=== PATIENT | male | born 1930 | race Two or more races ===

== ENCOUNTER 2017-01-18 15:30 | Inpatient (IN) | payer MEDICARE, MEDICAID ==
[~2017-01-18] VITALS: Ht 172.7 cm; Wt 91.0 kg
[~2017-01-18 15:30] MED LIST: ASPI81TA44 PO; DILT120C2 PO; HYDR25TA4 PO; LOSA1TAB36 PO; MECL-102 PO; OXYB10TA PO; TAMS0.4C34 PO
--- NOTE | 2017-01-18 15:35 | NUR ---
[id number] FROM HOME SYNCOPE FOUND BY CG BATHROOM BS IN FIELD 175. PATIENT IS A/OX 2 AT THE MOMENT. BREATHING EVEN AND UNLABORED. NO SOB. VITALS STABLE. SAFETY AND COMFORT MEASURES IN PLACE. AWAITING MD ORDERS.
--- NOTE | 2017-01-18 15:52 | NUR ---
BLOOD DRAWN AND SENT TO LAB
[2017-01-18 15:57] LABS: BASOPHILS # (AUTO) 0.3 /CMM (0.0-0.2); BASOPHILS % (AUTO) 2.3 % (0.0-2.0); EOSINOPHILS # (AUTO) 0.1 /CMM (0.0-0.7); EOSINOPHILS % (AUTO) 0.7 % (0.0-6.0); HEMATOCRIT 46 % (39-51); HEMOGLOBIN 15.1 g/dL (13.5-17.5); LYMPHOCYTES # (AUTO) 1.4 /CMM (0.8-4.8); LYMPHOCYTES % (AUTO) 10.4 % (20.0-44.0); MEAN CORPUSCULAR HEMOGLOBIN 30 PG (26.0-33.0); MEAN CORPUSCULAR HGB CONC 33 g/dl (31.0-36.0); MEAN CORPUSCULAR VOLUME 91 fL (80-96); MONOCYTES # (AUTO) 0.9 /CMM (0.1-1.30); MONOCYTES % (AUTO) 6.7 % (2.0-12.0); NEUTROPHILS % (AUTO) 79.9 % (43.0-81.0); PLATELET COUNT (AUTO) 170 /CMM (150-450); RDW COEFFICIENT OF VARIATION 13.1 (11.5-15.0); RED BLOOD CELL COUNT(AUTO) 5.05 MIL/uL (4.5-6.0); WHITE BLOOD COUNT (AUTO) 13.7 K/uL (4.3-11.0)
[2017-01-18] MEDS ORDERED: OXYB5TAB PO (15:57)
--- NOTE | 2017-01-18 16:04 | NUR ---
PATIENT TAKEN TO CT VIA STRETCHER.
[2017-01-18 16:08] LABS: MAGNESIUM 2.3 mg/dL (1.8-2.4)
[2017-01-18 16:09] LABS: CALCIUM, SERUM 9.2 mg/dL (8.5-10.1); CARBON DIOXIDE 27 mmol/L (21-32); CHLORIDE 101 mmol/L (98-107); CREATININE 3.3 mg/dL (0.6-1.3); GLUCOSE 168 mg/dL (74-106); POTASSIUM 3.9 mmol/L (3.5-5.1); SODIUM SERUM 137 mmol/L (136-145); UREA NITROGEN, BLOOD 47 mg/dL (7-18)
[2017-01-18 16:12] LABS: INR 1.01 (0.87-1.13); PROTHROMBIN TIME 10.5 SECS (9.5-12.7)
[2017-01-18 16:15] LABS: ALANINE AMINOTRANSFERASE 74 U/L (12-78); ALBUMIN 3.2 g/dL (3.4-5.0); ALKALINE PHOSPHATASE 40 U/L (46-116); ASPARTATE AMINOTRANSFERASE 192 U/L (15-37); BILIRUBIN,DIRECT 0.2 mg/dL (0.0-0.2); BILIRUBIN,TOTAL 0.5 mg/dL (0.2-1.0); TOTAL PROTEIN, SERUM 7.5 g/dL (6.4-8.2)
[2017-01-18 16:17] LABS: TROPONIN I 0.086 ng/mL (0.00-0.056)
[2017-01-18 16:42] LABS: THYROID STIMULATING HORMONE 1.29 uIU/mL (0.358-3.74)
--- NOTE | 2017-01-18 16:43 | NUR ---
REPORT GIVEN TO CRICKET MAKI FOR ADMISSION.
[2017-01-18] MEDS ORDERED: PIPERACILLIN /TAZOBACTAM 2.25 G in IV D5W 50 ML IV STA (17:25)
[2017-01-18] MEDS ORDERED: ASPIRIN 81 MG TAB.CHEW PO STA (17:35)
[2017-01-18] MEDS ORDERED: ASPIRIN 81 MG TAB.CHEW ONE (17:47)
--- NOTE | 2017-01-18 18:05 | NUR ---
US TECH AT BEDSIDE.
--- NOTE | 2017-01-18 18:56 | NUR ---
PATIENT AND FAMILY REFUSING DR. PARSON ADMITTING MD. STATING THEY HAVE CHANGED THEIR PRIMARY MD LONG TIME AGO. AGREEING TO SEE ANY OTHER HOSPITALIST ADMITTING MD. DR. MUNIZ INFORMED.
--- NOTE | 2017-01-18 19:03 | NUR ---
PAGED DR PARSON
--- NOTE | 2017-01-18 19:21 | NUR ---
Assumed care of pt. Harry, STONE DECORATOR at bedside for further eval. pt assisted to restroom w/ resp even & unlabored, nad noted. On continuous monitoring. Family at bedside.
--- NOTE | 2017-01-18 19:36 | NUR ---
CALLED DR ROLDAN, HVAC SHEET METAL INSTALLER SURGEON.
[2017-01-18] MEDS ORDERED: DEXTROSE 50%-WATER 50 ML DISP.SYRIN IV PRN (20:00)
[2017-01-18] MEDS ORDERED: ZOLPIDEM TARTRATE 5 MG TABLET PO PRN (20:00)
[2017-01-18] MEDS ORDERED: MAGNESIUM HYDROXIDE 30 ML UDC PO PRN (20:00)
[2017-01-18] MEDS ORDERED: ACETAMINOPHEN 325 MG TABLET PO PRN (20:00)
[2017-01-18] MEDS ORDERED: MAG HYDROX/AL HYDROX/SIMETH 30 ML UDC PO PRN (20:00)
[2017-01-18] MEDS ORDERED: ONDANSETRON HCL/PF 4 MG/2 ML VIAL IVP PRN (20:00)
--- NOTE | 2017-01-18 20:15 | NUR ---
MS/RN NOTES NEW ADMITTED PATIENT, RECEIVED FROM ER ON A GURNEY, ALERT, ORIENTED X3, SPEAKS TELUGU AND REQUIRE RESTAURANT MANAGING PARTNER, FAMILY AT BED SIDE AND INVOLVE WITH CARE. PATIENT DX W/ SYNCOPE AND NSTEMI, TROPONIN HIGH AND WAS GIVEN ASPIRIN AT TH ER, IV ATB ZOSYN GIVEN AT ER, HAD FALL AND STATED BY CAREGIVER, NOTED REDNESS ON VARIOUS AREAS OF EXTREMITIES, TELE READING WITH UNCONTROLLED AFIB IN 120'S, PATIENT REPORTED TO Alexa WEI, RAMOS AND ORDERED FOR CARDIZEM 30MG TAB, NPO AFTER MIDNIGHT FOR HIDA SCAN, F/U CONSENT FORM. PATIENT ON OXYGEN 2L, RESPIRATIONS EVEN AND UNLABORED,DENIES PAIN, SKIN WARM TO TOUCH, BOWEL SOUNDS HEARD IN ALL 4 QUADRANTS, WILL MONITOR.
[2017-01-18 20:30] VITALS: BP 131/73
[2017-01-18] MEDS ORDERED: MORPHINE SULFATE INJ 10 MG/ML DISP.SYRIN IV PRN (20:30)
[2017-01-18 21:05] VITALS: BP 131/73
[2017-01-18] MEDS ORDERED: DILTIAZEM HCL 30 MG TABLET ONE (22:18)
[2017-01-18] MEDS: FAMOTIDINE (20 MG) 20 MG TABLET PO SCH (22:20)
[2017-01-18] MEDS: BLOOD SUGAR DIAGNOSTIC 1 EACH STRIP IN SCH (22:21)
[2017-01-18] MEDS: TAMSULOSIN 0.4 MG CAP.SR.24H PO SCH (22:44)
[2017-01-18] MEDS: DILTIAZEM HCL 30 MG TABLET PO SCH (22:45)
[2017-01-19] VITALS (9 sets, daily range): BP systolic 102–129; BP diastolic 62–78
[2017-01-19] MEDS: PIPERACILLIN /TAZOBACTAM 2.25 G in IV D5W 50 ML IV SCH ×4 (00:17→17:25)
[2017-01-19] MEDS: IV NS 0.9% 1,000 ML IV PRN (02:57)
--- NOTE | 2017-01-19 03:56 | NUR ---
ms/rn notes PATIENT IV SITE ON LEFT AC LEAKING, REINSERTED IN RIGHT HAND IV GAUGE 20, ABLE TO HAVE BLOOD RETURN AFTER 3 ATTEMPTS.
[2017-01-19] MEDS: BLOOD SUGAR DIAGNOSTIC 1 EACH STRIP IN SCH ×4 (06:17→21:44)
--- NOTE | 2017-01-19 06:35 | NUR ---
TELE/RN NOTES PATIENT ALERT, ORIENTED X2, MOHAWK SPEAKING, RESPIRATION EVEN AND UNLABORED, ON NPO FOR PROCEDURE hida SCAN IN AM, CONSENT FORM TO BE SIGNED, SEWING INSPECTOR REQUIRES, ON IV HYDRATION, IV ON RIGHT HAND, W/ NO S/S OF INFILTRATION, BED IN LOCK POSITION, OXYGEN VIA NASAL CANULA T 2L. MONITORING FOR PAIN . ON TELE READING W/ UNCONTROLLED AFIB AT AFIB, 111, PRN CARDIZEM ADMINISTRERED PO WILL ENDORSE TO AM RN.
--- NOTE | 2017-01-19 06:38 | NUR ---
[facility] DR[facility]
--- NOTE | 2017-01-19 06:52 | NUR ---
TELE/RN CLOSING NOTES PATIENT ASLEEP IN BED HOB ELEVATED, IV SITE ON RIGHT HAND W/ NO S/S OF INFILTRATION, ON OXYGEN VIA NC. BED IN LOCK POSITION, CALL LIGHTS WITHIN REACH. FAMILY CONTACTED REGARDIND PROCEDURE OF HIDA SCAN IN AM, FAMILY WOULD COME MILLY AM TO TALK TO MD REGARDING PROCEDURE AND WILL NOT SIGN CONSENT FOR NOW. WILL ENDORSE TO AM RN.
--- NOTE | 2017-01-19 07:31 | NUR ---
tele/rn notes ORTHOSTATIC B/P CHECK SITTING 116/78 AND LAYING DOWN 113/72
[2017-01-19] MEDS ORDERED: ACETAMINOPHEN 325 MG TABLET PO PRN (08:30)
[2017-01-19] MEDS: ASPIRIN 325 MG TABLET PO SCH (08:56)
[2017-01-19] MEDS: OXYBUTYNIN CHLORIDE ER 5 MG TAB PO SCH (08:56)
[2017-01-19] MEDS: DILTIAZEM HCL 30 MG TABLET PO SCH ×4 (08:56→21:06)
[2017-01-19] MEDS: FAMOTIDINE (20 MG) 20 MG TABLET PO SCH ×2 (08:56→21:06)
--- NOTE | 2017-01-19 08:58 | NUR ---
RN NOTES ALERTED TO BED ALARM. PATIENT ATTEMPTING TO GET OUT OF BED. WITH THE HELP OF A IVORIAN SPEAKING NURSE, WAS ABLE TO GET PATIENT BACK AND BED AND TOLD HIM NOT TO GET UP WITHOUT HELP. PATIENT STATES UNDERSTANDING. BED ALARM ACTIVE. WILL MONITOR.
--- NOTE | 2017-01-19 09:45 | NUR ---
RN NOTES PATIENT SON, SEYMOUR AT THE BEDSIDE. SEYMOUR STATS THAT HE DOES NOT WANT ANY TESTING FOR HIS FATHER THAT INVOLVES INVASIVE TREATMENT SUCH THE HITA SCAN. EXPLAINED THE IMPORTANCE OF THE TEST AND THE PROCEDURE WITH THE HELP OF [facility] FROM NUCLEAR MEDICINE, BUT THE PATIENT SON IS STILL REFUSING. SEYMOUR STATES THAT HE WILL TALK WITH HIS BROTHER THIS EVENING AND DECIDE IF THEY WILL ALLOW THE PATIENT TO HAVE THE TEST TOMORROW. WILL INFORM .
[2017-01-19] MEDS: INSULIN REGULAR, HUMAN 100 UNIT/ML 3 ML VIAL SQ PRN ×2 (12:20→17:26)
[2017-01-19 15:29] LABS: BASOPHILS % (AUTO) 0.2 % (0.0-2.0); EOSINOPHILS # (AUTO) 0.1 /CMM (0.0-0.7); EOSINOPHILS % (AUTO) 1.3 % (0.0-6.0); HEMATOCRIT 38 % (39-51); HEMOGLOBIN 12.7 g/dL (13.5-17.5); LYMPHOCYTES # (AUTO) 0.9 /CMM (0.8-4.8); LYMPHOCYTES % (AUTO) 9.4 % (20.0-44.0); MEAN CORPUSCULAR HEMOGLOBIN 30 PG (26.0-33.0); MEAN CORPUSCULAR HGB CONC 33 g/dl (31.0-36.0); MEAN CORPUSCULAR VOLUME 91 fL (80-96); MONOCYTES # (AUTO) 0.6 /CMM (0.1-1.30); MONOCYTES % (AUTO) 6.5 % (2.0-12.0); NEUTROPHILS # (AUTO) 8.3 /CMM (1.8-8.9); NEUTROPHILS % (AUTO) 82.6 % (43.0-81.0); PLATELET COUNT (AUTO) 162 /CMM (150-450); RDW COEFFICIENT OF VARIATION 14.4 (11.5-15.0); RED BLOOD CELL COUNT(AUTO) 4.25 MIL/uL (4.5-6.0)
[2017-01-19 16:03] LABS: ALANINE AMINOTRANSFERASE 78 U/L (12-78); ALBUMIN 2.6 g/dL (3.4-5.0); ALKALINE PHOSPHATASE 35 U/L (46-116); ASPARTATE AMINOTRANSFERASE 106 U/L (15-37); BILIRUBIN,DIRECT 0.1 mg/dL (0.0-0.2); BILIRUBIN,TOTAL 0.5 mg/dL (0.2-1.0); CALCIUM, SERUM 8.4 mg/dL (8.5-10.1); CARBON DIOXIDE 24 mmol/L (21-32); CHLORIDE 103 mmol/L (98-107); CREATININE 2.2 mg/dL (0.6-1.3); GLUCOSE 136 mg/dL (74-106); MAGNESIUM 2.3 mg/dL (1.8-2.4); PHOSPHORUS 2.3 mg/dL (2.5-4.9); POTASSIUM 3.3 mmol/L (3.5-5.1); SODIUM SERUM 138 mmol/L (136-145); TOTAL PROTEIN, SERUM 6.7 g/dL (6.4-8.2); UREA NITROGEN, BLOOD 46 mg/dL (7-18)
[2017-01-19 16:10] LABS: CHOLESTEROL 128 mg/dL (<200); HDL CHOLESTEROL 26 mg/dL (40-60); LDL 82 mg/dL (0-99); THYROID STIMULATING HORMONE 0.407 uIU/mL (0.358-3.74); TRIGLYCERIDES 96 mg/dL (30-150)
--- NOTE | 2017-01-19 18:55 | NUR ---
RIGGING ENGINEER CLOSING NOTES NO SIGNIFICANT CHANGES IN PATIENT CONDITION THROUGHOUT THE SHIFT. NO SOB OR DISTRESS NOTED AT THIS TIME. PATIENT DENIES PAIN. FAMILY AT THE BEDSIDE; WAITING FOR A BROTHER TO COME AND DISCUSS THE HITA SCAN TOMORROW. BED IN A LOW POSITION, WILL ENDORSE FOR FABIOLA. Addendum: 01/19/17 at 1856 by ROGER PELAYO RN HEART RATE AFIB AT 77
--- NOTE | 2017-01-19 19:15 | NUR ---
RN NOTES RECEIVED PT AWAKE, HOB ELEVATED, ON 2 LPM O2 VIA NC, NO SOB, NOT IN DISTRESS. PT ALERT AND ORIENTED X2 WITH CONFUSION NOTED, NICARAGUAN SPEAKING, FAMILY AT BEDSIDE, PT DENIES ANY PAIN AND DISCOMFORT. IV ACCESS ON RIGHT HAND PATENT AND INTACT WITH ONGOING IVF INFUSING WELL. KEPT BED IN THE LOWEST POSITION, LOCKED, ALARM ON, SIDE RAILS X2 UP WITH CALL LIGHT WITHIN REACH. WILL CONTINUE TO MONITOR PT.
[2017-01-19] MEDS: TAMSULOSIN 0.4 MG CAP.SR.24H PO SCH (21:06)
[2017-01-20] VITALS (7 sets, daily range): BP systolic 105–147; BP diastolic 65–79
[2017-01-20] MEDS: PIPERACILLIN /TAZOBACTAM 2.25 G in IV D5W 50 ML IV SCH ×4 (00:24→17:19)
--- NOTE | 2017-01-20 04:00 | NUR ---
RN NOTES PT PULLED OUT HIS IV ACCESS ON RIGHT HAND, PRESSURE DRESSING APPLIED. INSERTED NEW IV ACCESS ON RIGHT FOREARM , PT IS VERY AGGRESSIVE AND PULLED OUT IV CATH. WILL TRY AGAIN LATER BEFORE NEXT DUE ATB AT 0600. WILL CONTINUE TO MONITOR PT.
--- NOTE | 2017-01-20 06:00 | NUR ---
RN NOTES INSERTED NEW IV LINE ON LEFT FOREARM,PT PULLED OUT AND VERY AGGRESSIVE. 0600 DOSE OF ZOSYN NOT GIVEN. PT REFUSED IV LINE INSERTION.
[2017-01-20] MEDS: IV NS 0.9% 1,000 ML IV PRN (06:30)
[2017-01-20] MEDS: BLOOD SUGAR DIAGNOSTIC 1 EACH STRIP IN SCH ×4 (06:36→21:03)
--- NOTE | 2017-01-20 07:30 | NUR ---
RN NOTES PT AWAKE, CONFUSED, HOB ELEVATED, ON ROOM AIR AND TOLERATED WELL, NO SIGNS OF DISTRESS AND DISCOMFORT NOTED. VITAL SIGNS STABLE. TELE MONITOR READS A. FIB AT 108. NO COMPLAIN OF PAIN. NO EPISODE OF NAUSEA AND VOMITING. BLOOD SUGAR CONTROLLED. NO IV ACCESS, PT REFUSING AND PULLING OUT IV LINES. FALL PRECAUTION OBSERVED. ENDORSED TO MORNING RN FOR CONTINUITY OF CARE.
--- NOTE | 2017-01-20 07:35 | NUR ---
RN OPEN NOTES RECEIVED REPORT FROM GED INSTRUCTOR NURSE. PATIENT IS COOK ISLANDER / TONGAN SPEAKER. PATIENT HAS NO IV SITE DUE TO PATIENT REMOVED IT TWICE DURING THE NIGHT. PER GED INSTRUCTOR NURSE, ZOCYN 0600 DOSE WAS NOT GIVEN SCHEDULE DUE TO IV NOT AVAILABLE. WILL CONTINUE TO ASSESS AND MONITOR PATIENT THROUGH OUT MY SHIFT
--- NOTE | 2017-01-20 08:43 | NUR ---
PATIENT HAS NO IV LINE DUE TO PULLING IT OUT. ATTEMPTED CALLING SEYMOUR AT [phone] BUT NO ANSWER. DIDN'T LEAVE A MESSAGE
[2017-01-20] MEDS: DILTIAZEM HCL 30 MG TABLET PO SCH ×4 (09:07→21:02)
[2017-01-20] MEDS: FAMOTIDINE (20 MG) 20 MG TABLET PO SCH ×2 (09:07→21:03)
[2017-01-20] MEDS: ASPIRIN 325 MG TABLET PO SCH (09:07)
[2017-01-20] MEDS: OXYBUTYNIN CHLORIDE ER 5 MG TAB PO SCH (09:07)
[2017-01-20 09:46] LABS: BASOPHILS % (AUTO) 0.5 % (0.0-2.0); EOSINOPHILS # (AUTO) 0.2 /CMM (0.0-0.7); EOSINOPHILS % (AUTO) 2.3 % (0.0-6.0); HEMATOCRIT 38 % (39-51); HEMOGLOBIN 12.5 g/dL (13.5-17.5); LYMPHOCYTES # (AUTO) 1.2 /CMM (0.8-4.8); LYMPHOCYTES % (AUTO) 13.3 % (20.0-44.0); MEAN CORPUSCULAR HEMOGLOBIN 30 PG (26.0-33.0); MEAN CORPUSCULAR HGB CONC 33 g/dl (31.0-36.0); MEAN CORPUSCULAR VOLUME 91 fL (80-96); MONOCYTES # (AUTO) 0.7 /CMM (0.1-1.30); MONOCYTES % (AUTO) 8.4 % (2.0-12.0); NEUTROPHILS # (AUTO) 6.7 /CMM (1.8-8.9); NEUTROPHILS % (AUTO) 75.5 % (43.0-81.0); PLATELET COUNT (AUTO) 184 /CMM (150-450); RED BLOOD CELL COUNT(AUTO) 4.19 MIL/uL (4.5-6.0); WHITE BLOOD COUNT (AUTO) 8.8 K/uL (4.3-11.0)
[2017-01-20 10:06] LABS: ALANINE AMINOTRANSFERASE 83 U/L (12-78); ALBUMIN 2.7 g/dL (3.4-5.0); ALKALINE PHOSPHATASE 35 U/L (46-116); ASPARTATE AMINOTRANSFERASE 84 U/L (15-37); BILIRUBIN,TOTAL 0.5 mg/dL (0.2-1.0); CALCIUM, SERUM 8.8 mg/dL (8.5-10.1); CARBON DIOXIDE 26 mmol/L (21-32); CHLORIDE 105 mmol/L (98-107); CREATININE 1.8 mg/dL (0.6-1.3); GLUCOSE 123 mg/dL (74-106); MAGNESIUM 2.3 mg/dL (1.8-2.4); PHOSPHORUS 2.6 mg/dL (2.5-4.9); POTASSIUM 3.3 mmol/L (3.5-5.1); SODIUM SERUM 139 mmol/L (136-145); UREA NITROGEN, BLOOD 40 mg/dL (7-18)
[2017-01-20] MEDS ORDERED: Potassium Chloride 20 MEQ in IV D5/ 0.9% NACL 1,000 ML IV PRN (11:30)
--- NOTE | 2017-01-20 12:00 | NUR ---
NEW IV STARTED. RIGHT FOREARM 22G
--- NOTE | 2017-01-20 12:30 | NUR ---
PATIENT IS OFF THE FLOOR FOR MRI
--- NOTE | 2017-01-20 14:05 | NUR ---
PATIENT CAME BACK TO UNIT FROM HIDA SCAN. PER [facility], WILL REPEAT HIDA AT 1630
--- NOTE | 2017-01-20 16:40 | NUR ---
PATIENT IS OFF THE FLOOR FOR HIDA
--- NOTE | 2017-01-20 17:10 | NUR ---
PATIENT RETURNED TO FLOOR FROM [facility]
[2017-01-20] MEDS: INSULIN REGULAR, HUMAN 100 UNIT/ML 3 ML VIAL SQ PRN (17:21)
--- NOTE | 2017-01-20 18:03 | NUR ---
PATIENT REMOVED HIS TELE AND LEADS AND REFUSE TO PUT IT BACK
--- NOTE | 2017-01-20 18:28 | NUR ---
RN CLOSING NOTES PATIENT IS IN BED, ALERT AND ORIENTED TO NAME ONLY. LITHUANIAN, ANGUILLAN SPEAKER. UNABLE TO COMPREHEND AND VERBALIZE UNDERSTANDING. PATIENT REFUSE TELE BOX. NO SIGNS AND SYMPTOMS OF DISTRESS OR PAIN. ALL NURSING CARE ANTICIPATED AND ATTENDED. IV ON THE RIGHT FOREARM 22G, CURRENTLY INFUSING D5NS WITH 20mEq KCL AT 50ML/HR; NO SIGNS AND SYMPTOMS OF INFILTRATION, REDNESS OR INFECTION. SKIN IS INTACT. BED IN LOW POSITION, LOCKED AND TWO SIDE RAILS ARE UP. CALL LIGHTS WITHIN REACH. WILL ENDORSE TO CHEF DE CUISINE RN FOR FABIOLA.
--- NOTE | 2017-01-20 18:45 | NUR ---
PATIENT PULLED HIS IV
--- NOTE | 2017-01-20 19:30 | NUR ---
DATA COORDINATOR NOTE RECEIVED PATIENT IN BED ALERT AND ORIENTED BUT CONFUSED. FRENCH SPEAKING. FAMILY AT BEDSIDE. NO RESPIRATORY DISTRESS OR SOB NOTED. NEW IV SITE INTACT, WITH FLUIDS RUNNING ORDERED. BED LOCKED AND IN LOWEST POSITION. SIDE RAILS UP, CALL LIGHT WITHIN REACH. WILL CONTINUE TO MONITOR.
--- NOTE | 2017-01-20 19:38 | NUR ---
NEW IV INSERTED. LEFT WRIST 22G
[2017-01-20] MEDS: TAMSULOSIN 0.4 MG CAP.SR.24H PO SCH (21:03)
--- NOTE | 2017-01-20 22:20 | NUR ---
RN NOTES RECEIVED PATIENT IN BED WITH NO RESPIRATORY DISTRESS OR SHORTNESS OF BREATH. BREATHING EVEN AND UNLABORED. NO PHYSICAL MANIFESTATION OF PAIN OR DISCOMFORT. ALERT AND RESPONSIVE WITH CONFUSION. NOTED WITH AGITATION AND RESTLESSNESS. PIV LINE TO LEFT WRIST PATENT AND INTACT O2 AT 2LPM VIA NASAL CANNULA WELL TOLERATED. KEPT CLEAN AND DRY. WILL CONTINUE TO MONITOR
[2017-01-21] VITALS: BP 115/78
[2017-01-21] MEDS: PIPERACILLIN /TAZOBACTAM 2.25 G in IV D5W 50 ML IV SCH ×5 (00:54→23:59)
--- NOTE | 2017-01-21 03:20 | NUR ---
RN NOTES PIV TO LEFT WRIST PULLED OUT. INSERTED PIV LINE TO RAC. PROCEDURE WELL TOLERATED WITH GOOD BACK FLOW
[2017-01-21 04:00] VITALS: BP_SYST 115; BP_SYST 127; BP_DIAS 71; BP_DIAS 78
[2017-01-21 06:14] LABS: BASOPHILS % (AUTO) 0.6 % (0.0-2.0); EOSINOPHILS # (AUTO) 0.3 /CMM (0.0-0.7); EOSINOPHILS % (AUTO) 3.1 % (0.0-6.0); HEMATOCRIT 40 % (39-51); HEMOGLOBIN 13.3 g/dL (13.5-17.5); LYMPHOCYTES # (AUTO) 1.3 /CMM (0.8-4.8); LYMPHOCYTES % (AUTO) 15.6 % (20.0-44.0); MEAN CORPUSCULAR HEMOGLOBIN 30 PG (26.0-33.0); MEAN CORPUSCULAR HGB CONC 33 g/dl (31.0-36.0); MEAN CORPUSCULAR VOLUME 91 fL (80-96); MONOCYTES # (AUTO) 0.7 /CMM (0.1-1.30); MONOCYTES % (AUTO) 7.8 % (2.0-12.0); NEUTROPHILS # (AUTO) 6.1 /CMM (1.8-8.9); NEUTROPHILS % (AUTO) 72.9 % (43.0-81.0); PLATELET COUNT (AUTO) 195 /CMM (150-450); RDW COEFFICIENT OF VARIATION 13.8 (11.5-15.0); WHITE BLOOD COUNT (AUTO) 8.3 K/uL (4.3-11.0)
[2017-01-21 06:37] LABS: ALANINE AMINOTRANSFERASE 87 U/L (12-78); ALBUMIN 2.7 g/dL (3.4-5.0); ALKALINE PHOSPHATASE 39 U/L (46-116); ASPARTATE AMINOTRANSFERASE 66 U/L (15-37); BILIRUBIN,TOTAL 0.4 mg/dL (0.2-1.0); CALCIUM, SERUM 8.5 mg/dL (8.5-10.1); CARBON DIOXIDE 28 mmol/L (21-32); CHLORIDE 108 mmol/L (98-107); CREATININE 1.7 mg/dL (0.6-1.3); GLUCOSE 135 mg/dL (74-106); MAGNESIUM 2.2 mg/dL (1.8-2.4); PHOSPHORUS 2.7 mg/dL (2.5-4.9); POTASSIUM 3.6 mmol/L (3.5-5.1); SODIUM SERUM 143 mmol/L (136-145); TOTAL PROTEIN, SERUM 7.1 g/dL (6.4-8.2); UREA NITROGEN, BLOOD 38 mg/dL (7-18)
[2017-01-21 06:39] LABS: TROPONIN I 0.019 ng/mL (0.00-0.056)
[2017-01-21] MEDS: BLOOD SUGAR DIAGNOSTIC 1 EACH STRIP IN SCH ×4 (06:44→22:31)
[2017-01-21] MEDS: INSULIN REGULAR, HUMAN 100 UNIT/ML 3 ML VIAL SQ PRN ×4 (06:47→22:35)
--- NOTE | 2017-01-21 06:48 | NUR ---
RN CLOSING NOTES NO SIGNIFICANT CHANGE OF CONDITION. PULLED OUT PIV LINE TO LEFT HAND. REINSERTED TO LAC, PROCEDURE WELL TOLERATED. NO DISTRESS NOTED. KEPT CLEAN AND DRY. WILL ENDORSE TO AM SHIFT FOR CONTINUITY OF CARE.
[2017-01-21 08:00] VITALS: BP 137/82
--- NOTE | 2017-01-21 08:03 | NUR ---
MICA UP RECEIVED PATIENT IN THE ROOM A/O X2, CONFUSED SAME TIME. PATIENT O2- 2L NC, HR-85,, NO RESPIRATORY DISTRESS, ENCOURAGED PATIENT EXPRESS FEELINGS AND CONCERNS, PATIENT NAURUAN SPEAKER, NEEDS ATTENDED AND ANTICIPATED, PATIENT TURN AND REPOSITION SELF IN THE BED, NO C/O PAIN AT THIS TIME. CALL WILCOX NEAR TO REACH, BED ALARM ON, CONTINUED MONITORING.
[2017-01-21] MEDS: FAMOTIDINE (20 MG) 20 MG TABLET PO SCH ×2 (09:03→20:53)
[2017-01-21] MEDS: DILTIAZEM HCL 30 MG TABLET PO SCH ×4 (09:03→20:53)
[2017-01-21] MEDS: ASPIRIN 325 MG TABLET PO SCH (09:03)
[2017-01-21] MEDS: OXYBUTYNIN CHLORIDE ER 5 MG TAB PO SCH (09:04)
--- NOTE | 2017-01-21 11:25 | NUR ---
rn notes PATIENT IN THE HALLWAY SITTING IN THE WHEELCHAIR AFTER WALKING WITH PT, STABLE CONDITION. NO ACUTE DISTRESS AT THIS TIME. NO RESPIRATORY DISTRESS, OFFERED SOME SNACKS, NEEDS ATTENDED AND ANTICIPATED, SAFETY PRECAUTION MAINTAINED ALL THE TIME.
[2017-01-21 13:00] VITALS: BP 115/75
--- NOTE | 2017-01-21 15:00 | NUR ---
rn notes PATIENT IN THE HALLWAY NO ACUTE DISTRESS STABLE AT THIS TIME, CONFUSED, SAFETY PRECAUTION MAINTAINED ALL TIME.
[2017-01-21 16:00] VITALS: BP 119/78
--- NOTE | 2017-01-21 19:00 | NUR ---
RN NOTES PATIENT IN THE BED. 1:1 SITTER NEXT TO THE BED FOR SAFETY,NO RESPIRATORY DISTRESS, BS-168 MG/DL, SCHEDULED MEDICATION ADMINISTERED, V/S STABLE, RUNNING IV RIGHT AC AREA 50 ML/HR, INTACT, FAMILY NEXT TO THE BED. CALL WILCOX WITHIN TO REACH, SAFETY PRECAUTION MAINTAINED ALL THE TIME. ENDORSED ONCOMING NURSE FOR CONTINUATION OF CARE.
--- NOTE | 2017-01-21 19:30 | NUR ---
RN NOTES PATIENT IS IN THE BED, ALERT AND ORIENTED X2. 1:1 SITTER PRESENT AT BEDSIDE FOR SAFETY. FAMILY PRESENT AT THE BEDSIDE. VS STABLE. RESPIRATIONS EVEN AND UNLABORED. IV ACCESS ON RIGHT AC PATENT AND INTACT. INFUSING D50 NS AT 50 ML/HR. BED IN LOW POSITION. CALL WILCOX WITHIN EASY REACH. CONTINUE TO MONITOR.
[2017-01-21 20:00] VITALS: BP 138/87
--- NOTE | 2017-01-21 22:00 | NUR ---
RN NOTES PATIENT IS AGITATED. CALLED DR PARSON FOR ATIVAN TO CALM DOWN THE PATIENT. O.5 MG/0.25 ML IV PUSH ADMINISTERED PRN. CONTINUE TO MONITOR.
[2017-01-21] MEDS ORDERED: LORAZEPAM INJ 2 MG/ML VIAL ONE (22:14)
[2017-01-21] MEDS: LORAZEPAM INJ 2 MG/ML VIAL IV PRN (22:25)
[2017-01-21] MEDS: TAMSULOSIN 0.4 MG CAP.SR.24H PO SCH (22:31)
[2017-01-22] MEDS: PIPERACILLIN /TAZOBACTAM 2.25 G in IV D5W 50 ML IV SCH ×4 (05:37→23:47)
[2017-01-22] MEDS: INSULIN REGULAR, HUMAN 100 UNIT/ML 3 ML VIAL SQ PRN ×2 (07:20→22:42)
[2017-01-22] MEDS: BLOOD SUGAR DIAGNOSTIC 1 EACH STRIP IN SCH ×4 (07:20→22:37)
--- NOTE | 2017-01-22 07:22 | NUR ---
RN NOTES BS 103. NO INSULIN ADMINISTERED PER PROTOCOL.
--- NOTE | 2017-01-22 07:26 | NUR ---
RN NOTES PATIENT IS SLEEPING IN THE BED. 1:1 SITTER PRESENT AT BEDSIDE FOR SAFETY. PATIENT AGITATED. REFUSED TO DRAW BLOOD. VS STABLE. RESPIRATIONS EVEN AND UNLABORED. ATTEMPTED TO INSERT AN IV. BED IN LOW POSITION. CALL WILCOX WITHIN EASY REACH. CONTINUE TO MONITOR. WILL ENDORSE TO RN DAY SHIFT FOR CONTINUITY OF CARE.
[2017-01-22 08:00] VITALS: BP 164/95
--- NOTE | 2017-01-22 08:00 | NUR ---
MS RN NOTES PATIENT IN BED RESTING , WITH NO IV ACCESS REPORTED BY MORNING RN PATIENT PULLED OUT IV. PATIENT SEEMS CALM AT THIS MOMENT. CONFUSED. GAUGE 22 PERIPHERAL IV STARTED ON LEFT AC WITH GOOD BLOOD RETURN. IV FLUIDS RUNNING. WILL CONTINUE TO MONITOR. SITTER AT BEDSIDE.
[2017-01-22] MEDS: ASPIRIN 325 MG TABLET PO SCH (08:06)
[2017-01-22] MEDS: DILTIAZEM HCL 30 MG TABLET PO SCH ×4 (08:07→22:29)
[2017-01-22] MEDS: FAMOTIDINE (20 MG) 20 MG TABLET PO SCH ×2 (08:07→22:28)
[2017-01-22] MEDS: OXYBUTYNIN CHLORIDE ER 5 MG TAB PO SCH (08:07)
[2017-01-22 11:13] LABS: EOSINOPHILS # (AUTO) 0.3 /CMM (0.0-0.7); EOSINOPHILS % (AUTO) 3.7 % (0.0-6.0); HEMATOCRIT 39 % (39-51); LYMPHOCYTES # (AUTO) 1.3 /CMM (0.8-4.8); LYMPHOCYTES % (AUTO) 15.5 % (20.0-44.0); MEAN CORPUSCULAR HEMOGLOBIN 30 PG (26.0-33.0); MEAN CORPUSCULAR HGB CONC 33 g/dl (31.0-36.0); MEAN CORPUSCULAR VOLUME 90 fL (80-96); MONOCYTES # (AUTO) 0.6 /CMM (0.1-1.30); MONOCYTES % (AUTO) 6.8 % (2.0-12.0); NEUTROPHILS # (AUTO) 6.4 /CMM (1.8-8.9); PLATELET COUNT (AUTO) 239 /CMM (150-450); RDW COEFFICIENT OF VARIATION 14.1 (11.5-15.0); RED BLOOD CELL COUNT(AUTO) 4.36 MIL/uL (4.5-6.0); WHITE BLOOD COUNT (AUTO) 8.6 K/uL (4.3-11.0)
[2017-01-22 11:37] LABS: ALANINE AMINOTRANSFERASE 86 U/L (12-78); ALBUMIN 2.9 g/dL (3.4-5.0); ALKALINE PHOSPHATASE 38 U/L (46-116); ASPARTATE AMINOTRANSFERASE 47 U/L (15-37); BILIRUBIN,TOTAL 0.4 mg/dL (0.2-1.0); CARBON DIOXIDE 26 mmol/L (21-32); CHLORIDE 110 mmol/L (98-107); CREATININE 1.5 mg/dL (0.6-1.3); GLUCOSE 114 mg/dL (74-106); MAGNESIUM 1.9 mg/dL (1.8-2.4); PHOSPHORUS 2.5 mg/dL (2.5-4.9); POTASSIUM 3.8 mmol/L (3.5-5.1); SODIUM SERUM 148 mmol/L (136-145); TOTAL PROTEIN, SERUM 7.2 g/dL (6.4-8.2); UREA NITROGEN, BLOOD 30 mg/dL (7-18)
--- NOTE | 2017-01-22 18:44 | NUR ---
MS RN NOTES PATIENT IN BED RESTING NO SOB OR ACUTE DISTRESS NOTED. PATIENT CONFUSED. SITTER AT BEDSIDE. PERIPHERAL IV ON LEFT AC INTACT PATENT. ALL DUE MEDICATIONS ADMINISTERED. ALL NEEDS MET. WILL ENDORSE TO PM SHIFT FABIOLA.
[2017-01-22] MEDS: POTASSIUM PHOSPHATE MM 5 MMOL in IV D5W 100 ML IV SCH (19:30)
--- NOTE | 2017-01-22 19:30 | NUR ---
RN NOTES PATIENT IS IN THE BED, ALERT AND ORIENTED X2. 1:1 SITTER PRESENT AT BEDSIDE FOR SAFETY. VS STABLE. RESPIRATIONS EVEN AND UNLABORED. IV ACCESS ON LEFT AC PATENT AND INTACT. INFUSING D50 NS AT 50 ML/HR. BED IN LOW POSITION. CALL WILCOX WITHIN EASY REACH. CONTINUE TO MONITOR.
[2017-01-22 20:00] VITALS: BP 143/95
[2017-01-22] MEDS ORDERED: LORAZEPAM 1 MG TABLET PO PRN (20:00)
--- NOTE | 2017-01-22 21:00 | NUR ---
RN NOTES POTASSIUM PHOS IS NOT AVAILABLE IN THE PHARMACY. RACK PUNCHER IS AWARE.
[2017-01-22] MEDS: TAMSULOSIN 0.4 MG CAP.SR.24H PO SCH (22:28)
[2017-01-23] MEDS: PIPERACILLIN /TAZOBACTAM 2.25 G in IV D5W 50 ML IV SCH ×4 (05:59→23:40)
[2017-01-23] MEDS: BLOOD SUGAR DIAGNOSTIC 1 EACH STRIP IN SCH ×5 (06:42→21:50)
[2017-01-23] MEDS: INSULIN REGULAR, HUMAN 100 UNIT/ML 3 ML VIAL SQ PRN (06:43)
--- NOTE | 2017-01-23 06:44 | NUR ---
RN NOTES BS 112. NO INSULIN ADMINISTERED PER PROTOCOL.
--- NOTE | 2017-01-23 07:22 | NUR ---
RN CLOSING NOTES PATIENT IS SLEEPING IN THE BED, ALERT AND ORIENTED X2. 1:1 SITTER PRESENT AT BEDSIDE FOR SAFETY. VS STABLE. RESPIRATIONS EVEN AND UNLABORED. IV ACCESS ON LEFT AC PATENT AND INTACT. ALL MEDICATIONS GIVEN PER MD ORDER. BED IN LOW POSITION. SIDE RAILS X2. CALL WILCOX WITHIN EASY REACH. WILL ENDORSE RO RN DAY SHIFT FOR CONTINUITY OF CARE.
--- NOTE | 2017-01-23 07:57 | NUR ---
MS/RN NOTES RECEIVED PATIENT RESTING IN BED AWAKE AND ORIENTED X2, ABLE TO COMMUNICATE AND MAKE NEEDS KNOWN. IN NO APPARENT DISTRESS, BREATHING COMFORTABLY WITH NO S/S OF RESPIRATORY DISTRESS. DENIES PAIN AND/OR DISCOMFORT AT THIS TIME. IV TO RIGHT AC #22 H/L. SITTER AT BEDSIDE FOR SAFETY, CALL LIGHT PLACED WITHIN EASY REACH, BED LOCKED IN LOWEST POSITION WITH BED ALARM ON. WILL CONTINUE TO MONITOR.
[2017-01-23] MEDS: OXYBUTYNIN CHLORIDE ER 5 MG TAB PO SCH (09:28)
[2017-01-23] MEDS: FAMOTIDINE (20 MG) 20 MG TABLET PO SCH ×2 (09:28→21:30)
[2017-01-23] MEDS: DILTIAZEM HCL 30 MG TABLET PO SCH ×4 (09:28→21:30)
[2017-01-23] MEDS: ASPIRIN 325 MG TABLET PO SCH (09:28)
--- NOTE | 2017-01-23 10:33 | NUR ---
MS/RN NOTES AM CARE PROVIDED, MORNING MEDS GIVEN, PATIENT MONITORED CLOSELY AND ACCORDINGLY.
--- NOTE | 2017-01-23 11:34 | NUR ---
MS/RN NOTES SPOKE TO PHARMACY REGARDING POTASSIUM PHOS BAG [id number] FOR LAST NIGHT TO BE GIVEN HOWEVER PEOPLESOFT ANALYST NURSE DOCUMENTED NON ADMINISTERED.
--- NOTE | 2017-01-23 12:00 | NUR ---
MS/RN NOTES FAMILY AT BEDSIDE PROVDING PAST MEDICAL HISTORY OF PATIENT. SON STATED THAT THE PATIENT IS NOT DIABETIC AND IS NOT SURE WHY THERE IS AN ORDER FOR BLOOD SUGAR CHECKS. PATIENT AND FAMILY REFUSED ACCUCHEKCS TO BE DONE
[2017-01-23] MEDS ORDERED: MAGN400O6 PO (17:53)
[2017-01-23] MEDS ORDERED: FAMO20TA80 PO (17:53)
[2017-01-23] MEDS ORDERED: ZOLP5TAB2 PO (17:53)
[2017-01-23] MEDS ORDERED: TAMS-12 PO (17:53)
[2017-01-23] MEDS ORDERED: MAG30ORA PO (17:53)
[2017-01-23] MEDS ORDERED: DILT30TA14 PO (17:53)
[2017-01-23] MEDS ORDERED: LORA1TAB PO (17:53)
--- NOTE | 2017-01-23 18:22 | NUR ---
MS/RN NOTES DR. PARSON AT BEDSIDE DISCUSSING PATIENT PLAN OF CARE. WILL BE DISCHARGED TOMORROW POST PT EVAL.
[2017-01-23 18:23] VITALS: BP 128/84
--- NOTE | 2017-01-23 18:47 | NUR ---
MS/RN NOTES PATIENT RESTING IN BED COMFORTABLY, ALL DUE MEDICATIONS GIVEN, ALL NEEDS MET AND ATTENDED, SAFETY MEASURES RENDERED, ASSISTED PATIENT TO RESTROOM NEEDED, KEPT CLEAN AND DRY. PATIENT STABLE. NO SIGNIFICANT CHANGES NOTED. WILL ENDORSE CARE TO TOOL RENTAL TECHNICIAN NURSE FOR FABIOLA
[2017-01-23] MEDS: TAMSULOSIN 0.4 MG CAP.SR.24H PO SCH (21:30)
[2017-01-23] MEDS: POTASSIUM PHOSPHATE MM 5 MMOL in IV D5W 100 ML IV SCH (21:31)
--- NOTE | 2017-01-23 21:50 | NUR ---
ms rn note patient refused accucheck. Attempted several times. Explained benefits. Still refused.
[2017-01-23 22:00] VITALS: BP 143/89
[2017-01-23] MEDS: LORAZEPAM INJ 2 MG/ML VIAL IV PRN (23:40)
[2017-01-24] MEDS: PIPERACILLIN /TAZOBACTAM 2.25 G in IV D5W 50 ML IV SCH ×2 (05:08→12:17)
--- NOTE | 2017-01-24 06:31 | NUR ---
MS RN NOTE PATIENT IN STABLE CONDITION. SLEEPING AT THIS TIME. NO DISTRESS NOTED. SITTER AT BEDSIDE. ALL NEEDS MET AND ATTENDED TO. WILL ENDORSE TO DAY SHIFT FOR FABIOLA.
[2017-01-24 06:43] LABS: BASOPHILS % (AUTO) 0.5 % (0.0-2.0); EOSINOPHILS # (AUTO) 0.4 /CMM (0.0-0.7); EOSINOPHILS % (AUTO) 5.4 % (0.0-6.0); HEMATOCRIT 38 % (39-51); HEMOGLOBIN 12.6 g/dL (13.5-17.5); LYMPHOCYTES # (AUTO) 1.9 /CMM (0.8-4.8); LYMPHOCYTES % (AUTO) 23.7 % (20.0-44.0); MEAN CORPUSCULAR HEMOGLOBIN 30 PG (26.0-33.0); MEAN CORPUSCULAR HGB CONC 33 g/dl (31.0-36.0); MEAN CORPUSCULAR VOLUME 91 fL (80-96); MONOCYTES # (AUTO) 0.7 /CMM (0.1-1.30); MONOCYTES % (AUTO) 8.5 % (2.0-12.0); NEUTROPHILS % (AUTO) 61.9 % (43.0-81.0); PLATELET COUNT (AUTO) 273 /CMM (150-450); RDW COEFFICIENT OF VARIATION 13.6 (11.5-15.0); RED BLOOD CELL COUNT(AUTO) 4.16 MIL/uL (4.5-6.0); WHITE BLOOD COUNT (AUTO) 8.1 K/uL (4.3-11.0)
[2017-01-24 06:58] LABS: ALANINE AMINOTRANSFERASE 68 U/L (12-78); ALBUMIN 2.8 g/dL (3.4-5.0); ALKALINE PHOSPHATASE 30 U/L (46-116); AMYLASE 68 U/L (25-115); ASPARTATE AMINOTRANSFERASE 29 U/L (15-37); BILIRUBIN,TOTAL 0.4 mg/dL (0.2-1.0); CALCIUM, SERUM 9.4 mg/dL (8.5-10.1); CARBON DIOXIDE 30 mmol/L (21-32); CHLORIDE 104 mmol/L (98-107); CREATININE 1.3 mg/dL (0.6-1.3); GLUCOSE 110 mg/dL (74-106); LIPASE 255 U/L (73-393); MAGNESIUM 1.7 mg/dL (1.8-2.4); PHOSPHORUS 3.1 mg/dL (2.5-4.9); POTASSIUM 3.6 mmol/L (3.5-5.1); SODIUM SERUM 142 mmol/L (136-145); TOTAL PROTEIN, SERUM 6.8 g/dL (6.4-8.2); UREA NITROGEN, BLOOD 18 mg/dL (7-18)
[2017-01-24 07:22] VITALS: BP 143/89
[2017-01-24] MEDS: BLOOD SUGAR DIAGNOSTIC 1 EACH STRIP IN SCH ×2 (07:30→12:17)
--- NOTE | 2017-01-24 08:00 | NUR ---
MS RN NOTES PATIENT IN BED RESTING NO SOB OR ACUTE DISTRESS NOTED. NOTED SITTER AT BEDSIDE. PERIPHERAL IV INTACT PATENT. BED IN LOW LOCKED POSITION, CALL LIGHT WITHIN REACH. PATIENT ALERT, ORIENTED X1-2 CONFUSED. WILL CONTINUE TO MONITOR.
[2017-01-24] MEDS: DILTIAZEM HCL 30 MG TABLET PO SCH ×2 (08:39→12:30)
[2017-01-24] MEDS: OXYBUTYNIN CHLORIDE ER 5 MG TAB PO SCH (08:40)
[2017-01-24] MEDS: ASPIRIN 325 MG TABLET PO SCH (08:40)
[2017-01-24] MEDS: FAMOTIDINE (20 MG) 20 MG TABLET PO SCH (08:40)
--- NOTE | 2017-01-24 10:00 | NUR ---
MS RN NOTES PATIENT SEEN AND EVALUATED BY DR. ADAMS ORDERS NOTED AND CARRIED OUT.
[2017-01-24] MEDS: Magnesium 1GM/D5W 100ML PREMIX 100 ML IV SCH ×2 (13:49→15:26)
[2017-01-24 16:04] VITALS: BP 122/87
--- NOTE | 2017-01-24 17:55 | NUR ---
m/s development trainer: notes h/l removed with tip intact with no swelling, no redness, and no bleeding noted.
--- NOTE | 2017-01-24 17:55 | NUR ---
MS RN NOTES PATIENT DISCHARGED TO [facility] WITH EMT. PATIENT IN STABLE CONDITION NO SOB OR ACUTE DISTRESS NOTED. SON AT BEDSIDE. ALL BELONGINGS ACCOUNTED FOR, BELONGINGS LIST SIGNED. DISCHARGE INSTRUCTIONS PROVIDED TO RN AT [facility]UTE [facility]AB [facility] ALSO TO SON. IV REMOVED. ID BAND ALSO REMOVED. AWARE OF ALL ABNORMAL LABS. PATIENT DISCHARGED TO [facility].
== END 2017-01-24 18:00 ==
LOC: ER 15:31 → TELE 16:35 → MED 01-21 08:38
PROVIDERS: ADMIT Nurse Practitioner Acute Care; ATTEND Family Medicine
DX: K80.12 Calculus of gallbladder with acute and chronic cholecystitis without obstruction (principal); I21.4 Non-ST elevation (NSTEMI) myocardial infarction; N17.0 Acute kidney failure with tubular necrosis; E46 Unspecified protein-calorie malnutrition; E88.81 Metabolic syndrome and other insulin resistance; F03.90 Unspecified dementia, unspecified severity, without behavioral disturbance, psychotic disturbance, mood disturbance, and anxiety; I50.9 Heart failure, unspecified; I13.0 Hypertensive heart and chronic kidney disease with heart failure and stage 1 through stage 4 chronic kidney disease, or unspecified chronic kidney disease; I48.91 Unspecified atrial fibrillation; G20 Parkinson's disease; M48.02 Spinal stenosis, cervical region; R55 Syncope and collapse; E86.0 Dehydration; E87.6 Hypokalemia; I73.9 Peripheral vascular disease, unspecified; N18.9 Chronic kidney disease, unspecified; I25.2 Old myocardial infarction; K21.9 Gastro-esophageal reflux disease without esophagitis; M81.0 Age-related osteoporosis without current pathological fracture; Z87.442 Personal history of urinary calculi; Z86.73 Personal history of transient ischemic attack (TIA), and cerebral infarction without residual deficits; Z87.11 Personal history of peptic ulcer disease; I25.10 Atherosclerotic heart disease of native coronary artery without angina pectoris; N40.0 Benign prostatic hyperplasia without lower urinary tract symptoms; K76.0 Fatty (change of) liver, not elsewhere classified; N20.0 Calculus of kidney; Z68.30 Body mass index [BMI] 30.0-30.9, adult; R73.9 Hyperglycemia, unspecified; M19.90 Unspecified osteoarthritis, unspecified site; M54.12 Radiculopathy, cervical region; N28.1 Cyst of kidney, acquired; W19.XXXA Unspecified fall, initial encounter; Y92.009 Unspecified place in unspecified non-institutional (private) residence as the place of occurrence of the external cause
CPT/HCPCS: 36415; 70450-TC; 71010-TC; 72125-TC; 74181-TC; 76705-TC; 78226; 80048-TC; 80053-TC; 80061-TC; 80076-TC; 82150-TC; 82962-TC; 83690-TC; 83735-TC; 84100-TC; 84443-TC; 84484-TC; 85025-TC; 85730-TC; 87081-TC; 93307-TC; 93880-TC; 97110-TC; 97116-TC; 97530-TC; A4606; A9537; J1815; J2060; J2543; J3475; J3480; J3490; J7030; J7042; J7050; J7060; Z7610

== ENCOUNTER 2019-03-23 21:01 | Inpatient (IN) | payer MEDICAID, MEDICARE ==
[~2019-03-23] VITALS: Ht 167.6 cm; Wt 80.7 kg
[~2019-03-23 21:01] MED LIST changes: -ASPI81TA44 PO; -DILT120C2 PO; +DILT30TA14 PO; +FAMO20TA80 PO; -HYDR25TA4 PO; +LORA1TAB PO; +MAG30ORA PO; +MAGN400O6 PO; -MECL-102 PO; +OXYB-58 PO; -OXYB10TA PO; +TAMS-12 PO; -TAMS0.4C34 PO; +ZOLP5TAB2 PO
--- NOTE | 2019-03-23 22:48 | NUR ---
MS/RN NOTES RECEIVED PT. DIRECT ADMIT FROM [facility] VIA [facility]. PT. IS AWAKE, ALERT AND ORIENTED TO SELF. BREATHING EVEN AND UNLABORED ON ROOM AIR. NO SOB, RESPIRATORY DISTRESS OR COMPLAINTS OF PAIN NOTED AT THIS TIME. ORIENTED PT. TO ROOM. PT. WITH LEFT HAND 18 GAUGE IV SALINE LOCK PRESENT, PATENT AND INTACT. PT. WITH PAGE CATHETER PRESENT AND INTACT. PT. WITH FAMILY MEMBERS PRESENT AT BEDSIDE. AWAITING ADMITTING ORDERS. BED LOCKED AND IN LOWEST POSITION, SIDE RAILS UP X3, BED ALARM ON, CALL LIGHT WITHIN REACH, WILL CONTINUE TO MONITOR.
[2019-03-24] VITALS: BP 157/103
[2019-03-24] MEDS ORDERED: IBUP-1955 PO (00:05)
[2019-03-24] MEDS ORDERED: DOCU100C36 PO (00:13)
[2019-03-24] MEDS ORDERED: MAG HYDROX/AL HYDROX/SIMETH 30 ML UDC PO PRN (00:30)
[2019-03-24] MEDS ORDERED: MAGNESIUM HYDROXIDE 30 ML UDC PO PRN (00:30)
[2019-03-24] MEDS ORDERED: Z GUARD REMEDY 2 OZ OINT TP PRN (00:30)
[2019-03-24] MEDS ORDERED: ZOLPIDEM TARTRATE 5 MG TABLET PO PRN (00:30)
[2019-03-24] MEDS ORDERED: ONDANSETRON HCL/PF 4 MG/2 ML VIAL IVP PRN (00:30)
[2019-03-24] MEDS ORDERED: CEFTRIAXONE 1 G VIAL ONE (01:39)
[2019-03-24] MEDS: CEFTRIAXONE 1 G in IV D5W 50 ML IV SCH ×2 (01:43→23:53)
[2019-03-24] MEDS: IV NS 0.9% 1,000 ML IV PRN ×2 (01:44→16:34)
[2019-03-24 03:15] LABS: BASOPHILS # (AUTO) 0.1 /CMM (0.0-0.2); BASOPHILS % (AUTO) 0.7 % (0.0-2.0); EOSINOPHILS % (AUTO) 2.2 % (0.0-6.0); HEMATOCRIT 43 % (39-51); LYMPHOCYTES # (AUTO) 1.2 /CMM (0.8-4.8); LYMPHOCYTES % (AUTO) 15.2 % (20.0-44.0); MEAN CORPUSCULAR HGB CONC 33 g/dl (31.0-36.0); MEAN CORPUSCULAR VOLUME 94 fL (80-96); MONOCYTES # (AUTO) 0.6 /CMM (0.1-1.30); MONOCYTES % (AUTO) 7.7 % (2.0-12.0); NEUTROPHILS # (AUTO) 5.8 /CMM (1.8-8.9); NEUTROPHILS % (AUTO) 74.2 % (43.0-81.0); PLATELET COUNT (AUTO) 153 /CMM (150-450); RED BLOOD CELL COUNT(AUTO) 4.52 MIL/uL (4.5-6.0); WHITE BLOOD COUNT (AUTO) 7.9 K/uL (4.3-11.0)
[2019-03-24 03:30] LABS: ALANINE AMINOTRANSFERASE 41 U/L (12-78); ALBUMIN 3.6 g/dL (3.4-5.0); ALKALINE PHOSPHATASE 27 U/L (46-116); ASPARTATE AMINOTRANSFERASE 19 U/L (15-37); BILIRUBIN,TOTAL 0.5 mg/dL (0.2-1.0); CALCIUM, SERUM 9.2 mg/dL (8.5-10.1); CARBON DIOXIDE 31 mmol/L (21-32); CHLORIDE 110 mmol/L (98-107); CREATININE 1.7 mg/dL (0.6-1.3); GLUCOSE 129 mg/dL (74-106); MAGNESIUM 1.7 mg/dL (1.8-2.4); PHOSPHORUS 3.8 mg/dL (2.5-4.9); SODIUM SERUM 149 mmol/L (136-145); TOTAL PROTEIN, SERUM 6.8 g/dL (6.4-8.2); UREA NITROGEN, BLOOD 34 mg/dL (7-18)
[2019-03-24 04:00] VITALS: BP 150/90
[2019-03-24 04:04] LABS: THYROID STIMULATING HORMONE 1.186 uIU/mL (0.358-3.74)
--- NOTE | 2019-03-24 06:11 | NUR ---
TELE/RN NOTES PT. IS LYING IN BED. PT. IS AWAKE, ALERT AND ORIENTED TO SELF. BREATHING EVEN AND UNLABORED ON 3LPM O2 VIA NC. NO SOB, RESPIRATORY DISTRESS OR COMPLAINTS OF PAIN NOTED AT THIS TIME AND THROUGHOUT SHIFT. NO COMPLAINTS OF CHEST PAIN NOTED AT THIS TIME AND THROUGHOUT SHIFT. PT. WITH EXTERNAL ROUTE CDL DRIVER PRESENT AND INTACT. CURRENT RHYTHM = SINUS TACHYCARDIA WITH PVC'S HR 106. PT. WITH LEFT FOREARM 18 GAUGE PERIPHERAL IV PRESENT, PATENT AND INTACT ADMINISTERING TO PT. NS @ 75 ML/HR. PT. WITH PAGE CATHETER PRESENT AND INTACT. PT. WITH 1:1 SITTER PRESENT AT BEDSIDE. ALL PT. NEEDS MET. BED LOCKED AND IN LOWEST POSITION, SIDE RAILS UP X3, BED ALARM ON, CALL LIGHT WITHIN REACH, WILL ENDORSE TO DAYSHIFT NURSE FOR CONTINUITY OF CARE.
--- NOTE | 2019-03-24 07:13 | NUR ---
RN OPENING NOTE PT WAS RECEIVED IN BED AT LOWEST AND LOCKED POSITION WITH SIDE RAILS UP X2, A/O X1 SLOVENIAN SPEAKING, BREATHING EVEN AND UNLABORED ON 2L VIA NC, NO S/S OF ANY DISTRESS OR PAIN NOTED AT THIS TIME, IV IS PATENT AND INTACT, PAGE IN PLACE AND DRAINING, SITTER PRESENT AT BEDSIDE, SAFETY PRECAUTIONS IN PLACE, CALL LIGHT IN REACH, WILL MONITOR ACCORDINGLY
[2019-03-24 08:00] VITALS: BP 132/76
[2019-03-24] MEDS: ENOXAPARIN SODIUM 30 MG/0.3 ML DISP.SYRIN SQ SCH (08:05)
[2019-03-24] MEDS ORDERED: TAMS-12 PO (08:22)
[2019-03-24] MEDS ORDERED: ASPI-1152 PO (08:22)
[2019-03-24] MEDS ORDERED: FAMO-131 PO (08:23)
[2019-03-24 09:37] LABS: APPEARANCE,URINE CLEAR (CLEAR); BILIRUBIN,URINE NEGATIVE (NEGATIVE); BLOOD, URINE MODERATE Ery/uL (NEGATIVE); COLOR,URINE YELLOW (YELLOW); KETONES,URINE NEGATIVE (NEGATIVE); LEUKOCYTE ESTERASE ,URINE NEGATIVE (NEGATIVE); NITRITE, URINE NEGATIVE (NEGATIVE); PH,URINE 5.5 (5.0-8.0); PROTEIN,URINE 100 mg/dl (NEGATIVE); UGLUCOSE NEGATIVE (NEGATIVE); UROBILINOGEN,URINE 0.2 EU/dL (0.2)
[2019-03-24] MEDS ORDERED: Magnesium 1GM/D5W 100ML PREMIX 100 ML IV SCH (10:30)
[2019-03-24 10:37] LABS: RBC,URINE 81-100 /HPF (0-2)
[2019-03-24 10:38] LABS: BACTERIA,URINE Rare /HPF (None Seen); SQUAMOUS EPITHELIAL CELL,UR Rare /HPF (None Seen); WBC,URINE 0-2 /HPF (0-3)
[2019-03-24] MEDS ORDERED: IBUPROFEN 600 MG TABLET PO PRN (11:00)
[2019-03-24] MEDS ORDERED: DOCUSATE SODIUM 100 MG CAPSULE PO PRN (11:00)
[2019-03-24 16:00] VITALS: BP 133/90
[2019-03-24] MEDS: ACETAMINOPHEN 325 MG TABLET PO PRN (17:59)
--- NOTE | 2019-03-24 18:22 | NUR ---
RN CLOSING NOTE PT IN BED AT LOWEST AND LOCKED POSITION WITH SIDE RAILS UP X2, A/O X1 SAUDI ARABIAN SPEAKING, BREATHING EVEN AND UNLABORED OWITH NO DISTRESS OR PAIN AT THIS TIME, IV IS PATENT AND INTACT, PAGE IN PLACE AND DRAINING WITH 650CC OUT, SITTER AT BEDSIDE, SAFETY PRECAUTIONS IN PLACE, CALL LIGHT IN REACH, ALL NEEDS ATTENDED TO, WILL ENDORSE TO NIGHT RN FOR FABIOLA
[2019-03-24 20:00] VITALS: BP 147/87
[2019-03-24] MEDS: FAMOTIDINE (20 MG) 20 MG TABLET PO SCH (20:39)
--- NOTE | 2019-03-24 20:44 | NUR ---
RN NOTES PM SHIFT PATIENT ALERT AND ORIENTED X1, SOMALI SPEAKING ONLY, 2LPM VIA NC, CALM AT THIS TIME, PAGE CATHETER DRAINING WELL, NS AT 75 ML/HR, FALL PRECAUTION, SITTER AT THE BEDSIDE
[2019-03-24] MEDS: TAMSULOSIN 0.4 MG CAP.SR.24H PO SCH (22:13)
[2019-03-24] MEDS: OXYBUTYNIN CHLORIDE ER 5 MG TAB PO SCH (22:13)
--- NOTE | 2019-03-25 06:26 | NUR ---
RN NOTES PM SHIFT PATIENT ALERT/ORIENTED X1, 2LPM VIA NC, DENIES PAIN AT THIS TIME, PAGE CATHETER DRAINING WELL, CONFUSED, MONITOR ELECTROLYTES, FALL PRECAUTION, SITTER AT THE BEDSIDE.
[2019-03-25 06:28] LABS: ALANINE AMINOTRANSFERASE 45 U/L (12-78); ALBUMIN 3.4 g/dL (3.4-5.0); ALKALINE PHOSPHATASE 26 U/L (46-116); ASPARTATE AMINOTRANSFERASE 22 U/L (15-37); BILIRUBIN,TOTAL 0.7 mg/dL (0.2-1.0); CALCIUM, SERUM 9.3 mg/dL (8.5-10.1); CARBON DIOXIDE 31 mmol/L (21-32); CHLORIDE 115 mmol/L (98-107); CREATININE 1.5 mg/dL (0.6-1.3); GLUCOSE 122 mg/dL (74-106); MAGNESIUM 1.9 mg/dL (1.8-2.4); PHOSPHORUS 3.5 mg/dL (2.5-4.9); POTASSIUM 4.6 mmol/L (3.5-5.1); SODIUM SERUM 154 mmol/L (136-145); TOTAL PROTEIN, SERUM 6.5 g/dL (6.4-8.2); UREA NITROGEN, BLOOD 28 mg/dL (7-18)
[2019-03-25] MEDS: IV NS 0.9% 1,000 ML IV PRN (06:30)
[2019-03-25 06:32] LABS: CHOLESTEROL 154 mg/dL (<200); HDL CHOLESTEROL 40 mg/dL (40-60); LDL 113 mg/dL (0-99); TRIGLYCERIDES 49 mg/dL (30-150)
[2019-03-25 06:35] LABS: BASOPHILS % (AUTO) 0.6 % (0.0-2.0); EOSINOPHILS % (AUTO) 2.7 % (0.0-6.0); HEMATOCRIT 42 % (39-51); HEMOGLOBIN 13.5 g/dL (13.5-17.5); LYMPHOCYTES # (AUTO) 1.2 /CMM (0.8-4.8); LYMPHOCYTES % (AUTO) 14.3 % (20.0-44.0); MEAN CORPUSCULAR HGB CONC 32 g/dl (31.0-36.0); MEAN CORPUSCULAR VOLUME 96 fL (80-96); MONOCYTES # (AUTO) 0.6 /CMM (0.1-1.30); MONOCYTES % (AUTO) 7.5 % (2.0-12.0); NEUTROPHILS # (AUTO) 6.1 /CMM (1.8-8.9); NEUTROPHILS % (AUTO) 74.9 % (43.0-81.0); PLATELET COUNT (AUTO) 140 /CMM (150-450); RED BLOOD CELL COUNT(AUTO) 4.39 MIL/uL (4.5-6.0); WHITE BLOOD COUNT (AUTO) 8.2 K/uL (4.3-11.0)
--- NOTE | 2019-03-25 07:20 | NUR ---
MS RN OPENING NOTES RECEIVED PATIENT AWAKE IN BED IN NO ACUTE SIGNS OF DISTRESS. HOB ELEVATED. SITTER AT BEDSIDE. A/O X1, BELIZEAN SPEAKING ONLY, DENIES PAIN OR ANY DISCOMFORTS AT THIS TIME. ON SUPPLEMENTAL 02 @ 2LPM VIA N/C, TOLERATING WELL WITH NO SOB NOTED. IV ACCESS ON LFA #18 INTACT AND PATENT, IVF OF NS AT 75 ML/HR INFUSING WELL, NO S/S OF INFILTRATIONS NOTED. PAGE CATHETER IN PLACE AND DRAINING WELL WITH DARK YELLOWISH URINE. FALL AND SAFETY PRECAUTIONS IN PLACE. BD IN LOWEST LOCKED POSITION WITH SR UP X3. CALL LIGHT WITHIN REACH. WILL CONTINUE TO MONITOR.
[2019-03-25 08:00] VITALS: BP 156/99
[2019-03-25] MEDS ORDERED: IV D5W 1,000 ML IV PRN (08:00)
[2019-03-25] MEDS: FAMOTIDINE (20 MG) 20 MG TABLET PO SCH ×2 (08:21→21:38)
[2019-03-25] MEDS: ASPIRIN EC 81 MG TABLET.DR PO SCH (08:21)
[2019-03-25] MEDS: ENOXAPARIN SODIUM 30 MG/0.3 ML DISP.SYRIN SQ SCH (08:22)
[2019-03-25] MEDS: LOSARTAN/HCTZ 50-12.5MG/ 1 EA TABLET PO SCH (08:23)
[2019-03-25 16:00] VITALS: BP 138/82
--- NOTE | 2019-03-25 18:30 | NUR ---
MS RN OPENING NOTES PATIENT IN BED AWAKE AT THIS TIME. HOB ELEVATED.SITTER AT BEDSIDE. A/O X1, CONFUSED AND UKRAINIAN SPEAKING ONLY. ON SUPPLEMENTAL 02 @ 2LPM VIA N/C, TOLERATING WELL WITH NO SOB NOTED. IV SL ON LFA G#18 INTACT, PATENT AND FLUSHES WELL, NO S/S OF INFILTRATIONS NOTED. PAGE CATHETER IN PLACE AND ACTIVELY DRAINING SLIGHTLY DARK YELLOWISH URINE, PAGE CARE DONE. ALL NEEDS AND CARE PROVIDED WELL. FALL AND SAFETY PRECAUTIONS KEPT IN PLACE. BED IN LOWEST LOCKED POSITION WITH SR UP X3. CALL LIGHT WITHIN REACH. WILL ENDORSE TO CLOTH WINDER MACHINE OPERATOR NURSE FOR FABIOLA.
--- NOTE | 2019-03-25 19:30 | NUR ---
MSRN FULLY AWAKE, FAMILY AT BEDSIDE. PATIENT CONFUSED, TRYING TO GET OOB. HFR, NO RESP DISTRESS, 02 2L MAINTAINED. UPDATE FAMILY REGARDING PATIENTS STATUS AND PLAN OF CARE. FAMILY TO STAY FOR AWHILE TILL PATIENT CALMS DOWN.
[2019-03-25 20:00] VITALS: BP 157/96
--- NOTE | 2019-03-25 20:45 | NUR ---
MSRN FAMILY LEFT, UNABLE TO STAY WITH PATIENT TONIGHT.
--- NOTE | 2019-03-25 21:09 | NUR ---
MSRN PARTIALLY BATHED, SMALL BM. RESISTIVE TO CARE, COMBATIVE AT TIMES. STILL TRYING TO GET OUT OF BED. NEED CONSTANT OBSERVATION AND SUPERVISION. CLOSELY WATCHED.
[2019-03-25] MEDS: OXYBUTYNIN CHLORIDE ER 5 MG TAB PO SCH (21:38)
[2019-03-25] MEDS: TAMSULOSIN 0.4 MG CAP.SR.24H PO SCH (21:38)
--- NOTE | 2019-03-25 21:42 | NUR ---
MSRN DUE MEDS ADMINISTERED ORDERED, TOOK MED WITH APPLE SAUCE. ASPIRATION PRECAUTION. CLOSELY WATCHED.
[2019-03-26] VITALS (21 sets, daily range): BP systolic 88–167; BP diastolic 32–119
[2019-03-26] MEDS: CEFTRIAXONE 1 G in IV D5W 50 ML IV SCH (01:13)
[2019-03-26 06:12] LABS: CALCIUM, SERUM 9.4 mg/dL (8.5-10.1); CARBON DIOXIDE 30 mmol/L (21-32); CHLORIDE 109 mmol/L (98-107); CREATININE 1.4 mg/dL (0.6-1.3); GLUCOSE 122 mg/dL (74-106); SODIUM SERUM 149 mmol/L (136-145); UREA NITROGEN, BLOOD 26 mg/dL (7-18)
--- NOTE | 2019-03-26 06:12 | NUR ---
MSRN SLEEPING A TTHIS TIME. SITTER AT BEDSIDE. CLOSELY WATCHED.
[2019-03-26 06:16] LABS: BASOPHILS % (AUTO) 0.5 % (0.0-2.0); EOSINOPHILS % (AUTO) 2.3 % (0.0-6.0); HEMATOCRIT 43 % (39-51); HEMOGLOBIN 14.2 g/dL (13.5-17.5); LYMPHOCYTES # (AUTO) 1.2 /CMM (0.8-4.8); LYMPHOCYTES % (AUTO) 15.5 % (20.0-44.0); MEAN CORPUSCULAR HGB CONC 33 g/dl (31.0-36.0); MEAN CORPUSCULAR VOLUME 95 fL (80-96); MONOCYTES # (AUTO) 0.7 /CMM (0.1-1.30); MONOCYTES % (AUTO) 8.6 % (2.0-12.0); NEUTROPHILS # (AUTO) 5.8 /CMM (1.8-8.9); NEUTROPHILS % (AUTO) 73.1 % (43.0-81.0); PLATELET COUNT (AUTO) 149 /CMM (150-450); RED BLOOD CELL COUNT(AUTO) 4.58 MIL/uL (4.5-6.0)
--- NOTE | 2019-03-26 07:14 | NUR ---
MS RN OPENING NOTES RECEIVED PATIENT IN BED AWAKE. hob ELEVATED. PT IS A/O X1, MACEDONIAN SPEAKING, CALM, QUIET AND DENIES PAIN AT THIS TIME. ON 02 @ 2LPM VIA N/C, TOLERATING WELL WITH NO SOB NOTED. IV SL ON LFA #18 INTACT AND PATENT. PAGE CATHETER IN PLACE AND DRAINING WELL WITH DARK YELLOWISH URINE. FALL AND SAFETY PRECAUTIONS IN PLACE. BD IN LOWEST LOCKED POSITION WITH SR UP X3. CALL LIGHT WITHIN REACH. WILL CONTINUE TO MONITOR.
[2019-03-26] MEDS: ASPIRIN EC 81 MG TABLET.DR PO SCH (08:08)
[2019-03-26] MEDS: FAMOTIDINE (20 MG) 20 MG TABLET PO SCH ×3 (08:08→21:35)
[2019-03-26] MEDS: LOSARTAN/HCTZ 50-12.5MG/ 1 EA TABLET PO SCH (08:09)
[2019-03-26] MEDS: ENOXAPARIN SODIUM 30 MG/0.3 ML DISP.SYRIN SQ SCH (08:10)
--- NOTE | 2019-03-26 08:57 | NUR ---
WOUND CARE CONSULT: PT PRESENTS WITH INTACT SKIN, SCAR TO RT THIGH AND DISCOLORED AREAS ON NOSE, FOREHEAD AND DRY LESIONS TO LOWER LEGS, PRESENT ON ADMISSION. CAMILO PIMENTEL NOTED. RECOMMENDATIONS MADE FOR SKIN PROTECTION. DISCUSSED WITH NURSING STAFF. WILL SEE PRN. DENNIS IN AGREEMENT WITH PLAN OF CARE. CURRENT SCAR SCORE IS 17. Addendum: 03/26/19 at 0858 by FEI PINO WNDNU Amended: Links added.
[2019-03-26] MEDS: FUROSEMIDE 40 MG/4 ML VIAL IV SCH ×3 (09:37→16:51)
[2019-03-26 10:04] LABS: ABG BASE EXCESS 3.5 mmol/L; ABG OXYGEN SATURATION 84.9 % (92.0-98.5); ABG PCO2 51.6 mmHg (35.0-45.0); ABG PH 7.379 (7.350-7.450); ABG PO2 50.2 mmHg (75.0-100.0); AaDO2 117.6 mmHg; COHb 1.6 % (0.5-1.5); MetHb 0.4 % (0.0-1.5); O2Hb 83.2 % (94.0-97.0); SITE, ABG Right Radial
--- NOTE | 2019-03-26 10:10 | NUR ---
RT ABG done. O2 increased to 6L. Results given to GLYNN arndt.
--- NOTE | 2019-03-26 10:23 | NUR ---
RN NOTES ABG RESULTS JUST GIVEN, RT INCREASES 02 VIA N/C FROM 2LPM TO 6LPM. EXTRACT OPERATOR RAJENDRA MADE AWARE WITH ORDER TO GIVE ALBUTEROL TX Q 4HRS PRN. WILL CONTINUE TO MONITOR.
[2019-03-26] MEDS ORDERED: ALBUTEROL FS 2.5 MG/3 ML VIAL.NEB NEB PRN (10:30)
--- NOTE | 2019-03-26 10:54 | NUR ---
RN NOTES PT TRANSFERRED TO ICU ROOM 256 ON 02 VIA N/C AT 6LPM. BEDSIDE REPORT GIVEN TO GLYNN ENGLAND.
--- NOTE | 2019-03-26 11:00 | NUR ---
ICU/RN: Pt received from 3W, confused, restless, agitated, O2 sat on 6L/min via NC at 86%. Unable to reorient pt. Attempting to kick and hit staff when placed on BiPAP and attempted IV HL insertion. Restraints applied per order. FC draining to gravity, urine specimen sent to lab as ordered. Bed alarm on, safety measures in place. Will continue to monitor pt.
--- NOTE | 2019-03-26 11:08 | NUR ---
RT Pt placed on BiPAP per Dr. Perry orders. There is some skin tears on bridge of nose. Mepilex on bridge of nose for skin protection. BiPAP is plugged into red outlet. Addendum: 03/26/19 at 1816 by QIANA SHAH RT Amended: Links added.
[2019-03-26 13:11] LABS: ABG BASE EXCESS 5.1 mmol/L; ABG OXYGEN SATURATION 97.6 % (92.0-98.5); ABG PCO2 50.7 mmHg (35.0-45.0); ABG PH 7.405 (7.350-7.450); ABG PO2 116.7 mmHg (75.0-100.0); AaDO2 110.2 mmHg; COHb 1.1 % (0.5-1.5); MetHb 0.4 % (0.0-1.5); O2Hb 96.1 % (94.0-97.0); SITE, ABG Right Brachial
[2019-03-26 14:53] LABS: BILIRUBIN,URINE NEGATIVE (NEGATIVE); BLOOD, URINE MODERATE Ery/uL (NEGATIVE); KETONES,URINE NEGATIVE (NEGATIVE); LEUKOCYTE ESTERASE ,URINE NEGATIVE (NEGATIVE); NITRITE, URINE NEGATIVE (NEGATIVE); PH,URINE 5.5 (5.0-8.0); PROTEIN,URINE NEGATIVE (NEGATIVE); UGLUCOSE NEGATIVE (NEGATIVE); UROBILINOGEN,URINE 0.2 EU/dL (0.2)
[2019-03-26 15:05] LABS: COLOR,URINE STRAW (YELLOW)
[2019-03-26 15:15] LABS: APPEARANCE,URINE Slightly Cloudy (CLEAR)
[2019-03-26 15:16] LABS: BACTERIA,URINE Few /HPF (None Seen); RBC,URINE 51-80 /HPF (0-2)
[2019-03-26 15:17] LABS: SQUAMOUS EPITHELIAL CELL,UR Few /HPF (None Seen)
--- NOTE | 2019-03-26 15:30 | NUR ---
ICU/RN: TR band removed; hemostasis achieved. Pulses present and palpable. Tegaderm applied to site, pt educated. Addendum: 03/26/19 at 1737 by TOMÁS GIL RN wrong entry
[2019-03-26] MEDS: ALBUTEROL FS 2.5 MG/3 ML VIAL.NEB NEB SCH ×3 (16:09→23:38)
[2019-03-26 16:13] LABS: CREATININE, URINE < 13.0 MG/DL (30.0-125.0); URINE SODIUM, RANDOM 141 mmol/l (40-220); URINE TOTAL PROTEIN 18.3 mg/dL (0-11.9)
[2019-03-26 16:26] LABS: EOSINOPHIL,URINE None Seen
--- NOTE | 2019-03-26 16:45 | NUR ---
ICU/RN: Pt ambulated to bathroom, tolerated well. No s/s bleeding. Addendum: 03/26/19 at 1737 by TOMÁS GIL RN wrong entry
--- NOTE | 2019-03-26 16:45 | NUR ---
ICU/RN: Bed bath, hygienic care rendered. Pt tolerated well.
--- NOTE | 2019-03-26 20:00 | NUR ---
ICU/RN-RECEIVED PT. AWAKE, CONFUSED, OFF AND ON AGITATION , WITH BILATERAL SOFT WRIST RESTRAINTS ON . ATTEMPTS TO GRAB BIPAP MASK ON WHEN OFF RESTRAINTS.GREEK SPEAKING, ON BIPAP, SATS.-93%, NOT IN ANY PAIN OR DISTRESS. AFEBRILE.NPO. PT. IS A FULL CODE.
--- NOTE | 2019-03-26 20:43 | NUR ---
RECEIVED PT ON BIPAP. PT IS AWAKE, MALAY SPEAKING. PT TOLERATING BIPAP SETTINGS. NO DISTRESS. MEPILEX IN PLACE ON THE BRIDGE OF THE NOSE. MEDIUM SIZE MASK. ALARMS SET AND AUDIBLE. CONTINUE PT ON BIPAP PER DR MENJIVAR. Addendum: 03/26/19 at 2044 by PEMA VAZQUEZ RT Amended: Links added.
[2019-03-26] MEDS: OXYBUTYNIN CHLORIDE ER 5 MG TAB PO SCH ×2 (21:35→22:00)
[2019-03-26] MEDS: TAMSULOSIN 0.4 MG CAP.SR.24H PO SCH ×2 (21:35→22:00)
--- NOTE | 2019-03-26 22:05 | NUR ---
ICU/RN- ATTEMPTED TO ADMINISTER ALL ORAL MEDS W/ PUDDING, PT. REFUSED AND STARTED SPITTING OUT ALL MEDS AND PUDDING.HOB AT 60 DEGREES AT ALL TIMES. ASPIRATION PRECAUTIONS IN EFFECT.
[2019-03-27] VITALS (33 sets, daily range): BP systolic 112–178; BP diastolic 56–126
[2019-03-27] MEDS: CEFTRIAXONE 1 G in IV D5W 50 ML IV SCH ×3 (01:00→03:40)
[2019-03-27] MEDS: ALBUTEROL FS 2.5 MG/3 ML VIAL.NEB NEB SCH ×5 (03:21→20:26)
[2019-03-27 04:46] LABS: BASOPHILS % (AUTO) 0.6 % (0.0-2.0); EOSINOPHILS % (AUTO) 3.2 % (0.0-6.0); HEMATOCRIT 45 % (39-51); HEMOGLOBIN 14.9 g/dL (13.5-17.5); LYMPHOCYTES % (AUTO) 13.2 % (20.0-44.0); MEAN CORPUSCULAR HGB CONC 33 g/dl (31.0-36.0); MEAN CORPUSCULAR VOLUME 95 fL (80-96); MONOCYTES # (AUTO) 0.7 /CMM (0.1-1.30); MONOCYTES % (AUTO) 8.4 % (2.0-12.0); NEUTROPHILS # (AUTO) 5.8 /CMM (1.8-8.9); NEUTROPHILS % (AUTO) 74.6 % (43.0-81.0); PLATELET COUNT (AUTO) 146 /CMM (150-450); RED BLOOD CELL COUNT(AUTO) 4.78 MIL/uL (4.5-6.0); WHITE BLOOD COUNT (AUTO) 7.8 K/uL (4.3-11.0)
[2019-03-27 05:00] LABS: ALANINE AMINOTRANSFERASE 51 U/L (12-78); ALBUMIN 3.5 g/dL (3.4-5.0); ALKALINE PHOSPHATASE 32 U/L (46-116); ASPARTATE AMINOTRANSFERASE 27 U/L (15-37); BILIRUBIN,TOTAL 0.8 mg/dL (0.2-1.0); CALCIUM, SERUM 9.4 mg/dL (8.5-10.1); CARBON DIOXIDE 39 mmol/L (21-32); CHLORIDE 106 mmol/L (98-107); CREATININE 1.7 mg/dL (0.6-1.3); GLUCOSE 96 mg/dL (74-106); MAGNESIUM 1.6 mg/dL (1.8-2.4); PHOSPHORUS 4.3 mg/dL (2.5-4.9); POTASSIUM 3.2 mmol/L (3.5-5.1); SODIUM SERUM 151 mmol/L (136-145); UREA NITROGEN, BLOOD 29 mg/dL (7-18)
[2019-03-27 05:17] LABS: CREATINE KINASE, TOTAL 159 U/L (39-308)
--- NOTE | 2019-03-27 05:29 | NUR ---
ICU/RN- ASLEEP , ON BIPAP. SATS.-98%, REMAINS ON ALISON. SOFT WRIST RESTRAINTS ON. NO S/S OF DISTRESS.
--- NOTE | 2019-03-27 07:30 | NUR ---
RN NOTES RECEIVED PATIENT, ASLEEP BUT EASILY AWAKEN BY VERBAL STIMULI. ON BIPAP, NO SHORTNESS OF BREATH NOTED AT THIS TIME. SATING 98% WITH CURRENT BIPAP SETTING. SR ON THE MONITOR WITH HR ON THE 80. NO INDICATION OF PAIN NOTED. PIV ON THE LHAND G 20 AND G18 ON THE LFA, BOTH IN PLACE AND INTACT, PATENT ON FLUSHING, SALINE LOCKED. BILATERAL SOFT RESTRAINTS IN PLACE, REMOVE AND REPLACED TO ASSESS SKIN INTEGRITY. PAGE CATHETER PLACE DRAINING WELL TO YELLOW URINE. SAFETY MEASURES OBSERVED AND MAINTAINED. BED IN LOW AND LOCKED POSITION. WILL CONTINUE TO MONITOR PATIENT ACCORDINGLY
--- NOTE | 2019-03-27 08:30 | NUR ---
RN NOTES NURSING SWALLOW EVALUATION DONE. PATIENT UNABLE TO SUCCESSFULLY SWALLOW. CALLED RT KYLAH TO TRANSLATE FOR THE PATIENT BUT NOT FOLLOWING DIRECTION GIVEN IN [place] LANGUAGE.
[2019-03-27] MEDS: FAMOTIDINE (20 MG) 20 MG TABLET PO SCH ×4 (09:00→21:16)
[2019-03-27] MEDS: POTASSIUM CHLORIDE 20 MEQ TAB.PRT.SR PO SCH ×2 (09:00→09:03)
[2019-03-27] MEDS ORDERED: acetaZOLAMIDE SODIUM 500 MG/VIAL VIAL IV ONE (09:00)
[2019-03-27] MEDS: ASPIRIN EC 81 MG TABLET.DR PO SCH ×3 (09:00→09:19)
--- NOTE | 2019-03-27 09:00 | NUR ---
RN NOTES TRIED OFFERING MEDICATION MIXED WITH APPLE SAUCE DESPITE PATIENT FAILED NURSING SWALLOW EVALUATION BUT PATIENT DOES NOT TAKE ANYTHING PLACED ON THE MOUTH. HE JUST GARGLES WITH. DR. SHANNON AT THE UNIT AT THIS TIME, INFORMED HER ABOUT THE SITUATION AND OBTAINED ORDER TO REPLACED PO POTASSIUM TO IV POTASSIUM INSTEAD. VERIFIED WITH MD, 60MEQ AND SAYS YES. ORDER CARRIED OUT
[2019-03-27] MEDS: ENOXAPARIN SODIUM 30 MG/0.3 ML DISP.SYRIN SQ SCH (09:04)
--- NOTE | 2019-03-27 09:09 | NUR ---
RT ABG results given to Dr. Perry, no new orders/changes at this time.
[2019-03-27] MEDS ORDERED: Magnesium 1GM/D5W 100ML PREMIX 100 ML IV SCH (09:26)
[2019-03-27] MEDS: POTASSIUM CL. PREMIX PERIPHER. 50 ML IV SCH ×6 (09:56→16:26)
[2019-03-27] MEDS ORDERED: IV NS 0.9% 500 ML IV ONE (10:30)
[2019-03-27] MEDS ORDERED: IV NS 0.9% 500 ML BAG IV PRN (10:30)
--- NOTE | 2019-03-27 11:00 | NUR ---
RN NOTES SPOKE TO DEXTER (DAUGHTER IN LAW) WAS ASKING FOR UPDATE REGARDING THE PATIENT. PER THE LATTER, SONS CAN CAME IN THE HOSPITAL AT THIS TIME DUE TO THEY ARE AT WORK.
--- NOTE | 2019-03-27 14:00 | NUR ---
RN NOTES BLOOD PRESSURE NOTED TO BE ELEVATED AT THIS TIME. PATIENT IS RESTLESS AND AGITATED AT THIS TIME WITH EPISODES OF GETTING OUT OF BED AND SCREAMING. WILL CONTINUE TO MONITOR PATIENT Addendum: 03/27/19 at 1823 by LINETTE PULIDO RN SPOKE TO DAUGHTER IN LAW AGAIN AT THIS TIME AND GAVE UPDATE
[2019-03-27] MEDS ORDERED: hydrALAZINE HCL IV 20 MG VIAL IV PRN (16:00)
--- NOTE | 2019-03-27 16:00 | NUR ---
RN NOTES INFORMED DR. SHANNON THAT PATIENT IS CALMER AT THIS TIME BUT DESPITE OF THAT, BLOOD PRESSURE STILL ELEVATED. OBTAINED ORDER FOR HYDRALAZINE 10MG IV Q4H PRN FOR SBP>160. ORDER READ BACK AND CARRIED OUT
[2019-03-27 17:24] LABS: ABG BASE EXCESS 10.3 mmol/L; ABG OXYGEN SATURATION 87.7 % (92.0-98.5); ABG PCO2 60.9 mmHg (35.0-45.0); ABG PH 7.409 (7.350-7.450); ABG PO2 54.3 mmHg (75.0-100.0); COHb 1.1 % (0.5-1.5); MetHb 0.2 % (0.0-1.5); O2Hb 86.6 % (94.0-97.0); SITE, ABG Right Radial; VENT MODE, BG nasal cannula
--- NOTE | 2019-03-27 18:10 | NUR ---
RN NOTES SON AT BEDSIDE, WAS ASKING FOR FOOD TO BE GIVEN TO THE PATIENT. INFORMED HIM THAT PATIENT IS ON NPO STATUS, ALSO INFORMED HIM ABOUT THE SWALLOW TREAT DONE IN THE MORNING AND THAT THE PATIENT WAS OFFERED FLUIDS RANDOMLY WHO TAKES SIP RANDOMLY WHEN HE LIKE. APPARENTLY AT THIS TIME, WITH THE HELP OF MICHELLE,GLYNN AND THE SON BEING AT THE BEDSIDE PATIENT IS FOLLOWING DIRECTION AND IS ABLE TO SWALLOW AT EASE. PATIENT DISLIKED THE PUDDING BUT FINISHED A CUP OF THE APPLE SAUCE. INFORMED SON THAT THEY CAN BRING FOODS PREPARED AT HOME FOR LONG ITS PUREED
--- NOTE | 2019-03-27 19:12 | NUR ---
RN NOTES ENDORSED FOR CONTINUITY OF CARE. NOT ON ANY FORM OF DISTRESS. BREATHING UNLABORED. NO SIGNIFICANT CHANGES WITHIN THE SHIFT. SON AT BEDSIDE. SAFETY MEASURES IN PLACE. HOB ELEVATED. CALL LIGHT WITHIN REACH
--- NOTE | 2019-03-27 19:30 | NUR ---
RN NOTES RECEIVED PATIENT AWAKE SON SEYMOUR AT BEDSIDE TRIED TO FEED HIM. PATIENT IS AOX 1-2 WITH EPISODE OF CONFUSION. WITH O2 2LPM VIA NC. DENIES PAIN. SR WITH PAC'S ON TELE MONITOR. SATURATION 92% WENT UP TO 97% WHEN REMINDING ABOUT PROPER BREATHING TECHNIQUE. HOB ELEVATED. IV SITE ON LFA G 18 AND LH G 20 AND RFA G 22 SL INTACT AND PATENT. . WITH PAGE CATH DRAINED VIA GRAVITY WITH YELLOW CLEAR COLOR URINE. KEPT OFF FROM THE FLOOR. KEPT PT CLEAN AND DRY. TURNED AND REPOSITIONED FOR SKIN MGMT. WILL CONTINUE TO MONITOR.
[2019-03-27] MEDS: OXYBUTYNIN CHLORIDE ER 5 MG TAB PO SCH (21:16)
[2019-03-27] MEDS: TAMSULOSIN 0.4 MG CAP.SR.24H PO SCH (21:16)
[2019-03-28] VITALS (19 sets, daily range): BP systolic 109–164; BP diastolic 61–113
[2019-03-28] MEDS: ALBUTEROL FS 2.5 MG/3 ML VIAL.NEB NEB SCH ×6 (00:30→20:06)
[2019-03-28 04:33] LABS: BASOPHILS # (AUTO) 0.1 /CMM (0.0-0.2); BASOPHILS % (AUTO) 0.8 % (0.0-2.0); EOSINOPHILS % (AUTO) 3.2 % (0.0-6.0); HEMATOCRIT 48 % (39-51); HEMOGLOBIN 15.7 g/dL (13.5-17.5); LYMPHOCYTES % (AUTO) 11.4 % (20.0-44.0); MEAN CORPUSCULAR HGB CONC 33 g/dl (31.0-36.0); MEAN CORPUSCULAR VOLUME 95 fL (80-96); MONOCYTES # (AUTO) 0.8 /CMM (0.1-1.30); MONOCYTES % (AUTO) 9.7 % (2.0-12.0); NEUTROPHILS # (AUTO) 6.5 /CMM (1.8-8.9); NEUTROPHILS % (AUTO) 74.9 % (43.0-81.0); PLATELET COUNT (AUTO) 160 /CMM (150-450); RED BLOOD CELL COUNT(AUTO) 5.03 MIL/uL (4.5-6.0); WHITE BLOOD COUNT (AUTO) 8.7 K/uL (4.3-11.0)
[2019-03-28 04:55] LABS: ALANINE AMINOTRANSFERASE 46 U/L (12-78); ALBUMIN 3.5 g/dL (3.4-5.0); ALKALINE PHOSPHATASE 32 U/L (46-116); ASPARTATE AMINOTRANSFERASE 21 U/L (15-37); BILIRUBIN,TOTAL 0.7 mg/dL (0.2-1.0); CALCIUM, SERUM 9.4 mg/dL (8.5-10.1); CARBON DIOXIDE 34 mmol/L (21-32); CHLORIDE 106 mmol/L (98-107); GLUCOSE 134 mg/dL (74-106); PHOSPHORUS 3.5 mg/dL (2.5-4.9); POTASSIUM 3.6 mmol/L (3.5-5.1); SODIUM SERUM 147 mmol/L (136-145); TOTAL PROTEIN, SERUM 7.1 g/dL (6.4-8.2); UREA NITROGEN, BLOOD 35 mg/dL (7-18)
--- NOTE | 2019-03-28 06:58 | NUR ---
RN NOTES PATIENT ASLEEP ON BIPAP. TOLERATED WELL. NO ACUTE RESPIRATORY DISTRESS. DENIES PAIN. RESTLESSNESS NOTED WHEN AWAKE. VSS. REMAINED AOX1 WITH CONFUSION. AFEBRILE. SATURATION >92%. SINUS ARRHYTHMIA WITH PVC'S NOTED. NO BM. F/C KEPT INTACT DRAINED VIA GRAVITY. KEPT HOB ELEVATED. KEPT PT CLEAN AND DRY.
[2019-03-28] MEDS: ASPIRIN EC 81 MG TABLET.DR PO SCH (08:29)
[2019-03-28] MEDS: FAMOTIDINE (20 MG) 20 MG TABLET PO SCH ×2 (08:31→21:00)
[2019-03-28] MEDS: ENOXAPARIN SODIUM 30 MG/0.3 ML DISP.SYRIN SQ SCH (08:32)
[2019-03-28 11:07] LABS: PTH, INTACT 33 pg/mL (15-65)
[2019-03-28] MEDS: ACETAMINOPHEN 325 MG TABLET PO PRN (12:22)
--- NOTE | 2019-03-28 14:00 | NUR ---
ADVISORY INTERN NOTES RECEIVED PATIENT FROM ICU. A/OX1. ON 2 L NASAL CANNULA, PAGE CATHETER WITH CLOUDY URINE AND HEMATURIA. NO SOB DISCOMFORT AND AGITATION NOTED AT THIS TIME. ON SOFT BILATERAL RESTRAINS. CHECKED SKIN INTEGRITY, NO REDNESS NOTED. CALL LIGHT WITHIN REACH . BED LOCKED AT THE LOWEST POSITION. WILL CONTINUE TO MONITOR.
--- NOTE | 2019-03-28 14:02 | NUR ---
PLASTIC MAKERFAMILY AND CONSUMER SCIENCE PROFESSOR NOTE Patient remains confused A/Ox1. on 2L, no SOB, SPO2 95%. Nocturnal Bipap. Restless at times. Transferred to room 113-1 per ACLS protocol, receiving RN Kavitha at bedside. R restraint on. IV site x3 patent. Mccloud draining to gravity.
--- NOTE | 2019-03-28 20:27 | NUR ---
MATERIALS HANDLING EQUIPMENT OPERATOR NOTES PATIENT IS GERMAN SPEAKER.AOX1 , FAMILY AT BED SIDE. NO SOB OR DISCOMFORT NOTED. PATIENT ABLE TO EAT WITH ASSIST. IV SITES PATENT AND FLUSHED WELL WITH NORMAL SALINE. BED AT THE LOWEST POSITION AND LOCKED. CALL LIGHT WITHIN REACH. ENDORSED TO DIRECTOR OF HOME ECONOMICS NURSE FOR FABIOLA.
[2019-03-28] MEDS: OXYBUTYNIN CHLORIDE ER 5 MG TAB PO SCH ×2 (22:00→22:09)
[2019-03-28] MEDS: TAMSULOSIN 0.4 MG CAP.SR.24H PO SCH (22:00)
--- NOTE | 2019-03-28 22:00 | NUR ---
DIGITAL CARTOGRAPHER NOTE RECEIVED REPORT FOR THIS PATIENT AT 1940. RECEIVED PATIENT IN BED. A/OX1, MACEDONIAN SPEAKING. CURRENTLY ON BIPAP AND TOLERATING. NO MANIFESTATIONS OF PAIN AT THIS TIME. EXTERNAL TELE MONITOR READS SINUS TACH HR 100-130S WITH PAC AND PVC. IV ACCESS IN LEFT HAND PATENT AND SALINE LOCKED AND RFA PATENT AND SALINE LOCKED. PAGE CATHETER IS PRESENT, DRAINING TO GRAVITY, URINE IS FRANCIS/HEMATURIA AND CLEAR. BED IS LOW AND LOCKED, HOB ELEVATED IN SEMI FOWLERS, SIDE RIALS UP X2, BED ALARM ON. CALL LIGHT WITHIN REACH. WILL CONTINUE TO MONITOR.
[2019-03-29] VITALS: BP 131/92
[2019-03-29] MEDS: CEFTRIAXONE 1 G in IV D5W 50 ML IV SCH (00:28)
[2019-03-29] MEDS: ALBUTEROL FS 2.5 MG/3 ML VIAL.NEB NEB SCH ×7 (00:34→23:48)
[2019-03-29 04:00] VITALS: BP 127/71
[2019-03-29 05:07] LABS: *SPE ALBUMIN 3.2 g/dL (2.9-4.4); *SPE ALPHA-1-GLOBULIN 0.3 g/dL (0.0-0.4); *SPE ALPHA-2-GLOBULIN 0.6 g/dL (0.4-1.0); *SPE BETA GLOBULIN 1.3 g/dL (0.7-1.3); *SPE GLOBULIN, TOTAL 3.2 g/dL (2.2-3.9); *SPE M-SPIKE Not Observed g/dL (Not Observed)
--- NOTE | 2019-03-29 06:20 | NUR ---
PATIENT ADMITTING REPRESENTATIVE CLOSING NOTE PATIENT IN BED. A/OX1, MICRONESIAN SPEAKING. ON OXYGEN 2L/MIN VIA NASAL CANNULA. NO MANIFESTATIONS OF PAIN THROUGHOUT NIGHT. EXTERNAL TELE MONITOR READS SINUS TACH HR 104 WITH PAC AND PVC. IV ACCESS MAINTAINED IN LEFT HAND PATENT AND SALINE LOCKED AND RFA PATENT AND SALINE LOCKED. PAGE CATHETER IS MAINTAINED, DRAINING TO GRAVITY, URINE IS FRANCIS AND CLEAR. PATIENT ON BILATERAL SOFT WRIST RESTRAINT, GOOD PERFUSION PRESENT, 2 FINGER BREATHERS OF ROOM, NO REDNESS PRESENT. BED REMAINS LOW AND LOCKED, HOB ELEVATED IN SEMI FOWLERS, SIDE RIALS UP X2, BED ALARM ON. CALL LIGHT WITHIN REACH. WILL ENDORSE TO NEXT SHIFT
[2019-03-29 07:12] LABS: BASOPHILS # (AUTO) 0.1 /CMM (0.0-0.2); EOSINOPHILS % (AUTO) 4.4 % (0.0-6.0); HEMATOCRIT 49 % (39-51); HEMOGLOBIN 15.8 g/dL (13.5-17.5); LYMPHOCYTES # (AUTO) 1.2 /CMM (0.8-4.8); LYMPHOCYTES % (AUTO) 13.9 % (20.0-44.0); MEAN CORPUSCULAR HGB CONC 33 g/dl (31.0-36.0); MEAN CORPUSCULAR VOLUME 95 fL (80-96); MONOCYTES # (AUTO) 0.8 /CMM (0.1-1.30); MONOCYTES % (AUTO) 9.5 % (2.0-12.0); NEUTROPHILS # (AUTO) 6.1 /CMM (1.8-8.9); NEUTROPHILS % (AUTO) 71.2 % (43.0-81.0); PLATELET COUNT (AUTO) 161 /CMM (150-450); RED BLOOD CELL COUNT(AUTO) 5.11 MIL/uL (4.5-6.0); WHITE BLOOD COUNT (AUTO) 8.5 K/uL (4.3-11.0)
[2019-03-29 07:44] LABS: CALCIUM, SERUM 9.7 mg/dL (8.5-10.1); CARBON DIOXIDE 29 mmol/L (21-32); CHLORIDE 109 mmol/L (98-107); CREATININE 1.9 mg/dL (0.6-1.3); GLUCOSE 118 mg/dL (74-106); MAGNESIUM 2.2 mg/dL (1.8-2.4); PHOSPHORUS 4.1 mg/dL (2.5-4.9); POTASSIUM 3.9 mmol/L (3.5-5.1); SODIUM SERUM 151 mmol/L (136-145); UREA NITROGEN, BLOOD 41 mg/dL (7-18)
[2019-03-29 08:00] VITALS: BP 123/84
--- NOTE | 2019-03-29 08:10 | NUR ---
ms rn received on bed, awake,alert,oriented x2,not in any form of distress, respirations even and unlabored,no sob noted,will monitor patient's condition,all needs attended.
[2019-03-29 08:30] LABS: ABG BASE EXCESS 5.2 mmol/L; ABG OXYGEN SATURATION 92.5 % (92.0-98.5); ABG PCO2 58.7 mmHg (35.0-45.0); ABG PH 7.364 (7.350-7.450); ABG PO2 66.2 mmHg (75.0-100.0); AaDO2 64.2 mmHg; COHb 0.9 % (0.5-1.5); MetHb 0.8 % (0.0-1.5); O2Hb 90.9 % (94.0-97.0); SITE, ABG Left Radial; VENT MODE, BG NC 28%
--- NOTE | 2019-03-29 09:00 | NUR ---
ms dela cruz breakfast served,due meds given tolerated well.
[2019-03-29] MEDS: ASPIRIN EC 81 MG TABLET.DR PO SCH (09:12)
[2019-03-29] MEDS: ENOXAPARIN SODIUM 30 MG/0.3 ML DISP.SYRIN SQ SCH (09:12)
[2019-03-29] MEDS: FAMOTIDINE (20 MG) 20 MG TABLET PO SCH ×2 (09:12→22:31)
--- NOTE | 2019-03-29 15:00 | NUR ---
ms rn on bed, son at bedside.
[2019-03-29 16:00] VITALS: BP_SYST 118; BP_SYST 122; BP_DIAS 58; BP_DIAS 78
--- NOTE | 2019-03-29 18:48 | NUR ---
ms rn on bed, no distress noted,all needs attended.
--- NOTE | 2019-03-29 19:10 | NUR ---
MS RN NOTES RECEIVED PT IN BED AND AWAKE WITH FAMILY AT BEDSIDE. PT A/OX1, SERBIAN SPEAKING. ON OXYGEN 2L/MIN VIA NASAL CANNULA. PT WITH RFA PATENT AND SALINE LOCKED. PAGE CATHETER IS MAINTAINED, DRAINING TO GRAVITY. PT WITH BILATERAL SOFT WRIST RESTRAINT, GOOD PERFUSION PRESENT. BED IN LOWEST LOCKED POSITION WITH SIDE RAILS UP X2. CALL LIGHT WITHIN REACH. WILL CONTINUE TO MONITOR.
[2019-03-29 20:00] VITALS: BP 152/66
[2019-03-29] MEDS: OXYBUTYNIN CHLORIDE ER 5 MG TAB PO SCH (22:31)
[2019-03-29] MEDS: TAMSULOSIN 0.4 MG CAP.SR.24H PO SCH (22:31)
[2019-03-30] MEDS: CEFTRIAXONE 1 G in IV D5W 50 ML IV SCH (01:09)
[2019-03-30] MEDS: ALBUTEROL FS 2.5 MG/3 ML VIAL.NEB NEB SCH ×6 (03:53→23:15)
[2019-03-30 05:25] VITALS: BP 145/94
--- NOTE | 2019-03-30 07:03 | NUR ---
MS RN NOTES PT IN BED ASLEEP BUT EASILY AWOKEN. PT A/OX1, LUXEMBOURGISH SPEAKING. ON OXYGEN 2L/MIN VIA NASAL CANNULA. PT WITH RFA PATENT AND SALINE LOCKED. PAGE CATHETER IS MAINTAINED, DRAINING TO GRAVITY. PT WITH BILATERAL SOFT WRIST RESTRAINT, GOOD PERFUSION PRESENT. PT KEPT CLEAN, DRY, AND COMFORTABLE. PT TURNED Q2 HOURS THROUGHOUT SHIFT. BED IN LOWEST LOCKED POSITION WITH SIDE RAILS UP X2. CALL LIGHT WITHIN REACH. WILL ENDORSE TO ONCOMING NURSE FOR FABIOLA.
[2019-03-30 08:00] VITALS: BP 135/83
[2019-03-30] MEDS: ENOXAPARIN SODIUM 30 MG/0.3 ML DISP.SYRIN SQ SCH (09:25)
[2019-03-30] MEDS: ASPIRIN EC 81 MG TABLET.DR PO SCH (09:26)
[2019-03-30] MEDS: FAMOTIDINE (20 MG) 20 MG TABLET PO SCH ×2 (09:26→21:37)
[2019-03-30 13:00] VITALS: BP 133/88
[2019-03-30 16:00] VITALS: BP 133/88
--- NOTE | 2019-03-30 17:47 | NUR ---
alert to self, not combative, not even attempted to pull any certified medical technician assistant. Restraints off all shift long. Feeder, appetite 75% all meals, incontinent, but skin INTACT. No family around for visit.
--- NOTE | 2019-03-30 19:20 | NUR ---
MS/RN NOTES RECEIVED PT. LYING IN BED. PT. IS AWAKE, ALERT AND ORIENTED TO SELF. BREATHING EVEN AND UNLABORED ON 2LPM O2 VIA NC. NO SOB, RESPIRATORY DISTRESS OR COMPLAINTS OF PAIN NOTED AT THIS TIME. PT. WITH RIGHT FOREARM 22 GAUGE IV SALINE LOCK PRESENT, PATENT AND INTACT. PT. WITH PAGE CATHETER PRESENT, PATENT AND INTACT DRAINING TO GRAVITY. PT. WITH BILATERAL SOFT WRIST RESTRAINTS PRESENT AND INTACT. CIRCULATION CHECK DONE. PT. WITH FAMILY MEMBERS PRESENT AT BEDSIDE. ASPIRATION AND SAFETY PRECAUTIONS IMPLEMENTED AND IN PLACE. BED LOCKED AND IN LOWEST POSITION, SIDE RAILS UP X3, BED ALARM ON, CALL LIGHT WITHIN REACH, WILL CONTINUE TO MONITOR.
[2019-03-30 20:00] VITALS: BP 109/86
[2019-03-30] MEDS: TAMSULOSIN 0.4 MG CAP.SR.24H PO SCH (21:37)
[2019-03-30] MEDS: OXYBUTYNIN CHLORIDE ER 5 MG TAB PO SCH (21:37)
[2019-03-31] MEDS: CEFTRIAXONE 1 G in IV D5W 50 ML IV SCH (00:54)
[2019-03-31] MEDS: ALBUTEROL FS 2.5 MG/3 ML VIAL.NEB NEB SCH ×6 (03:40→23:29)
[2019-03-31 04:00] VITALS: BP 135/84
--- NOTE | 2019-03-31 06:12 | NUR ---
MS/RN NOTES PT. IS LYING IN BED RESTING. BREATHING EVEN AND UNLABORED ON NOCTURNAL BIPAP. NO SOB, RESPIRATORY DISTRESS OR COMPLAINTS OF PAIN NOTED AT THIS TIME AND THROUGHOUT SHIFT. PT. WITH RIGHT FOREARM 22 GAUGE IV SALINE LOCK PRESENT, PATENT AND INTACT. PT. WITH PAGE CATHETER PRESENT, PATENT AND INTACT DRAINING TO GRAVITY. PT. WITH BILATERAL SOFT WRIST RESTRAINTS PRESENT AND INTACT. CIRCULATION CHECK DONE. ASPIRATION AND SAFETY PRECAUTIONS IMPLEMENTED AND IN PLACE. ALL PT. NEEDS MET. PT. OFFLOADED, TURNED AND REPOSITIONED Q2H AND NEEDED. BED LOCKED AND IN LOWEST POSITION, SIDE RAILS UP X3, BED ALARM ON, CALL LIGHT WITHIN REACH, WILL ENDORSE TO DAYSHIFT NURSE FOR CONTINUITY OF CARE.
[2019-03-31 07:37] LABS: BASOPHILS # (AUTO) 0.1 /CMM (0.0-0.2); BASOPHILS % (AUTO) 1.1 % (0.0-2.0); EOSINOPHILS % (AUTO) 2.6 % (0.0-6.0); HEMATOCRIT 50 % (39-51); LYMPHOCYTES % (AUTO) 12.9 % (20.0-44.0); MEAN CORPUSCULAR HGB CONC 32 g/dl (31.0-36.0); MEAN CORPUSCULAR VOLUME 95 fL (80-96); MONOCYTES # (AUTO) 0.8 /CMM (0.1-1.30); NEUTROPHILS # (AUTO) 5.7 /CMM (1.8-8.9); NEUTROPHILS % (AUTO) 73.4 % (43.0-81.0); PLATELET COUNT (AUTO) 165 /CMM (150-450); RED BLOOD CELL COUNT(AUTO) 5.22 MIL/uL (4.5-6.0); WHITE BLOOD COUNT (AUTO) 7.7 K/uL (4.3-11.0)
--- NOTE | 2019-03-31 07:45 | NUR ---
RN OPENING NOTES RECEIVED PATIENT SLEEPING IN BED COMFORTABLY WITH NOCTURNAL BIPAP. PT IS AOX1, OMANI SPEAKING, AND ON BEDREST. HE IS IN BILATERAL SOFT WRIST RESTRAINTS FOR RISK OF SELF HARM AND INTERRUPTION OF MEDICAL CARE. PAGE CATH IS PATENT AND INTACT, DRAINING CLEAR AND YELLOW URINE BY GRAVITY, RFA 22 G SL IS PATENT AND INTACT. SAFETY MEASURES HAVE BEEN IMPLEMENTED, CALL LIGHT IS WITHIN REACH, BED IS IN LOWEST AND LOCKED POSITION, SIDE RAILS UP X2, WILL CONTINUE TO MONITOR FOR ANY CHANGES.
[2019-03-31 07:50] LABS: ALANINE AMINOTRANSFERASE 37 U/L (12-78); ALBUMIN 3.5 g/dL (3.4-5.0); ALKALINE PHOSPHATASE 31 U/L (46-116); ASPARTATE AMINOTRANSFERASE 22 U/L (15-37); BILIRUBIN,TOTAL 0.5 mg/dL (0.2-1.0); CALCIUM, SERUM 9.7 mg/dL (8.5-10.1); CARBON DIOXIDE 30 mmol/L (21-32); CHLORIDE 114 mmol/L (98-107); CREATININE 1.7 mg/dL (0.6-1.3); GLUCOSE 128 mg/dL (74-106); MAGNESIUM 2.2 mg/dL (1.8-2.4); SODIUM SERUM 153 mmol/L (136-145); TOTAL PROTEIN, SERUM 7.2 g/dL (6.4-8.2); UREA NITROGEN, BLOOD 42 mg/dL (7-18)
[2019-03-31 08:00] VITALS: BP 132/97
[2019-03-31] MEDS: ASPIRIN EC 81 MG TABLET.DR PO SCH (09:16)
[2019-03-31] MEDS: FAMOTIDINE (20 MG) 20 MG TABLET PO SCH ×2 (09:16→21:03)
[2019-03-31] MEDS: ENOXAPARIN SODIUM 30 MG/0.3 ML DISP.SYRIN SQ SCH (09:17)
[2019-03-31 10:35] LABS: ABG BASE EXCESS 4.2 mmol/L; ABG PCO2 61.8 mmHg (35.0-45.0); ABG PH 7.336 (7.350-7.450); ABG PO2 69.1 mmHg (75.0-100.0); COHb 0.8 % (0.5-1.5); MetHb 0.5 % (0.0-1.5); O2Hb 91.8 % (94.0-97.0); SITE, ABG Right Radial; VENT MODE, BG NC 4L
[2019-03-31 16:00] VITALS: BP 139/79
--- NOTE | 2019-03-31 19:45 | NUR ---
RN CLOSING NOTES PATIENT IS RESTING COMFORTABLY IN BED WITH FAMILY AT BEDSIDE, SHOWS NO S/SX OF RESP DISTRESS OR SOB. BILATERAL WRIST RESTRAINTS ARE INTACT. PT NEEDS HAVE BEEN MET, VITAL SIGNS ARE STABLE, NO ACUTE CHANGES OCCURRED THROUGHOUT THE SHIFT. SAFETY MEASURES HAVE BEEN IMPLEMENTED, CALL LIGHT IS WITHIN REACH, BED IS IN LOWEST AND LOCKED POSITION, SIDE RIALS UP X2, PT HAS BEEN ENDORSED TO NIGHTSHIFT RN FOR CONTINUITY OF CARE.
[2019-03-31 20:00] VITALS: BP 136/74
[2019-03-31] MEDS: TAMSULOSIN 0.4 MG CAP.SR.24H PO SCH (21:03)
[2019-03-31] MEDS: OXYBUTYNIN CHLORIDE ER 5 MG TAB PO SCH (21:03)
--- NOTE | 2019-03-31 23:30 | NUR ---
PLACED PT ON NOCTURNAL BIPAP. SKIN INTACT AND NO RESPIRATORY DISTRESS NOTED AT THIS TIME.
--- NOTE | 2019-03-31 23:43 | NUR ---
medication given and tolerated well.aspiration precaution.on bilateral soft wrist restraints for safety as patient has lupe trying topull on the alexandra catheter,
--- NOTE | 2019-03-31 23:46 | NUR ---
palced on bipap per 0RT settings as ordered. will continue to minitor
--- NOTE | 2019-04-01 02:20 | NUR ---
on bipap and sleeping
[2019-04-01] MEDS: ALBUTEROL FS 2.5 MG/3 ML VIAL.NEB NEB SCH ×6 (03:30→23:20)
[2019-04-01 06:45] LABS: BASOPHILS # (AUTO) 0.2 /CMM (0.0-0.2); BASOPHILS % (AUTO) 1.9 % (0.0-2.0); EOSINOPHILS % (AUTO) 3.4 % (0.0-6.0); HEMATOCRIT 50 % (39-51); HEMOGLOBIN 16.1 g/dL (13.5-17.5); LYMPHOCYTES # (AUTO) 1.3 /CMM (0.8-4.8); MEAN CORPUSCULAR HGB CONC 32 g/dl (31.0-36.0); MEAN CORPUSCULAR VOLUME 96 fL (80-96); MONOCYTES # (AUTO) 0.9 /CMM (0.1-1.30); MONOCYTES % (AUTO) 10.9 % (2.0-12.0); NEUTROPHILS # (AUTO) 5.8 /CMM (1.8-8.9); NEUTROPHILS % (AUTO) 68.8 % (43.0-81.0); PLATELET COUNT (AUTO) 146 /CMM (150-450); RED BLOOD CELL COUNT(AUTO) 5.23 MIL/uL (4.5-6.0); WHITE BLOOD COUNT (AUTO) 8.5 K/uL (4.3-11.0)
[2019-04-01 07:08] LABS: ALANINE AMINOTRANSFERASE 41 U/L (12-78); ALBUMIN 3.5 g/dL (3.4-5.0); ALKALINE PHOSPHATASE 32 U/L (46-116); ASPARTATE AMINOTRANSFERASE 26 U/L (15-37); BILIRUBIN,TOTAL 0.4 mg/dL (0.2-1.0); CARBON DIOXIDE 31 mmol/L (21-32); CHLORIDE 115 mmol/L (98-107); CREATININE 1.9 mg/dL (0.6-1.3); GLUCOSE 117 mg/dL (74-106); MAGNESIUM 2.3 mg/dL (1.8-2.4); PHOSPHORUS 4.4 mg/dL (2.5-4.9); POTASSIUM 4.3 mmol/L (3.5-5.1); SODIUM SERUM 154 mmol/L (136-145); TOTAL PROTEIN, SERUM 7.3 g/dL (6.4-8.2); UREA NITROGEN, BLOOD 52 mg/dL (7-18)
[2019-04-01 08:00] VITALS: BP 126/76
[2019-04-01] MEDS: ENOXAPARIN SODIUM 30 MG/0.3 ML DISP.SYRIN SQ SCH (09:24)
[2019-04-01] MEDS: ASPIRIN EC 81 MG TABLET.DR PO SCH (09:25)
[2019-04-01] MEDS: FAMOTIDINE (20 MG) 20 MG TABLET PO SCH ×2 (09:25→21:21)
[2019-04-01 16:00] VITALS: BP 135/81
--- NOTE | 2019-04-01 18:26 | NUR ---
Patient resting in bed without distress. Family visited this afternoon and provided soup for dinner. Patient declined to eat meal tray for dinner. afety maintained during shift.
--- NOTE | 2019-04-01 19:25 | NUR ---
PATIENT RECIEVED ON BILATERAL SOFT WRIST RESTRAINTS FOR SAFETY .
[2019-04-01 20:00] VITALS: BP 106/70
[2019-04-01] MEDS: OXYBUTYNIN CHLORIDE ER 5 MG TAB PO SCH (21:21)
[2019-04-01] MEDS: TAMSULOSIN 0.4 MG CAP.SR.24H PO SCH (21:21)
--- NOTE | 2019-04-01 23:36 | NUR ---
patient placed on bipap and tolerating well
[2019-04-02] MEDS: ALBUTEROL FS 2.5 MG/3 ML VIAL.NEB NEB SCH ×6 (03:53→23:34)
[2019-04-02 04:00] VITALS: BP 113/73
--- NOTE | 2019-04-02 07:15 | NUR ---
MS RN OPENING NOTES RECEIVED PATIENT IN BED, ASLEEP. AROUSABLE TO VERBAL AND TACTILE STIMULI. ALERT AND ORIENTED X1. HOB ELEVATED. NO SOB. DENIES ANY C/O PAIN NOR DISCOMFORT AT THIS TIME. PAGE CATH INTACT DRAINING YELLOW COLORED URINE VIA BEDSIDE. BILATERAL WRIST RESTRAINT IN PLACE. FREQUENT VISUAL CHECK DONE. RFA # 22 SL INTACT AND PATENT. BED IN LOWEST POSITION, LOCKED. BED SIDERAILS UPX2. BED ALARM ON. CALL LIGHT WITHIN REACH.
[2019-04-02 07:26] LABS: BASOPHILS # (AUTO) 0.1 /CMM (0.0-0.2); BASOPHILS % (AUTO) 0.9 % (0.0-2.0); EOSINOPHILS % (AUTO) 2.9 % (0.0-6.0); HEMATOCRIT 47 % (39-51); HEMOGLOBIN 15.3 g/dL (13.5-17.5); LYMPHOCYTES # (AUTO) 1.1 /CMM (0.8-4.8); LYMPHOCYTES % (AUTO) 14.1 % (20.0-44.0); MEAN CORPUSCULAR HGB CONC 33 g/dl (31.0-36.0); MEAN CORPUSCULAR VOLUME 95 fL (80-96); MONOCYTES # (AUTO) 0.8 /CMM (0.1-1.30); MONOCYTES % (AUTO) 10.2 % (2.0-12.0); NEUTROPHILS # (AUTO) 5.4 /CMM (1.8-8.9); NEUTROPHILS % (AUTO) 71.9 % (43.0-81.0); PLATELET COUNT (AUTO) 159 /CMM (150-450); RED BLOOD CELL COUNT(AUTO) 4.94 MIL/uL (4.5-6.0); WHITE BLOOD COUNT (AUTO) 7.5 K/uL (4.3-11.0)
[2019-04-02 07:39] LABS: CALCIUM, SERUM 9.5 mg/dL (8.5-10.1); CARBON DIOXIDE 34 mmol/L (21-32); CHLORIDE 116 mmol/L (98-107); CREATININE 2.3 mg/dL (0.6-1.3); GLUCOSE 123 mg/dL (74-106); MAGNESIUM 2.2 mg/dL (1.8-2.4); PHOSPHORUS 4.2 mg/dL (2.5-4.9); POTASSIUM 4.3 mmol/L (3.5-5.1); SODIUM SERUM 155 mmol/L (136-145); UREA NITROGEN, BLOOD 63 mg/dL (7-18)
[2019-04-02 08:00] VITALS: BP_SYST 112; BP_SYST 129; BP_DIAS 70; BP_DIAS 78
[2019-04-02] MEDS: ASPIRIN EC 81 MG TABLET.DR PO SCH (09:44)
[2019-04-02] MEDS: FAMOTIDINE (20 MG) 20 MG TABLET PO SCH ×2 (09:44→22:05)
[2019-04-02] MEDS: ENOXAPARIN SODIUM 30 MG/0.3 ML DISP.SYRIN SQ SCH (09:45)
--- NOTE | 2019-04-02 10:16 | NUR ---
WOUND CARE CONSULT: CONSULT RECEIVED FOR REASSESSMENT OF PT'S NOSE. BRIDGE OF NOSE HAS DRY ABRASION/SCRATCH WHICH WAS PRESENT ON ADMISSION. NO DRAINAGE OR ERYTHEMA NOTED. WILL SEE PRN.
--- NOTE | 2019-04-02 11:54 | NUR ---
FURNITURE UPHOLSTERER APPRENTICE met with pt's father Lalit who wanted to apply for Medicare for the pt. FURNITURE UPHOLSTERER APPRENTICE informed Lalit that he will need to speak with insurance liaison Elizabeth Gonzalez regarding Medicare application. Lalit informed FURNITURE UPHOLSTERER APPRENTICE he did leave her a message but has not heard from her. FURNITURE UPHOLSTERER APPRENTICE informed him she will call her as well and leave her a message to contact him. FURNITURE UPHOLSTERER APPRENTICE contacted Elizabeth at and left a message regarding Lalit's requested and requested her to contact him. r
[2019-04-02 16:00] VITALS: BP 130/85
--- NOTE | 2019-04-02 17:08 | NUR ---
MS RN NOTES SPOKE TO SON , SEYMOUR, AGREED FOR SNF PLACEMENT UNTIL INSURANCE KICKS IN PER SON AND WILL EVENTUALLY HAVE SOMEONE TO CARE FOR PATIENT 24HOURS. CM MADE AWARE
[2019-04-02] MEDS: ENSURE ENLIVE 237 ML LIQUID (VANILLA) PO SCH (18:25)
--- NOTE | 2019-04-02 18:47 | NUR ---
MS RN CLOSING NOTES ALERT AND ORIENTED X1. HOB ELEVATED. NO SOB. DENIES ANY C/O PAIN NOR DISCOMFORT AT THIS TIME. PAGE CATH INTACT DRAINING YELLOW COLORED URINE VIA BEDSIDE. BILATERAL WRIST RESTRAINT IN PLACE WITH CIRCULATION AND SKIN CHECK DONE. FREQUENT VISUAL CHECK DONE. RFA # 22 SL INTACT AND PATENT. REQUIRES ENCOURAGEMENT WITH MEALS. BED IN LOWEST POSITION, LOCKED. BED SIDERAILS UPX2. BED ALARM ON. CALL LIGHT WITHIN REACH. IN NO APPARENT DISTRESS.
[2019-04-02 20:00] VITALS: BP 125/73
--- NOTE | 2019-04-02 20:00 | NUR ---
MS RN NOTES RECEIVED PATIENT AWAKE IN BED WITH NO DISTRESS NOTED. CALL LIGHT WITHIN REACH. FAMILY AT BEDSIDE. NO C/O PAIN OR DISCOMFORT. PERIPHERAL LINE INTACT AND PATENT. BILATERAL SOFT WRIST RESTRAINTS IN PLACE, NO NEW SKIN BREAKDOWN OR DISCOLORATION AND NOTED WITH GOOD CIRCULATION. BED IN LOW SETTING WITH BED ALARM ON AND FUNCTIONING PROPERLY. ALL BELONGINGS KEPT NEAR BEDSIDE. WILL CONTINUE TO MONITOR.
[2019-04-02] MEDS: TAMSULOSIN 0.4 MG CAP.SR.24H PO SCH (22:03)
[2019-04-02] MEDS: OXYBUTYNIN CHLORIDE ER 5 MG TAB PO SCH (22:03)
[2019-04-03] MEDS: ALBUTEROL FS 2.5 MG/3 ML VIAL.NEB NEB SCH ×5 (03:46→20:24)
[2019-04-03 04:00] VITALS: BP 128/82
--- NOTE | 2019-04-03 06:29 | NUR ---
RT NOTE Pt rec'd on 3lpm nasal cannula. Pt shows no signs of resp distress. Pt placed on bipap NOC per md orders with under the nose bipap mask to scarring on nose. Alarms are set and audible. Vent plugged into red outlet. Ambu bag bedside. Will continue to monitor. Addendum: 04/03/19 at 0631 by AARON RAMOS RT Amended: Links added.
--- NOTE | 2019-04-03 06:36 | NUR ---
MS RN NOTES PATIENT AWAKE IN BED WITH NO DISTRESS NOTED. CALL LIGHT WITHIN REACH. ALL DUE MEDS GIVEN ORDERED. NO FACIAL GRIMACING OR GROANING TO INDICATE PAIN OR DISCOMFORT. PERIPHERAL LINE INTACT AND PATENT. BILATERAL SOFT WRIST RESTRAINTS IN PLACE, NO NEW SKIN BREAKDOWN OR DISCOLORATION AND NOTED WITH GOOD CIRCULATION. REMOVED Q2HRS AND PRN. BED IN LOW SETTING WITH BED ALARM ON AND FUNCTIONING PROPERLY. ALL BELONGINGS KEPT NEAR BEDSIDE. WILL ENDORSE TO ONCOMING SHIFT.
[2019-04-03 06:51] LABS: BASOPHILS # (AUTO) 0.1 /CMM (0.0-0.2); BASOPHILS % (AUTO) 0.9 % (0.0-2.0); HEMATOCRIT 48 % (39-51); HEMOGLOBIN 15.5 g/dL (13.5-17.5); LYMPHOCYTES # (AUTO) 0.9 /CMM (0.8-4.8); LYMPHOCYTES % (AUTO) 14.1 % (20.0-44.0); MEAN CORPUSCULAR HGB CONC 32 g/dl (31.0-36.0); MEAN CORPUSCULAR VOLUME 96 fL (80-96); MONOCYTES # (AUTO) 0.7 /CMM (0.1-1.30); NEUTROPHILS # (AUTO) 4.5 /CMM (1.8-8.9); PLATELET COUNT (AUTO) 142 /CMM (150-450); RED BLOOD CELL COUNT(AUTO) 5.05 MIL/uL (4.5-6.0); WHITE BLOOD COUNT (AUTO) 6.3 K/uL (4.3-11.0)
[2019-04-03 07:16] LABS: CALCIUM, SERUM 9.8 mg/dL (8.5-10.1); CARBON DIOXIDE 32 mmol/L (21-32); CHLORIDE 117 mmol/L (98-107); CREATININE 1.8 mg/dL (0.6-1.3); GLUCOSE 131 mg/dL (74-106); MAGNESIUM 2.4 mg/dL (1.8-2.4); PHOSPHORUS 3.8 mg/dL (2.5-4.9); POTASSIUM 4.3 mmol/L (3.5-5.1); UREA NITROGEN, BLOOD 61 mg/dL (7-18)
[2019-04-03 07:43] LABS: SODIUM SERUM 157 mmol/L (136-145)
--- NOTE | 2019-04-03 07:46 | NUR ---
known for hypernatremia, since admission. today up to 157, will continue to monitor
[2019-04-03 08:00] VITALS: BP 96/69
[2019-04-03] MEDS: ENSURE ENLIVE 237 ML LIQUID (VANILLA) PO SCH ×2 (08:54→17:23)
[2019-04-03] MEDS: ASPIRIN EC 81 MG TABLET.DR PO SCH (08:56)
[2019-04-03] MEDS: FAMOTIDINE (20 MG) 20 MG TABLET PO SCH ×2 (08:56→21:01)
[2019-04-03] MEDS: ENOXAPARIN SODIUM 30 MG/0.3 ML DISP.SYRIN SQ SCH (08:57)
[2019-04-03 09:31] LABS: ABG BASE EXCESS 3.8 mmol/L; ABG PCO2 66.8 mmHg (35.0-45.0); ABG PH 7.306 (7.350-7.450); ABG PO2 100.5 mmHg (75.0-100.0); AaDO2 49.5 mmHg; COHb 0.7 % (0.5-1.5); MetHb 0.4 % (0.0-1.5); O2Hb 95.9 % (94.0-97.0); SITE, ABG Left Radial
[2019-04-03] MEDS: IV D5W 1,000 ML IV PRN (11:53)
--- NOTE | 2019-04-03 11:58 | NUR ---
asleep since beginning of the shift, arousable when on tactile stimuli, when called his name, opened eyes and QUICKLY back to sleep. Per charge person, oxygen decreased to 1.5liter NC, back to Monitor now, afib , HR 110. IVF d5w initiated at 50cc per hour now. On reassessment, skin intact, total care. Restraints off since shift starts
[2019-04-03 12:00] VITALS: BP_SYST 110; BP_SYST 95; BP_DIAS 52; BP_DIAS 71
--- NOTE | 2019-04-03 14:55 | NUR ---
just now at 1430, wide awake, ENSURE given, took only 100cc, then spat out the rest. Still afib, HR sustained from 100-107
[2019-04-03 16:00] VITALS: BP 132/75
--- NOTE | 2019-04-03 17:20 | NUR ---
RN NOTE RECEIVED PT IN BED. ALERT AND ORIENTED X 1, FAMILY AT BEDSIDE. CURRENTLY ON 2L OF O2 VIA NC AND TOLERATING WELL. NO SOB NOTED. NO INDICATIONS OF PAIN OR DISCOMFORT. RESPIRATIONS EVEN AND UNLABORED. PT ON TELE MONITOR SHOWING A-FIB. AWARE. WITH PAGE CATHETER IN PLACE DRAINING CLEAR YELLOW URINE. WITH IV FLUIDS RUNNING AND TOLERATING WELL. SAFETY MEASURES IN PLACE. CALL WITHIN REACH. WILL MONITOR.
[2019-04-03 20:00] VITALS: BP 131/79
[2019-04-03] MEDS: ACETAMINOPHEN 325 MG TABLET PO PRN (21:00)
[2019-04-03] MEDS: OXYBUTYNIN CHLORIDE ER 5 MG TAB PO SCH (21:01)
[2019-04-03] MEDS: TAMSULOSIN 0.4 MG CAP.SR.24H PO SCH (21:01)
--- NOTE | 2019-04-03 22:00 | NUR ---
RN NOTE WITH IMPROVEMENT IN TEMPERATURE NOTED (98.6 PO)
--- NOTE | 2019-04-03 22:10 | NUR ---
2210 RESTRAINTS RENEWAL ORDER OBTAINED FROM RAMOS DALAL.
[2019-04-04] VITALS: BP 117/71
[2019-04-04] MEDS: ALBUTEROL FS 2.5 MG/3 ML VIAL.NEB NEB SCH ×7 (00:20→23:27)
[2019-04-04 04:00] VITALS: BP 137/61
--- NOTE | 2019-04-04 07:10 | NUR ---
RN CLOSING NOTE ENDORSED TO MORNING SHIFT FOR CONTINUATION OF CARE. PT IN BED WITH NOCTURNAL BIPAP AND TOLERATING WELL. ALERT AND ORIENTED X 1. TELE MONITOR SHOWING A FIB. PAGE CATH IS INTACT DRAINING CLEAR YELLOW URINE BY GRAVITY. WITH LAC 22 G PATENT AND INFUSING D5 @ 50 ML.HR ORDERED. SAFETY MEASURES IN PLACE. CALL LIGHT IS WITHIN REACH, BED IS IN LOWEST AND LOCKED POSITION, SIDE RAILS UP X2, ALL NEEDS MET AND ATTENDED TO.
[2019-04-04 07:12] LABS: BASOPHILS # (AUTO) 0.1 /CMM (0.0-0.2); EOSINOPHILS % (AUTO) 4.4 % (0.0-6.0); HEMATOCRIT 48 % (39-51); HEMOGLOBIN 15.4 g/dL (13.5-17.5); LYMPHOCYTES # (AUTO) 1.2 /CMM (0.8-4.8); LYMPHOCYTES % (AUTO) 18.1 % (20.0-44.0); MEAN CORPUSCULAR HGB CONC 32 g/dl (31.0-36.0); MEAN CORPUSCULAR VOLUME 96 fL (80-96); MONOCYTES # (AUTO) 0.8 /CMM (0.1-1.30); MONOCYTES % (AUTO) 12.1 % (2.0-12.0); NEUTROPHILS # (AUTO) 4.4 /CMM (1.8-8.9); NEUTROPHILS % (AUTO) 64.4 % (43.0-81.0); PLATELET COUNT (AUTO) 138 /CMM (150-450); RED BLOOD CELL COUNT(AUTO) 4.99 MIL/uL (4.5-6.0); WHITE BLOOD COUNT (AUTO) 6.8 K/uL (4.3-11.0)
--- NOTE | 2019-04-04 07:26 | NUR ---
RN OPENING NOTES RECEIVED PATIENT RESTING IN BED WITH NOCTURNAL BIPAP. HE IS AOX1, CONFUSED, VERBAL, AND ON BEDREST. TELE MONITOR SHOWING A FIB, WITH HR IN THE 110S. PAGE CATH IS INTACT, DRAINING YELLOW URINE BY GRAVITY. PT HAS BLE SCABS, WILL ADDRESS PER WOUND PLAN. HE IS ON PUREED DIET, TOLERATING WELL. RHONCHI HEARD ANGELA AUSCULTATION OF THE LUNGS. LAC 22 G IS PATENT AND INFUSING D5 AT 50 ML.HR. SAFETY MEASURES HAVE BEEN IMPLEMENTED, CALL LIGHT IS WITHIN REACH, BED IS IN LOWEST AND LOCKED POSITION, SIDE RAILS UP X2, WILL CONTINUE TO MONITOR FOR ANY CHANGES.
[2019-04-04 07:32] LABS: CALCIUM, SERUM 9.9 mg/dL (8.5-10.1); CARBON DIOXIDE 36 mmol/L (21-32); CHLORIDE 113 mmol/L (98-107); CREATININE 1.8 mg/dL (0.6-1.3); GLUCOSE 135 mg/dL (74-106); MAGNESIUM 2.3 mg/dL (1.8-2.4); PHOSPHORUS 3.5 mg/dL (2.5-4.9); POTASSIUM 4.3 mmol/L (3.5-5.1); SODIUM SERUM 154 mmol/L (136-145); UREA NITROGEN, BLOOD 56 mg/dL (7-18)
[2019-04-04 08:00] VITALS: BP 110/82
[2019-04-04] MEDS: ENOXAPARIN SODIUM 30 MG/0.3 ML DISP.SYRIN SQ SCH (08:39)
[2019-04-04] MEDS: ENSURE ENLIVE 237 ML LIQUID (VANILLA) PO SCH ×2 (08:40→18:04)
[2019-04-04] MEDS: ASPIRIN EC 81 MG TABLET.DR PO SCH (08:40)
[2019-04-04] MEDS: FAMOTIDINE (20 MG) 20 MG TABLET PO SCH ×2 (08:40→21:41)
[2019-04-04 09:29] VITALS: BP 110/82
[2019-04-04] MEDS: IV D5W 1,000 ML IV PRN (15:03)
[2019-04-04 16:00] VITALS: BP 117/74
--- NOTE | 2019-04-04 19:05 | NUR ---
RN OPENING NOTE RECEIVED PATIENT IN BED RESTING WITH HOB ELEVATED. A&O X1. FAMILY IS AT BEDSIDE AT THIS TIME. BREATHING IS EVEN AND NON LABORED. ON SOFT BILATERAL WRIST RESTRAINTS. SKIN UNDER RESTRAINTS IS INTACT. IN NO APPARENT DISTRESS NOTED AT THIS TIME. WILL CONTINUE TO MONITOR.
--- NOTE | 2019-04-04 20:06 | NUR ---
RN CLOSING NOTES PATIENT RESTING COMFORTABLY IN BED AT THIS TIME WITH BILATERAL SOFT WRIST RESTRAINTS, SHOWS NO S/SX OF DISTRESS. FAMILY AT BEDSIDE. PT NEEDS HAVE BEEN MET, VITAL SIGNS ARE STABLE, NO ACUTE CHANGES OCCURRED THROUGHOUT THE SHIFT. SAFETY MEASURES HAVE BEEN IMPLEMENTED, CALL LIGHT IS WITHIN REACH, BED IS IN LOWEST AND LOCKED POSITION, SIDE RAILS UP X2, WILL CONTINUE TO MONITOR FOR ANY CHANGES.
--- NOTE | 2019-04-04 20:11 | NUR ---
PT HAS BEEN ENDORSED TO NIGHTSHIFT RN FOR CONTINUITY OF CARE.
[2019-04-04] MEDS: TAMSULOSIN 0.4 MG CAP.SR.24H PO SCH (21:41)
[2019-04-04] MEDS: OXYBUTYNIN CHLORIDE ER 5 MG TAB PO SCH (21:41)
[2019-04-05] VITALS: BP 123/64
[2019-04-05] MEDS: ALBUTEROL FS 2.5 MG/3 ML VIAL.NEB NEB SCH ×6 (03:48→23:10)
--- NOTE | 2019-04-05 07:35 | NUR ---
RN CLOSING NOTE PATIENT IN BED, AWAKE, CONFUSED. ON O2 1 L VIA NC. PATIENT IS ANXIOUS AND TRIES TO PULL OUT PAGE. BILATERAL SOFT WRIST RESTRAINTS ORDER RENEWED BY CHAPIN DALAL NP. BED IS LOWERED TO LOWEST POSITION AND LOCKED FOR SAFETY. ENDORSED TO AM SHIFT RN FOR CONTINUATION OF CARE.
[2019-04-05 07:38] LABS: BASOPHILS # (AUTO) 0.1 /CMM (0.0-0.2); BASOPHILS % (AUTO) 0.9 % (0.0-2.0); HEMATOCRIT 46 % (39-51); HEMOGLOBIN 14.8 g/dL (13.5-17.5); LYMPHOCYTES # (AUTO) 1.6 /CMM (0.8-4.8); LYMPHOCYTES % (AUTO) 19.2 % (20.0-44.0); MEAN CORPUSCULAR HGB CONC 32 g/dl (31.0-36.0); MEAN CORPUSCULAR VOLUME 95 fL (80-96); MONOCYTES # (AUTO) 0.8 /CMM (0.1-1.30); MONOCYTES % (AUTO) 9.7 % (2.0-12.0); NEUTROPHILS # (AUTO) 5.3 /CMM (1.8-8.9); NEUTROPHILS % (AUTO) 65.2 % (43.0-81.0); PLATELET COUNT (AUTO) 141 /CMM (150-450); RED BLOOD CELL COUNT(AUTO) 4.86 MIL/uL (4.5-6.0); WHITE BLOOD COUNT (AUTO) 8.1 K/uL (4.3-11.0)
[2019-04-05 07:55] LABS: CALCIUM, SERUM 9.5 mg/dL (8.5-10.1); CARBON DIOXIDE 31 mmol/L (21-32); CHLORIDE 110 mmol/L (98-107); CREATININE 1.7 mg/dL (0.6-1.3); GLUCOSE 110 mg/dL (74-106); MAGNESIUM 2.1 mg/dL (1.8-2.4); PHOSPHORUS 2.9 mg/dL (2.5-4.9); SODIUM SERUM 150 mmol/L (136-145); UREA NITROGEN, BLOOD 49 mg/dL (7-18)
[2019-04-05 08:00] VITALS: BP 117/66
[2019-04-05] MEDS: ASPIRIN EC 81 MG TABLET.DR PO SCH (08:15)
[2019-04-05] MEDS: ENSURE ENLIVE 237 ML LIQUID (VANILLA) PO SCH ×2 (08:15→16:48)
[2019-04-05] MEDS: FAMOTIDINE (20 MG) 20 MG TABLET PO SCH ×2 (08:15→21:32)
[2019-04-05] MEDS: ENOXAPARIN SODIUM 30 MG/0.3 ML DISP.SYRIN SQ SCH (08:17)
[2019-04-05 09:05] LABS: ABG BASE EXCESS 6.1 mmol/L; ABG OXYGEN SATURATION 90.2 % (92.0-98.5); ABG PCO2 56.5 mmHg (35.0-45.0); ABG PH 7.385 (7.350-7.450); ABG PO2 58.1 mmHg (75.0-100.0); AaDO2 45.8 mmHg; COHb 0.8 % (0.5-1.5); MetHb 0.6 % (0.0-1.5); O2Hb 88.9 % (94.0-97.0); SITE, ABG Right Radial; VENT MODE, BG Nasal Cannula
[2019-04-05] MEDS ORDERED: LACT-246 PO (13:21)
[2019-04-05] MEDS ORDERED: ALBUT2 NEB (13:21)
[2019-04-05] MEDS ORDERED: MAGN400O6 PO (13:21)
[2019-04-05] MEDS ORDERED: MAG30ORA PO (13:21)
[2019-04-05] MEDS ORDERED: ENOX30DI SQ (13:21)
[2019-04-05 16:00] VITALS: BP 135/77
--- NOTE | 2019-04-05 18:28 | NUR ---
Tele/RN - Notes Patient is A/O x 1-2, forgetful at times, reality orientation provided, no acute distress the whole shift, on oxygen at 1lpm via NC, remain afebrile, tele shows A. Fib controlled, denies pain, bilateral soft wrist restraints in place to prevent pulling out Mccloud and peripheral IV line. Fall and aspiration precautions maintained. All needs attended. Patient to be discharged to [facility]. Family aware of discharge. Will endorse to night RN accordingly.
--- NOTE | 2019-04-05 19:15 | NUR ---
GLYNN OPEN NOTES RECEIVED PATIENT AWAKE IN BED WITH FAMILY AT BEDSIDE. A/O X1-2. NO SIGNS OF DISTRESS OR DISCOMFORT. BREATHING EVEN AND UNLABORED. ON 1LPM 02 VIA NC. ON TELE MONITOR WITH AFIB 93 NOTED. IV ACCESS IN LAC, PATENT AND INTACT, NO SIGNS OF REDNESS OR INFILTRATION. ON ALISON. WRIST RESTRAINTS WITH NO SKIN BREAKDOWN OR CIRCULATION ISSUES NOTED. HAS F/C INTACT DRAINING CLEAR YELLOW FLUID. BED IN LOW LOCKED POSITION WITH SIDE RAILS X2. CALL LIGHT WITHIN REACH. WILL CONTINUE TO MONITOR. Addendum: 04/05/19 at 2106 by STELLA RIDLEY RN PATIENT ON 2LPM O2 VIA NC.
[2019-04-05 20:00] VITALS: BP 121/72
[2019-04-05] MEDS: TAMSULOSIN 0.4 MG CAP.SR.24H PO SCH (21:32)
[2019-04-05] MEDS: OXYBUTYNIN CHLORIDE ER 5 MG TAB PO SCH (21:32)
[2019-04-06] VITALS (7 sets, daily range): BP systolic 111–141; BP diastolic 66–87
[2019-04-06] MEDS: ALBUTEROL FS 2.5 MG/3 ML VIAL.NEB NEB SCH ×6 (03:16→23:26)
--- NOTE | 2019-04-06 06:43 | NUR ---
RN CLOSING NOTES PATIENT RESTING COMFORTABLY IN BED, EASILY AROUSABLE. A/O X1. NO SIGNS OF DISTRESS OR DISCOMFORT. BREATHING EVEN AND UNLABORED. ON 2LPM 02 VIA NC. ON TELE MONITOR WITH AFIB 90 NOTED. IV ACCESS IN LAC, PATENT AND INTACT, NO SIGNS OF REDNESS OR INFILTRATION. ON ALISON. WRIST RESTRAINTS WITH NO SKIN BREAKDOWN OR CIRCULATION ISSUES NOTED. HAS F/C INTACT DRAINING CLOUDY YELLOW FLUID. ALL NEEDS MET. NO SIGNIFICANT CHANGES THROUGH THE NIGHT. PATIENT KEPT CLEAN DRY AND COMFORTABLE. BED IN LOW LOCKED POSITION WITH SIDE RAILS X2. CALL LIGHT WITHIN REACH. WILL ENDORSE TO AM SHIFT FOR FABIOLA.
--- NOTE | 2019-04-06 07:45 | NUR ---
RN OPENING NOTES RECEIVED PT IN BED AWAKE. A/OX1.VERBALLY RESPONSIVE BUT YAKUT SPEAKING. .NO FACIAL GRIMACING NOTED. ON 2L OF O2 VIA NC. RESPIRATION EVEN AN UNLABORED. NO SOB NOTED.PAGE CATHETER DRAINING VIA GRAVITY WITH 25ML OUTPUT. IV ACCESS ON LAC, INTACT, PATENT AND FLUSHED WELL. ON BILAT RESTRAINTS ON WRIST WITH NO SKIN BREAKDOWN OR CIRCULATION ISSUES NOTED. NO SIGNS OF INFILTRATION NOTED. ON TELE MONITOR. NO SIGNS OF ACUTE DISTRESS AT THE MOMENT.BED IN LOW POSITION, LOCKED. CALL LIGHT WITHIN REACH. WILL CONTINUE TO MONITOR.
[2019-04-06] MEDS: ENSURE ENLIVE 237 ML LIQUID (VANILLA) PO SCH ×2 (08:58→17:00)
[2019-04-06] MEDS: FAMOTIDINE (20 MG) 20 MG TABLET PO SCH ×2 (09:03→21:47)
[2019-04-06] MEDS: ASPIRIN EC 81 MG TABLET.DR PO SCH (09:03)
[2019-04-06] MEDS: ENOXAPARIN SODIUM 30 MG/0.3 ML DISP.SYRIN SQ SCH (09:04)
--- NOTE | 2019-04-06 14:00 | NUR ---
RN NOTES SPOKE WITH FUNDING SPECIALIST VINCE DE LUNA REGARDING THE DC, PER FUNDING SPECIALIST STILL PENDING.
--- NOTE | 2019-04-06 19:30 | NUR ---
RN CLOSING NOTES PATIENT IN BED, A/O X1. VERBALLY RESPONSIVE BUT ARMENINA SPEAKING. NO FACIAL GRIMACING NOTED. ALL DUE MEDS GIVEN AND TOLERATED WELL. KEPT CLEAN AND DRY. BED ON LOWEST POSITION AND LOCKED. FAMILY AT BEDSIDE. DISCUSSED THE PLAN OF CARE. ALL NEEDS MET. ENDORSED TO PM RN FOR FABIOLA.
[2019-04-06] MEDS: OXYBUTYNIN CHLORIDE ER 5 MG TAB PO SCH (21:47)
[2019-04-06] MEDS: TAMSULOSIN 0.4 MG CAP.SR.24H PO SCH (21:47)
--- NOTE | 2019-04-06 22:09 | NUR ---
PATIENT IS PERSSITENTLY AGITATED AND NOT RELIEVED. DR DALAL BIN PILER OPAGED FOR ORDERS
--- NOTE | 2019-04-06 22:21 | NUR ---
DR DALAL PAGED AND INFORMED THAT THE PATIENT IS RESTLESS AND AGITATED, WITH ORDERS AND CARRIED OUYT
[2019-04-06] MEDS ORDERED: OLANZAPINE 10 MG VIAL IM STA (22:22)
--- NOTE | 2019-04-06 22:24 | NUR ---
ZYPREXA 5 MG IM ORDERED,
[2019-04-06] MEDS ORDERED: OLANZAPINE 10 MG VIAL IM ONE (23:24)
--- NOTE | 2019-04-06 23:30 | NUR ---
zyprexa dose requested from the car cleaning supervisor.awaiting for the medication to be available.
--- NOTE | 2019-04-06 23:31 | NUR ---
RT NOTE PLACED PT ON BIPAP AT THIS TIME. NOSE MASK SECURED. ALARMS ON AND AUDIBLE. NO DISTRESS NOTED AT THIS TIME. WILL MONITOR CLOSELY. Addendum: 04/06/19 at 2332 by KYLAH CARNEY RT Amended: Links added.
--- NOTE | 2019-04-06 23:59 | NUR ---
currently on bipap c/o rt. zyprexa 5 mg im given to left anterolateral thigh im as ordered.
[2019-04-07] VITALS: BP 135/67
[2019-04-07] MEDS: ALBUTEROL FS 2.5 MG/3 ML VIAL.NEB NEB SCH ×5 (03:21→19:55)
--- NOTE | 2019-04-07 04:34 | NUR ---
patient asleep and witgh no restlesssness noted
--- NOTE | 2019-04-07 06:34 | NUR ---
aslep with bipap on. alexandra catheter emptied and notedurine is haxyandwith blood clot sediments, weight increased 10 lbs, will inform the physician. soft wrist restraints discontinued as patient has been sleeping
--- NOTE | 2019-04-07 07:13 | NUR ---
report given to ashlyn dela cruz that the patintweight incresed from 171 to 181 lbs,urine has bloos sediments and hazy.patient refused to drink water, still with bipap and asleep but opens eyes when talked to, bilateral soft wrist restranits discontinued as the patient has been asleep
--- NOTE | 2019-04-07 07:37 | NUR ---
RN OPENING NOTES RECEIVED PATIENT IN BED, ASLEEP WITH BIPAP ON. RESPIRATION EVEN AND UNLABORED. RESTRAINTS DISCONTINUED. PAGE CATHETER WITH 50ML URINE OUTPUT DRAINING HAZY, WITH SEDIMENTS, ORANGE COLOR URINE. IV ACCESS ON LAC #22 INTACT, PATENT AND FLUSHED WELL, NO IV FLUIDS RUNNING. WAS INFORMED BY PM RN ABOUT THE WEIGHT GAINED.BED IN LOWEST POSITION AND LOCKED. CALL LIGHT WITHIN REACH. WILL CONTINUE TO MONITOR AND INFORM MD ABOUT URINE AND WEIGHT GAIN.
[2019-04-07 08:00] VITALS: BP 138/85
[2019-04-07] MEDS: ENSURE ENLIVE 237 ML LIQUID (VANILLA) PO SCH ×2 (08:00→18:02)
[2019-04-07 08:05] VITALS: BP 138/85
--- NOTE | 2019-04-07 08:10 | NUR ---
FASHION CONSULTANT OPENING NOTES RECEIVED REPORT FROM ABE RN WHO RECEIVED REPORT FROM THIRD OFFICER. PT ON BED ASLEEP WITH CPAP ON, NOT IN ACUTE RESPIRATORY DISTRESS. ABD SOFT AND NON DISTENDED WITH ACTIVE BOWEL SOUNDS, FC IN PLACE WITH DARK YELLOW URINE WITH SEDIMENTS AND FEW CLOTS PRESENT. SKIN WARM TO TOUCH AND DRY. NO S/SX ON PAIN AND DISCOMFORT. TELE MONITOR SHOWS AFIB 93 CONTROLLED. IV SITE AT LEFT AC #22, PATENT IN FLUSHING. CALL LIGHT WITHIN REACH. WILL CONTINUE TO MONITOR.
[2019-04-07] MEDS: ASPIRIN EC 81 MG TABLET.DR PO SCH (09:16)
[2019-04-07] MEDS: FAMOTIDINE (20 MG) 20 MG TABLET PO SCH ×2 (09:16→21:33)
[2019-04-07] MEDS: ENOXAPARIN SODIUM 30 MG/0.3 ML DISP.SYRIN SQ SCH (09:18)
[2019-04-07 12:00] VITALS: BP 123/73
--- NOTE | 2019-04-07 13:06 | NUR ---
COAL TOWER OPERATOR NOTES PT SEEN BY VINCE BEASLEY. ORDERED ACUTE MEDICAL RESTRAINT FOR RENEWAL. ORDER READ BACK, NOTED AND CARRIED OUT. WAITING FOR FAMILY MEMBER TO ARRIVED OR UPDATES REGARDING PLACEMENT OF CARE. WILL CONTINUE TO MONITOR
[2019-04-07 16:00] VITALS: BP 120/75
[2019-04-07 16:20] VITALS: BP 120/75
--- NOTE | 2019-04-07 18:49 | NUR ---
MECHANICAL REPAIR WORKER CLOSING NOTES PT A/OX 1-2,WITH EPISODES OF CONFUSION, MEXICAN SPEAKING. RESPIRATION EVEN AND UNLABORED WITH NO ACUTE RESPIRATORY DISTRESS, NON PRODUCTIVE COUGH PRESENT, HOB ELEVATED, ON O2 AT 2LPM VIA N/C. ABD SOFT AND NON DISTENDED WITH ACTIVE BOWEL SOUNDS, BM TODAY. DENIES PAIN AND DISCOMFORT. SKIN WARM TO TOUCH AND DRY, NO OPEN SKIN BREAKDOWN WHEN BED BATH PROVIDED. IV SITE AT LEFT AC #22, PATENT IN FLUSHING, NO S/SX ON INFILTRATION. TELE MONITOR SHOWS CONTROLLED A-FIB 98. ALL CARE ATTENDED. CALL LIGHT WITHIN REACHED. MONITORING WITH RESTRAINTS Q15-30 DONE, ABLE TO PROVIDED ASSISTANCE WITH CARE. WAITING FOR AUTHORIZATION FROM INSURANCE FOR DISCHARGE PLACEMENT. FAMILY AWARE. ENDORSED PT CARE TO NEXT SHIFT.
--- NOTE | 2019-04-07 19:00 | NUR ---
ELECTRIC MOTOR REPAIR SUPERVISOR OPENING NOTES Received patient awake on bed on RA, no SOB/respiratory distress noted. No s/sx of discomfort. Patient noted with bilateral soft wrist restraints due to behaviors interrupting medical interventions. With FC indwelling well. Kept on bed clean, dry and comfortable. On fall and aspiration precautions. Call light within easy reach. Will continue to monitor accordingly.
[2019-04-07] MEDS: OXYBUTYNIN CHLORIDE ER 5 MG TAB PO SCH (21:33)
[2019-04-07] MEDS: TAMSULOSIN 0.4 MG CAP.SR.24H PO SCH (21:33)
[2019-04-08] VITALS: BP 129/68
[2019-04-08] MEDS: ALBUTEROL FS 2.5 MG/3 ML VIAL.NEB NEB SCH ×7 (00:21→23:36)
--- NOTE | 2019-04-08 06:30 | NUR ---
GOVERNMENT SALES MANAGER CLOSING NOTES Patient asleep, easily awaken on bed. On RA, no SOB/respiratory distress noted. Afebrile the whole shift, no new unusualities noted. All due meds given as ordered, all nursing needs attended. On tele monitory with A-Fib noted. With bilateral soft wrist restraint noted. Kept on bed clean, dry and comfortable. Call light within easy reach. On fall and aspiration precautions. Endorsed.
[2019-04-08 08:00] VITALS: BP 159/94
[2019-04-08] MEDS: ENSURE ENLIVE 237 ML LIQUID (VANILLA) PO SCH ×2 (08:00→17:25)
[2019-04-08] MEDS: ASPIRIN EC 81 MG TABLET.DR PO SCH (08:05)
[2019-04-08] MEDS: ENOXAPARIN SODIUM 30 MG/0.3 ML DISP.SYRIN SQ SCH (08:05)
[2019-04-08] MEDS: FAMOTIDINE (20 MG) 20 MG TABLET PO SCH ×2 (08:05→21:11)
--- NOTE | 2019-04-08 09:06 | NUR ---
patient resting in room - received bedside sbar- safety precautions intact - face mas applied- fc patent- patient states he has moderate pain in thoracic cavity region - will medicate- will continue to monitor rpeort and record
[2019-04-08 12:00] VITALS: BP 141/91
--- NOTE | 2019-04-08 12:00 | NUR ---
PATIENT RESTING IN ROOM- PATIENT NOW ON RA VS BIPAP O2 SAT IS APPR. SAFETY PRECAUTIONS IN PLACE- NO COMPLAINTS OF PAIN - PAGE PATENT- URINE FRANCIS IN COLOR- VITALS STABLE- PATIENT EATING FOOD SON BROUGHT IN - WILL CONTINUE TO MONITOR REPORT AND RECORD
[2019-04-08 16:00] VITALS: BP 125/52
--- NOTE | 2019-04-08 16:00 | NUR ---
patient resting in room - no complaints or concerns- safety precautions in place- vitals stable- will continue to monitor report and record -tolerating po diet
--- NOTE | 2019-04-08 17:35 | NUR ---
patient has had a restful day- acute restraints removed - patient resting in room- safety precautions in place - vitals stable - rn care remains supportive- patient has eaten full meals today with the assistance of family and food that was brought in to help support nutritions- waiting for placement and acceptance-will endorse care to pm rn- will continue to monitor report and record
--- NOTE | 2019-04-08 19:20 | NUR ---
RN OPENING NOTE RECEIVED PATIENT IN BED RESTING WITH HOB ELEVATED. WATCHING TV. CONFUSED. BREATHING EVEN AND NON LABORED, NO SOB NOTED. ON BIPAP. ANXIOUS AND ATTEMPTING TO REMOVE BIPAP. BED IS LOWERED AND LOCKED FOR SAFETY. CALL LIGHT IS WITHIN REACH. WILL CONTINUE TO MONITOR
[2019-04-08 20:00] VITALS: BP 107/60
[2019-04-08] MEDS: OXYBUTYNIN CHLORIDE ER 5 MG TAB PO SCH (21:11)
[2019-04-08] MEDS: TAMSULOSIN 0.4 MG CAP.SR.24H PO SCH (21:11)
[2019-04-08] MEDS ORDERED: QUETIAPINE FUMARATE 25 MG TABLET PO ONE (23:00)
[2019-04-09] VITALS: BP 122/58
[2019-04-09] MEDS: ALBUTEROL FS 2.5 MG/3 ML VIAL.NEB NEB SCH ×6 (03:41→23:57)
--- NOTE | 2019-04-09 07:05 | NUR ---
RN CLOSING NOTE PATIENT IS IN BED RESTING WITH HOB ELEVATED. BREATHING IS EVEN AND NON LABORED. NO SOB NOTED AT THIS TIME. CONFUSED. ON BIPAP. IN NO APPARENT DISTRESS NOTED. DUE MEDS GIVEN AND TOLERATED WELL. PATIENT IS KEPT CLEAN, DRY, AND COMFORTABLE. CALL LIGHT IS WITHIN REACH. BED IS LOWERED TO LOWEST POSITION AND LOCKED FOR SAFETY. WILL ENDORSE TO AM SHIFT RN.
--- NOTE | 2019-04-09 07:41 | NUR ---
EXECUTIVE DIRECTOR GLOBAL BRAND MARKETING NOTES OPENING RECEIVED PATIENT IN BED SLEEPING ON BIPAP.AROUSES WHEN TOUCHED AND NAME CALLED. LEFT AC #22 SALINE LOCK PATENT. NO SOB OR DISCOMFORT NOTED AT THIS TIME. CALL LIGHT WITHIN REACH, BED AT THE LOWEST POSITION AND LOCKED, WILL CONTINUE TO MONITOR THE PATIENT.
[2019-04-09 08:00] VITALS: BP 108/86
[2019-04-09 08:05] LABS: BASOPHILS # (AUTO) 0.1 /CMM (0.0-0.2); BASOPHILS % (AUTO) 0.9 % (0.0-2.0); EOSINOPHILS % (AUTO) 6.1 % (0.0-6.0); HEMATOCRIT 45 % (39-51); HEMOGLOBIN 14.3 g/dL (13.5-17.5); LYMPHOCYTES # (AUTO) 1.4 /CMM (0.8-4.8); LYMPHOCYTES % (AUTO) 17.5 % (20.0-44.0); MEAN CORPUSCULAR HGB CONC 32 g/dl (31.0-36.0); MEAN CORPUSCULAR VOLUME 94 fL (80-96); MONOCYTES # (AUTO) 0.6 /CMM (0.1-1.30); MONOCYTES % (AUTO) 7.4 % (2.0-12.0); NEUTROPHILS # (AUTO) 5.2 /CMM (1.8-8.9); NEUTROPHILS % (AUTO) 68.1 % (43.0-81.0); PLATELET COUNT (AUTO) 149 /CMM (150-450); RED BLOOD CELL COUNT(AUTO) 4.75 MIL/uL (4.5-6.0); WHITE BLOOD COUNT (AUTO) 7.7 K/uL (4.3-11.0)
[2019-04-09 08:44] LABS: CALCIUM, SERUM 9.4 mg/dL (8.5-10.1); CARBON DIOXIDE 32 mmol/L (21-32); CHLORIDE 113 mmol/L (98-107); CREATININE 1.4 mg/dL (0.6-1.3); GLUCOSE 116 mg/dL (74-106); MAGNESIUM 1.9 mg/dL (1.8-2.4); PHOSPHORUS 3.1 mg/dL (2.5-4.9); POTASSIUM 3.9 mmol/L (3.5-5.1); SODIUM SERUM 151 mmol/L (136-145); UREA NITROGEN, BLOOD 29 mg/dL (7-18)
[2019-04-09 09:04] LABS: ALANINE AMINOTRANSFERASE 47 U/L (12-78); ALBUMIN 3.1 g/dL (3.4-5.0); ALKALINE PHOSPHATASE 34 U/L (46-116); ASPARTATE AMINOTRANSFERASE 29 U/L (15-37); BILIRUBIN,TOTAL 0.5 mg/dL (0.2-1.0); TOTAL PROTEIN, SERUM 6.7 g/dL (6.4-8.2)
[2019-04-09] MEDS: ASPIRIN EC 81 MG TABLET.DR PO SCH (09:29)
[2019-04-09] MEDS: FAMOTIDINE (20 MG) 20 MG TABLET PO SCH ×2 (09:29→21:51)
[2019-04-09] MEDS: ENSURE ENLIVE 237 ML LIQUID (VANILLA) PO SCH ×2 (09:29→18:42)
[2019-04-09] MEDS: ENOXAPARIN SODIUM 30 MG/0.3 ML DISP.SYRIN SQ SCH (09:30)
[2019-04-09 16:00] VITALS: BP 130/72
--- NOTE | 2019-04-09 19:05 | NUR ---
CHANGE OF SHIFT REPORT Patient in bed, appears restless, trying to get out from bed unassisted, attempting to remove tubings. Patient is confused, Angolan medical staff specialist assist with translation. Efra soft wrist restraint in place. Fall/ skin precaution maintained.
[2019-04-09 20:00] VITALS: BP 147/91
--- NOTE | 2019-04-09 20:15 | NUR ---
HEALTH CLUB MANAGER NOTES PATIENT IN BED A/O X1. AGITATED AND WANTS TO REMOVE THE PAGE CATHETER. SPOKE WITH HIM IN JAPANESE LANGUAGE AND CALM HIM. PATIENT ON RESTRAIN BILATERAL SOFT, VIOLIN TUTOR VINCE NOTIFIED. ALL NEEDS ATTENDED, NO MAJOR CHANGES DURING SHIFT. CALLED CASE MANAGEMENT ABOUT THE TRANSFER, AND THEY INFORMED THAT THEY ARE WAITING FOR ROOM AT NURSING CARE FACILITY. CALL LIGHT WITHIN REACH, BED AT THE LOWEST POSITION LOCKED, ENDORSED TO HEAD SHIPPER NURSE FOR FABIOLA.
[2019-04-09] MEDS: TAMSULOSIN 0.4 MG CAP.SR.24H PO SCH (21:51)
[2019-04-09] MEDS: OXYBUTYNIN CHLORIDE ER 5 MG TAB PO SCH (21:51)
[2019-04-10 01:18] VITALS: BP 144/84
[2019-04-10] MEDS: ALBUTEROL FS 2.5 MG/3 ML VIAL.NEB NEB SCH ×6 (03:51→23:43)
--- NOTE | 2019-04-10 06:19 | NUR ---
END OF SHIFT REPORT Patient in bed, A/O x1 to self only with confusion. Restless at times, trying to get up from bed unassisted, attempted to removed tubings, fernanda soft wrist restraint in place, no injury. AFIB controlled in the Tele monitor. CPAP at night, tolerating well. Mccloud cath to gravity with good output. Fall/aspiration/skin precaution maintained. Plan discharge to SNF, awaiting bed available. Will endorse to Oncoming RN.
--- NOTE | 2019-04-10 06:48 | NUR ---
NO IV PERIPHERAL LINE Unable to insert IV line, patient aggressive and became agitated during insertion. Will endorse to Oncoming RN
--- NOTE | 2019-04-10 07:44 | NUR ---
telephonic rn note patient resting in bed with bipap using for now, on tele monitor afib with bbb hr 90, on soft restrain as ordered , no iv hl at this time ,will monitor bed in lowest and locked position , call light within reach
[2019-04-10 08:00] VITALS: BP_SYST 131; BP_SYST 146; BP_DIAS 79
--- NOTE | 2019-04-10 08:15 | NUR ---
ms rn note off Bipap on 1l nc, sat 95%
[2019-04-10] MEDS: ASPIRIN EC 81 MG TABLET.DR PO SCH (09:00)
[2019-04-10] MEDS: FAMOTIDINE (20 MG) 20 MG TABLET PO SCH ×2 (09:00→21:25)
[2019-04-10] MEDS: ENSURE ENLIVE 237 ML LIQUID (VANILLA) PO SCH ×2 (09:00→16:18)
[2019-04-10] MEDS: ENOXAPARIN SODIUM 30 MG/0.3 ML DISP.SYRIN SQ SCH (09:02)
--- NOTE | 2019-04-10 09:44 | NUR ---
INVESTMENT BANKING ANALYST NOTE PER DR MENJIVAR OK TO DO SWALLOW EVAL, ON 1L NC, SAT 95%
--- NOTE | 2019-04-10 10:37 | NUR ---
television servicer note with pt able to sit at edge at bed with total assistance
--- NOTE | 2019-04-10 10:58 | NUR ---
telephone sales representative note on breathing tx by rt, new hl inserted with good blood return
[2019-04-10] MEDS ORDERED: OLANZAPINE 10 MG VIAL IM ONE (13:30)
[2019-04-10] MEDS ORDERED: QUETIAPINE FUMARATE 25 MG TABLET PO SCH ×2 (13:30→22:00)
--- NOTE | 2019-04-10 13:41 | NUR ---
ms rn note very agitated dr alaniz notified with order Zyprexa given .will f\u
--- NOTE | 2019-04-10 14:23 | NUR ---
ms rn note hold Seroquel at this time, dr alaniz aware ok to hold now patient is relaxing quietly , family at bedside
--- NOTE | 2019-04-10 15:45 | NUR ---
ms rn note unable to do swallow eval ,patient is sleeping ,will do tomorrow in am
--- NOTE | 2019-04-10 15:46 | NUR ---
OIL BURNER JOURNEYMAN was informed by telehealth case manager Chloé regarding pt's son needing a verification of admission letter. OIL BURNER JOURNEYMAN typed letter and gave to pt's on Lalit.
--- NOTE | 2019-04-10 15:50 | NUR ---
telesales supervisor note unable to remove soft restrain,patient still trying to remove all lines .will monitor
[2019-04-10 16:00] VITALS: BP 117/70
--- NOTE | 2019-04-10 18:37 | NUR ---
ms rn note family at bedside, all needs attended ,will cont to monitor, not in distress
--- NOTE | 2019-04-10 19:30 | NUR ---
MS RN OPENING NOTES, RECEIVED PATIENT IN BED RESTING, A/O X1, CONFUSED, PATIENT HAS BILATERAL SOFT WRIST RESTRAINS IN PLACE DUE TO ATTEMPTING TO GET OFF THE BED AND REMOVING TUBINGS. ON 2L O2 TOLERATING WELL, NO SOB AND NO ACUTE DISTRESS NOTED AT THIS TIME. PAGE CATH TO GRAVITY WITH YELLOW CLEAR URINE OUTPUT. BED IN LOW/ LOCKED POSITION, CALL LIGHTS WNL. WILL CONTINUE TO MONITOR.
[2019-04-10 20:00] VITALS: BP 129/79
[2019-04-10] MEDS: OXYBUTYNIN CHLORIDE ER 5 MG TAB PO SCH (21:25)
[2019-04-10] MEDS: TAMSULOSIN 0.4 MG CAP.SR.24H PO SCH (21:26)
[2019-04-11] MEDS: ALBUTEROL FS 2.5 MG/3 ML VIAL.NEB NEB SCH ×6 (03:44→23:33)
[2019-04-11 04:00] VITALS: BP 143/77
--- NOTE | 2019-04-11 07:17 | NUR ---
MS RN OPENING NOTES, PATIENT IN BED RESTING, A/O X1, CONFUSED, PATIENT HAS BILATERAL SOFT WRIST RESTRAINS IN PLACE DUE TO ATTEMPTING TO GET OFF THE BED AND REMOVING TUBINGS. ON 2L O2 DURING DAY AND BIPAT DURING NIGHT, TOLERATING WELL, NO SOB AND NO ACUTE DISTRESS NOTED AT THIS TIME. PAGE CATH TO GRAVITY WITH DARK YELLOW URINE OUTPUT. BED IN LOW/ LOCKED POSITION, CALL LIGHTS WNL. ENDORSED THE PATIENT TO AM RN FOR FABIOLA.
--- NOTE | 2019-04-11 07:26 | NUR ---
MS RN CLOSING NOTES, PATIENT IN BED RESTING, A/O X1, CONFUSED, PATIENT HAS BILATERAL SOFT WRIST RESTRAINS IN PLACE DUE TO ATTEMPTING TO GET OFF THE BED AND REMOVING TUBINGS. ON 2L O2 DURING DAY AND BIPAT DURING NIGHT, TOLERATING WELL, NO SOB AND NO ACUTE DISTRESS NOTED AT THIS TIME. PAGE CATH TO GRAVITY WITH DARK YELLOW URINE OUTPUT. BED IN LOW/ LOCKED POSITION, CALL LIGHTS WNL. ENDORSED THE PATIENT TO AM RN FOR FABIOLA.
--- NOTE | 2019-04-11 07:30 | NUR ---
received bedside sbar to from off0-going RN - safety precautions in place-will continue to monitor report and record
[2019-04-11 08:00] VITALS: BP 148/92
[2019-04-11 08:05] LABS: BASOPHILS # (AUTO) 0.1 /CMM (0.0-0.2); BASOPHILS % (AUTO) 0.8 % (0.0-2.0); EOSINOPHILS % (AUTO) 6.3 % (0.0-6.0); HEMATOCRIT 43 % (39-51); HEMOGLOBIN 13.9 g/dL (13.5-17.5); LYMPHOCYTES # (AUTO) 1.5 /CMM (0.8-4.8); MEAN CORPUSCULAR HGB CONC 32 g/dl (31.0-36.0); MEAN CORPUSCULAR VOLUME 95 fL (80-96); MONOCYTES # (AUTO) 0.6 /CMM (0.1-1.30); MONOCYTES % (AUTO) 8.5 % (2.0-12.0); NEUTROPHILS % (AUTO) 65.4 % (43.0-81.0); PLATELET COUNT (AUTO) 164 /CMM (150-450); RED BLOOD CELL COUNT(AUTO) 4.52 MIL/uL (4.5-6.0); WHITE BLOOD COUNT (AUTO) 7.6 K/uL (4.3-11.0)
[2019-04-11 08:30] LABS: CALCIUM, SERUM 9.6 mg/dL (8.5-10.1); CARBON DIOXIDE 33 mmol/L (21-32); CHLORIDE 113 mmol/L (98-107); CREATININE 1.4 mg/dL (0.6-1.3); GLUCOSE 114 mg/dL (74-106); MAGNESIUM 1.9 mg/dL (1.8-2.4); PHOSPHORUS 3.5 mg/dL (2.5-4.9); SODIUM SERUM 153 mmol/L (136-145); UREA NITROGEN, BLOOD 27 mg/dL (7-18)
[2019-04-11] MEDS: ASPIRIN EC 81 MG TABLET.DR PO SCH (08:47)
[2019-04-11] MEDS: ENSURE ENLIVE 237 ML LIQUID (VANILLA) PO SCH ×2 (08:49→17:58)
[2019-04-11] MEDS: FAMOTIDINE (20 MG) 20 MG TABLET PO SCH ×2 (08:50→21:40)
[2019-04-11] MEDS: ENOXAPARIN SODIUM 30 MG/0.3 ML DISP.SYRIN SQ SCH (08:56)
[2019-04-11 12:00] VITALS: BP 148/92
[2019-04-11 16:00] VITALS: BP 132/77
[2019-04-11] MEDS ORDERED: QUETIAPINE FUMARATE 25 MG TABLET PO PRN (17:30)
--- NOTE | 2019-04-11 18:54 | NUR ---
patient had a restful day - tolerating diet - had BM- alexandra patent - vitals stable - no s/s of distress - rn poc is supportive- will endorse care to pm rn - safety precautions in place - will continue to monitor report and record
[2019-04-11 20:00] VITALS: BP 133/88
--- NOTE | 2019-04-11 20:00 | NUR ---
Received patient awake, oriented x1 to self only. In semi-Fowlers with siderails up and bed alarms on. In no acute distress. With bilateral wrist restraints noted. With alexandra cath, patent with yellow urine output. With O2 2l/Nasal cannula, breathing is regular and non-labored. Offered pt water and juice to drink but he is only biting on the straw. Will continue to monitor for safety.
[2019-04-11] MEDS: OXYBUTYNIN CHLORIDE ER 5 MG TAB PO SCH (21:40)
[2019-04-11] MEDS: TAMSULOSIN 0.4 MG CAP.SR.24H PO SCH (21:40)
[2019-04-11] MEDS ORDERED: OLANZAPINE 10 MG VIAL IM ONE ×2 (22:00→22:24)
[2019-04-12] MEDS: ALBUTEROL FS 2.5 MG/3 ML VIAL.NEB NEB SCH ×6 (03:14→23:33)
[2019-04-12 04:00] VITALS: BP 135/91
[2019-04-12 06:27] LABS: BASOPHILS # (AUTO) 0.1 /CMM (0.0-0.2); BASOPHILS % (AUTO) 0.7 % (0.0-2.0); EOSINOPHILS % (AUTO) 5.2 % (0.0-6.0); HEMATOCRIT 41 % (39-51); HEMOGLOBIN 13.8 g/dL (13.5-17.5); LYMPHOCYTES # (AUTO) 1.4 /CMM (0.8-4.8); LYMPHOCYTES % (AUTO) 19.3 % (20.0-44.0); MEAN CORPUSCULAR HGB CONC 33 g/dl (31.0-36.0); MEAN CORPUSCULAR VOLUME 94 fL (80-96); MONOCYTES # (AUTO) 0.5 /CMM (0.1-1.30); MONOCYTES % (AUTO) 7.3 % (2.0-12.0); NEUTROPHILS % (AUTO) 67.5 % (43.0-81.0); PLATELET COUNT (AUTO) 168 /CMM (150-450); RED BLOOD CELL COUNT(AUTO) 4.41 MIL/uL (4.5-6.0); WHITE BLOOD COUNT (AUTO) 7.4 K/uL (4.3-11.0)
[2019-04-12 07:06] LABS: ALANINE AMINOTRANSFERASE 44 U/L (12-78); ALKALINE PHOSPHATASE 32 U/L (46-116); ASPARTATE AMINOTRANSFERASE 22 U/L (15-37); BILIRUBIN,TOTAL 0.5 mg/dL (0.2-1.0); CALCIUM, SERUM 9.8 mg/dL (8.5-10.1); CARBON DIOXIDE 35 mmol/L (21-32); CHLORIDE 111 mmol/L (98-107); CREATININE 1.5 mg/dL (0.6-1.3); GLUCOSE 111 mg/dL (74-106); MAGNESIUM 1.8 mg/dL (1.8-2.4); PHOSPHORUS 3.6 mg/dL (2.5-4.9); POTASSIUM 3.7 mmol/L (3.5-5.1); SODIUM SERUM 151 mmol/L (136-145); TOTAL PROTEIN, SERUM 6.6 g/dL (6.4-8.2); UREA NITROGEN, BLOOD 28 mg/dL (7-18)
--- NOTE | 2019-04-12 07:15 | NUR ---
MS RN NOTES PATIENT IN BED EYES CLOSED EASY TO AROUSE. RESPOND TO VERBAL AND TACTILE STIMULI. NO ACUTE DISTRESS NOTED. BREATHING UNLABORED. IV ACCESS PATENT AND INTACT. NO REDNESS OR SWELLING NOTED. SAFETY MEASURES IN PLACE. WITH BILATERAL SOFT WRIST RESTRAINT, CHECKED WITH GOOD CIRCULATION. WILL CONTINUE TO MONITOR ACCORDINGLY.
[2019-04-12 08:00] VITALS: BP 133/76
[2019-04-12] MEDS: ENSURE ENLIVE 237 ML LIQUID (VANILLA) PO SCH ×2 (08:25→16:30)
[2019-04-12] MEDS: ASPIRIN EC 81 MG TABLET.DR PO SCH (08:26)
[2019-04-12] MEDS: FAMOTIDINE (20 MG) 20 MG TABLET PO SCH ×2 (08:26→21:48)
[2019-04-12] MEDS: ENOXAPARIN SODIUM 30 MG/0.3 ML DISP.SYRIN SQ SCH (08:28)
[2019-04-12 12:00] VITALS: BP 128/74
[2019-04-12] MEDS ORDERED: IPRATROPIUM NEB FS 0.5 MG/2.5 ML AMPUL.NEB NEB PRN (12:30)
[2019-04-12] MEDS: ACETYLCYSTEINE 10% SOLN 400 MG/4 ML VIAL NEB SCH ×3 (13:07→23:33)
[2019-04-12 16:00] VITALS: BP 124/72
--- NOTE | 2019-04-12 18:54 | NUR ---
MS RN NOTES PATIENT IN BED ALERT ORIENTED X 1. NO ACUTE DISTRESS NOTED. BREATHING UNLABORED. IV ACCESS PATENT AND INTACT, NO REDNESS OR SWELLING NOTED. SAFETY MEASURES IN PLACE. WITH BILATERAL SOFT WRIST RESTRAINT, CHECKED WITH GOOD CIRCULATION. NEED ATTENDED AND ANTICIPATED .WILL ENDORSE TO NIGHT NURSE FOR CONTINUITY OF CARE.
[2019-04-12 20:00] VITALS: BP 110/62
[2019-04-12] MEDS: TAMSULOSIN 0.4 MG CAP.SR.24H PO SCH (21:49)
[2019-04-12] MEDS: OXYBUTYNIN CHLORIDE ER 5 MG TAB PO SCH (21:49)
[2019-04-12 22:46] VITALS: BP 110/62
[2019-04-13 04:00] VITALS: BP 122/74
[2019-04-13] MEDS: ALBUTEROL FS 2.5 MG/3 ML VIAL.NEB NEB SCH ×4 (04:06→15:27)
[2019-04-13 08:00] VITALS: BP 134/70
[2019-04-13 08:02] LABS: BASOPHILS % (AUTO) 0.7 % (0.0-2.0); EOSINOPHILS % (AUTO) 6.8 % (0.0-6.0); HEMATOCRIT 42 % (39-51); HEMOGLOBIN 13.6 g/dL (13.5-17.5); LYMPHOCYTES # (AUTO) 1.3 /CMM (0.8-4.8); LYMPHOCYTES % (AUTO) 19.6 % (20.0-44.0); MEAN CORPUSCULAR HGB CONC 32 g/dl (31.0-36.0); MEAN CORPUSCULAR VOLUME 94 fL (80-96); MONOCYTES # (AUTO) 0.5 /CMM (0.1-1.30); MONOCYTES % (AUTO) 7.7 % (2.0-12.0); NEUTROPHILS # (AUTO) 4.4 /CMM (1.8-8.9); NEUTROPHILS % (AUTO) 65.2 % (43.0-81.0); PLATELET COUNT (AUTO) 170 /CMM (150-450); RED BLOOD CELL COUNT(AUTO) 4.47 MIL/uL (4.5-6.0); WHITE BLOOD COUNT (AUTO) 6.8 K/uL (4.3-11.0)
[2019-04-13 09:02] LABS: CALCIUM, SERUM 9.6 mg/dL (8.5-10.1); CARBON DIOXIDE 32 mmol/L (21-32); CHLORIDE 110 mmol/L (98-107); CREATININE 1.5 mg/dL (0.6-1.3); GLUCOSE 100 mg/dL (74-106); MAGNESIUM 1.8 mg/dL (1.8-2.4); PHOSPHORUS 3.9 mg/dL (2.5-4.9); POTASSIUM 4.2 mmol/L (3.5-5.1); SODIUM SERUM 152 mmol/L (136-145); UREA NITROGEN, BLOOD 27 mg/dL (7-18)
[2019-04-13] MEDS: FAMOTIDINE (20 MG) 20 MG TABLET PO SCH (09:33)
[2019-04-13] MEDS: ASPIRIN EC 81 MG TABLET.DR PO SCH (09:33)
[2019-04-13] MEDS: ENOXAPARIN SODIUM 30 MG/0.3 ML DISP.SYRIN SQ SCH (09:35)
[2019-04-13] MEDS: ENSURE ENLIVE 237 ML LIQUID (VANILLA) PO SCH ×2 (09:54→17:00)
[2019-04-13 11:08] LABS: ALBUMIN 3.1 g/dL (3.4-5.0); BILIRUBIN,DIRECT 0.2 mg/dL (0.0-0.2); BILIRUBIN,TOTAL 0.4 mg/dL (0.2-1.0); TOTAL PROTEIN, SERUM 6.2 g/dL (6.4-8.2)
[2019-04-13] MEDS: ACETYLCYSTEINE 10% SOLN 400 MG/4 ML VIAL NEB SCH ×2 (15:27→15:28)
[2019-04-13 16:00] VITALS: BP 120/77
--- NOTE | 2019-04-13 19:35 | NUR ---
MARKER SHIPMENTS NOTES PATIENT IN BED MEDICALLY STABLE, IN NO ACUTE DISTRESS. NO SOB NOTED. FAMILY AT BEDSIDE. REMOVED IV ACCESS AND PAGE CATHETER. DISCHARGE PACKET GIVEN TO AMBULANCE PERSONNEL. TEACHINGS DISCUSSED WITH FAMILY AND PATIENT. CALLED [facility] AND SPOKE WITH PAMELA.
== END 2019-04-13 19:35 | DRG 469 ==
LOC: TELE 22:38 → MED 03-24 08:37 → ICU 03-26 10:48 → TELE1 03-28 13:48 → MEDSG1 03-29 19:43 → TELE-TD 04-03 11:29 → TELE1 04-04 10:30 → MEDSG1 04-10 11:05
PROVIDERS: ADMIT Internal Medicine; ATTEND Nurse Practitioner Acute Care
PROC: 5A09357 Assistance with Respiratory Ventilation, Less than 24 Consecutive Hours, Continuous Positive Airway Pressure (ICD-10-PCS; principal; 2019-03-26)
DX: N17.0 Acute kidney failure with tubular necrosis (principal); I21.A1 Myocardial infarction type 2; J96.01 Acute respiratory failure with hypoxia; J96.02 Acute respiratory failure with hypercapnia; I27.20 Pulmonary hypertension, unspecified; G92 Toxic encephalopathy; I50.23 Acute on chronic systolic (congestive) heart failure; E83.42 Hypomagnesemia; E66.2 Morbid (severe) obesity with alveolar hypoventilation; I13.0 Hypertensive heart and chronic kidney disease with heart failure and stage 1 through stage 4 chronic kidney disease, or unspecified chronic kidney disease; E87.0 Hyperosmolality and hypernatremia; G20 Parkinson's disease; N18.9 Chronic kidney disease, unspecified; Z86.73 Personal history of transient ischemic attack (TIA), and cerebral infarction without residual deficits; F02.80 Dementia in other diseases classified elsewhere, unspecified severity, without behavioral disturbance, psychotic disturbance, mood disturbance, and anxiety; E87.6 Hypokalemia; F43.10 Post-traumatic stress disorder, unspecified; I42.9 Cardiomyopathy, unspecified; J44.9 Chronic obstructive pulmonary disease, unspecified; M81.0 Age-related osteoporosis without current pathological fracture; N40.0 Benign prostatic hyperplasia without lower urinary tract symptoms; Z87.891 Personal history of nicotine dependence; Z68.28 Body mass index [BMI] 28.0-28.9, adult; I08.0 Rheumatic disorders of both mitral and aortic valves; I48.91 Unspecified atrial fibrillation
CPT/HCPCS: 36415; 36600; 71045-TC; 76770-TC; 80048-TC; 80053-TC; 80061-TC; 80076-TC; 81000-TC; 82550-TC; 82570-TC; 82803-TC; 82962-TC; 83735-TC; 83880; 83970; 84100-TC; 84155; 84155-TC; 84165; 84300-TC; 84443-TC; 84484-TC; 85025-TC; 87081-TC; 87086-TC; 92611-TC; 93307-TC; 94640-TC; 94660; 94760-TC; 94799-TC; 97110-TC; 97112-TC; 97116-TC; 97530-TC; G0378; J0360; J0696; J1120; J1650; J1940; J3475; J3480; J3490; J7030; J7040; J7050; J7060; J7070

== ENCOUNTER 2019-05-31 21:25 | Inpatient (IN) | payer MEDICAID, MEDICARE ==
[~2019-05-31] VITALS: Ht 172.7 cm; Wt 64.0 kg
[~2019-05-31 21:25] MED LIST changes: +ALBUT2 NEB; +ASPI-1420 PO; -DILT30TA14 PO; +DOCU100C36 PO; +ENOX30DI SQ; +FAMO-131 PO; -FAMO20TA80 PO; +IBUP-1955 PO; +LACT-246 PO; -LORA1TAB PO; -ZOLP5TAB2 PO
--- NOTE | 2019-05-31 21:25 | NUR ---
BIB EMS FROM HOME C/O FLU LIKE SYMPTOM, COUGH X2 DAYS. PER FAMILY PT MORE LETHARGIC SINCE STARTED ON SEROQUEL., PT TO BED 7, PLACED ON MONITOR, -SOB, VSS, NAD NOTED, PENDING ER PROVIDER KULDEEP
[2019-05-31 22:14] LABS: BASOPHILS # (AUTO) 0.1 /CMM (0.0-0.2); BASOPHILS % (AUTO) 0.6 % (0.0-2.0); EOSINOPHILS % (AUTO) 0.4 % (0.0-6.0); HEMATOCRIT 51 % (39-51); HEMOGLOBIN 16.5 g/dL (13.5-17.5); LYMPHOCYTES % (AUTO) 5.6 % (20.0-44.0); MEAN CORPUSCULAR HGB CONC 33 g/dl (31.0-36.0); MEAN CORPUSCULAR VOLUME 92 fL (80-96); MONOCYTES % (AUTO) 5.6 % (2.0-12.0); NEUTROPHILS # (AUTO) 15.2 /CMM (1.8-8.9); NEUTROPHILS % (AUTO) 87.8 % (43.0-81.0); PLATELET COUNT (AUTO) 208 /CMM (150-450); WHITE BLOOD COUNT (AUTO) 17.3 K/uL (4.3-11.0)
[2019-05-31] MEDS ORDERED: IV NS 0.9% 1,000 ML BAG IV ONE ×3 (22:30→23:30)
[2019-05-31 22:36] LABS: CALCIUM, SERUM 9.9 mg/dL (8.5-10.1); CARBON DIOXIDE 29 mmol/L (21-32); CHLORIDE 108 mmol/L (98-107); CREATININE 3.2 mg/dL (0.6-1.3); GLUCOSE 158 mg/dL (74-106); POTASSIUM 4.5 mmol/L (3.5-5.1); SODIUM SERUM 146 mmol/L (136-145)
[2019-05-31 22:46] LABS: UREA NITROGEN, BLOOD 80 mg/dL (7-18)
--- NOTE | 2019-05-31 22:58 | NUR ---
CALLED DR PARSON FOR TO . TRANSFERRED TO DR COBOS
[2019-05-31] MEDS ORDERED: VANCOMYCIN HCL 1 GM in IV D5W 260 ML IV ONE (23:00)
[2019-05-31] MEDS ORDERED: PIPERACILLIN /TAZOBACTAM 3.375 G in IV D5W 50 ML IV ONE (23:00)
--- NOTE | 2019-05-31 23:00 | NUR ---
CALLED FOR TELE BED
--- NOTE | 2019-05-31 23:30 | NUR ---
SENT FLU SWAB AND RSV
[2019-05-31 23:32] LABS: APPEARANCE,URINE Clear (CLEAR); BILIRUBIN,URINE SMALL (NEGATIVE); BLOOD, URINE Trace-lysed Ery/uL (NEGATIVE); COLOR,URINE Orange (YELLOW); KETONES,URINE Negative (NEGATIVE); LEUKOCYTE ESTERASE ,URINE Small (NEGATIVE); NITRITE, URINE Negative (NEGATIVE); PROTEIN,URINE 100 mg/dl (NEGATIVE); UGLUCOSE Negative (NEGATIVE)
[2019-05-31] MEDS ORDERED: PIPERACILLIN /TAZOBACTAM 3.375 G VIAL IV ONE (23:47)
[2019-05-31] MEDS ORDERED: VANCOMYCIN 1 GM VIAL ONE (23:47)
[2019-06-01 00:16] LABS: BACTERIA,URINE Few /HPF (None Seen); SQUAMOUS EPITHELIAL CELL,UR Rare /HPF (None Seen); WBC,URINE TOO NUMEROUS TO COUN /HPF (0-3); YEAST,URINE Few /HPF (None Seen)
--- NOTE | 2019-06-01 00:19 | NUR ---
CALLED LAB TO F/U URINE WBC STILL PENDING
[2019-06-01] MEDS ORDERED: MEMA10TA PO (00:22)
[2019-06-01 00:35] VITALS: BP 125/69
--- NOTE | 2019-06-01 00:46 | NUR ---
REPORT GIVEN TO EMILIANA MAKI FOR FABIOLA PT WILL BE TRANSPORTED TO 3RD FLOOR
--- NOTE | 2019-06-01 00:55 | NUR ---
BACK MAKER ADMITTING NOTES RECEIVED PT FROM ER VIA [facility]. PT OPENS EYES. RESPIRATIONS EVEN AND UNLABORED WITH NO S/S OF ACUTE DISTRESS OR SOB NOTED. PT NOTED WITH LAC #18G PATENT AND INTACT AND SL. NO S/S OF PAIN AT THIS TIME. SAFETY MEASURES IN PLACE WITH BED IN LOWEST LOCKED POSITION WITH SIDE RAILS UP X2. CALL LIGHT WITHIN REACH. WILL CONTINUE TO MONITOR.
[2019-06-01] MEDS ORDERED: DEXTROSE 50%-WATER 50 ML DISP.SYRIN IV PRN (03:00)
[2019-06-01] MEDS: IV D5/0.45 NACL 1,000 ML IV PRN ×2 (03:32→15:23)
[2019-06-01 04:00] VITALS: BP 105/72
[2019-06-01 06:48] LABS: BASOPHILS % (AUTO) 0.2 % (0.0-2.0); EOSINOPHILS % (AUTO) 0.9 % (0.0-6.0); HEMATOCRIT 45 % (39-51); HEMOGLOBIN 14.3 g/dL (13.5-17.5); LYMPHOCYTES # (AUTO) 1.3 /CMM (0.8-4.8); LYMPHOCYTES % (AUTO) 8.6 % (20.0-44.0); MEAN CORPUSCULAR HGB CONC 32 g/dl (31.0-36.0); MEAN CORPUSCULAR VOLUME 93 fL (80-96); MONOCYTES # (AUTO) 1.1 /CMM (0.1-1.30); MONOCYTES % (AUTO) 7.6 % (2.0-12.0); NEUTROPHILS # (AUTO) 12.3 /CMM (1.8-8.9); NEUTROPHILS % (AUTO) 82.7 % (43.0-81.0); PLATELET COUNT (AUTO) 168 /CMM (150-450); RED BLOOD CELL COUNT(AUTO) 4.79 MIL/uL (4.5-6.0); WHITE BLOOD COUNT (AUTO) 14.9 K/uL (4.3-11.0)
[2019-06-01 06:57] LABS: CALCIUM, SERUM 8.8 mg/dL (8.5-10.1); CARBON DIOXIDE 26 mmol/L (21-32); CHLORIDE 109 mmol/L (98-107); CREATININE 2.9 mg/dL (0.6-1.3); GLUCOSE 135 mg/dL (74-106); MAGNESIUM 2.3 mg/dL (1.8-2.4); POTASSIUM 4.1 mmol/L (3.5-5.1); SODIUM SERUM 147 mmol/L (136-145); UREA NITROGEN, BLOOD 78 mg/dL (7-18)
[2019-06-01] MEDS: BLOOD SUGAR DIAGNOSTIC 1 EACH STRIP IN SCH ×4 (06:58→22:39)
[2019-06-01 07:10] LABS: PROSTATE SPECIFIC ANTIGEN SCR 5.53 ng/mL (0.00-4.00); THYROID STIMULATING HORMONE 0.586 uIU/mL (0.358-3.74)
--- NOTE | 2019-06-01 07:19 | NUR ---
CASINO CAGE CASHIER NOTES PT IN BED AND AWAKE. PT OPENS EYES. RESPIRATIONS EVEN AND UNLABORED WITH NO S/S OF ACUTE DISTRESS OR SOB NOTED THROUGHOUT SHIFT. PT NOTED WITH LAC #18G PATENT D5 1/2 NS @80CC/HR. NO S/S OF PAIN AT THIS TIME. PT KEPT CLEAN, DRY, AND COMFORTABLE. SAFETY MEASURES IN PLACE WITH BED IN LOWEST LOCKED POSITION WITH SIDE RAILS UP X2. CALL LIGHT WITHIN REACH. WILL ENDORSE TO ONCOMING NURSE FOR FABIOLA.
[2019-06-01 07:43] LABS: IRON, SERUM 23 ug/dl (50-175); TOTAL IRON BINDING CAPACITY 188 ug/dl (250-450)
[2019-06-01 07:51] VITALS: BP 101/77
[2019-06-01] MEDS: ALBUTEROL FS 2.5 MG/3 ML VIAL.NEB NEB SCH ×3 (08:03→19:35)
[2019-06-01 08:29] VITALS: BP 101/77
[2019-06-01] MEDS: PIPERACILLIN /TAZOBACTAM 2.25 G in IV D5W 50 ML IV SCH ×2 (09:59→15:11)
--- NOTE | 2019-06-01 10:18 | NUR ---
WOUND CARE CONSULT: PT PRESENTS WITH RASH TO PERIANAL AREA AND LOWER BUTTOCKS, PRESENT ON ADMISSION. PT IS INCONTINENT. RECOMMENDATIONS MADE FRO SKIN PROTECTION AND SKIN CARE. DISCUSSED WITH NURSING STAFF. PT TO BE PLACED ON ISOFLEX LOW AIRLOSS BED WHEN AVAILABLE. WILL SEE PRN. DENNIS IN AGREEMENT WITH PLAN OF CARE. CURRENT SCAR SCORE IS 15. Addendum: 06/01/19 at 1020 by FEI PINO WNDNU Amended: Links added.
[2019-06-01] MEDS: Z GUARD REMEDY 2 OZ OINT TP SCH (10:30)
--- NOTE | 2019-06-01 10:30 | NUR ---
Patient did not pass swallow evaluation. Will keep pt NPO and inform
[2019-06-01] MEDS ORDERED: FEE PK DOSING 1 MIN EA MC ONE (11:42)
--- NOTE | 2019-06-01 12:00 | NUR ---
patient picked up by radiology staff to CT Head
[2019-06-01] MEDS: Z GUARD REMEDY 2 OZ OINT TP PRN ×2 (13:02→13:04)
[2019-06-01 16:00] VITALS: BP 102/68
[2019-06-01 16:13] LABS: BASOPHILS % (AUTO) 0.3 % (0.0-2.0); EOSINOPHILS % (AUTO) 1.6 % (0.0-6.0); HEMATOCRIT 42 % (39-51); HEMOGLOBIN 13.7 g/dL (13.5-17.5); LYMPHOCYTES % (AUTO) 8.4 % (20.0-44.0); MEAN CORPUSCULAR HGB CONC 32 g/dl (31.0-36.0); MEAN CORPUSCULAR VOLUME 92 fL (80-96); MONOCYTES # (AUTO) 0.9 /CMM (0.1-1.30); MONOCYTES % (AUTO) 7.5 % (2.0-12.0); NEUTROPHILS # (AUTO) 9.6 /CMM (1.8-8.9); NEUTROPHILS % (AUTO) 82.2 % (43.0-81.0); PLATELET COUNT (AUTO) 155 /CMM (150-450); RED BLOOD CELL COUNT(AUTO) 4.57 MIL/uL (4.5-6.0); WHITE BLOOD COUNT (AUTO) 11.7 K/uL (4.3-11.0)
[2019-06-01 16:26] LABS: ABG BASE EXCESS -2.4 mmol/L; ABG OXYGEN SATURATION 92.7 % (92.0-98.5); ABG PCO2 40.8 mmHg (35.0-45.0); ABG PH 7.365 (7.350-7.450); ABG PO2 66.2 mmHg (75.0-100.0); AaDO2 34.7 mmHg; COHb 0.6 % (0.5-1.5); MetHb 0.4 % (0.0-1.5); O2Hb 91.8 % (94.0-97.0); SITE, ABG Right Radial; VENT MODE, BG ROOM AIR
[2019-06-01] MEDS: CLOTRIMAZOLE 1% 15 GM TUBE TP SCH (17:39)
--- NOTE | 2019-06-01 18:24 | NUR ---
Patient remains confused, response to stimuli, open eyes. Patient seen by DR. Saucedo, dr. Srinivasan. Plan of care discussed with son Lalit. Patient suctioned frequently. IV line intact and patent , fluid running as ordered. VS are stable , saturation above 95% on room air. Wound care consult done. All needs attended. Patient kept clean and dry, repositioned. Safety precautions and aspiration precautions initiated. Call light within reach. Will endorse to next shift.
--- NOTE | 2019-06-01 19:58 | NUR ---
RN NOTES RECEIVED PATIENT IN BED AND AWAKE.OPENS EYES. RESPIRATIONS EVEN AND UNLABORED WITH NO S/S OF ACUTE DISTRESS OR SOB NOTED THROUGHOUT SHIFT. PATIENT NOTED WITH LAC #18G PATENT D5 1/2 NS @80CC/HR. NO SIGNS / SYMPTOMS OF PAIN OR DISCOMFORT AT THIS TIME. KEPT CLEAN, DRY, AND COMFORTABLE. SAFETY MEASURES IN PLACE WITH BED IN LOWEST LOCKED POSITION WITH SIDE RAILS UP X2. ASPIRATION PRECAUTION EMPHASIZED, CALL LIGHT WITHIN REACH. WILL CONTINUE TO MONITOR ACCORDINGLY.
[2019-06-01 20:00] VITALS: BP 109/70
--- NOTE | 2019-06-01 21:12 | NUR ---
RN NOTES CALLED AND SPOKE WITH DR. PARSON REGARDING NEEDING TO OBTAIN SPECIMEN FOR URINALYSIS PROFILE,URINE SODIUM, RANDOM, URINE TOTAL PROTEIN, EOSINOPHIL URINE. WITH ORDER TO INSERT PAGE CATHETER. NOTED AND CARRIED OUT.
[2019-06-01] MEDS: ENOXAPARIN SODIUM 30 MG/0.3 ML DISP.SYRIN SQ SCH (22:38)
--- NOTE | 2019-06-01 22:45 | NUR ---
RN NOTES NEURO CONSULT DONE. SEEN AND EXAMINED BY DR. HSANNON CHUNG WITH ORDERS MADE. SEIZURE PRECAUTION AND FOR ROUTINE EEG. WILL ENDORSE TO AM NURSE FOR CONTINUITY OF CARE.
[2019-06-02] MEDS: PIPERACILLIN /TAZOBACTAM 2.25 G in IV D5W 50 ML IV SCH ×3 (00:14→15:32)
[2019-06-02] MEDS: ALBUTEROL FS 2.5 MG/3 ML VIAL.NEB NEB SCH ×4 (01:43→19:41)
[2019-06-02 04:00] VITALS: BP 114/72
[2019-06-02 04:30] VITALS: BP 114/72
[2019-06-02] MEDS: IV D5/0.45 NACL 1,000 ML IV PRN (05:13)
[2019-06-02 06:37] LABS: CREATININE, URINE 92.6 MG/DL (30.0-125.0); URINE TOTAL PROTEIN 60.6 mg/dL (0-11.9)
--- NOTE | 2019-06-02 06:37 | NUR ---
RN NOTES ALL NEEDS ATTENDED AND MET, ABLE TO REST AND SLEPT AT INTERVALS, SAFETY MEASURES IN PLACE, ASPIRATION PRECAUTION EMPHASIZED, IV ACCESS INTACT AND PATENT, CALL LIGHT WITHIN EASY REACH. WILL ENDORSE TO AM NURSE FOR CONTINUITY OF CARE.
[2019-06-02 06:40] LABS: APPEARANCE,URINE CLOUDY (CLEAR); BILIRUBIN,URINE NEGATIVE (NEGATIVE); BLOOD, URINE SMALL Ery/uL (NEGATIVE); COLOR,URINE YELLOW (YELLOW); KETONES,URINE NEGATIVE (NEGATIVE); LEUKOCYTE ESTERASE ,URINE LARGE (NEGATIVE); NITRITE, URINE NEGATIVE (NEGATIVE); PH,URINE 5.5 (5.0-8.0); PROTEIN,URINE TRACE mg/dl (NEGATIVE); UGLUCOSE NEGATIVE (NEGATIVE)
[2019-06-02 06:53] LABS: BASOPHILS % (AUTO) 0.5 % (0.0-2.0); EOSINOPHILS % (AUTO) 2.9 % (0.0-6.0); HEMATOCRIT 43 % (39-51); HEMOGLOBIN 13.8 g/dL (13.5-17.5); LYMPHOCYTES % (AUTO) 11.2 % (20.0-44.0); MEAN CORPUSCULAR HGB CONC 32 g/dl (31.0-36.0); MEAN CORPUSCULAR VOLUME 92 fL (80-96); MONOCYTES # (AUTO) 0.8 /CMM (0.1-1.30); MONOCYTES % (AUTO) 8.3 % (2.0-12.0); NEUTROPHILS # (AUTO) 6.9 /CMM (1.8-8.9); NEUTROPHILS % (AUTO) 77.1 % (43.0-81.0); PLATELET COUNT (AUTO) 160 /CMM (150-450); RED BLOOD CELL COUNT(AUTO) 4.63 MIL/uL (4.5-6.0)
[2019-06-02 06:56] LABS: BACTERIA,URINE Few /HPF (None Seen); SQUAMOUS EPITHELIAL CELL,UR Rare /HPF (None Seen); URIC ACID CRYSTALS,URINE Moderate /HPF (None Seen); WBC,URINE TOO NUMEROUS TO COUN /HPF (0-3); YEAST,URINE Few /HPF (None Seen)
[2019-06-02 07:12] LABS: ALANINE AMINOTRANSFERASE 12 U/L (12-78); ALBUMIN 2.5 g/dL (3.4-5.0); ALKALINE PHOSPHATASE 41 U/L (46-116); ASPARTATE AMINOTRANSFERASE 8 U/L (15-37); BILIRUBIN,TOTAL 0.6 mg/dL (0.2-1.0); CALCIUM, SERUM 8.7 mg/dL (8.5-10.1); CARBON DIOXIDE 29 mmol/L (21-32); CHLORIDE 112 mmol/L (98-107); CREATININE 2.5 mg/dL (0.6-1.3); GLUCOSE 119 mg/dL (74-106); MAGNESIUM 2.2 mg/dL (1.8-2.4); PHOSPHORUS 3.3 mg/dL (2.5-4.9); POTASSIUM 3.4 mmol/L (3.5-5.1); SODIUM SERUM 148 mmol/L (136-145); TOTAL PROTEIN, SERUM 6.5 g/dL (6.4-8.2); UREA NITROGEN, BLOOD 64 mg/dL (7-18)
[2019-06-02 07:27] LABS: CREATINE KINASE, TOTAL 50 U/L (39-308)
[2019-06-02] MEDS: BLOOD SUGAR DIAGNOSTIC 1 EACH STRIP IN SCH ×4 (07:30→21:30)
--- NOTE | 2019-06-02 07:41 | NUR ---
TELE/RN OPENING NOTES RECEIVED PATIENT LYING ON BED AWAKE. ALERT AND ORIENTED X1. DENIES PAIN AT THIS TIME. NO SOB NOTED.PRODUCTIVE COUGH WAS NOTED. IVF OF D5 1/2 NS 1L AT 80 ML/HR ON AND INFUSING WELL. SAFETY MEASURES IN PLACE, CALL LIGHT WITHIN EASY REACH, ASPIRATION PRECAUTION EMPHASIZED. WILL CONTINUE TO MONITOR.
--- NOTE | 2019-06-02 07:47 | NUR ---
TELE/RN NOTES BS 111 MG/DL, INSULIN NOT ADMINISTERED. PATIENT IS ON NPO.
[2019-06-02 08:00] VITALS: BP 113/76
--- NOTE | 2019-06-02 09:04 | NUR ---
TELE/RN NOTES POTASSIUM 10MEQ ONCE FOR POTASSIUM 3.[address] PAR[address].
[2019-06-02] MEDS: CLOTRIMAZOLE 1% 15 GM TUBE TP SCH ×2 (09:30→17:49)
[2019-06-02] MEDS: Z GUARD REMEDY 2 OZ OINT TP PRN ×4 (09:30→09:34)
[2019-06-02] MEDS: Z GUARD REMEDY 2 OZ OINT TP SCH (09:35)
[2019-06-02] MEDS: Potassium Chloride 10 MEQ in IV D5W 1,000 ML IV PRN (10:30)
[2019-06-02 11:38] LABS: EOSINOPHIL,URINE Rare
[2019-06-02 12:00] VITALS: BP 108/71
--- NOTE | 2019-06-02 12:07 | NUR ---
TELE/RN NOTES BS 113MG/DL 0 COVERAGE.
[2019-06-02 16:00] VITALS: BP 115/79
--- NOTE | 2019-06-02 18:53 | NUR ---
TELE/RN CLOSING NOTES PATIENT LYING ON THE BED COMFORTABLY. PATIENT IS ALERT AND ORIENTED X1. RESPIRATIONS EVEN AND UNLABORED WITH EQUAL RISE AND FALL OF CHEST. DENIES ANY PAIN OR DISCOMFORT AT THIS TIME. PATIENT IS COUGHING WITH PRODUCTIVE COUGH, RT WAS SUCTION THE PATIENT. IV SITE TO THE RIGHT WRIST PATENT AND INTACT. IVF OF POTASSIUM CHLORIDE IV D5W 1L AT 50ML/HR ON AND INFUSING WELL. NO REDNESS, NO INFILTRATION PRESENT. SEEN AND EXAMINED BY MD WITH ORDERS MADE AND CARRIED OUT. ALL DUE MEDS WAS GIVEN ORDERED, NO ADVERSE REACTIONS. ALL NEEDS WAS ATTENDED. SAFETY PRECAUTION IN PLACED. BED IN LOWEST POSITION, SIDE RAILS UP X2. CALL LIGHT WITH IN REACH. WILL ENDORSED TO GROUND HAND FOR. FABIOLA.
--- NOTE | 2019-06-02 19:38 | NUR ---
RECEIVED PT IN BED OPENS EYES, STABLE AND NOT IN DISTRESS.SAFETY MEASURES AT ALL TIMES. WILL CONT TO MONITOR. Addendum: 06/02/19 at 1939 by RODRI ARANDA RN ON CARDIAC MONITORING CONTROLLED A-FIB 84 HR.
[2019-06-02 20:00] VITALS: BP 141/80
[2019-06-02] MEDS: *INSULIN ASPART NOVOLOG 100 UNIT/ML CARTRIDGE SQ PRN (21:30)
[2019-06-02] MEDS: ENOXAPARIN SODIUM 30 MG/0.3 ML DISP.SYRIN SQ SCH (21:33)
[2019-06-02] MEDS ORDERED: VANCOMYCIN 1 GM in IV D5W 250 ML IV SCH ×4 (23:00)
[2019-06-03] VITALS: BP 130/78
[2019-06-03] MEDS: PIPERACILLIN /TAZOBACTAM 2.25 G in IV D5W 50 ML IV SCH ×3 (00:19→16:07)
[2019-06-03] MEDS: ALBUTEROL FS 2.5 MG/3 ML VIAL.NEB NEB SCH ×4 (01:46→19:46)
[2019-06-03 04:00] VITALS: BP 118/80
[2019-06-03] MEDS: INSULIN ASPART/LISPRO 100 UNIT/ML CARTRIDGE SQ PRN (05:51)
[2019-06-03] MEDS: BLOOD SUGAR DIAGNOSTIC 1 EACH STRIP IN SCH ×4 (05:51→22:00)
--- NOTE | 2019-06-03 06:19 | NUR ---
NO SIGNIFICANT CHANGES, PT SLEPT WELL. ON CARDIAC MONITORING WITH CONTROLLED AFIB 82'S HR IN TELE MONITOR. RE ORIENT PT AT ALL TIMES. MAINTAINS NPO, ALL NEEDS ATTENDED AND ANTICIPATED, KEPT CLEAN, DRY AND COMFORTABLE. AM CARE RENDERED, ASSISTED PT REPOSITION Q2HR. PAGE CARE PROVIDED. MONITORED ACCORDINGLY. OFFLOAD HEELS AND ELBOWS AT ALL TIMES. SAFETY MEASURES AT ALL TIMES. ENDORSE TO NEXT SHIFT POC.
--- NOTE | 2019-06-03 07:20 | NUR ---
OXYGEN EQUIPMENT PREPARER OPENING NOTES RECEIVED PT IN BED, AWAKE, A/O X1, LATVIAN SPEAKING. PT TOLERATING RA WITH NO ACUTE RESPIRATORY DISTRESS NOTED. PT DENIES PAIN OR DISCOMFORT AT THIS TIME.ON TELEMONITORING SR HR 84. IVF D5W WITH KCL 10 MEQ AT 50ML/HR TO RIGHT WRIST G22, INTACT AND FLUID INFUSING WELL. FC IN PLACE WITH YELLOW URINE IN THE BAG. PT KEPT COMFORTABLE IN BED. CALL LIGHT KEPT WITHIN REACH. PT'S BED IN LOWEST, LOCKED POSITION WITH SRX3. WILL CONTINUE PLAN OF CARE.
[2019-06-03 08:17] VITALS: BP 118/77
[2019-06-03] MEDS: CLOTRIMAZOLE 1% 15 GM TUBE TP SCH ×2 (08:20→16:13)
[2019-06-03] MEDS: Z GUARD REMEDY 2 OZ OINT TP PRN (08:21)
[2019-06-03] MEDS: Z GUARD REMEDY 2 OZ OINT TP SCH (08:23)
[2019-06-03 09:21] LABS: BASOPHILS % (AUTO) 0.5 % (0.0-2.0); EOSINOPHILS % (AUTO) 2.9 % (0.0-6.0); HEMATOCRIT 43 % (39-51); HEMOGLOBIN 14.3 g/dL (13.5-17.5); LYMPHOCYTES # (AUTO) 1.7 /CMM (0.8-4.8); LYMPHOCYTES % (AUTO) 18.6 % (20.0-44.0); MEAN CORPUSCULAR HGB CONC 33 g/dl (31.0-36.0); MEAN CORPUSCULAR VOLUME 91 fL (80-96); MONOCYTES # (AUTO) 0.9 /CMM (0.1-1.30); MONOCYTES % (AUTO) 10.5 % (2.0-12.0); NEUTROPHILS % (AUTO) 67.5 % (43.0-81.0); PLATELET COUNT (AUTO) 156 /CMM (150-450); RED BLOOD CELL COUNT(AUTO) 4.75 MIL/uL (4.5-6.0); WHITE BLOOD COUNT (AUTO) 8.9 K/uL (4.3-11.0)
[2019-06-03 09:40] LABS: ALANINE AMINOTRANSFERASE 13 U/L (12-78); ALBUMIN 2.6 g/dL (3.4-5.0); ALKALINE PHOSPHATASE 42 U/L (46-116); ASPARTATE AMINOTRANSFERASE 13 U/L (15-37); BILIRUBIN,TOTAL 1.1 mg/dL (0.2-1.0); CALCIUM, SERUM 8.9 mg/dL (8.5-10.1); CARBON DIOXIDE 25 mmol/L (21-32); CHLORIDE 110 mmol/L (98-107); CREATININE 2.1 mg/dL (0.6-1.3); GLUCOSE 106 mg/dL (74-106); POTASSIUM 3.8 mmol/L (3.5-5.1); SODIUM SERUM 144 mmol/L (136-145); TOTAL PROTEIN, SERUM 6.7 g/dL (6.4-8.2); UREA NITROGEN, BLOOD 49 mg/dL (7-18)
[2019-06-03] MEDS: Potassium Chloride 10 MEQ in IV D5W 1,000 ML IV PRN (13:53)
[2019-06-03 15:57] VITALS: BP 112/58
--- NOTE | 2019-06-03 16:20 | NUR ---
PACKAGING DESIGNER NOTES SEEN AND EVALUATED BY DR PARSON. ORDERS PLACED, TO BE REEVALUATED ST TOMORROW AND CARRIED OUT. SAMI/ANITHA MADE AWARE WELL. D5W WITH KCL CHANGED TO 75ML/HR WELL.
--- NOTE | 2019-06-03 18:51 | NUR ---
BELT WEAVER CLOSING NOTES PT REMAINS IN BED, AWAKE, A/O X1, PORTUGUESE SPEAKING. SON PRESENT AT BEDSIDE. PT TOLERATING RA WITH NO ACUTE RESPIRATORY DISTRESS NOTED. PT DENIES PAIN OR DISCOMFORT AT THIS TIME.ON TELEMONITORING SR HR 85. IVF D5W WITH KCL AT 75ML/HR TO RIGHT WRIST G22, INTACT AND FLUID INFUSING WELL. FC IN PLACE WITH YELLOW URINE IN THE BAG, OUTPUT RECORDED. ALL NEEDS AND CARE ATTENDED. PT KEPT COMFORTABLE IN BED. CALL LIGHT KEPT WITHIN REACH. PT'S BED IN LOWEST, LOCKED POSITION WITH SRX3. WILL ENDORSE TO INCOMING NIGHT NURSE FOR FABIOLA.
--- NOTE | 2019-06-03 19:10 | NUR ---
RN OPENING NOTES: RECEIVED PATIENT IN BED,AWAKE, NO SOB NOTED. NOT IN PAIN. CALL LIGHT WITHIN REACH. BED IN LOWEST AND LOCKED POSITION. BED ALARM ON. HOB ELEVATED AT 30 DEGREES AT ALL TIMES.
[2019-06-03 20:45] VITALS: BP 107/70
[2019-06-03] MEDS: ENOXAPARIN SODIUM 30 MG/0.3 ML DISP.SYRIN SQ SCH (22:41)
[2019-06-03] MEDS: VANCOMYCIN 1 GM in IV D5W 250 ML IV SCH (22:54)
[2019-06-04] VITALS: BP 107/74
[2019-06-04] MEDS: ALBUTEROL FS 2.5 MG/3 ML VIAL.NEB NEB SCH ×4 (00:30→19:06)
[2019-06-04] MEDS: PIPERACILLIN /TAZOBACTAM 2.25 G in IV D5W 50 ML IV SCH ×3 (00:45→16:20)
--- NOTE | 2019-06-04 03:02 | NUR ---
RT SUCTIONED THE PATIENT'S ORAL SECRETIONS, PATIENT WAS COMBATIVE.
[2019-06-04 04:21] VITALS: BP 107/72
[2019-06-04] MEDS: BLOOD SUGAR DIAGNOSTIC 1 EACH STRIP IN SCH ×4 (06:37→22:16)
[2019-06-04 06:39] LABS: BASOPHILS % (AUTO) 0.5 % (0.0-2.0); EOSINOPHILS % (AUTO) 3.4 % (0.0-6.0); HEMATOCRIT 42 % (39-51); HEMOGLOBIN 13.8 g/dL (13.5-17.5); LYMPHOCYTES # (AUTO) 1.2 /CMM (0.8-4.8); LYMPHOCYTES % (AUTO) 16.6 % (20.0-44.0); MEAN CORPUSCULAR HGB CONC 33 g/dl (31.0-36.0); MEAN CORPUSCULAR VOLUME 91 fL (80-96); MONOCYTES # (AUTO) 0.9 /CMM (0.1-1.30); MONOCYTES % (AUTO) 11.6 % (2.0-12.0); NEUTROPHILS % (AUTO) 67.9 % (43.0-81.0); PLATELET COUNT (AUTO) 151 /CMM (150-450); RED BLOOD CELL COUNT(AUTO) 4.64 MIL/uL (4.5-6.0); WHITE BLOOD COUNT (AUTO) 7.3 K/uL (4.3-11.0)
--- NOTE | 2019-06-04 06:39 | NUR ---
RN CLOSING NOTES: PATIENT IN BED, ASLEEP, AROUSABLE, NO SOB NOTED. NO COMPLAIN OF PAIN. BLOOD SUGAR FINGERSTICK TODAY IS 94, NO INSULIN GIVEN. CALL LIGHT WITHIN REACH. BED IN LOWEST AND LOCKED POSITION. BED ALARM ON.
[2019-06-04 07:02] LABS: ALANINE AMINOTRANSFERASE 12 U/L (12-78); ALBUMIN 2.5 g/dL (3.4-5.0); ALKALINE PHOSPHATASE 42 U/L (46-116); ASPARTATE AMINOTRANSFERASE 14 U/L (15-37); BILIRUBIN,TOTAL 1.2 mg/dL (0.2-1.0); CALCIUM, SERUM 8.9 mg/dL (8.5-10.1); CARBON DIOXIDE 26 mmol/L (21-32); CHLORIDE 107 mmol/L (98-107); CREATININE 1.7 mg/dL (0.6-1.3); GLUCOSE 110 mg/dL (74-106); POTASSIUM 3.6 mmol/L (3.5-5.1); SODIUM SERUM 142 mmol/L (136-145); TOTAL PROTEIN, SERUM 6.4 g/dL (6.4-8.2); UREA NITROGEN, BLOOD 40 mg/dL (7-18)
[2019-06-04 07:21] LABS: PTH, INTACT 31 pg/mL (15-65)
--- NOTE | 2019-06-04 07:30 | NUR ---
SUPERINTENDENT OIL WELL SERVICES OPENING NOTE RECEIVED BEDSIDE REPORT. PT ASLEEP IN BED, ON ROOM AIR, SATURATING WELL, RESPIRATIONS EVEN AND UNLABORED, NO SIGNS OF RESPIRATORY DISTRESS NOTED. AFIB ON TELE MONITOR, HR 80. PAGE CATH INTACT, PATENT, DRAINING CLEAR YELLOW URINE. IV SITE ON RIGHT WRIST G22 INTACT, PATENT, D5W 10 MEQ KCL INFUSING AT 75CC/HR, NO SIGNS OF INFILTRATION NOTED. BED IN LOW POSITION, LOCKED, CALL LIGHT WITHIN REACH. NPO STATUS ENFORCED.
[2019-06-04] MEDS: Z GUARD REMEDY 2 OZ OINT TP PRN (08:11)
[2019-06-04] MEDS: CLOTRIMAZOLE 1% 15 GM TUBE TP SCH ×2 (08:11→17:25)
[2019-06-04] MEDS: Z GUARD REMEDY 2 OZ OINT TP SCH (08:12)
[2019-06-04] MEDS: Potassium Chloride 10 MEQ in IV D5W 1,000 ML IV PRN (09:15)
[2019-06-04 09:47] VITALS: BP 113/70
[2019-06-04 10:07] LABS: *SPE A/G RATIO 0.8 (0.7-1.7); *SPE ALBUMIN 2.6 g/dL (2.9-4.4); *SPE ALPHA-1-GLOBULIN 0.4 g/dL (0.0-0.4); *SPE ALPHA-2-GLOBULIN 0.9 g/dL (0.4-1.0); *SPE GLOBULIN, TOTAL 3.3 g/dL (2.2-3.9); *SPE M-SPIKE Not Observed g/dL (Not Observed)
[2019-06-04] MEDS: ALBUMIN 25% 25 GM in PREMIX 1 EA IV SCH ×2 (10:11→17:21)
--- NOTE | 2019-06-04 10:11 | NUR ---
RECEIVED ALBUMIN FROM PHARMACY AT 10:05. ADMINISTERED LATE DUE TO PHARMACY NOT HAVING MED AVAILABLE ON TIME
[2019-06-04] MEDS: SOD FERRIC GLUC 125 MG in IV NS 0.9% 100 ML IV SCH (15:00)
[2019-06-04 17:09] VITALS: BP 107/68
--- NOTE | 2019-06-04 18:54 | NUR ---
SHOP AND ALTERATION TAILOR CLOSING NOTE PT ASLEEP IN BED, ON ROOM AIR, SATURATING WELL, RESPIRATIONS EVEN AND UNLABORED, NO SIGNS OF RESPIRATORY DISTRESS NOTED. AFIB ON TELE MONITOR, HR 86. PAGE CATHTER REMOVED, VOID TRAIL DONE. PT URINATING WITHOUT ANY COMPLICATIONS. IV SITE ON RIGHT WRIST G22 INTACT, PATENT, D5W 10 MEQ KCL INFUSING AT 75CC/HR, NO SIGNS OF INFILTRATION NOTED. BED IN LOW POSITION, LOCKED, CALL LIGHT WITHIN REACH. NPO STATUS ENFORCED. PROVIDED SAFETY AND COMFORT TO PT THROUGHOUT SHIFT, ALL DUE MEDS GIVEN, TURNED AND REPOSITIONED EVERY 2 HOURS, WILL ENDORSE TO NOC SHIFT NURSE.
--- NOTE | 2019-06-04 19:10 | NUR ---
HEAVY EQUIPMENT PLUMBING SUPERVISOR OPENING NOTES Received patient A/O x1, awake on bed. On RA, no SOB/respiratory distress noted at this time. No s/sx of discomfort noted. On tele monitor with A-Fib noted. Kept on bed clean, dry and comfortable. Call light within easy reach. Will continue to monitor accordingly.
[2019-06-04 20:44] VITALS: BP 109/68
[2019-06-04] MEDS: VANCOMYCIN 1 GM in IV D5W 250 ML IV SCH (22:15)
[2019-06-04] MEDS: ENOXAPARIN SODIUM 30 MG/0.3 ML DISP.SYRIN SQ SCH (22:16)
[2019-06-04] MEDS: INSULIN ASPART/LISPRO 100 UNIT/ML CARTRIDGE SQ PRN (22:55)
[2019-06-04] MEDS: *INSULIN ASPART NOVOLOG 100 UNIT/ML CARTRIDGE SQ PRN (23:14)
[2019-06-05] VITALS: BP 89/53
[2019-06-05] MEDS: ALBUTEROL FS 2.5 MG/3 ML VIAL.NEB NEB SCH ×4 (00:39→19:30)
[2019-06-05] MEDS: PIPERACILLIN /TAZOBACTAM 2.25 G in IV D5W 50 ML IV SCH ×4 (00:52→23:39)
[2019-06-05] MEDS ORDERED: IV D5W 1,000 ML IV ONE (01:30)
[2019-06-05] MEDS: BLOOD SUGAR DIAGNOSTIC 1 EACH STRIP IN SCH ×4 (06:45→22:13)
--- NOTE | 2019-06-05 06:50 | NUR ---
RADIOACTIVITY TECHNICIAN CLOSING NOTES Patient awake the whole shift. No new unusualities noted. Still confused. On tele monitor with Afib noted. Kept on bed clean, dry and comfortable. Call light within easy reach. On fall, aspiration, and seizure precautions. Endorsed.
--- NOTE | 2019-06-05 07:30 | NUR ---
RN Opening Notes Received patient A/O x1, awake on bed. On RA, no SOB/respiratory distress noted at this time. Not in any form of distress. No s/sx of pain or discomfort noted. On tele monitor with A-Fib noted. Kept on bed clean, dry and comfortable. Bed in low, locked position. siderails upx2, bed alarm on, call Call light within easy reach. Will continue to monitor accordingly.
[2019-06-05 08:00] VITALS: BP 112/75
[2019-06-05 08:01] LABS: ALANINE AMINOTRANSFERASE 19 U/L (12-78); ALBUMIN 3.2 g/dL (3.4-5.0); ALKALINE PHOSPHATASE 36 U/L (46-116); ASPARTATE AMINOTRANSFERASE 17 U/L (15-37); BILIRUBIN,TOTAL 1.2 mg/dL (0.2-1.0); CALCIUM, SERUM 9.3 mg/dL (8.5-10.1); CARBON DIOXIDE 25 mmol/L (21-32); CHLORIDE 103 mmol/L (98-107); CREATININE 1.9 mg/dL (0.6-1.3); GLUCOSE 86 mg/dL (74-106); POTASSIUM 3.8 mmol/L (3.5-5.1); SODIUM SERUM 141 mmol/L (136-145); TOTAL PROTEIN, SERUM 7.2 g/dL (6.4-8.2); UREA NITROGEN, BLOOD 31 mg/dL (7-18)
[2019-06-05] MEDS: Z GUARD REMEDY 2 OZ OINT TP SCH (08:40)
[2019-06-05] MEDS: CLOTRIMAZOLE 1% 15 GM TUBE TP SCH ×2 (08:40→18:18)
--- NOTE | 2019-06-05 11:56 | NUR ---
rn notes: swallow eval ST at bedside, unable to do swallow eval for patient as patient very confused and not following commands. Patient also bit the plastic spoon and spit it out then yelling. no injuries noted. Addendum: 06/05/19 at [address] Saucedo notified.
--- NOTE | 2019-06-05 12:00 | NUR ---
rn notes Patient noted to be agitated, yelling, very confused, and trying to get out of bed with unsteady gait. Dr Saucedo notified. new orders of Ativan 0.5mg IM q6h prn, Haldol 2mg q6h prn. And also soft wrist restraints if patient is combative.
--- NOTE | 2019-06-05 12:23 | NUR ---
RT NOTE: UNABLE TO DO EKG DUE TO PATIENT AGITATION. RN (CRICKET) WILL CALL ME WHEN PATIENT IS CALM.
[2019-06-05] MEDS ORDERED: HALOPERIDOL LACTATE INJ 5 MG/ML VIAL IM PRN (12:30)
[2019-06-05] MEDS ORDERED: LORAZEPAM INJ 2 MG/ML VIAL IV PRN (12:30)
--- NOTE | 2019-06-05 12:30 | NUR ---
rn notes placed bilateral soft wrist restraints as patient is trying to get out of bed, pulling IV lines, yelling, and combative(swaying hands,kicking). will monitor accordingly.
[2019-06-05] MEDS: LORAZEPAM INJ 2 MG/ML VIAL IM PRN ×2 (12:32→21:45)
--- NOTE | 2019-06-05 12:32 | NUR ---
rn notes ativan 0.5mg IM given as ordered for agitation. will monitor accordingly
[2019-06-05] MEDS: busPIRone 5 MG TABLET PO SCH ×2 (13:00→17:00)
[2019-06-05] MEDS: IV D5W 1,000 ML IV PRN (13:57)
[2019-06-05] MEDS ORDERED: IV NS 0.9% 500 ML IV ONE (14:00)
[2019-06-05] MEDS: SOD FERRIC GLUC 125 MG in IV NS 0.9% 100 ML IV SCH (14:36)
[2019-06-05 16:00] VITALS: BP 129/82
--- NOTE | 2019-06-05 16:42 | NUR ---
rn notes bedside swallow test done but patient is uncooperative and refused to open mouth even with coordinator of online programs
--- NOTE | 2019-06-05 17:00 | NUR ---
rn notes off restraints, patient is in calm manner. will monitor accordingly
--- NOTE | 2019-06-05 19:00 | NUR ---
RN CLOSING NOTES PATIENT IN STABLE CONDITION. OFF RESTRAINTS, IN CALM MANNER. ALL NEEDS ATTENDED AND PROVIDED. ALL DUE MEDICATIONS GIVEN ORDERED. KEPT PATIENT SKIN CLEAN AND DRY. KEPT PATIENT SAFE AND COMFORTABLE. BED IN LOW/LOCKED POSITION, SIDERAILS UP. BED ALARM ON. WILL ENDORSE ACCORDINGLY
[2019-06-05 20:00] VITALS: BP 125/76
--- NOTE | 2019-06-05 20:00 | NUR ---
TELE/RN OPENING NOTES RECEIVED PATIENT IN BED, AWAKE, CONFUSED, REQUIRE MONITORING PATIENT PULLS OUT TUBING. SKIN WARM TO TOUCH, ON ROOM AIR, RESPIRATIONS EVEN AND UNLABORED.TALKING TO SELF. ON RESTRAINT FOR SAFETY AND PREVENT SELF HARM, BED LOCKED. CALL LIGHTS AND ALARM ON. IV ON MAUREEN PATENT. IV D5 FLUID RUNNING. TO MONITOR PATIENT. RECEIVED ENDORSEMENT FROM AM RN FOR FABIOLA.
[2019-06-05] MEDS: ENOXAPARIN SODIUM 30 MG/0.3 ML DISP.SYRIN SQ SCH (22:13)
[2019-06-06] VITALS: BP 129/68
[2019-06-06] MEDS: ALBUTEROL FS 2.5 MG/3 ML VIAL.NEB NEB SCH ×4 (01:30→19:38)
[2019-06-06 04:00] VITALS: BP 126/65
[2019-06-06] MEDS: IV D5W 1,000 ML IV PRN (05:11)
[2019-06-06] MEDS: BLOOD SUGAR DIAGNOSTIC 1 EACH STRIP IN SCH ×4 (06:10→21:24)
--- NOTE | 2019-06-06 06:57 | NUR ---
TELE/RN CLOSING NOTES PATIENT ABLE TO SLEEP FEW HOURS, MONITORED FOR SAFETY, SOFT RESTRAINT CHECK EVERY 15 MINUTED FOR CIRCULATION, IV FLUID INFUSING AND MONITORED FOR HYPO/HPYER GLYCEMIA PATIENT IS NPO STATUS. BED LOCKED, BED ALARM IN PLACE. KEPT SKIN INTACT AND DRY. OFF LOAD. KEPT COMFORTABLE,.WILL ENDORSE TO AM RN FOR FABIOLA.
--- NOTE | 2019-06-06 07:20 | NUR ---
CREATIVE WRITER NOTES PATIENT RESTING IN BED, NO RESPIRATORY DISTRESS, NO S/S OF ANY DISCOMFORT AT THIS TIME. PATIENT'S SKIN WARM TO TOUCH, IV ACCESS SITE INTACT AND PATENT. PATIENT ON IV D5W INFUSING AT 75ML/HR. PATIENT ON BILAT SOFT WRIST RESTRAINTS, CHECKED FOR REDNESS AND CIRCULATION. PATIENT'S NEEDS ATTENDED, BED ON LOWEST LOCKED POSITION, CALL LIGHT WITHIN REACH. WILL CONTINUE TO MONITOR.
[2019-06-06 07:53] LABS: CALCIUM, SERUM 9.2 mg/dL (8.5-10.1); CHLORIDE 104 mmol/L (98-107); CREATININE 1.7 mg/dL (0.6-1.3); GLUCOSE 79 mg/dL (74-106); POTASSIUM 3.2 mmol/L (3.5-5.1); SODIUM SERUM 141 mmol/L (136-145)
[2019-06-06 08:00] VITALS: BP 110/58
[2019-06-06 08:05] LABS: CARBON DIOXIDE 25 mmol/L (21-32); UREA NITROGEN, BLOOD 22 mg/dL (7-18)
[2019-06-06] MEDS: PIPERACILLIN /TAZOBACTAM 2.25 G in IV D5W 50 ML IV SCH ×2 (08:11→16:02)
[2019-06-06] MEDS: busPIRone 5 MG TABLET PO SCH ×3 (09:00→17:00)
[2019-06-06] MEDS: Z GUARD REMEDY 2 OZ OINT TP SCH (09:26)
[2019-06-06] MEDS: CLOTRIMAZOLE 1% 15 GM TUBE TP SCH ×2 (09:26→17:40)
[2019-06-06] MEDS: POTASSIUM CL. PREMIX PERIPHER. 50 ML IV SCH ×3 (09:34→11:53)
[2019-06-06 10:20] LABS: ABG BASE EXCESS -0.3 mmol/L; ABG OXYGEN SATURATION 91.8 % (92.0-98.5); ABG PCO2 41.8 mmHg (35.0-45.0); ABG PH 7.389 (7.350-7.450); ABG PO2 62.6 mmHg (75.0-100.0); AaDO2 37.1 mmHg; COHb 0.8 % (0.5-1.5); MetHb 0.3 % (0.0-1.5); O2Hb 90.8 % (94.0-97.0); SITE, ABG Right Radial; VENT MODE, BG room air
--- NOTE | 2019-06-06 12:35 | NUR ---
CLIENT ARCHITECT NOTES ST AT BEDSIDE AND GLYNN GARCIA FOR TRANSLATION. PATIENT AWAKE BUT SHOWING CONFUSION. HOB ELEVATED AT HIGH FOWLERS, PATIENT UNCOOPERATIVE, ST TRIED GIVING WATER WITH SPOON, PATIENT SPIT IT OUT RIGHT AWAY. PATIENT ALSO COMBATIVE WHILE DOING SWALLOW EVALUATION. ST WAS UNABLE TO ASSESS PATIENT PROPERLY DUE TO PATIENT BEING UNCOOPERATIVE AND COMBATIVE WILL INFORM MD.
[2019-06-06] MEDS: SOD FERRIC GLUC 125 MG in IV NS 0.9% 100 ML IV SCH (14:58)
--- NOTE | 2019-06-06 19:22 | NUR ---
PRINT WASHER NOTES PATIENT RESTING IN BED, NO RESPIRATORY DISTRESS, NO S/S OF ANY DISCOMFORT. PATIENT ON BILAT SOFT WRIST RESTRAINTS, CHECKED FOR REDNESS AND CIRCULATION. SKIN WARM TO TOUCH, IV ACCESS SITE INTACT AND PATENT. PATIENT'S NEEDS ATTENDED, BED ON LOWEST LOCKED POSITION, CALL LIGHT WITHIN REACH, WILL ENDORSE TO ONCOMING NURSE.
--- NOTE | 2019-06-06 19:30 | NUR ---
LOGISTICS SOLUTION MANAGER NOTES RECEIVED ON BED A/O X1,CONFUSED,SCREAMING,BREATHING REGULAR,NOT IN ANY FORM OF DISTRESS.ON BILATERAL SOFT RESTRAINTS,PULLING IV TUBINGS,BLOOD CIRCULATION ON BOTH HANDS OKAY.WITH IVF D5W AT 75ML/HR RATE,SITE PATENT ON LAC.NPO STATUS,DIDNT PASS SWALLOW EVALUATION.WILL CONTINUE TO MONITOR STATUS.
[2019-06-06 20:00] VITALS: BP 140/82
[2019-06-06] MEDS: ENOXAPARIN SODIUM 30 MG/0.3 ML DISP.SYRIN SQ SCH (21:25)
--- NOTE | 2019-06-06 21:45 | NUR ---
MS RN NOTES ACCU-CHECK BLOOD SUGAR CHECK 109,NO INSULIN COVERAGE.
[2019-06-06 22:50] VITALS: BP 132/58
[2019-06-07] VITALS: BP 144/73
[2019-06-07] MEDS: ALBUTEROL FS 2.5 MG/3 ML VIAL.NEB NEB SCH ×4 (01:20→19:30)
[2019-06-07] MEDS: LORAZEPAM INJ 2 MG/ML VIAL IM PRN (01:32)
--- NOTE | 2019-06-07 01:32 | NUR ---
MS RN NOTES SCREAMING,VERY ANXIOUS.MEDICATED WITH ATIVAN 0.5MG IM GIVEN LEFT BUTTOCKS.
[2019-06-07 04:00] VITALS: BP 138/68
[2019-06-07 04:45] VITALS: BP 138/69
--- NOTE | 2019-06-07 06:07 | NUR ---
PRINTING MANAGER NOTES AFIB WITH PVC'S -91 ON TELE MONITOR.ABLE TO SLEEP AFTER HAVING ATIVAN IM,SOFT RESTRAINTS IN USED, WITH GOOD BLOOD CIRCULATION NOTED.AFEBRILE,IVF IN PROGRESS.REPOSITION PER PROTOCOL.REFUSED CARE AT TIMES.D/C PLAN BACK TO SNF IF PASS SWALLOW EVAL.IN NO ACUTE DISTRESS.WILL ENDORSE TO DAY NURSE FOR FABIOLA.
[2019-06-07 06:26] LABS: BASOPHILS % (AUTO) 0.5 % (0.0-2.0); EOSINOPHILS % (AUTO) 2.9 % (0.0-6.0); HEMATOCRIT 43 % (39-51); HEMOGLOBIN 14.2 g/dL (13.5-17.5); LYMPHOCYTES # (AUTO) 1.2 /CMM (0.8-4.8); LYMPHOCYTES % (AUTO) 12.2 % (20.0-44.0); MEAN CORPUSCULAR HGB CONC 33 g/dl (31.0-36.0); MEAN CORPUSCULAR VOLUME 90 fL (80-96); MONOCYTES # (AUTO) 0.9 /CMM (0.1-1.30); NEUTROPHILS # (AUTO) 7.3 /CMM (1.8-8.9); NEUTROPHILS % (AUTO) 75.4 % (43.0-81.0); PLATELET COUNT (AUTO) 174 /CMM (150-450); WHITE BLOOD COUNT (AUTO) 9.7 K/uL (4.3-11.0)
[2019-06-07 06:53] LABS: ALANINE AMINOTRANSFERASE 21 U/L (12-78); ALBUMIN 2.9 g/dL (3.4-5.0); ALKALINE PHOSPHATASE 36 U/L (46-116); ASPARTATE AMINOTRANSFERASE 17 U/L (15-37); CALCIUM, SERUM 9.4 mg/dL (8.5-10.1); CARBON DIOXIDE 28 mmol/L (21-32); CHLORIDE 104 mmol/L (98-107); CREATININE 1.8 mg/dL (0.6-1.3); GLUCOSE 71 mg/dL (74-106); POTASSIUM 3.5 mmol/L (3.5-5.1); SODIUM SERUM 142 mmol/L (136-145); TOTAL PROTEIN, SERUM 6.8 g/dL (6.4-8.2); UREA NITROGEN, BLOOD 20 mg/dL (7-18)
--- NOTE | 2019-06-07 07:32 | NUR ---
POST CLOSER NOTES PATIENT AWAKE IN BED, NO RESPIRATORY DISTRESS NOTED, NO S/S OF ANY DISCOMFORT AT THIS TIME. PATIENT ON MOTOR LODGE CLERK AFIB WITH PVC'S 84. SKIN WARM TO TOUCH, PATIENT WITH BILAT SOFT WRIST RESTRAINTS, CHECKED FOR REDNESS AND CIRCULATION. REPOSITIONED PATIENT EVERY 2HRS. PATIENT'S IV ACCESS SITE INTACT AND PATENT. PATIENT'S NEEDS ATTENDED, BED ON LOWEST LOCKED POSITION, CALL LIGHT WITHIN REACH. WILL CONTINUE TO MONITOR.
[2019-06-07 08:00] VITALS: BP 139/97
[2019-06-07] MEDS: BLOOD SUGAR DIAGNOSTIC 1 EACH STRIP IN SCH ×4 (08:06→21:51)
[2019-06-07] MEDS: IV D5W 1,000 ML IV PRN (08:34)
[2019-06-07] MEDS: busPIRone 5 MG TABLET PO SCH ×3 (08:59→17:00)
[2019-06-07] MEDS: CLOTRIMAZOLE 1% 15 GM TUBE TP SCH ×2 (09:00→17:40)
[2019-06-07] MEDS: Z GUARD REMEDY 2 OZ OINT TP SCH (09:00)
[2019-06-07] MEDS ORDERED: HALOPERIDOL LACTATE INJ 5 MG/ML VIAL IM PRN (10:00)
[2019-06-07] MEDS ORDERED: Magnesium 1GM/D5W 100ML PREMIX 100 ML IV SCH (14:12)
[2019-06-07] MEDS: SOD FERRIC GLUC 125 MG in IV NS 0.9% 100 ML IV SCH (15:02)
[2019-06-07 16:00] VITALS: BP 130/81
--- NOTE | 2019-06-07 18:25 | NUR ---
PUBLIC AID ELIGIBILITY ASSISTANT NOTES PATIENT AWAKE IN BED, NO RESPIRATORY DISTRESS, NO S/S OF ANY DISCOMFORT AT THIS TIME. SKIN WARM TO TOUCH, BILAT SOFT WRIST RESTRAINTS ON, CHECKED FOR REDNESS AND CIRCULATION. PATIENT REPOSITIONED Q2HRS, IV ACCESS SITE INTACT AND PATENT. PATIENT'S NEEDS ATTENDED, BED ON LOWEST LOCKED POSITION, CALL LIGHT WITHIN REACH. WILL ENDORSE TO ONCOMING NURSE.
--- NOTE | 2019-06-07 19:15 | NUR ---
MS RN NOTES RECEIVED ON BED AWAKE,QUIET THIS TIME.IVF IN PROGRESS VIA IV PUMP ON RIGHT AC,SITE PATENT.ON BILATERAL SOFT WRIST RESTRAINTS,PATIENT PULLING IV TUBINGS.OB GEL BED FOR SKIN MANAGEMENT.WILL CONTINUE TO MONITOR STATUS.
[2019-06-07 20:00] VITALS: BP 141/66
[2019-06-07] MEDS: ENOXAPARIN SODIUM 30 MG/0.3 ML DISP.SYRIN SQ SCH (21:52)
--- NOTE | 2019-06-07 22:17 | NUR ---
MS RN NOTES ACCU-CHECK BLOOD SUGAR CHECK 92,NO INSULIN COVERAGE.IVF D5W IN PROGRESS.NPO STATUS.
[2019-06-08] MEDS: LORAZEPAM INJ 2 MG/ML VIAL IM PRN ×3 (00:20→18:13)
--- NOTE | 2019-06-08 00:20 | NUR ---
MS RN NOTES SCREAMING,MEDICATED WITH ATIVAN 0.5MG IM ORDERED.
[2019-06-08] MEDS: ALBUTEROL FS 2.5 MG/3 ML VIAL.NEB NEB SCH ×4 (02:30→19:50)
--- NOTE | 2019-06-08 02:30 | NUR ---
MS RN NOTES SLEEPING THIS TIME.
[2019-06-08] MEDS: BLOOD SUGAR DIAGNOSTIC 1 EACH STRIP IN SCH ×4 (05:47→21:44)
[2019-06-08] MEDS: IV D5W 1,000 ML IV PRN ×2 (05:56→19:05)
--- NOTE | 2019-06-08 06:19 | NUR ---
MS RN NOTES ON BED CALM AND QUIET THIS TIME,NO EPISODE OF SOB NOTED,SOFT RESTRAINTS IN USED,WITH GOOD BLOOD CIRCULATION NOTED,REMAINS NPO, FAILED SWALLOW EVAL,GT PLACEMENT,OPTIONS TO DISCUSS WITH FAMILY.IN NO ACUTE DISTRESS.
--- NOTE | 2019-06-08 07:20 | NUR ---
M/S RN NOTES PATIENT AWAKE IN BED, NO RESPIRATORY DISTRESS NOTED, NO S/S OF ANY DISCOMFORT AT THIS TIME. SKIN WARM TO TOUCH, PATIENT WITH BILAT SOFT WRIST RESTRAINTS, CHECKED FOR REDNESS AND CIRCULATION. REPOSITIONED PATIENT EVERY 2HRS. PATIENT'S IV ACCESS SITE ON THE RAC 22G INTACT AND PATENT, IV D5W INFUSING AT 75ML/HR. PATIENT'S NEEDS ATTENDED, BED ON LOWEST LOCKED POSITION, CALL LIGHT WITHIN REACH. WILL CONTINUE TO MONITOR.
[2019-06-08] MEDS: Z GUARD REMEDY 2 OZ OINT TP SCH (08:14)
[2019-06-08] MEDS: CLOTRIMAZOLE 1% 15 GM TUBE TP SCH ×2 (08:14→17:10)
[2019-06-08] MEDS: busPIRone 5 MG TABLET PO SCH ×3 (08:14→17:00)
[2019-06-08 09:08] VITALS: BP 145/84
--- NOTE | 2019-06-08 10:51 | NUR ---
M/S RN NOTES PER DR. PARSON CONTACT DR. SMITH FOR GI CONSULT FOR POSSIBLE GT PLACEMENT. NOTIFIED DR. SMITH TO SEE PATIENT.
[2019-06-08] MEDS: SOD FERRIC GLUC 125 MG in IV NS 0.9% 100 ML IV SCH (14:21)
--- NOTE | 2019-06-08 18:47 | NUR ---
M/S RN NOTES PATIENT RESTING IN BED, NO RESPIRATORY DISTRESS, NO S/S OF ANY DISCOMFORT AT THIS TIME. SKIN WARM TO TOUCH, BILAT SOFT WRIST RESTRAINTS ON, CHECKED FOR REDNESS AND CIRCULATION. PATIENT REPOSITIONED Q2HRS, IV ACCESS SITE INTACT AND PATENT. PATIENT'S NEEDS ATTENDED, BED ON LOWEST LOCKED POSITION, CALL LIGHT WITHIN REACH. WILL ENDORSE TO ONCOMING NURSE.
--- NOTE | 2019-06-08 19:30 | NUR ---
MS RN OPENING NOTE RECEIVED PATIENT IN BED. A/OX1, PATIENT IS VERY CONFUSED. ON OXYGEN 2L/MIN VIA NASAL CANNULA. RESPIRATIONS ARE EVEN AND UNLABORED. NO S/S SOB NOTED. NO S/S PAIN AT THIS TIME. IN NO APPARENT DISTRESS. IV ACCESS IN RAC #22 RUNNING D5W@75ML/HR. PATIENT IS ON BILATERAL SOFT WRIST RESTRAINTS, 2 FINGER BREATHS OF ROOM BETWEEN SKIN AND RESTRAINT, NO REDNESS AT SITE. BED IS LOW AND LOCKED, HOB IN SEMI FOWLERS, SIDE RIALS UP X3, BED ALARM ON. EXTREMITIES OFFLOADED. CALL LIGHT WITHIN REACH. WILL CONTINUE TO MONITOR.
[2019-06-08 20:00] VITALS: BP 147/91
[2019-06-08 20:15] VITALS: BP 147/91
[2019-06-09] MEDS: ALBUTEROL FS 2.5 MG/3 ML VIAL.NEB NEB SCH ×4 (01:56→19:50)
--- NOTE | 2019-06-09 06:01 | NUR ---
MS RN CLOSING NOTE PATIENT IN BED. A/OX1, PATIENT REMAINS CONFUSED. ON OXYGEN 2L/MIN VIA NASAL CANNULA. RESPIRATIONS ARE EVEN AND UNLABORED. NO SOB NOTED. NO S/S PAIN THROUGHOUT SHIFT. NO DISTRESS NOTED. IV ACCESS REMAINS IN RAC #22 RUNNING D5W@75ML/HR. BILATERAL SOFT WRIST RESTRAINTS MAINTAINED, 2 FINGER BREATHS OF ROOM BETWEEN SKIN AND RESTRAINT, NO REDNESS NOTED. BED REMAINS LOW AND LOCKED, HOB IN SEMI FOWLERS, SIDE RIALS UP X3, BED ALARM ON. EXTREMITIES OFFLOADED. CALL LIGHT WITHIN REACH. WILL ENDORSE TO NEXT SHIFT.
[2019-06-09] MEDS: IV D5W 1,000 ML IV PRN ×2 (06:15→20:33)
[2019-06-09] MEDS: BLOOD SUGAR DIAGNOSTIC 1 EACH STRIP IN SCH ×4 (06:15→22:26)
[2019-06-09 07:15] LABS: BASOPHILS # (AUTO) 0.1 /CMM (0.0-0.2); BASOPHILS % (AUTO) 0.8 % (0.0-2.0); EOSINOPHILS % (AUTO) 3.9 % (0.0-6.0); HEMATOCRIT 41 % (39-51); HEMOGLOBIN 13.9 g/dL (13.5-17.5); LYMPHOCYTES # (AUTO) 1.4 /CMM (0.8-4.8); LYMPHOCYTES % (AUTO) 15.4 % (20.0-44.0); MEAN CORPUSCULAR HGB CONC 34 g/dl (31.0-36.0); MEAN CORPUSCULAR VOLUME 90 fL (80-96); MONOCYTES # (AUTO) 0.8 /CMM (0.1-1.30); NEUTROPHILS # (AUTO) 6.5 /CMM (1.8-8.9); NEUTROPHILS % (AUTO) 70.9 % (43.0-81.0); PLATELET COUNT (AUTO) 173 /CMM (150-450); RED BLOOD CELL COUNT(AUTO) 4.59 MIL/uL (4.5-6.0); WHITE BLOOD COUNT (AUTO) 9.2 K/uL (4.3-11.0)
[2019-06-09 07:18] LABS: APPEARANCE,URINE SL CLOUDY (CLEAR); BILIRUBIN,URINE NEGATIVE (NEGATIVE); BLOOD, URINE SMALL Ery/uL (NEGATIVE); COLOR,URINE YELLOW (YELLOW); KETONES,URINE NEGATIVE (NEGATIVE); LEUKOCYTE ESTERASE ,URINE LARGE (NEGATIVE); NITRITE, URINE NEGATIVE (NEGATIVE); PROTEIN,URINE NEGATIVE (NEGATIVE); UGLUCOSE NEGATIVE (NEGATIVE); UROBILINOGEN,URINE 0.2 EU/dL (0.2)
[2019-06-09 07:22] LABS: ALANINE AMINOTRANSFERASE 23 U/L (12-78); ALBUMIN 2.8 g/dL (3.4-5.0); ALKALINE PHOSPHATASE 37 U/L (46-116); ASPARTATE AMINOTRANSFERASE 20 U/L (15-37); BILIRUBIN,TOTAL 0.6 mg/dL (0.2-1.0); CALCIUM, SERUM 9.6 mg/dL (8.5-10.1); CARBON DIOXIDE 30 mmol/L (21-32); CHLORIDE 105 mmol/L (98-107); CREATININE 1.5 mg/dL (0.6-1.3); GLUCOSE 105 mg/dL (74-106); MAGNESIUM 1.9 mg/dL (1.8-2.4); PHOSPHORUS 2.6 mg/dL (2.5-4.9); POTASSIUM 3.3 mmol/L (3.5-5.1); SODIUM SERUM 142 mmol/L (136-145); TOTAL PROTEIN, SERUM 6.6 g/dL (6.4-8.2); UREA NITROGEN, BLOOD 12 mg/dL (7-18)
[2019-06-09 08:00] VITALS: BP 120/80
[2019-06-09] MEDS: busPIRone 5 MG TABLET PO SCH ×3 (09:00→17:00)
[2019-06-09] MEDS: Z GUARD REMEDY 2 OZ OINT TP SCH (11:18)
[2019-06-09] MEDS: CLOTRIMAZOLE 1% 15 GM TUBE TP SCH ×2 (11:18→18:30)
[2019-06-09] MEDS ORDERED: POTASSIUM CL. PREMIX PERIPHER. 50 ML IV SCH (12:22)
[2019-06-09 16:00] VITALS: BP 139/64
--- NOTE | 2019-06-09 18:00 | NUR ---
YELLING OUT FROM TIME TO TIME.POTASSIUM REPLACEMENT GIVEN.HAS ALISON. WRIST RESTRAINTS.
--- NOTE | 2019-06-09 19:26 | NUR ---
MS RN NOTES PATIENT RECEIVED IN BED RESTING, ALERT AND ORIENTED X 1, PATIENT SPEAKING BRAZILIAN AND [place] TOME[place]. PATIENT ON 2L NASAL CANNULA, TOLERATING SETTING WITH NO SIGNS OF RESPIRATORY DISTRESS, NO SOB, AND WITH EVEN NON-LABORED BREATHING. PATIENT IV ACCESS IN PLACE AND INTACT RUNNING, D5W AT 75ml/hr. PATIENT BILATERAL SOFT-WRIST RESTRAINTS PLACE, 2 FINGER SPACE BETWEEN, BILATERAL PULSES PRESENT, AND SKIN INTACT. PROVIDED COMFORT MEASURES TO PATIENT. SAFETY PRECAUTIONS IMPLEMENTED WITH BED IN THE LOWEST POSITION, BILATERAL SIDE RAILS UP, BED LOCKED, BED ALARM ON, AND CALL LIGHT WITHIN EASY REACH OF THE PATIENT. WILL CONTINUE TO MONITOR PATIENT.
[2019-06-09 20:00] VITALS: BP 162/100
[2019-06-10] MEDS: ALBUTEROL FS 2.5 MG/3 ML VIAL.NEB NEB SCH ×4 (01:30→19:53)
--- NOTE | 2019-06-10 07:10 | NUR ---
MS RN NOTES PATIENT IN BED SLEEPING, AWAKEN BY LIGHT TOUCH, ALERT AND ORIENTED X1. ON NASAL CANNULA 2L, NO SIGNS OF SOB, WITH EVEN NON-LABORED BREATHING. PATIENT IV ACCESS INTACT AND PATENT RUNNING D5W AT 75 ml/hr. BILATERAL SOFT WRIST RESTRAINTS IN PLACE, WITH ADEQUATE CIRCULATION, 2 FINGER BREATHS, AND BILATERAL PULSES PRESENT. MET ALL OF PATIENTS NEEDS, AND PROVIDED COMFORT MEASURES. SAFETY PRECAUTIONS IMPLEMENTED WITH BED IN THE LOWEST POSITION, BILATERAL SIDE RAILS UP, BED LOCKED, BED ALARM ON, AND CALL LIGHT WITHIN EASY REACH OF THE PATIENT. WILL ENDORSE FABIOLA TO UPCOMING DAYSHIFT NURSE.
[2019-06-10 07:14] LABS: CALCIUM, SERUM 9.1 mg/dL (8.5-10.1); CARBON DIOXIDE 27 mmol/L (21-32); CHLORIDE 104 mmol/L (98-107); CREATININE 1.4 mg/dL (0.6-1.3); GLUCOSE 107 mg/dL (74-106); POTASSIUM 3.3 mmol/L (3.5-5.1); SODIUM SERUM 140 mmol/L (136-145); UREA NITROGEN, BLOOD 9 mg/dL (7-18)
--- NOTE | 2019-06-10 07:23 | NUR ---
MS RN NOTES RECEIVED PATIENT IN BED, AWAKE, A/O X1 (NAME). PATIENT CONFUSED AND SCREAMING FROM TIME TO TIME. ON ROOM AIR BREATHING EVENLY WITH NO ACUTE SIGNS OF DISTRESS OR SOB PRESENT AT THIS TIME. NO SIGNS OF PAIN. BILATERAL SOFT WRIST RESTRAINTS IN PLACE, WITH ADEQUATE CIRCULATION, 2 FINGER BREATHS, AND BILATERAL PULSES PRESENT. RAC # 22 IV ACCESS PRESENT AND INTACT INFUSING D5W @ 75 MLS/HR. SAFETY PRECAUTIONS IN PLACE; BED IN LOW POSITION AND LOCKED, RAILS UP x 2, CALL LIGHT WITHIN EASY REACH. WILL CONTINUE TO MONITOR PATIENT.
[2019-06-10] MEDS: BLOOD SUGAR DIAGNOSTIC 1 EACH STRIP IN SCH ×4 (07:48→21:24)
[2019-06-10 08:00] VITALS: BP 137/94
[2019-06-10] MEDS: busPIRone 5 MG TABLET PO SCH ×3 (08:07→16:03)
[2019-06-10] MEDS: CLOTRIMAZOLE 1% 15 GM TUBE TP SCH ×2 (09:11→16:31)
[2019-06-10] MEDS: Z GUARD REMEDY 2 OZ OINT TP SCH (09:12)
[2019-06-10] MEDS: POTASSIUM CL. PREMIX PERIPHER. 50 ML IV SCH ×2 (11:52→12:53)
[2019-06-10 16:00] VITALS: BP 122/77
--- NOTE | 2019-06-10 19:44 | NUR ---
MS RN NOTES PATIENT RECEIVED IN BED RESTING, ALERT AND ORIENTED X 1. PATIENT ON NASAL CANNULA 2L, TOLERATING SETTING, WITH EVEN NON-LABORED BREATHING, NO SIGNS OF SOB OR RESPIRATORY DISTRESS. PATIENT IV ACCESS INTACT AND PATENT ON RIGHT AC, RUNNING D5W AT 75 ml/hr. PROVIDED COMFORT MEASURES TO PATIENT. BILATERAL SOFT WRIST RESTRAINTS IN PLACE WITH ADEQUATE CIRCULATION, TWO FINGER BREATH SPACE, AND SKIN INTACT. SAFETY PRECAUTIONS IMPLEMENTED WITH BED IN THE LOWEST POSITION, BILATERAL SIDE RAILS UP, BED LOCKED, BED ALARM ON, AND CALL LIGHT WITHIN EASY REACH OF PATIENT. WILL CONTINUE TO MONITOR PATIENT. Addendum: 06/10/19 at 2004 by GARY PATEL RN MS RN NOTES PATIENT RECEIVED IN BED RESTING, ALERT AND ORIENTED X 1. PATIENT ON NASAL CANNULA 2L, TOLERATING SETTING, WITH EVEN NON-LABORED BREATHING, NO SIGNS OF SOB OR RESPIRATORY DISTRESS. PATIENT IV ACCESS INTACT AND PATENT ON RIGHT AC, RUNNING D5W AT 75 ml/hr. PROVIDED COMFORT MEASURES TO PATIENT. BILATERAL SOFT WRIST RESTRAINTS IN PLACE WITH ADEQUATE CIRCULATION, TWO FINGER BREATH SPACE, AND SKIN INTACT. SAFETY PRECAUTIONS IMPLEMENTED WITH BED IN THE LOWEST POSITION, BILATERAL SIDE RAILS UP, BED LOCKED, BED ALARM ON, AND CALL LIGHT WITHIN EASY REACH OF PATIENT. WILL CONTINUE TO MONITOR PATIENT.
[2019-06-10] MEDS: IV D5W 1,000 ML IV PRN (19:58)
--- NOTE | 2019-06-10 19:58 | NUR ---
MS RN CLOSING NOTE PATIENT IN BED, AWAKE, A/OX1, PATIENT IS VERY CONFUSED AND SHOUTS AT THIS TIME. ON OXYGEN 2L/MIN VIA NASAL CANNULA. RESPIRATIONS ARE EVEN AND UNLABORED. NO S/S SOB NOTED. NO S/S PAIN AT THIS TIME. IV ACCESS IN RAC #22 RUNNING D5W@75ML/HR. PATIENT IS ON BILATERAL SOFT WRIST RESTRAINTS, NO REDNESS AT SITE. BED IS LOW AND LOCKED, HOB IN SEMI FOWLERS, SIDE RIALS UP X2, BED ALARM ON, CALL LIGHT WITHIN REACH. WILL ENDORSE TO CONTRACT WRITER NURSE.
[2019-06-10 20:00] VITALS: BP 130/94
--- NOTE | 2019-06-10 21:16 | NUR ---
MS RN NOTES PATIENT'S BLOOD SUGAR 111, PER PRN SLIDING SCALE PROTOCOL, NO INSULIN GIVEN, WILL CONTINUE TO MONITOR PATIENT.
[2019-06-10 21:57] VITALS: BP 130/94
--- NOTE | 2019-06-11 00:05 | NUR ---
MS RN NOTES REPORT GIVEN TO GLYNN PATEL. PATIENT LAYING IN BED, ALERT AND ORIENTED X 1, PATIENT ON 2L NASAL CANNULA, TOLERATING SETTING, NO SIGNS OF RESPIRATORY DISTRESS, NO SIGNS OF SOB WITH EVEN NON-LABORED BREATHING. PATIENT IV ACCESS INTACT AND PATENT RUNNING D5@75ml/hr. BILATERAL SOFT WRIST RESTRAINTS IN PLACE WITH ADEQUATE CIRCULATION AND SKIN INTACT. SAFETY PRECAUTIONS IMPLEMENTED WITH BED IN THE LOWEST POSITION, BED LOCKED, BED ALARM ON, AND CALL LIGHT WITHIN EASY REACH OF THE PATIENT. FABIOLA GIVEN TO NIGHTSHIFT NURSE.
--- NOTE | 2019-06-11 00:08 | NUR ---
RN NOTES: RECEIVED REPORT FROM GARY MAKI. PT WITH BILATERAL SOFT WRIST RESTRAINT IN PLACED. NPO, AWAITING GI CONSULT WITH DR SMITH FOR PEG PLACEMENT. PT IN BED, CONFUSED. IV ACCESS PATENT AND FLUSHING WELL, INFUSING WITH D5W AT 75ML/HR. BLE OFFLOADED ON PILLOWS. SAFETY PRECAUTIONS FOR FALL INITAITED, CALL LIGHT IN REACH, WILL CONTINUE MONITORING PT.
[2019-06-11] MEDS: ALBUTEROL FS 2.5 MG/3 ML VIAL.NEB NEB SCH ×4 (01:22→20:59)
[2019-06-11] MEDS: BLOOD SUGAR DIAGNOSTIC 1 EACH STRIP IN SCH ×4 (06:22→21:33)
[2019-06-11] MEDS: INSULIN ASPART/LISPRO 100 UNIT/ML CARTRIDGE SQ PRN (06:22)
--- NOTE | 2019-06-11 06:23 | NUR ---
blood glucose 114: fingerstick glucose check performed obtained result of 114, no insulin coverage given per sliding scale. pt on npo. on ivf d5w at 75ml/hr.
[2019-06-11 06:54] LABS: BASOPHILS # (AUTO) 0.2 /CMM (0.0-0.2); BASOPHILS % (AUTO) 1.9 % (0.0-2.0); EOSINOPHILS % (AUTO) 2.8 % (0.0-6.0); HEMATOCRIT 43 % (39-51); HEMOGLOBIN 14.2 g/dL (13.5-17.5); LYMPHOCYTES # (AUTO) 0.7 /CMM (0.8-4.8); LYMPHOCYTES % (AUTO) 8.3 % (20.0-44.0); MEAN CORPUSCULAR HGB CONC 33 g/dl (31.0-36.0); MEAN CORPUSCULAR VOLUME 91 fL (80-96); MONOCYTES # (AUTO) 0.9 /CMM (0.1-1.30); MONOCYTES % (AUTO) 10.7 % (2.0-12.0); NEUTROPHILS # (AUTO) 6.3 /CMM (1.8-8.9); NEUTROPHILS % (AUTO) 76.3 % (43.0-81.0); PLATELET COUNT (AUTO) 169 /CMM (150-450); RED BLOOD CELL COUNT(AUTO) 4.74 MIL/uL (4.5-6.0); WHITE BLOOD COUNT (AUTO) 8.3 K/uL (4.3-11.0)
--- NOTE | 2019-06-11 06:54 | NUR ---
end of shift report: pt remains confused, on ra, respirations evena nd unlabored, remains npo. awaiting gi consult for peg placement. pt remains with bilateral soft wrist restraint as pt trying to pull out iv lines and tried getting out of bed, high risk for fall and disruption of med care. vs remains stable, needs attended. iv access remains patent and flushing well, infusing with ivf as ordered. no s/s of iv infiltration noted. safety precautions for fall remains engaged, call light in reach, will endorse to day rn for continuity of care.
[2019-06-11 06:58] LABS: ALANINE AMINOTRANSFERASE 23 U/L (12-78); ALBUMIN 2.8 g/dL (3.4-5.0); ALKALINE PHOSPHATASE 38 U/L (46-116); ASPARTATE AMINOTRANSFERASE 22 U/L (15-37); BILIRUBIN,TOTAL 0.6 mg/dL (0.2-1.0); CARBON DIOXIDE 27 mmol/L (21-32); CHLORIDE 102 mmol/L (98-107); CREATININE 1.5 mg/dL (0.6-1.3); GLUCOSE 114 mg/dL (74-106); MAGNESIUM 1.5 mg/dL (1.8-2.4); PHOSPHORUS 2.4 mg/dL (2.5-4.9); POTASSIUM 3.5 mmol/L (3.5-5.1); SODIUM SERUM 137 mmol/L (136-145); TOTAL PROTEIN, SERUM 6.5 g/dL (6.4-8.2); UREA NITROGEN, BLOOD 9 mg/dL (7-18)
--- NOTE | 2019-06-11 07:30 | NUR ---
MS/RN NOTE THE PATIENT IS RECEIVED IN BED. PATIENT IS ALERT AND ORIENTED TO HIS NAME. THE PATIENT RECEIVING OXYGEN AT 2L/MIN VIA NASAL CANNULA. NO MANIFESTATION OF DISTRESS NOTED. BILATERAL SOFT-WRIST RESTRAINS ON PER ORDER. SKIN ASSESSMENT DONE AND NO SKIN ISSUES NOTED AND NO S/S POOR CIRCULATION NOTED. RAC G 22 PATENT AND D5W INFUSING AT 75ML/HR AND NO S/S INFILTRATION NOTED. BED LOW AND LOCKED. SIDE RAILS UP X3. CALL LIGHT WITHIN REACH. WILL CONTINUE TO MONITOR.
[2019-06-11 08:00] VITALS: BP 128/80
[2019-06-11] MEDS ORDERED: Magnesium 1GM/D5W 100ML PREMIX 100 ML IV ONE (08:00)
[2019-06-11] MEDS: busPIRone 5 MG TABLET PO SCH ×3 (08:29→17:00)
[2019-06-11] MEDS: CLOTRIMAZOLE 1% 15 GM TUBE TP SCH ×2 (08:45→17:55)
[2019-06-11] MEDS: Z GUARD REMEDY 2 OZ OINT TP SCH (08:46)
--- NOTE | 2019-06-11 09:35 | NUR ---
WOUND CARE CONSULT: PT SEEN FOR SKIN REASSESSMENT AND RASH RESOLVING TO GROIN AREA. PT IS INCONTINENT. CONTINUE ALL SKIN PROTECTION MEASURES. DISCUSSED WITH NURSING STAFF. PT ON BETHEL ISOFLEX LOW AIRLOSS BED. WILL SEE PRN.
[2019-06-11] MEDS ORDERED: Sodium Phosphate 15 MMOL in IV NS 0.9% 245 ML IV SCH (10:30)
--- NOTE | 2019-06-11 11:15 | NUR ---
MS/RN NOTE RECEIVED ORDER FROM DR ANGELA RUELAS XR VIDEO SWALLOW WITH SPEECH AND ST EVAL CINE VIDEO. THE ORDERS AREA READ BACK, VERIFIED. NOTED AND CARRIED OUT. SPEECH THERAPIST IS MADE AWARE.
[2019-06-11 16:00] VITALS: BP 137/70
--- NOTE | 2019-06-11 17:38 | NUR ---
RN NOTE CONTACT DR MARTIN`S OFFICE X3 PER DR MILLER TO FIND OUT WHE DR MARTIN WILL SEE THE PATIENT, NO CALL BACK BY THIS TIME. DESPITE LEAVING MESSAGES.
--- NOTE | 2019-06-11 18:24 | NUR ---
MS/RN NOTE THE PATIENT IS ALERT AND ORIENTED TO SELF. DENIES PAIN. THE PATIENT IS RECEIVING OXYGEN AT 2L/MIN VIA NASAL CANNULA AND SATURATION IS AT 95%. NO MANIFESTATION OF DISTRESS NOTED. BILATERAL SOFT-WRIST RESTRAINS ON PER ORDER AND NO S/S POOR CIRCULATION NOTED, NO SKIN BREAKDOWN NOTED. THE PATIENT REMAINS NPO. RAC G 22 PATENT AND D5W INFUSING AT 75ML/HR AND NO S/S INFILTRATION NOTED. BED LOW AND LOCKED. SIDE RAILS UP X3. CALL LIGHT WITHIN REACH. WILL ENDORSE TO NIGHTS SHIFT.
--- NOTE | 2019-06-11 19:12 | NUR ---
MS RN NOTES PATIENT RECEIVED IN BED, EASILY AWAKEN BY NAME AND LIGHT TOUCH. PATIENT ON 2L NASAL CANNULA, TOLERATING SETTING, WITH EVEN NON-LABORED BREATHING, AND NO SIGNS OF RESPIRATORY DISTRESS. BILATERAL SOFT-WRIST RESTRAINTS IN PLACE, SKIN ASSESSMENT DONE, SKIN INTACT, AND ADEQUATE CIRCULATION, AND WITH TWO FINGER SPACE. PATIENT IV ACCESS INTACT AND PATENT ON RAC, INFUSING D5W AT 75ml/hr, NO SIGNS OF INFILTRATION. PROVIDED COMFORT MEASURES TO PATIENT. SAFETY PRECAUTIONS IMPLEMENTED WITH THE BED IN THE LOWEST POSITION, BED LOCKED, BILATERAL SIDE RAILS UP, BED ALARM ON, AND CALL LIGHT WITHIN EASY REACH OF PATIENT. WILL CONTINUE TO MONITOR PATIENT.
[2019-06-11 20:00] VITALS: BP 123/68
[2019-06-11 20:05] VITALS: BP 123/68
--- NOTE | 2019-06-11 21:34 | NUR ---
MS RN NOTES PATIENT'S BLOOD SUGAR 99, PER SLIDING SCALE PROTOCOL, NO INSULIN GIVEN. WILL CONTINUE TO MONITOR PATIENT.
[2019-06-11] MEDS: IV D5W 1,000 ML IV PRN (22:31)
[2019-06-12] VITALS (10 sets, daily range): BP systolic 121–147; BP diastolic 62–87
[2019-06-12] MEDS: ALBUTEROL FS 2.5 MG/3 ML VIAL.NEB NEB SCH ×4 (01:30→20:32)
[2019-06-12] MEDS: LORAZEPAM INJ 2 MG/ML VIAL IM PRN ×2 (04:04→15:50)
--- NOTE | 2019-06-12 04:08 | NUR ---
MS RN NOTES PATIENT WAS ANXIOUS AND KEPT YELLING OUT. PROVIDED COMFORT MEASURES TO PATIENT. DECREASE THE STIMULI MULTIPLE TIMES, AND TRY TO CALM PATIENT DOWN. PATIENT'S VITAL SIGNS STABLE, BLOOD PRESSURE 121/70, HEART RATE 84, RESPIRATORY RATE 18, AND SPO2 96%. ADMINISTERED PRN MEDICATION ATIVAN IM 0.5mg. WILL CONTINUE TO MONITOR PATIENT.
--- NOTE | 2019-06-12 06:56 | NUR ---
MS RN NOTES PATIENT IN BED AWAKE, ALERT AND ORIENTED X 1. PATIENT ON NASAL CANNULA 2L TOLERATING WITH NO SIGNS OF RESPIRATORY DISTRESS OR SOB. PATIENT SKIN KEPT CLEAN AND DRY, BILATERAL SOFT-WRIST RESTRAINTS IN PLACE, WITH ADEQUATE CIRCULATION, TWO FINGER SPACE AND SKIN INTACT. PROVIDED COMFORT MEASURES TO PATIENT. SAFETY PRECAUTIONS IMPLEMENTED WITH THE BED IN THE LOWEST POSITION, BED LOCKED, BED ALARM ON, BILATERAL SIDE RAILS UP, CALL LIGHT WITHIN EASY REACH OF THE PATIENT. WILL ENDORSE PLAN OF CARE TO UPCOMING DAYSHIFT NURSE.
[2019-06-12] MEDS: busPIRone 5 MG TABLET PO SCH ×3 (09:00→17:00)
[2019-06-12] MEDS: BLOOD SUGAR DIAGNOSTIC 1 EACH STRIP IN SCH ×4 (09:47→22:13)
[2019-06-12] MEDS: CLOTRIMAZOLE 1% 15 GM TUBE TP SCH ×2 (11:21→17:37)
[2019-06-12] MEDS: Z GUARD REMEDY 2 OZ OINT TP SCH (11:21)
[2019-06-12] MEDS: IV D5W 1,000 ML IV PRN (13:15)
--- NOTE | 2019-06-12 16:26 | NUR ---
YELLING OUT ,JUST MEDICATED WITH ATIVAN,REMAINS NPO AND IN ALISON. WRIST RESTRAINTS.
[2019-06-12] MEDS ORDERED: ANESTHESIA TRAY IN PYXIS 1 EA TRAY MC ONE (17:01)
--- NOTE | 2019-06-12 18:35 | NUR ---
returned from rec. rm. vs taken.see graphic.hob elevated.02 0n 3l.skin warm and dry abd. binder in place.iv infusing rt. arm.side rails up. call acosta within reach.at this time pt. sleepy resp. even and unlabored.checking vitals maryan.
--- NOTE | 2019-06-12 19:23 | NUR ---
MS RN OPENING NOTES PER REPORT, PATIENT RETURNED FROM PEG PLACEMENT AND EGD PROCEDURES AT 1835. A/OX1. ON 2L NC. CONTINUOS PULSE OX PLACED, STATING 99%. VITAL SIGNS - BP: 130/83 HR: 93 RR: 16. PEG DRESSING IS DRY AND INTACT; ABDOMINAL BINDER PLACED FOR PRECAUTION. SOFT BILATERAL WRIST RESTRAINTS PRESENT; SKIN CIRCULATION WNL. IV PRESENT ON RIGHT AC, SIZE 22, INTACT & PATENT WITH D5W RUNNING AT 75 ML/HR. PATIENT CURRENTLY STILL NPO PER MD ORDERS. SAFETY MEASURES IN PLACE. BED LOCKED, ALARM ON, SIDE RAILS X2, SEMI-HALL'S POSITION, CALL LIGHT WITHIN REACH. WILL CONTINUE TO MONITOR.
[2019-06-13] MEDS: ALBUTEROL FS 2.5 MG/3 ML VIAL.NEB NEB SCH ×4 (01:37→19:58)
[2019-06-13 04:20] VITALS: BP 135/84
[2019-06-13] MEDS: IV D5W 1,000 ML IV PRN (05:21)
[2019-06-13] MEDS: BLOOD SUGAR DIAGNOSTIC 1 EACH STRIP IN SCH ×4 (06:30→22:46)
--- NOTE | 2019-06-13 07:40 | NUR ---
MS RN CLOSING NOTES PATIENT SLEEPING IN BED. REMAINED STABLE DURING ENTIRE SHIFT. ON 3L NC. NO S/S OF ACUTE RESPIRATORY DISTRESS OR PAIN NOTED. IV ON RIGHT AC SIZE 22 REMAINS INTACT & PATENT WITH D5W RUNNING AT 75 ML/HR. G-TUBE DRESSING DRY AND INTACT. SOFT WRIST RESTRAINTS PRESENT BILATERALLY; SKIN CIRCULATIONS REMAINS WNL. SAFETY MEASURES IN PLACE. WILL ENDORSE TO DAY SHIFT NURSE PLAN OF CARE.
[2019-06-13 07:47] LABS: CALCIUM, SERUM 9.5 mg/dL (8.5-10.1); CARBON DIOXIDE 29 mmol/L (21-32); CHLORIDE 104 mmol/L (98-107); CREATININE 1.4 mg/dL (0.6-1.3); GLUCOSE 109 mg/dL (74-106); MAGNESIUM 1.7 mg/dL (1.8-2.4); POTASSIUM 4.9 mmol/L (3.5-5.1); SODIUM SERUM 141 mmol/L (136-145); UREA NITROGEN, BLOOD 10 mg/dL (7-18)
[2019-06-13 08:00] VITALS: BP 137/72
--- NOTE | 2019-06-13 08:00 | NUR ---
RN NOTES RECEIVED PATIENT SLEEPING IN THE BED. REMAINED STABLE NO ACUTE RESPIRATORY DISTRESS, V/ STABLE. PATIENT NPO BECAUSE OF GT. RESIDUAL, AND PLACEMENT CHECKED,NO S/S OF ACUTE RESPIRATORY DISTRESS OR PAIN NOTED. IV ON RIGHT AC SIZE 22 REMAINS INTACT & PATENT WITH D5W RUNNING AT 75 ML/HR. SOFT WRIST RESTRAINTS PRESENT BILATERALLY; SKIN CIRCULATIONS REMAINS WNL. SAFETY MEASURES IN PLACE. ASSIST TURN AND REPOSTION Q2HR. PATIENT INCONTINENT. CALL LIGHT WITHIN TO REACH CONTINUED MONITORING.
[2019-06-13] MEDS: PANTOPRAZOLE 40 MG TABLET.DR PO SCH (09:25)
[2019-06-13] MEDS: CLOTRIMAZOLE 1% 15 GM TUBE TP SCH ×2 (09:25→17:53)
[2019-06-13] MEDS: busPIRone 5 MG TABLET PO SCH ×3 (09:25→17:52)
[2019-06-13] MEDS: Z GUARD REMEDY 2 OZ OINT TP SCH (09:26)
[2019-06-13] MEDS: Magnesium 1GM/D5W 100ML PREMIX 100 ML IV SCH ×2 (09:53→11:00)
[2019-06-13] MEDS ORDERED: Magnesium 1GM/D5W 100ML PREMIX 100 ML IV SCH (10:00)
--- NOTE | 2019-06-13 12:00 | NUR ---
RN NOTES BS- 105 MG/DL, NO COVERAGE GIVEN . STARTED JEVITY 1.2 10CC/HR INTACT TOLERATED. GOAL IS INCREASE 60 CC IN 24 HR. KEEP HOB ELEVATED FOR ASPIRATION PRECAUTION, 200 ML H20 GIVEN PER Dr RODRIGUEZ ORDER. ASSIST TURN AND REPOSTION Q 2 HR.
[2019-06-13] MEDS: JEVITY 1.2 CAL 1,000 ML BOTTLE GT PRN (12:32)
[2019-06-13 16:00] VITALS: BP 116/68
--- NOTE | 2019-06-13 18:00 | NUR ---
RN NOTES PATIENT REFUSED BLOOD GLUCOSE TO BED TAKEN, PATIENT AWAKE STATED "I AMD SICK DO NOT TOUCH ME". ADMINISTERED SCHEDULED MEDICATION CRUISED AND GIVEN VIA GT, INCREASE JEVITY 1.2 TO 20CC/HR TOLERATED. HOB ELEVATED, ASSIST TURN AND REPOSTION Q 2 HR. CALL LIGHT WITHIN TO REACH. ENDORSED ONCOMING NURSE FOLLOW PLAN OF CARE.
--- NOTE | 2019-06-13 19:26 | NUR ---
MS RN OPENING NOTES PATIENT AWAKE IN BED. A/OX1. CONFUSED AND YELLING. ON 3L NC. NO S/S OF ACUTE RESPIRATORY DISTRESS OR PAIN NOTED AT THIS TIME. IV PRESENT ON RIGHT AC, SIZE 22, INTACT & PATENT, D5W RUNNING AT 75 ML/HR. GTUBE INTACT & PATENT, JEVITY CURRENTLY RUNNING AT 20 ML/HR. SOFT WRIST RESTRAINTS PRESENT BILATERALLY; SKIN CIRCULATION WNL. SAFETY MEASURES IN PLACE. BED LOCKED, ALARM ON, SIDE RAILS X3, CALL LIGHT WITHIN REACH. WILL CONTINUE TO MONITOR.
[2019-06-13 20:10] VITALS: BP 121/79
[2019-06-14] MEDS: IV D5W 1,000 ML IV PRN (00:24)
--- NOTE | 2019-06-14 00:35 | NUR ---
MS RN NOTES G-TUBE FEEDING RUNNING AT 20ML/HR; RESIDUAL 5 CC; PATIENT TOLERATING WELL. INCREASED RATE TO 30 ML/HR. WILL CONTINUE TO MONITOR.
[2019-06-14] MEDS: ALBUTEROL FS 2.5 MG/3 ML VIAL.NEB NEB SCH ×4 (02:11→19:18)
--- NOTE | 2019-06-14 04:15 | NUR ---
MS RN NOTES G-TUBE FEEDING RUNNING AT 30ML/HR; RESIDUAL 5 CC; PATIENT TOLERATING WELL. INCREASED FEEDING TO 45ML/HR. WILL CONTINUE TO MONITOR
--- NOTE | 2019-06-14 05:30 | NUR ---
MS RN NOTES PATIENT'S TEMPERATURE 101.6. COOLING MEASURES PROVIDED; ICE PACKS PLACED UNDERARMS AND WET CLOTH PLACED ON FOREHEAD. WILL CONTINUE TO MONITOR.
--- NOTE | 2019-06-14 05:40 | NUR ---
MS RN NOTES CALLED DR. PARSON AND NOTIFIED OF PATIENT'S TEMPERATURE. RECEIVED ORDERS FOR TYLENOL Q6H 500MG VIA GTUBE & LAB ORDERS FOR BMP. READ BACK COMPLETED. WILL CARRY OUT ORDERS.
[2019-06-14 06:00] VITALS: BP 131/76
[2019-06-14] MEDS: ACETAMINOPHEN ES 500 MG TABLET GT PRN ×2 (06:13→19:53)
--- NOTE | 2019-06-14 06:13 | NUR ---
MS RN NOTES PATIENT'S TEMP 101. PRN TYLENOL 500MG GIVEN VIA GTUBE. WILL CONTINUE TO MONITOR.
[2019-06-14] MEDS: BLOOD SUGAR DIAGNOSTIC 1 EACH STRIP IN SCH ×4 (06:40→21:59)
[2019-06-14 06:42] LABS: BASOPHILS % (AUTO) 0.4 % (0.0-2.0); EOSINOPHILS % (AUTO) 0.6 % (0.0-6.0); HEMATOCRIT 42 % (39-51); HEMOGLOBIN 13.9 g/dL (13.5-17.5); LYMPHOCYTES # (AUTO) 0.9 /CMM (0.8-4.8); LYMPHOCYTES % (AUTO) 12.7 % (20.0-44.0); MEAN CORPUSCULAR HGB CONC 33 g/dl (31.0-36.0); MEAN CORPUSCULAR VOLUME 91 fL (80-96); MONOCYTES # (AUTO) 0.9 /CMM (0.1-1.30); MONOCYTES % (AUTO) 12.2 % (2.0-12.0); NEUTROPHILS # (AUTO) 5.4 /CMM (1.8-8.9); NEUTROPHILS % (AUTO) 74.1 % (43.0-81.0); PLATELET COUNT (AUTO) 178 /CMM (150-450); RED BLOOD CELL COUNT(AUTO) 4.62 MIL/uL (4.5-6.0); WHITE BLOOD COUNT (AUTO) 7.3 K/uL (4.3-11.0)
--- NOTE | 2019-06-14 06:51 | NUR ---
MS RN NOTES PATIENT SLEEPING IN BED. A/OX1. ON 2L NC. TEMPERATURE CURRENTLY 100.8; COOLING MEASURES STILL IN PLACE. NO S/S OF ACUTE RESPIRATORY DISTRESS OR PAIN NOTED. IV ON RIGHT AC, SIZE 22, INTACT & PATENT WITH D5W RUNNING AT 75 ML/HR. GTUBE INTACT & PATENT, RESIDUAL 5 CC, JEVITY RUNNING AT 45 ML/HR. SAFETY MEASURES IN PLACE. BED LOCKED, ALARM ON, SIDE RAILS X3, SEMI-HALL'S POSITION, CALL LIGHT WITHIN REACH. WILL ENDORSE TO DAY SHIFT NURSE PLAN OF CARE.
--- NOTE | 2019-06-14 07:09 | NUR ---
MS RN OPENING NOTES RECEIVED PT ASLEEP IN BED, EASILY AWAKENS. HOB ELEVATED. ON SUPPLEMENTAL 02 VIA N/C @ 2LPM, TOLERATING WELL WITH NO S/S OF ACUTE RESPIRATORY DISTRESS OR PAIN NOTED AT THIS TIME. IV ACCESS ON RAC G#22 INTACT & PATENT, D5W RUNNING AT 75 ML/HR, NO S/S OF INFILTRATIONS AT SITE NOTED. G-TUBE IN PLACE & PATENT, JEVITY 1.2 @ 50ML/HR RUNNING AT THIS TIME, TOLERATING WELL. ASPIRATION PRECAUTIONS MAINTAINED. SOFT WRIST RESTRAINTS PRESENT BILATERALLY WITH NO SKIN BREAKDOWN NOTED, CIRCULATION WNL AND WITH PERIPHERAL PULSES NOTED. SAFETY MEASURES IN PLACE: BED IN LOW LOCKED POSITION WITH SIDE RAILS UP X3, CALL LIGHT WITHIN REACH. WILL CONTINUE TO MONITOR.
[2019-06-14 07:11] LABS: ALANINE AMINOTRANSFERASE 15 U/L (12-78); ALBUMIN 2.8 g/dL (3.4-5.0); ALKALINE PHOSPHATASE 38 U/L (46-116); ASPARTATE AMINOTRANSFERASE 21 U/L (15-37); BILIRUBIN,TOTAL 0.6 mg/dL (0.2-1.0); CARBON DIOXIDE 29 mmol/L (21-32); CHLORIDE 96 mmol/L (98-107); CREATININE 1.7 mg/dL (0.6-1.3); GLUCOSE 83 mg/dL (74-106); POTASSIUM 4.4 mmol/L (3.5-5.1); SODIUM SERUM 132 mmol/L (136-145); TOTAL PROTEIN, SERUM 6.9 g/dL (6.4-8.2); UREA NITROGEN, BLOOD 14 mg/dL (7-18)
[2019-06-14] MEDS: PANTOPRAZOLE 40 MG TABLET.DR PO SCH (07:46)
[2019-06-14 08:00] VITALS: BP_SYST 119; BP_SYST 98; BP_DIAS 53; BP_DIAS 68
[2019-06-14] MEDS: busPIRone 5 MG TABLET PO SCH ×3 (08:20→16:48)
[2019-06-14] MEDS: Z GUARD REMEDY 2 OZ OINT TP PRN (09:45)
[2019-06-14] MEDS: CLOTRIMAZOLE 1% 15 GM TUBE TP SCH ×2 (09:45→16:48)
[2019-06-14] MEDS: Z GUARD REMEDY 2 OZ OINT TP SCH (09:46)
[2019-06-14] MEDS ORDERED: SODIUM CHLORIDE 1000 MG TABLET PO SCH (11:00)
[2019-06-14] MEDS: Magnesium 1GM/D5W 100ML PREMIX 100 ML IV SCH ×2 (11:32→12:46)
--- NOTE | 2019-06-14 11:40 | NUR ---
MS RN NOTES URINE SPECIMEN COLLECTED AT 11:30AM ORDERED BY . AWAITING PENDING BLOOD CULTURE RESULTS
[2019-06-14] MEDS: INSULIN ASPART/LISPRO 100 UNIT/ML CARTRIDGE SQ PRN ×2 (11:56→17:29)
[2019-06-14 12:15] LABS: APPEARANCE,URINE SL CLOUDY (CLEAR); BILIRUBIN,URINE NEGATIVE (NEGATIVE); BLOOD, URINE TRACE-INTA Ery/uL (NEGATIVE); COLOR,URINE YELLOW (YELLOW); KETONES,URINE NEGATIVE (NEGATIVE); LEUKOCYTE ESTERASE ,URINE MODERATE (NEGATIVE); NITRITE, URINE NEGATIVE (NEGATIVE); PROTEIN,URINE NEGATIVE (NEGATIVE); UGLUCOSE NEGATIVE (NEGATIVE); UROBILINOGEN,URINE 0.2 EU/dL (0.2)
[2019-06-14 12:45] LABS: BACTERIA,URINE None seen /HPF (None Seen); RBC,URINE 0-2 /HPF (0-2); SQUAMOUS EPITHELIAL CELL,UR Few /HPF (None Seen); WBC,URINE 21-50 /HPF (0-3); YEAST,URINE Few /HPF (None Seen)
[2019-06-14] MEDS: ELECTROLYTE,ORAL 1,000 ML BOTTLE GT SCH ×3 (12:48→19:50)
[2019-06-14] MEDS: IV NS 0.9% 1,000 ML IV PRN (14:16)
--- NOTE | 2019-06-14 14:48 | NUR ---
RN NOTES RECEIVED CALL FROM VOLTAGE INSPECTOR ANDREW THAT PT HAS CRITICAL HIGH LACTIC ACID 4.2. ADIS JAVED AND AURELIANO MCKEON MADE AWARE. ORDERS MADE AND CARRIED OUT.
[2019-06-14] MEDS: LORAZEPAM INJ 2 MG/ML VIAL IM PRN (15:24)
[2019-06-14] MEDS ORDERED: PIPERACILLIN /TAZOBACTAM 2.25 G in IV D5W 50 ML IV SCH (15:30)
--- NOTE | 2019-06-14 15:32 | NUR ---
RN NOTES PT NOTED AGITATED AND SCREAMING. PRN ATIVAN 0.5MG IV ADMINISTERED @ 1524. WILL CONTINUE TO MONITOR
[2019-06-14 16:00] VITALS: BP 120/72
[2019-06-14] MEDS ORDERED: FEE PK DOSING 1 MIN EA MC ONE (16:09)
[2019-06-14] MEDS: VANCOMYCIN 0.75 GM in IV D5W 250 ML IV SCH (16:29)
[2019-06-14 16:35] LABS: BILIRUBIN,DIRECT 0.2 mg/dL (0.0-0.2)
--- NOTE | 2019-06-14 17:12 | NUR ---
RN NOTES RECEIVED CALL FROM RAMY TSE THAT PT'S LACTIC ACID REMAINS HIGH 2.9 FROM 4.1 EARLIER. WILL CONTINUE TO MONITOR.
[2019-06-14] MEDS: PIPERACILLIN /TAZOBACTAM 2.25 G in IV D5W 50 ML IV SCH ×3 (17:30→23:32)
[2019-06-14] MEDS: JEVITY 1.2 CAL 1,000 ML BOTTLE GT PRN (17:39)
--- NOTE | 2019-06-14 17:47 | NUR ---
RN NOTES ATB ZOSYN 2.25 GM IV SCHEDULED FOR 1800 NOT ADMINISTERED BECAUSE IT'S A DUPLICATE ORDER. ZOSYN ALREADY ADMINISTERED AT 1730. WILL CONTINUE TO MONITOR
--- NOTE | 2019-06-14 18:49 | NUR ---
RN CLOSING NOTES PT IN BED, WITH HOB ELEVATED. PT AGITATED AND SCREAMING. PRN ATIVAN 0.5MG IVF ADMINISTERED. PT APPEARS COMFORTABLE AND STABLE WITH NO ACUTE RESPIRATORY DISTRESS NOTE. RESPIRATIONS EVEN AND UNLABORE. PT ON OXYGEN NC 2l.I V ON RAC G# 22 REMAINS INTACT, PATENT AND INFUSING WITH 0.9NS 1000ML @ 75ML/HR. G-TUBE DRESSING DRY AND INTACT. B/L SOFT WRIST RESTRAINTS, GOOD SKIN CIRCULATION AND GOOD CAPILLARY REFILL, PALPABLE RADIAL PULSES. SAFETY MEASURES IN PLACE. BED IN LOCKED LOWEST POSITION, SIDE RAILS UP AND CALL LIGHT WITHIN REACH, WILL ENDORESE TO [employer] AUDITOR NURSE FOR FABIOLA.
--- NOTE | 2019-06-14 19:30 | NUR ---
DECORATOR INSPECTOR: RECEIVED REPORT FROM GERALDINE AND PIERRE RN AT 1915. PT RECEIVED WITH PEG, CURRENTLY ON GTUBE FEEDING JEVITY 1.2 AT 60ML/HR, GOAL MET. ON 2L OXYGEN VIA NC, RESPIRATION EVEN AND UNLABORED. RECEIVED WITH BILATERAL SOFT WRIST RESTRAINT, RADIAL PULSES PALPABLE, PT ABLE TO MOVE AND WIGGLE ARMS AND HANDS, GOOD CAPILLARY REFILL NOTED. PT ON IVF NS AT 75ML/HR. ABDOMEN SOFT TO TOUCH WITH ACTIVE BOWEL SOUND HEARD UPON AUSCULTATIONS. SAFETY PRECAUTIONS FOR FALL INITIATED, CALL LIGHT IN REACH, WILL CONTINUE MONITORING PT.
--- NOTE | 2019-06-14 19:45 | NUR ---
PLUNKET NURSE/GTUBE: PEG IN PLACED, ABDOMEN SOFT TO TOUCH WITH ACTIVE BOWEL SOUND HEARD UPON AUSCULTATION. ABLE TO FLUSH GTUBE EASILY WITHOUT MEETING ANY RESISTANCE, FLUSH WITH 30CC OF WATER.
--- NOTE | 2019-06-14 19:54 | NUR ---
PRN TYLENOL: NOTED TO HAVE 101.3 TEMP, PRN TYLENOL ES 500 MG ADMINISTERED VIA GTUBE, COOLING MEASURES PROVIDED, REMOVED EXCESS THICK BLANKET. WILL CONTINUE MONITORING PT.
[2019-06-14 20:00] VITALS: BP 137/89
--- NOTE | 2019-06-14 21:00 | NUR ---
RN NOTES: RELEASE OF RESTRAINT PROVIDED, HOWEVER PT STARTED HITTING STAFF, TRYING TO GET OUT OF BED, SPIT TO STAFF, PT ALSO TRIED KICKING ALMOST HIT RN, RECOMMENDS NEED FOR BILATERAL SOFT WRIST RESTRAINT, ALMSOT DUE FOR RENEWAL, HOSPITALIST MADE AWARE, AWAITING CALLBACK.
--- NOTE | 2019-06-14 21:40 | NUR ---
RN NOTES: PAGED DR MILLER TO MADE AWARE OF THE NEED FOR RESTRAINT RENEWAL. TELEPHONE ORDER RECEIVED FOR RENEWAL OF BILATERAL SOFT WRIST RESTRAINT. ORDER READ BACK VERIFIED AND CARRIED OUT.
[2019-06-14] MEDS: *INSULIN ASPART NOVOLOG 100 UNIT/ML CARTRIDGE SQ PRN (22:00)
--- NOTE | 2019-06-14 22:00 | NUR ---
BLOOD GLUCOSE 117: FINGERSTICK BLOOD GLUCOSE CHECK PERFORMED AND RESULT IS 117, NO INSULIN COVERAGE GIVEN PER SLIDING SCALE
[2019-06-15] MEDS: ALBUTEROL FS 2.5 MG/3 ML VIAL.NEB NEB SCH ×4 (00:41→20:31)
[2019-06-15] MEDS: PIPERACILLIN /TAZOBACTAM 2.25 G in IV D5W 50 ML IV SCH ×4 (05:10→23:49)
[2019-06-15] MEDS: IV NS 0.9% 1,000 ML IV PRN ×2 (05:10→23:03)
--- NOTE | 2019-06-15 05:23 | NUR ---
am care: assisted adolescent medicine specialist in providing bed bath to the pt, wound care done as ordered. pt had total of 2 soft large bm.
[2019-06-15] MEDS: BLOOD SUGAR DIAGNOSTIC 1 EACH STRIP IN SCH ×4 (06:14→23:49)
[2019-06-15] MEDS: INSULIN ASPART/LISPRO 100 UNIT/ML CARTRIDGE SQ PRN (06:15)
--- NOTE | 2019-06-15 06:15 | NUR ---
blood glucose 81: fingerstick glucose check performed result obtained 81, pt on gtube feeding jevity at 60ml/hr. no insulin coverage given per sliding scale. will continue to monitor and reassess pt.
--- NOTE | 2019-06-15 06:40 | NUR ---
END OF SHIFT REPORT: PRN REMAINS CONFUSED, LATEST TEMP 98.8, TMAX 100.3, PRN TYLENOL ES ADMINISTERED. ON 2L OXYGEN VIA NC, NO SOB NOTED, NO FACIAL GRIMACE NOTED. ON GTUBE FEEDING, JEVITY AT 60ML/HR, ABDOMEN REMAINS SOFT TO TOUCH WITH ACTIVE BOWEL SOUND HEARD UPON AUSCULTATION, HAD ONE SOFT BM. ABDL BINDER REMAINS IN USE TO PREVENT PULLING OUT OF GTUBE. REMAINS WITH BILATERAL SOFT WRIST RESTRAINT. PT ABLE TO MOVE AND WIGGLE ARMS AND HANDS, WITH GOOD CAPILLARY REFILL NOTED, RADIAL PULSES PALPABLE, NO S/S OF IMPEDIMENT IN CIRCULATION NOTED. IV ACCESS REMAINS PATENT AND FLUSHING WELL, INFUSING WITH IVF ORDERED. AWAITING RESULT OF BLOOD CULTURES, IV ATB ADMINISTERED ORDERED, AM LABS FOR TODAY, DC PLANNING PER PCP SNF VS HOME, VS REMAINS STABLE, NEEDS ATTENDED. SAFETY PRECAUTIONS FOR FALL REMAINS ENGAGED, CALL LIGHT IN REACH, WILL ENDORSE TO DAY RN FOR CONTINUITY OF CARE.
[2019-06-15 06:56] LABS: ALANINE AMINOTRANSFERASE 13 U/L (12-78); ALBUMIN 2.8 g/dL (3.4-5.0); ALKALINE PHOSPHATASE 37 U/L (46-116); ASPARTATE AMINOTRANSFERASE 24 U/L (15-37); BILIRUBIN,TOTAL 0.6 mg/dL (0.2-1.0); CALCIUM, SERUM 8.9 mg/dL (8.5-10.1); CARBON DIOXIDE 25 mmol/L (21-32); CHLORIDE 101 mmol/L (98-107); CREATININE 1.5 mg/dL (0.6-1.3); GLUCOSE 97 mg/dL (74-106); MAGNESIUM 2.2 mg/dL (1.8-2.4); PHOSPHORUS 3.2 mg/dL (2.5-4.9); POTASSIUM 5.3 mmol/L (3.5-5.1); SODIUM SERUM 140 mmol/L (136-145); TOTAL PROTEIN, SERUM 7.2 g/dL (6.4-8.2); UREA NITROGEN, BLOOD 19 mg/dL (7-18)
--- NOTE | 2019-06-15 07:46 | NUR ---
MS RN OPENING NOTES RECEIVED PATIENT IN BED, ASLEEP. PATIENT ON OXYGEN THERAPY AT 2 LPM VIA NASAL CANULA; BREATHING EVEN AND UNLABORED. NO SIGNS OF PAIN SUCH FACIAL GRIMACING OR MOANING. ON G-TUBE FEEDING, JEVITY AT 60ML/HR, ABDOMEN REMAINS SOFT TO TOUCH WITH ACTIVE BOWEL SOUND HEARD UPON AUSCULTATION. ABDL BINDER REMAINS IN USE TO PREVENT PULLING OUT OF G-TUBE. REMAINS WITH BILATERAL SOFT WRIST RESTRAINT AT THIS TIME. RAC # 20 NS INTACT ANS PATENT INFUSING NS AT 75 MLS/HR. SAFETY PRECAUTIONS IN PLACE; BED IN LOW POSITION AND LOCKED, RAILS UP X2, CALL LIGHT WITHIN REACH. WILL CONTINUE TO MONITOR PATIENT.
--- NOTE | 2019-06-15 07:51 | NUR ---
MS RN NOTES RECEIVED CALL FROM LAB AT [phone] AND NOTIFIED THAT PATIENT HAS A CRITICAL LAB VALUE OF LACTIC ACID: 4.2 MD NOTIFIED AT 729. CRITICAL LAB VALUE DOCUMENTED. WILL CONTINUE TO MONITOR
[2019-06-15 08:04] LABS: MONOCYTES # (AUTO) 0.7 /CMM (0.1-1.30); WHITE BLOOD COUNT (AUTO) 7.3 K/uL (4.3-11.0)
[2019-06-15 08:07] LABS: BASOPHILS % (AUTO) 0.5 % (0.0-2.0); EOSINOPHILS % (AUTO) 2.9 % (0.0-6.0); HEMATOCRIT 44 % (39-51); HEMOGLOBIN 14.2 g/dL (13.5-17.5); LYMPHOCYTES # (AUTO) 1.1 /CMM (0.8-4.8); LYMPHOCYTES % (AUTO) 14.7 % (20.0-44.0); MEAN CORPUSCULAR HGB CONC 33 g/dl (31.0-36.0); MEAN CORPUSCULAR VOLUME 92 fL (80-96); MONOCYTES % (AUTO) 10.2 % (2.0-12.0); NEUTROPHILS # (AUTO) 5.3 /CMM (1.8-8.9); NEUTROPHILS % (AUTO) 71.7 % (43.0-81.0); PLATELET COUNT (AUTO) 157 /CMM (150-450); RED BLOOD CELL COUNT(AUTO) 4.74 MIL/uL (4.5-6.0)
[2019-06-15] MEDS: ELECTROLYTE,ORAL 1,000 ML BOTTLE GT SCH (08:25)
[2019-06-15] MEDS: PANTOPRAZOLE 40 MG TABLET.DR PO SCH (08:25)
[2019-06-15 08:31] VITALS: BP 146/87
[2019-06-15] MEDS: busPIRone 5 MG TABLET PO SCH (08:49)
[2019-06-15] MEDS: CLOTRIMAZOLE 1% 15 GM TUBE TP SCH ×2 (08:50→17:26)
[2019-06-15] MEDS: Z GUARD REMEDY 2 OZ OINT TP SCH (08:50)
[2019-06-15] MEDS ORDERED: PHARMACY TO CHANGE PO MEDS TO GT/NG XX PRN (10:00)
[2019-06-15 11:09] LABS: ABG BASE EXCESS 3.1 mmol/L; ABG OXYGEN SATURATION 95.9 % (92.0-98.5); ABG PCO2 40.4 mmHg (35.0-45.0); ABG PH 7.448 (7.350-7.450); ABG PO2 80.9 mmHg (75.0-100.0); AaDO2 42.1 mmHg; COHb 0.1 % (0.5-1.5); MetHb 0.3 % (0.0-1.5); O2Hb 95.5 % (94.0-97.0); SITE, ABG Left Radial; VENT MODE, BG 2L NC 24%
[2019-06-15] MEDS: busPIRone 5 MG TABLET GT SCH ×2 (13:00→17:26)
--- NOTE | 2019-06-15 13:29 | NUR ---
MS RN NOTES PATIENT IS ASLEEP MOST OF THE TIME; DIFFICULT TO BE AROUSED. SATURATING WELL AT 99 % VIA NASAL CANULA 2LMP. SEEN BY MD. WILL CONTINUE TO MONITOR.
[2019-06-15] MEDS: JEVITY 1.2 CAL 1,000 ML BOTTLE GT PRN (14:46)
[2019-06-15 15:59] VITALS: BP 130/70
[2019-06-15] MEDS: VANCOMYCIN 0.75 GM in IV D5W 250 ML IV SCH (16:27)
--- NOTE | 2019-06-15 18:50 | NUR ---
MS RN CLOSING NOTES PATIENT IN BED, AWAKE, CONFUSED. PATIENT ON OXYGEN THERAPY AT 2 LPM VIA NASAL CANULA; BREATHING EVEN AND UNLABORED. NO SIGNS OF PAIN SUCH FACIAL GRIMACING OR MOANING. ON G-TUBE FEEDING, JEVITY AT 60ML/HR, ABDOMEN REMAINS SOFT TO TOUCH WITH ACTIVE BOWEL SOUND HEARD UPON AUSCULTATION. ABDL BINDER REMAINS IN USE TO PREVENT PULLING OUT OF G-TUBE. REMAINS WITH BILATERAL SOFT WRIST RESTRAINT AT THIS TIME. RAC # 20 NS INTACT ANS PATENT INFUSING NS AT 60 MLS/HR. PATIENT CLEAN AND TAKEN CARE OF THROUGHOUT THE DAY. SAFETY PRECAUTIONS IN PLACE; BED IN LOW POSITION AND LOCKED, RAILS UP X2, CALL LIGHT WITHIN REACH. WILL ENDORSE TO API DEVELOPER NURSE.
--- NOTE | 2019-06-15 19:10 | NUR ---
RN OPENING NOTES Received patient A/O x1, awake on bed on RA, no SOB/respiratory distress noted. On s/sx of discomfort noted at this time. With GTF infusing, pt tolerating well, no N/V, no abdominal distention noted. With bilateral soft wrist restrain noted. Patient noted pulling of tubings. Kept on bed clean, dry and comfortable. On fall and aspiration precautions. Will continue to monitor accordingly. Addendum: 06/15/19 at 2020 by AC COSTELLO RN Pt on O2 inhalation via NC @ 2LPM saturating well at 97%.
[2019-06-15 20:00] VITALS: BP 159/80
[2019-06-15] MEDS: *INSULIN ASPART NOVOLOG 100 UNIT/ML CARTRIDGE SQ PRN (23:58)
[2019-06-16] MEDS: ALBUTEROL FS 2.5 MG/3 ML VIAL.NEB NEB SCH ×4 (01:55→19:23)
[2019-06-16] MEDS: BLOOD SUGAR DIAGNOSTIC 1 EACH STRIP IN SCH ×3 (05:38→17:21)
[2019-06-16] MEDS: PIPERACILLIN /TAZOBACTAM 2.25 G in IV D5W 50 ML IV SCH ×4 (05:38→23:50)
[2019-06-16] MEDS: INSULIN ASPART/LISPRO 100 UNIT/ML CARTRIDGE SQ PRN (06:01)
[2019-06-16 06:30] LABS: BASOPHILS % (AUTO) 0.5 % (0.0-2.0); HEMATOCRIT 35 % (39-51); HEMOGLOBIN 11.6 g/dL (13.5-17.5); LYMPHOCYTES # (AUTO) 0.7 /CMM (0.8-4.8); LYMPHOCYTES % (AUTO) 15.5 % (20.0-44.0); MEAN CORPUSCULAR HGB CONC 33 g/dl (31.0-36.0); MEAN CORPUSCULAR VOLUME 91 fL (80-96); MONOCYTES # (AUTO) 0.6 /CMM (0.1-1.30); MONOCYTES % (AUTO) 12.4 % (2.0-12.0); NEUTROPHILS # (AUTO) 3.3 /CMM (1.8-8.9); NEUTROPHILS % (AUTO) 70.6 % (43.0-81.0); PLATELET COUNT (AUTO) 146 /CMM (150-450); RED BLOOD CELL COUNT(AUTO) 3.87 MIL/uL (4.5-6.0); WHITE BLOOD COUNT (AUTO) 4.7 K/uL (4.3-11.0)
--- NOTE | 2019-06-16 06:32 | NUR ---
RN NOTES DR. Wilson at bedside, with order to repeat EKG stat. Notified RT.
[2019-06-16 06:34] LABS: CALCIUM, SERUM 8.2 mg/dL (8.5-10.1); CARBON DIOXIDE 29 mmol/L (21-32); CHLORIDE 99 mmol/L (98-107); CREATININE 1.6 mg/dL (0.6-1.3); GLUCOSE 131 mg/dL (74-106); POTASSIUM 4.2 mmol/L (3.5-5.1); SODIUM SERUM 135 mmol/L (136-145); UREA NITROGEN, BLOOD 20 mg/dL (7-18)
[2019-06-16 06:41] LABS: ALANINE AMINOTRANSFERASE 12 U/L (12-78); ALBUMIN 2.5 g/dL (3.4-5.0); ALKALINE PHOSPHATASE 28 U/L (46-116); ASPARTATE AMINOTRANSFERASE 18 U/L (15-37); BILIRUBIN,TOTAL 0.4 mg/dL (0.2-1.0); TOTAL PROTEIN, SERUM 6.2 g/dL (6.4-8.2)
--- NOTE | 2019-06-16 06:51 | NUR ---
RN CLOSING NOTES Patient transferred on Tele care. Put on tele monitor with A-Fib noted. Per Dr. Wilson, consult with Dr. Saucedo before patient's discharge. Kept on bed clean, dry and comfortable. Call light within easy reach. Endorsed.
--- NOTE | 2019-06-16 07:05 | NUR ---
RN OPENING NOTES RECEIVED PATIENT IN BED RESTING. ON BILATERAL SOFT WRIST RESTRAINTS, PATIENT NOTED PULLING OF LINES. CIRCULATIONS CHECKED, NO COMPLICATIONS NOTED. A/OX1, CONFUSED. NOT IN ANY FORM OF DISTRESS. NO SOB, ON 2LPM O2 VIA NC. NO S/S OF PAIN OR DISCOMFORT AT THIS TIME. IV ACCESS INTACT AND PATENT. GT IN PLACE, ON TF JEVITY 1.2 @ 60, NO RESIDUAL. KEPT PATIENT SAFE AND COMFORTABLE. BED IN LOW/LOCKED POSITION, SIDERAILS UP, CALL LIGHT IN REACH. BED ALARM ON. WILL CONT TO MONITOR ACCORDINGLY.
--- NOTE | 2019-06-16 07:30 | NUR ---
RN NOTES OFF RESTRAINTS, PATIENT IS CALM. WILL MONITOR ACCORDINGLY.
[2019-06-16 08:00] VITALS: BP 146/89
[2019-06-16] MEDS: busPIRone 5 MG TABLET GT SCH ×3 (08:49→17:20)
[2019-06-16] MEDS: PANTOPRAZOLE 40 MG/PACK PACK GT SCH (08:50)
[2019-06-16] MEDS: CLOTRIMAZOLE 1% 15 GM TUBE TP SCH ×2 (08:52→17:24)
[2019-06-16] MEDS: Z GUARD REMEDY 2 OZ OINT TP SCH (08:56)
--- NOTE | 2019-06-16 11:11 | NUR ---
RN NOTES DR THOMAS AT BEDSIDE. INFORMED MD THAT FAMILY WANTED TO TEST PATIENT FOR COVID-19. PER MD, NO NEED TO TEST PATIENT IF NO SYMPTOMS.
--- NOTE | 2019-06-16 14:43 | NUR ---
RN NOTES FOLLOWED UP WITH INFECTIOUS DISEASE,JOCE HILARIO NP AND INFORMED HER THAT DR PARSON PRESCRIBED LEVAQUIN FOR DISCHARGE. PER KJ, "THAT'S, OK. NO NEED FOR ZOSYN."
--- NOTE | 2019-06-16 15:00 | NUR ---
RN NOTES BILATERAL SOFT WRIST RESTRAINTS ON, PATIENT PULLING IV LINES. WILL MONITOR ACCORDINGLY
[2019-06-16 16:00] VITALS: BP 134/79
[2019-06-16] MEDS: JEVITY 1.2 CAL 1,000 ML BOTTLE GT PRN (17:20)
[2019-06-16 17:50] VITALS: BP 149/89
[2019-06-16] MEDS: IV NS 0.9% 1,000 ML IV PRN (18:02)
[2019-06-16] MEDS: ACETAMINOPHEN ES 500 MG TABLET GT PRN (18:02)
--- NOTE | 2019-06-16 18:03 | NUR ---
RN NOTES uvtv=903. 4.. cooling measures done. tylenol 500mg given as ordered. Notified Dr Saucedo. Per MD, hold discharge and order CBC, BMP, and chest xray stat. read back orders verified and will carry out. will moniotr accordingly.
[2019-06-16 18:44] LABS: CALCIUM, SERUM 8.2 mg/dL (8.5-10.1); CARBON DIOXIDE 30 mmol/L (21-32); CHLORIDE 97 mmol/L (98-107); CREATININE 1.7 mg/dL (0.6-1.3); GLUCOSE 113 mg/dL (74-106); POTASSIUM 4.4 mmol/L (3.5-5.1); SODIUM SERUM 136 mmol/L (136-145); UREA NITROGEN, BLOOD 19 mg/dL (7-18)
[2019-06-16 19:09] LABS: BASOPHILS % (AUTO) 0.4 % (0.0-2.0); EOSINOPHILS % (AUTO) 0.6 % (0.0-6.0); HEMATOCRIT 37 % (39-51); HEMOGLOBIN 12.2 g/dL (13.5-17.5); LYMPHOCYTES # (AUTO) 1.1 /CMM (0.8-4.8); LYMPHOCYTES % (AUTO) 18.3 % (20.0-44.0); MEAN CORPUSCULAR HGB CONC 33 g/dl (31.0-36.0); MEAN CORPUSCULAR VOLUME 91 fL (80-96); MONOCYTES # (AUTO) 0.6 /CMM (0.1-1.30); NEUTROPHILS # (AUTO) 4.2 /CMM (1.8-8.9); NEUTROPHILS % (AUTO) 70.7 % (43.0-81.0); PLATELET COUNT (AUTO) 138 /CMM (150-450); RED BLOOD CELL COUNT(AUTO) 4.02 MIL/uL (4.5-6.0)
--- NOTE | 2019-06-16 19:20 | NUR ---
RN CLOSING NOTES PATIENT IN STABLE CONDITION. ALL NEEDS ATTENDED AND PROVIDED. ALL DUE MEDICATIONS GIVEN ORDERED. KEPT PATIENT SAFE AND COMFORTABLE. BED IN LOW/LOCKED POSITION. SIDERAILS UP, CALL LIGHT IN REACH. ENDORSED ACCORDINGLY
[2019-06-16 20:00] VITALS: BP 128/86
--- NOTE | 2019-06-16 21:27 | NUR ---
MS/RN AT 21:00, STRAIGHT CATH DONE ORDERED, COLLECTED URINE ORDERED, OBTAINED 30 MLS. OF CLEAR, YELLOW URINE. SPECIMEN WAS COLLECTED BY LAB AT THIS TIME.
[2019-06-16 21:38] LABS: APPEARANCE,URINE SL CLOUDY (CLEAR); BILIRUBIN,URINE NEGATIVE (NEGATIVE); BLOOD, URINE SMALL Ery/uL (NEGATIVE); COLOR,URINE YELLOW (YELLOW); KETONES,URINE NEGATIVE (NEGATIVE); LEUKOCYTE ESTERASE ,URINE LARGE (NEGATIVE); NITRITE, URINE NEGATIVE (NEGATIVE); PROTEIN,URINE 30 mg/dl (NEGATIVE); UGLUCOSE NEGATIVE (NEGATIVE); UROBILINOGEN,URINE 0.2 EU/dL (0.2)
[2019-06-16 21:58] LABS: BACTERIA,URINE 2+ /HPF (None Seen); SQUAMOUS EPITHELIAL CELL,UR Few /HPF (None Seen); WBC,URINE TOO NUMEROUS TO COUN /HPF (0-3); YEAST,URINE Moderate /HPF (None Seen)
[2019-06-17] VITALS (29 sets, daily range): BP systolic 82–150; BP diastolic 52–117
[2019-06-17] MEDS: BLOOD SUGAR DIAGNOSTIC 1 EACH STRIP IN SCH ×5 (00:01→23:42)
[2019-06-17] MEDS: ALBUTEROL FS 2.5 MG/3 ML VIAL.NEB NEB SCH ×4 (01:42→19:16)
[2019-06-17] MEDS: LORAZEPAM INJ 2 MG/ML VIAL IM PRN (04:08)
--- NOTE | 2019-06-17 04:16 | NUR ---
MS/RN PATIENT IS RESTLESS AND AGITATED AT THIS TIME, HR 127, ATIVAN 0.5 MG IM WAS GIVEN ORDERED. WILL MONITOR.
--- NOTE | 2019-06-17 04:40 | NUR ---
MS/RN RHYTHM AFIB 133-139 AT THIS TIME, CALLED AND SPOKE TO DR. MOREAU, INFORMED OF PATIENT'S CONDITION, CHARGE NURSE, TALIA, SPOKE TO HIM AND RECEIVED ORDER OF CARDIZEM 5 MG IV X 1.
[2019-06-17] MEDS ORDERED: DILTIAZEM HCL 25 MG IV ONE (04:47)
--- NOTE | 2019-06-17 04:57 | NUR ---
MS/RN CARDIZEM 5 MG IVP X1 WAS ADMINISTERED BY GLYNN GAXIOLA. WILL MONITOR.
[2019-06-17] MEDS ORDERED: DILTIAZEM HCL 50 MG IV IV ONE ×2 (05:00→06:00)
[2019-06-17 05:45] LABS: CALCIUM, SERUM 8.2 mg/dL (8.5-10.1); CARBON DIOXIDE 25 mmol/L (21-32); CHLORIDE 98 mmol/L (98-107); CREATININE 1.6 mg/dL (0.6-1.3); GLUCOSE 151 mg/dL (74-106); POTASSIUM 4.8 mmol/L (3.5-5.1); SODIUM SERUM 133 mmol/L (136-145); UREA NITROGEN, BLOOD 24 mg/dL (7-18)
[2019-06-17] MEDS: PIPERACILLIN /TAZOBACTAM 2.25 G in IV D5W 50 ML IV SCH ×4 (06:01→23:41)
[2019-06-17 06:19] LABS: ABG BASE EXCESS 1.6 mmol/L; ABG OXYGEN SATURATION 96.3 % (92.0-98.5); ABG PCO2 48.3 mmHg (35.0-45.0); ABG PH 7.373 (7.350-7.450); ABG PO2 82.8 mmHg (75.0-100.0); AaDO2 262.9 mmHg; COHb 0.2 % (0.5-1.5); MetHb 0.5 % (0.0-1.5); O2Hb 95.6 % (94.0-97.0); SITE, ABG Right Radial
[2019-06-17] MEDS ORDERED: DILTIAZEM HCL IV 125 MG in IV NS 0.9% 100 ML IV PRN ×4 (06:30)
[2019-06-17] MEDS ORDERED: FUROSEMIDE 20 MG/2 ML VIAL IV ONE (06:30)
--- NOTE | 2019-06-17 06:45 | NUR ---
RT NOTE Pt rec'd on Simple Mask 9lpm. pt showed altered mental status, breath sounds are coarse crackles bilatrally. pt placed on bipap per md orders. abg to be taken in 1 hr. Alarms are set and audible. bipap plugged into red outlet. ambu bag bedside. will continue to monitor closely. Addendum: 06/17/19 at 0709 by AARON RAMOS RT Amended: Links added.
--- NOTE | 2019-06-17 06:47 | NUR ---
agricultural education teacher. received the pt from [facility] s/p ceramic products sales engineer. uncontrolled afib with RVR. HEART RATE IS 117. TEMPERATURE IS 103.1. PT IS TACHYPNEIC. BIPAP INITIATED, SETTINGS 15/5,RATE IS 16,FIO2 100%. SAT 99%. IV RT AC 20G. LASIX 20MGIV GIVEN. IV CARDIZEM 5MG/H. HOB ELEVATED. GT CLAMPED. WILL CONTINUE TO MONITOR VITALS.
[2019-06-17] MEDS: ACETAMINOPHEN ES 500 MG TABLET GT PRN (06:58)
--- NOTE | 2019-06-17 07:15 | NUR ---
HEAD OF VISUAL MERCHANDISING. RESTRAINT INITIATED FROM [facility]
--- NOTE | 2019-06-17 07:15 | NUR ---
RN INITIAL NOTES RECEIVED PT LETHARGIC, ON BIPAP. HOB ELEVATED. NO RESPIRATORY DISTRESS NOTED. NO SIGNS OF PAIN NOTED. PT ON CARDIZEM DRIP AT 5MG/HR. PT A.FIB ON MONITOR. GT IN PLACE, CLAMPED. REPOSITIONED. BLE ELEVATED. WILL CONTINUE TO MONITOR
--- NOTE | 2019-06-17 07:18 | NUR ---
PLUMBER ASSISTANT. RECEIVED THE PT REPORT FROM GARY MAKI
--- NOTE | 2019-06-17 07:21 | NUR ---
CALLED AND SPOKE TO DR. PARSON, INFORMED HIM THAT THE PATIENT WAS TRANSFERRED TO ICU.
--- NOTE | 2019-06-17 07:40 | NUR ---
AT 0550, AFIB 150-150, LABORED BREATHING, RR 30BPM, BP 141/117, CALLED RAPID RESPONSE AT 0553, RAPID RESPONSE TEAM AND DR. MOREAU, SENIOR MANAGEMENT CONSULTANT, ARRIVED 0555, DR. MOREAU ORDERED CARDIZEM 10 MG IV X 1 AND WAS GIVEN, CXR, EKG, ABG, WERE ORDERED BY DR. MOREAU, IVF AND GTUBE FEEDING WERE ORDERED STOPPED BY DR. MOREAU AND TRANSFER PATIENT TO ICU WAS ALSO ORDERED. PATIENT WAS TRANSFERRED TO ICU PER ACLS PROTOCOL AT AROUND 0630, REPORT WAS GIVEN TO GLYNN AMAYA. CALLED SOL MERCADO, SON, , INFORMED HIM THAT PATIENT WAS TRANSFERRED TO ICU.
[2019-06-17] MEDS: PANTOPRAZOLE 40 MG/PACK PACK GT SCH (08:53)
[2019-06-17] MEDS: busPIRone 5 MG TABLET GT SCH ×3 (08:53→16:27)
[2019-06-17] MEDS: Z GUARD REMEDY 2 OZ OINT TP SCH (08:54)
[2019-06-17] MEDS: CLOTRIMAZOLE 1% 15 GM TUBE TP SCH ×2 (08:54→16:27)
[2019-06-17 09:10] LABS: ABG BASE EXCESS -1.6 mmol/L; ABG OXYGEN SATURATION 98.7 % (92.0-98.5); ABG PCO2 36.6 mmHg (35.0-45.0); ABG PO2 165.5 mmHg (75.0-100.0); AaDO2 510.9 mmHg; COHb 0.3 % (0.5-1.5); MetHb 0.5 % (0.0-1.5); O2Hb 97.9 % (94.0-97.0); SITE, ABG Right Radial
[2019-06-17] MEDS ORDERED: Magnesium 1GM/D5W 100ML PREMIX 100 ML IV SCH ×2 (10:00→11:30)
[2019-06-17] MEDS ORDERED: BUMETANIDE INJ 3 MG in IV NS 0.9% 48 ML IV ONE (10:00)
--- NOTE | 2019-06-17 11:00 | NUR ---
RN NOTES 1000 SEEN AND EXAMINED BY DR MENJIVAR. AWARE OF PT'S CONDITION. AWARE OF LAB VALUES, CXR AND ABG RESULT. PT ON BIPAP. NO RESPIRATORY DISTRESS NOTED. PT LETHARGIC, WITHDRAWS TO PAIN. WILL SWITCH PT TO SIMPLE MASK. WILL COLLECT SPECIMEN FOR COVID 19. WILL MONITOR 1100 SEEN AND EXAMINED BY DR PARSON. AWARE OF PT'S CURRENT STATUS. PT Addendum: 06/17/19 at 1243 by CHIARA ORTEGA RN CONTINUATION... PT ON A.FIB, 90S, ON MONITOR. ON CARDIZEM DRIP AT 5MG/HR. WILL RESTART G-TUBE FEEDING ORDER. PAGE INSERTED ORDERED. DISCUSSED PLAN OF CARE TO SON OVER THE PHONE. WILL CONTINUE TO MONITOR
--- NOTE | 2019-06-17 11:05 | NUR ---
RT NOTE: PATIENT TAKEN OFF BIPAP AND PLACED ON OXYGEN AT 8 LPM SIMPLE MASK PER MD ORDER. PATIENT TOLERATING WELL. NURSE AWARE.
[2019-06-17] MEDS: JEVITY 1.2 CAL 1,000 ML BOTTLE GT PRN (12:09)
[2019-06-17 13:00] LABS: ABG BASE EXCESS 2.2 mmol/L; ABG OXYGEN SATURATION 97.7 % (92.0-98.5); ABG PCO2 42.5 mmHg (35.0-45.0); ABG PO2 108.5 mmHg (75.0-100.0); AaDO2 272.6 mmHg; COHb 0.3 % (0.5-1.5); MetHb 0.5 % (0.0-1.5); O2Hb 96.9 % (94.0-97.0); SITE, ABG Right Radial; VENT MODE, BG simple mask
[2019-06-17] MEDS: AZITHROMYCIN 500 MG in IV D5W 250 ML IV SCH (13:30)
[2019-06-17] MEDS: INSULIN ASPART/LISPRO 100 UNIT/ML CARTRIDGE SQ PRN (17:18)
--- NOTE | 2019-06-17 18:29 | NUR ---
RN CLOSING NOTES PT ON SIMPLE MASK. NO RESPIRATORY DISTRESS NOTED. NO SOB NOTED. KEPT HOB ELEVATED. KEPT COMFORTABLE. TOLERATING GTF WELL. NO RESIDUAL NOTED. REMAINS ON CARDIZEM DRIP. TX PROVIDED ORDERED. KEPT COMFORTABLE. WILL ENDORSE FOR CONTINUITY OF CARE.
[2019-06-18] VITALS (31 sets, daily range): BP systolic 86–123; BP diastolic 47–86
[2019-06-18] MEDS: ALBUTEROL FS 2.5 MG/3 ML VIAL.NEB NEB SCH ×5 (00:56→20:50)
[2019-06-18 04:43] LABS: BASOPHILS % (AUTO) 0.3 % (0.0-2.0); EOSINOPHILS % (AUTO) 1.4 % (0.0-6.0); HEMATOCRIT 35 % (39-51); HEMOGLOBIN 11.4 g/dL (13.5-17.5); LYMPHOCYTES # (AUTO) 0.8 /CMM (0.8-4.8); LYMPHOCYTES % (AUTO) 17.7 % (20.0-44.0); MEAN CORPUSCULAR HGB CONC 33 g/dl (31.0-36.0); MEAN CORPUSCULAR VOLUME 92 fL (80-96); MONOCYTES # (AUTO) 0.4 /CMM (0.1-1.30); MONOCYTES % (AUTO) 8.3 % (2.0-12.0); NEUTROPHILS # (AUTO) 3.3 /CMM (1.8-8.9); NEUTROPHILS % (AUTO) 72.3 % (43.0-81.0); PLATELET COUNT (AUTO) 107 /CMM (150-450); RED BLOOD CELL COUNT(AUTO) 3.79 MIL/uL (4.5-6.0); WHITE BLOOD COUNT (AUTO) 4.6 K/uL (4.3-11.0)
[2019-06-18 04:57] LABS: ALANINE AMINOTRANSFERASE 15 U/L (12-78); ALBUMIN 2.2 g/dL (3.4-5.0); ALKALINE PHOSPHATASE 30 U/L (46-116); ASPARTATE AMINOTRANSFERASE 24 U/L (15-37); BILIRUBIN,TOTAL 0.4 mg/dL (0.2-1.0); CALCIUM, SERUM 8.2 mg/dL (8.5-10.1); CARBON DIOXIDE 34 mmol/L (21-32); CHLORIDE 98 mmol/L (98-107); CREATININE 1.8 mg/dL (0.6-1.3); GLUCOSE 113 mg/dL (74-106); MAGNESIUM 1.8 mg/dL (1.8-2.4); POTASSIUM 4.1 mmol/L (3.5-5.1); SODIUM SERUM 136 mmol/L (136-145); TOTAL PROTEIN, SERUM 6.4 g/dL (6.4-8.2); UREA NITROGEN, BLOOD 30 mg/dL (7-18)
[2019-06-18] MEDS: PIPERACILLIN /TAZOBACTAM 2.25 G in IV D5W 50 ML IV SCH ×4 (06:00→23:39)
[2019-06-18] MEDS: BLOOD SUGAR DIAGNOSTIC 1 EACH STRIP IN SCH ×3 (06:10→17:14)
[2019-06-18] MEDS: JEVITY 1.2 CAL 1,000 ML BOTTLE GT PRN ×2 (07:29→23:40)
--- NOTE | 2019-06-18 08:00 | NUR ---
ICU/RN AM SHIFT OPENING NOTES RECEIVED PT ASLEEP IN BED, PT NON-VERBAL, OPEN EYES, NO GRIMACING NOTED. NO ACUTE RESPIRATORY DISTRESS, WITH RHONCHI LUNG SOUNDS. NOTED WITH TEMP 100.8. ON SIMPLE MASK WITH 10L O2, SATURATING @ 96%, RESPIRATIONS EVEN & UNLABORED. ON TELE WITH CONTROLLED A-FIB WITH PVCs, HR 89. IV SITES FLUSHED, PATENT WITH NO S/S OF INFECTION. ON TKO. GTF ON GOING @ 60CC/HR, FLUSHED, NO GASTRIC RESIDUAL NOTED. PAGE CATHETER INTACT WITH CLEAR YELLOW URINE OUTPUT. COOLING MEASURES BEING RENDERED AND ORAL CARE PROVIDED. CL WITHIN REACHED, SAFETY MAINTAINED AND ISOLATION OBSERVED. ON GOING MONITORING.
[2019-06-18] MEDS: PANTOPRAZOLE 40 MG/PACK PACK GT SCH (09:19)
[2019-06-18] MEDS: CLOTRIMAZOLE 1% 15 GM TUBE TP SCH ×2 (09:20→17:14)
[2019-06-18] MEDS: Z GUARD REMEDY 2 OZ OINT TP SCH (09:20)
[2019-06-18] MEDS: busPIRone 5 MG TABLET GT SCH (09:20)
[2019-06-18] MEDS ORDERED: BUMETANIDE INJ 4 MG in IV D5W 24 ML IV ONE (09:30)
[2019-06-18] MEDS: ACETAMINOPHEN ES 500 MG TABLET GT PRN ×2 (09:34→17:44)
--- NOTE | 2019-06-18 10:05 | NUR ---
RT PATIENT NT SUCTIONED WITH SMALL AMT OF WHITE SECRETIONS. PATIENT TITRATED DOWN FROM SIMPLE MASK AND PLACED ON 5L N/C MARIAH WELL. RN NOTIFIED.
--- NOTE | 2019-06-18 10:10 | NUR ---
ICU/RN MASK - N/C PT PLACED ON N/C WITH 6L OF O2. MONITORING.
--- NOTE | 2019-06-18 11:19 | NUR ---
ICU/RN ROUNDS - DR. PARSON UPDATED PT'S CONDITION. PT SEEN & EXAMINED BY DR. PARSON, WITH VERBAL ORDERS RECEIVED TO D/C JEFFRY VARGAS & MARIELLE NOTED AND CARRIED, CHARGE NURSE MADE AWARE.
--- NOTE | 2019-06-18 12:12 | NUR ---
ICU/RN ROUNDS - DR. MOREAU UPDATED PT'S CONDITION. PT SEEN & EXAMINED BY DR. MOREAU, NO NEW ORDER RECEIVED AT THIS TIME. MONITORING CONTINUED.
[2019-06-18] MEDS: AZITHROMYCIN 500 MG in IV D5W 250 ML IV SCH (12:21)
[2019-06-18] MEDS: INSULIN ASPART/LISPRO 100 UNIT/ML CARTRIDGE SQ PRN (12:52)
--- NOTE | 2019-06-18 16:00 | NUR ---
ICU/RN PM ROUNDS PM CARE PROVIDED, NOTED WITH TEMP 100.8, BLOOD GLUCOSE 66, PT GIVEN D50 PER SLIDING SCALE. WILL RECHECK TEMP AND BLOOD GLUCOSE. ON GOING MONITORING.
--- NOTE | 2019-06-18 18:30 | NUR ---
ICU/RN RE-CHECK TEMPERATURE 99.6 AND BLOOD GLUCOSE 124.
--- NOTE | 2019-06-18 19:21 | NUR ---
ICU/RN AM SHIFT CLOSING NOTES ALL NEEDS MET. PT ENDORSED TO PM NURSE TO CONTINUE CARE. CL WITHIN REACHED, SAFETY MAINTAINED AND ISOLATION OBSERVED.
--- NOTE | 2019-06-18 19:30 | NUR ---
CARBON SETTER NOTES RECEIVED PATIENT IN BED. AWAKE ALERT ORIENTED X1 MUMBLING TO SELF UNABLE TO VERBALIZED NEEDS.NO RESPIRATORY DISTRESS AT THIS TIME ON O2 6L/MIN VIA NC WITH HUMIDIFIED. ON BED SITE TELE READS A-FIB WITH PVC HR 103 BEATS PER MINUTE. HOB ELEVATED CONTINUES ON GTF TOLERATING WELL 10ML GASTRIC RESIDUAL NOTED. PAGE CATHETER INTACT DARNING YELLOW URINE VIA GRAVITY. IV SITES ON LAC, RAC INTACT PATENT NO INFILTRATION NOTED. BILATERAL SOFT WRIST RESTRAINS INTACT. ISOLATION PRECAUTION OBSERVED. SAFETY MEASURES IN PLACE. BED IN LOW AND LOCKED POSITION, CALL LIGHT WITHIN REACH. WILL CONT TO MONITOR.
[2019-06-19] VITALS (29 sets, daily range): BP systolic 90–143; BP diastolic 51–95
--- NOTE | 2019-06-19 | NUR ---
DISTRICT HOME ECONOMICS AGENT NOTE FULL BED BATH RENDERED TOLERATED WELL. WILL CONTINUES TO MONITOR.
[2019-06-19] MEDS: BLOOD SUGAR DIAGNOSTIC 1 EACH STRIP IN SCH ×4 (00:33→17:23)
[2019-06-19] MEDS: ALBUTEROL FS 2.5 MG/3 ML VIAL.NEB NEB SCH ×4 (03:33→19:30)
[2019-06-19 04:40] LABS: BASOPHILS % (AUTO) 0.3 % (0.0-2.0); EOSINOPHILS % (AUTO) 1.3 % (0.0-6.0); HEMATOCRIT 36 % (39-51); HEMOGLOBIN 11.7 g/dL (13.5-17.5); LYMPHOCYTES # (AUTO) 0.6 /CMM (0.8-4.8); LYMPHOCYTES % (AUTO) 15.1 % (20.0-44.0); MEAN CORPUSCULAR HGB CONC 33 g/dl (31.0-36.0); MEAN CORPUSCULAR VOLUME 91 fL (80-96); MONOCYTES # (AUTO) 0.4 /CMM (0.1-1.30); MONOCYTES % (AUTO) 8.9 % (2.0-12.0); NEUTROPHILS # (AUTO) 3.1 /CMM (1.8-8.9); NEUTROPHILS % (AUTO) 74.4 % (43.0-81.0); PLATELET COUNT (AUTO) 115 /CMM (150-450); RED BLOOD CELL COUNT(AUTO) 3.91 MIL/uL (4.5-6.0); WHITE BLOOD COUNT (AUTO) 4.2 K/uL (4.3-11.0)
[2019-06-19 04:58] LABS: ALANINE AMINOTRANSFERASE 9 U/L (12-78); ALBUMIN 2.4 g/dL (3.4-5.0); ALKALINE PHOSPHATASE 34 U/L (46-116); ASPARTATE AMINOTRANSFERASE 44 U/L (15-37); BILIRUBIN,TOTAL 0.6 mg/dL (0.2-1.0); CALCIUM, SERUM 8.5 mg/dL (8.5-10.1); CARBON DIOXIDE 36 mmol/L (21-32); CHLORIDE 95 mmol/L (98-107); GLUCOSE 103 mg/dL (74-106); MAGNESIUM 1.6 mg/dL (1.8-2.4); PHOSPHORUS 2.3 mg/dL (2.5-4.9); POTASSIUM 3.8 mmol/L (3.5-5.1); SODIUM SERUM 136 mmol/L (136-145); UREA NITROGEN, BLOOD 35 mg/dL (7-18)
[2019-06-19] MEDS: PIPERACILLIN /TAZOBACTAM 2.25 G in IV D5W 50 ML IV SCH ×2 (05:28→12:19)
[2019-06-19] MEDS: ACETAMINOPHEN ES 500 MG TABLET GT PRN ×4 (05:28→23:06)
--- NOTE | 2019-06-19 05:28 | NUR ---
HEALTH UNDERWRITER NOTES HR NOTED 120'S UPON ASSESSMENT OF TEMP NOTED TO BE 102.3 TYLENOL ADMINISTERED ORDERED. COOLING MEASURES INITIATED. WILL CONT TO MONITOR. SAFETY MEASURES IN PLACE.
--- NOTE | 2019-06-19 06:44 | NUR ---
CIRCUIT WALKER CLOSING NOTES PATIENT RESTING IN BED APPEASES COMFORTABLE. NO S/S OF DISTRESS NOTED AT THIS TIME. HR LOWER TO 90'S TO 100 AFIB. GTF FEEDING TOLERATING WELL. F/C INTACT DARNING YELLOW URINE WITH GRAVITY. SAFETY MEASURES IN PLACE, CALL LIGHT WITHIN REACH. WILL ENDORSE TO DY SHIFT NURSE FOR FABIOLA.
--- NOTE | 2019-06-19 08:00 | NUR ---
ICU/RN AM SHIFT OPENING NOTES RECEIVED PT AWAKE IN BED, A/O X 1, NON-VERBAL, NO GRIMACING NOR ACUTE RESPIRATORY DISTRESS, WITH RHONCHI LUNG SOUNDS. RESPIRATIONS EVEN & UNLABORED. ON 6L O2 VIA N/C SATURATING @ 95%. NOTED WITH TEMP 101.7, COOLING MEASURES ON GOING. ON TELE WITH CONTROLLED A-FIB WITH PVCs, HR 95. IV SITES FLUSHED, PATENT WITH NO S/S OF INFECTION. ON TKO. GTF ON GOING @ 60CC/HR, FLUSHED, NO GASTRIC RESIDUAL NOTED. PAGE CATHETER INTACT WITH CLEAR YELLOW URINE OUTPUT. CL WITHIN REACHED, SAFETY MAINTAINED AND ISOLATION OBSERVED FOR SUSPECTED CORONAVIRUS INFECTION. ON GOING MONITORING. Addendum: 06/19/19 at 1040 by KEVIN MACIAS RN ADDENDUM: RECEIVED PT WITH BILATERAL WRIST RESTRAINT IN PLACED, REMOVED TO ASSESS FOR CIRCULATION AND COMFORT THEN PLACED BACK.
[2019-06-19] MEDS: PANTOPRAZOLE 40 MG/PACK PACK GT SCH (09:10)
[2019-06-19] MEDS: CLOTRIMAZOLE 1% 15 GM TUBE TP SCH ×2 (09:11→16:47)
[2019-06-19] MEDS: Z GUARD REMEDY 2 OZ OINT TP SCH (09:11)
--- NOTE | 2019-06-19 10:40 | NUR ---
ICU/RN ROUNDS - DR. PARSON UPDATED PT'S CONDITION. PT SEEN & EXAMINED BY DR. PARSON, NO NEW ORDER RECEIVED AT THIS TIME.
[2019-06-19] MEDS ORDERED: Magnesium 1GM/D5W 100ML PREMIX 100 ML IV SCH (10:41)
[2019-06-19] MEDS ORDERED: MAGNESIUM OXIDE 400 MG TABLET PO SCH (11:00)
[2019-06-19] MEDS ORDERED: NEUTRA PHOS 1 POWD.PACKET PO ONE (12:00)
[2019-06-19] MEDS: AZITHROMYCIN 250 MG TABLET GT SCH (12:18)
[2019-06-19] MEDS: JEVITY 1.2 CAL 1,000 ML BOTTLE GT PRN (17:22)
--- NOTE | 2019-06-19 19:00 | NUR ---
ICU/RN COVID [address] LOZANO VIA PHONE CALL OF LAB RESULT OF COVID 19 DETECTED. RECEIVED THE FOLLOWING ORDERS (AND WERE READ BACK): PLAQUENIL 800MG VIA GT X 1 ONCE, PLAQUENIL 400MG DAILY X 4 DAYS, [facility] TO DOSE AND ISOLATION: DROPLET. NOTED AND CARRIED, ALSO SPOKE TO SUMMER OF PHARMACY. DR. PARSON NOTIFIED VIA PHONE CALL WELL, NO ORDER RECEIVED FROM HIM.
[2019-06-19] MEDS ORDERED: DOSE PER PHARMACY (MD SPECIFY MEDICATION) 1 EA XX PRN (19:30)
[2019-06-19] MEDS ORDERED: HYDROXYCHLOROQUINE 200 MG TABLET GT ONE (19:30)
[2019-06-19] MEDS: MEROPENEM 1 G in IV NS 0.9% 100 ML IV SCH (19:52)
--- NOTE | 2019-06-19 19:55 | NUR ---
ICU/RN AM SHIFT ENDING NOTES ALL NEEDS MET. PT HAVE HAD FEVER FROM 101 - 102 THROUGHOUT THE SHIFT WITH CONTINUING COOLING MEASURES BEING RENDERED. POSITIVE OF COVID 19, ALL PROTOCOLS BEING OBSERVED. PT ENDORSED TO PM NURSE TO CONTINUE CARE. CL WITHIN REACHED, SAFETY MAINTAINED AND ISOLATION (DROPLET) PRECAUTION OBSERVED.
--- NOTE | 2019-06-19 19:59 | NUR ---
MOBILE SOLUTIONS ARCHITECT NOTES RECEIVED CALL FROM DR PARSON, WHO SPOKE TO THE PATIENT'S FAMILY REGARDING THE COVID-[address] PARSON, CHANGE CODE STATUS TO DNR/DNI. WILL OBSERVE NEW CODE STATUS AND CONTINUE CLOSE MONITORING
--- NOTE | 2019-06-19 21:35 | NUR ---
CAMPUS AIDE NOTES CALLED AND SPOKE TO DR PARSON REGARDING TRANSFER OF CARE TO [facility] TEAM. DR PARSON NOTIFIED THAT HE WILL NEED TO PERSONALLY SPEAK TO THE EPIC PROVIDERS. PER MD, HE WILL CALL [facility] TOMORROW MORNING, 06/20/19
[2019-06-20] VITALS (25 sets, daily range): BP systolic 96–142; BP diastolic 28–89
--- NOTE | 2019-06-20 | NUR ---
HOSE MENDER NOTES PATIENT NOTED WITH CORE TEMP OF 101.5 TYLENOL ADMINISTERED, ICE BATH GIVEN, ICE PACKS PLACED ON BILATERAL AXILA. WILL MONITOR CLOSELY
[2019-06-20] MEDS: BLOOD SUGAR DIAGNOSTIC 1 EACH STRIP IN SCH ×2 (00:12→05:55)
[2019-06-20] MEDS: ALBUTEROL FS 2.5 MG/3 ML VIAL.NEB NEB SCH ×4 (01:27→19:30)
[2019-06-20] MEDS: ACETAMINOPHEN ES 500 MG TABLET GT PRN ×3 (04:09→18:18)
[2019-06-20 04:41] LABS: CALCIUM, SERUM 8.4 mg/dL (8.5-10.1); CARBON DIOXIDE 39 mmol/L (21-32); CHLORIDE 96 mmol/L (98-107); CREATININE 1.7 mg/dL (0.6-1.3); GLUCOSE 135 mg/dL (74-106); POTASSIUM 3.8 mmol/L (3.5-5.1); SODIUM SERUM 136 mmol/L (136-145); UREA NITROGEN, BLOOD 35 mg/dL (7-18)
--- NOTE | 2019-06-20 05:30 | NUR ---
ELECTRONIC SCALE TESTER NOTES PATIENT NOTED TO BE SCREAMING. UPON INVESTIGATION, THIS BEHAVBIOR SEEMS TO BE PATIENT'S BASELINE MENTAL STATUS. TYLENOL ADMINISTERED FOR PAIN WELL LOW GRADE FEVER THROUGHOUT THE SHIFT. COOLING MEASURES IN PLACE. WILL MONITOR
--- NOTE | 2019-06-20 07:00 | NUR ---
STATION DETECTIVE NOTES PATIENT ENDORSED TO THE DAY SHIFT NURSE FOR CONTINUITY OF CARE. CORE TEMP 99.4.
--- NOTE | 2019-06-20 08:14 | NUR ---
CARDIZEM ORDERED FOR 06/16 NOT CHARTED BY PREVIOUS SHIFT. UNKNOWN IF GIVEN
[2019-06-20] MEDS: PANTOPRAZOLE 40 MG/PACK PACK GT SCH (08:29)
[2019-06-20] MEDS: Z GUARD REMEDY 2 OZ OINT TP SCH (08:29)
[2019-06-20] MEDS: FUROSEMIDE 40 MG/4 ML VIAL IV SCH ×2 (08:29→18:18)
[2019-06-20] MEDS: CLOTRIMAZOLE 1% 15 GM TUBE TP SCH ×2 (08:29→18:19)
[2019-06-20] MEDS: MEROPENEM 1 G in IV NS 0.9% 100 ML IV SCH ×2 (08:29→20:04)
[2019-06-20] MEDS: AZITHROMYCIN 250 MG TABLET GT SCH (12:18)
[2019-06-20] MEDS: JEVITY 1.2 CAL 1,000 ML BOTTLE GT PRN (17:00)
--- NOTE | 2019-06-20 19:05 | NUR ---
RN OPENING NOTES: PATIENT IN BED AND AWAKE. AAOX1. NO RESPIRATORY DISTRESS. NO S/S OF PAIN AT THIS TIME. NO FACIAL GRIMACING. ON BACK FILLER OPERATOR, AFIB CONTROLLED. ON GTF, TOLERATING WELL, NO RESIDUAL. HOB ELEVATED. PATIENT HAS JULIA MIDLINE, RIGHT AC G20, LEFT AC G20; ALL SITES C/D/I. PAGE INTACT AND PATENT, DRAINING CLEAR YELLOW URINE. PATIENT'S FEBRILE 102F. TYLENOL WAS GIVEN BY AM SHIFT. ON COOLING MEASURES. CALL LIGHT WITHIN REACH. WILL CONT. TO MONITOR.
[2019-06-20] MEDS ORDERED: HYDROXYCHLOROQUINE 200 MG TABLET GT SCH (20:00)
[2019-06-21] VITALS (29 sets, daily range): BP systolic 96–147; BP diastolic 59–109
[2019-06-21] MEDS: ACETAMINOPHEN ES 500 MG TABLET GT PRN ×3 (00:42→17:14)
--- NOTE | 2019-06-21 00:45 | NUR ---
RN NOTE: ENDORSED TO LETICIA MAKI FOR CONTINUITY OF CARE.
[2019-06-21] MEDS: ALBUTEROL FS 2.5 MG/3 ML VIAL.NEB NEB SCH ×4 (01:06→19:30)
[2019-06-21 04:23] LABS: BASOPHILS % (AUTO) 0.4 % (0.0-2.0); EOSINOPHILS % (AUTO) 0.7 % (0.0-6.0); HEMATOCRIT 33 % (39-51); LYMPHOCYTES # (AUTO) 0.6 /CMM (0.8-4.8); LYMPHOCYTES % (AUTO) 12.3 % (20.0-44.0); MEAN CORPUSCULAR HGB CONC 33 g/dl (31.0-36.0); MEAN CORPUSCULAR VOLUME 90 fL (80-96); MONOCYTES # (AUTO) 0.2 /CMM (0.1-1.30); NEUTROPHILS # (AUTO) 3.7 /CMM (1.8-8.9); NEUTROPHILS % (AUTO) 81.6 % (43.0-81.0); PLATELET COUNT (AUTO) 143 /CMM (150-450); RED BLOOD CELL COUNT(AUTO) 3.67 MIL/uL (4.5-6.0); WHITE BLOOD COUNT (AUTO) 4.5 K/uL (4.3-11.0)
[2019-06-21 04:40] LABS: CALCIUM, SERUM 8.3 mg/dL (8.5-10.1); CARBON DIOXIDE 39 mmol/L (21-32); CHLORIDE 96 mmol/L (98-107); CREATININE 1.5 mg/dL (0.6-1.3); GLUCOSE 123 mg/dL (74-106); MAGNESIUM 1.7 mg/dL (1.8-2.4); POTASSIUM 3.3 mmol/L (3.5-5.1); SODIUM SERUM 138 mmol/L (136-145); UREA NITROGEN, BLOOD 39 mg/dL (7-18)
--- NOTE | 2019-06-21 05:25 | NUR ---
RN NOTES RECEIVE A CALL FROM LORRAINE FROM [facility] AND SPOKE TO DR. HAWTHORNE REPORTED THAT THE PATIENT HAD PULMONARY EDEMA AND PATTERN OF VIRAL PNEUMONIA. MADE AWARE THAT THE PATIETN IS ALREADY IN ISOLATION FOR IT.
--- NOTE | 2019-06-21 06:49 | NUR ---
RN NOTES PATIENT ASLEEP AT THIS TIME. STRICTLY ON ISOLATION PRECAUTION TEMPERATURE IS 99.1 DEGREE FHARENHEIGHT. RECEIVED PATIENT WITH TEMP. 102 DEGREE COOLING MEASURES PROVIDED, REMAINED AFIB ON TELE MONITOR. O2 6LPM VIA NC SATURATION WELL >92%. GTF TOLERATED WITH HOB ELEVATED ALL IV SITE INTACT AND PATENT. ISOLATION PRECAUTION ALWAYS MET. KEPT PT CLEAN AND DRY. ENDORSED CONTINUITY OF CARE TO AM NURSE.
--- NOTE | 2019-06-21 07:05 | NUR ---
RN NOTES: RECEIVED PT ON BED , A/Ox1, ON 6L O2 N/C , NO SOB NOTED, RESPIRATION EVEN AND UNLABORED, NO FACIAL GRIMACING. ON MUSIC AGENT, A.FIB CONTROLLED. HR IN 80'S, ON TF JEVITY AT 60CC/HR , HOB ELEVATED. R UA MIDLINE, RIGHT AC G20, LEFT AC G20; ALL SITES C/D/I. PAGE INTACT AND PATENT, DRAINING CLEAR YELLOW URINE. SR UP x3, CALL LIGHT WITHIN EASY REACH, BED LOCKED AND IN LOWEST POSITION, CONTINUE TO MONITOR .
[2019-06-21] MEDS: PANTOPRAZOLE 40 MG/PACK PACK GT SCH (08:19)
[2019-06-21] MEDS: MEROPENEM 1 G in IV NS 0.9% 100 ML IV SCH ×2 (08:19→21:10)
[2019-06-21] MEDS: FUROSEMIDE 40 MG/4 ML VIAL IV SCH ×2 (08:19→17:14)
[2019-06-21] MEDS: CLOTRIMAZOLE 1% 15 GM TUBE TP SCH ×2 (08:21→17:15)
[2019-06-21] MEDS: Z GUARD REMEDY 2 OZ OINT TP SCH (08:21)
[2019-06-21] MEDS ORDERED: POTASSIUM CL. PREMIX PERIPHER. 50 ML IV SCH (08:30)
--- NOTE | 2019-06-21 09:00 | NUR ---
RN NOTES DR MENJIVAR AND ID BUS PERSON JUDEEN NOTIFED REGARDING T=101, CONTINUE TO MONITOR .
--- NOTE | 2019-06-21 09:01 | NUR ---
RT PER DR MENJIVAR. ROUTINE AEROSOLIZED BREATHING TX SWITCH TO PRN.
[2019-06-21] MEDS ORDERED: POTASSIUM CHLORIDE 20 MEQ POWDER PACKET GT ONE (09:30)
[2019-06-21] MEDS: Magnesium 1GM/D5W 100ML PREMIX 100 ML IV SCH (10:19)
[2019-06-21] MEDS: AZITHROMYCIN 250 MG TABLET GT SCH (11:39)
--- NOTE | 2019-06-21 12:15 | NUR ---
tip banding machine operator note: Patient arrived in unit with GLYNN Spicer via hospital bed. With 6lpm of cont o2 via NC with saturation of >92%. No SOB and respiratory distress noted. Isolation precautions observed for patient's condition. Mccloud catheter in place and draining yellow urine. IV sites clean, dry patent and intact. PEG tube in place and patent, feeding being tolerated well. Restraints on for behavior identified. RN opening note. Call light in reach. Side rails up x3. Bed locked, low and at semi-banuelos's position. Safety ensured and observed. Will continue to monitor.
--- NOTE | 2019-06-21 12:15 | NUR ---
RN NOTES PT TRANSFERRED TO ROOM 106 VIA ACLS PROTOCOL, TELE STAUS IN STABLE CONDITION, REPORT GIVEN TO ZBIGNIEW MAKI .
[2019-06-21] MEDS ORDERED: NEUTRA PHOS 1 POWD.PACKET GT ONE (16:00)
[2019-06-21 16:19] LABS: APPEARANCE,URINE CLEAR (CLEAR); BILIRUBIN,URINE NEGATIVE (NEGATIVE); BLOOD, URINE MODERATE Ery/uL (NEGATIVE); COLOR,URINE YELLOW (YELLOW); KETONES,URINE NEGATIVE (NEGATIVE); LEUKOCYTE ESTERASE ,URINE MODERATE (NEGATIVE); NITRITE, URINE NEGATIVE (NEGATIVE); PROTEIN,URINE 100 mg/dl (NEGATIVE); UGLUCOSE NEGATIVE (NEGATIVE)
[2019-06-21 16:28] LABS: BACTERIA,URINE 3+ /HPF (None Seen); SQUAMOUS EPITHELIAL CELL,UR 0-2 /HPF (None Seen); WBC,URINE 21-50 /HPF (0-3); YEAST,URINE Many /HPF (None Seen)
--- NOTE | 2019-06-21 19:08 | NUR ---
RN closing note: Patient in bed. Awake and confused. With 6lpm of cont o2 via NC with saturation of >92%. No SOB and respiratory distress noted. Isolation precautions observed for patient's condition. Mccloud catheter in place and draining yellow urine. IV sites clean, dry patent and intact. PEG tube in place and patent, feeding being tolerated well. Restraints on for behavior identified. Call light in reach. Side rails up x3. Bed locked, low and at semi-banuelos's position. Safety ensured and observed. Will continue to monitor. Addendum: 06/21/19 at 1910 by LISETTE BLAND RN Will endorse to oncoming shift for FABIOLA.
--- NOTE | 2019-06-21 19:25 | NUR ---
Tele/RN notes Patient received, awake A/O x1. In no acute distress, breathing even and unlabored. No SOB. On O2 6LPM via NC. Saturation 98%. No S/S of pain. HOB semi banuelos. IV sited with no S/S of infection/Infiltration. G-tube in place, patent, connected to feeding as ordered. tolerating well. Controlled A-fib on the monitor. On droplet precautions for +covid. Safety maintained, bed at the lowest locked position. Call light within reach. Will continue to monitor as per plan of care.
--- NOTE | 2019-06-21 20:39 | NUR ---
RT NOTE: BREATHING TX NOT GIVEN AT THIS TIME. INFORMED BY DAYSHIFT RT PER DR MENJIVAR. ROUTINE AEROSOLIZED BREATHING TX SWITCH TO PRN.
[2019-06-21] MEDS: HYDROXYCHLOROQUINE 200 MG/8 ML SUSPENSION GT SCH (20:59)
[2019-06-22] VITALS (8 sets, daily range): BP systolic 89–140; BP diastolic 60–76
[2019-06-22] MEDS: ALBUTEROL FS 2.5 MG/3 ML VIAL.NEB NEB SCH ×4 (01:30→19:30)
[2019-06-22] MEDS: ACETAMINOPHEN ES 500 MG TABLET GT PRN (05:08)
--- NOTE | 2019-06-22 07:20 | NUR ---
UNABLE TO ASSESS PT, NO ISOLATION GOWNS AVAILABLE ON UNIT AND OTHER UNITS. CENTRAL SUPPLY NOT ANSWERING PHONE CALLS. RECOVERY SPECIALIST AWARE
--- NOTE | 2019-06-22 07:23 | NUR ---
Tele/RN notes Patient remained in stable condition, awake A/O x1. In no acute distress, breathing even and unlabored. No SOB. On O2 6LPM via NC. Saturation 98%. No S/S of pain. HOB semi banuelos. IV sites with no S/S of infection/Infiltration. G-tube in place, patent, connected to feeding as ordered. tolerating well. No residual noted. A-fib on the monitor. On droplet precautions for +covid. Isolation precautions maintained and strictly observed. Due meds given as ordered, tolerated well. Mccloud cath intact, draining well with clear yellow color urine. Safety maintained, bed at the lowest locked position. Call light within reach. Will continue to monitor as per plan of care.
[2019-06-22 07:28] LABS: MAGNESIUM 2.3 mg/dL (1.8-2.4); PHOSPHORUS 3.1 mg/dL (2.5-4.9)
--- NOTE | 2019-06-22 07:41 | NUR ---
HHN TX TO BE PRN PER DR. MENJIVAR
[2019-06-22 08:43] LABS: ALANINE AMINOTRANSFERASE 42 U/L (12-78); ALBUMIN 2.1 g/dL (3.4-5.0); ALKALINE PHOSPHATASE 31 U/L (46-116); ASPARTATE AMINOTRANSFERASE 70 U/L (15-37); BILIRUBIN,TOTAL 0.4 mg/dL (0.2-1.0); CHLORIDE 94 mmol/L (98-107); CREATININE 1.9 mg/dL (0.6-1.3); GLUCOSE 88 mg/dL (74-106); POTASSIUM 4.3 mmol/L (3.5-5.1); SODIUM SERUM 140 mmol/L (136-145); TOTAL PROTEIN, SERUM 6.6 g/dL (6.4-8.2); UREA NITROGEN, BLOOD 44 mg/dL (7-18)
[2019-06-22 08:55] LABS: CARBON DIOXIDE 41 mmol/L (21-32)
[2019-06-22] MEDS: Z GUARD REMEDY 2 OZ OINT TP SCH (09:00)
[2019-06-22] MEDS ORDERED: FUROSEMIDE 40 MG/4 ML VIAL IV SCH (09:00)
[2019-06-22] MEDS: CLOTRIMAZOLE 1% 15 GM TUBE TP SCH ×2 (09:00→17:37)
[2019-06-22] MEDS: PANTOPRAZOLE 40 MG/PACK PACK GT SCH (09:58)
--- NOTE | 2019-06-22 10:00 | NUR ---
RN ARCENIO: pt.is +Covid19 with strict isolation precaution, obtunded, rest now, able to open eyes by touch stimuli, no grimacing, unable to follow commands, confused, arms/legs activity+, on soft wrists restraints/skin is intact, no edema,redness, able to remove IVL,F/C, N/C by report, afib controlled, HR 80-100, SBP over 90, no SOB, on 6L n/c, no distress reported, O2sat. over 94%, GTF residual WNL, spoke with ID POOLROOM TABLE ATTENDANT, laundry presser/updated
[2019-06-22] MEDS: AZITHROMYCIN 250 MG TABLET GT SCH (10:02)
[2019-06-22] MEDS: MEROPENEM 1 G in IV NS 0.9% 100 ML IV SCH ×2 (10:02→20:20)
--- NOTE | 2019-06-22 12:30 | NUR ---
CUBE CUTTER: same neuro status, now SR/HR 80-90, O2sat. over 95%, no SOB, updated
--- NOTE | 2019-06-22 14:20 | NUR ---
done by GLYNN Howard on 06/20/19 Addendum: 06/22/19 at 1420 by KYLAH GALINDO RN Amended: Links added.
--- NOTE | 2019-06-22 16:13 | NUR ---
TAPING SUPERVISOR: pt.family called/updated detailed with pt.current condition, VS, meds, I/O, orders, POC, O2sat.
--- NOTE | 2019-06-22 17:53 | NUR ---
RN ARCENIO: pt.is more awake, eyes contact+, more cooperative, rest now, but unable to pull out IVL, catheter spontaneously, skin under restraints: intact/no redness, no edema, good pulse, O2sat. over 94% on 6L n/c, no SOB, no distress over shift, SR now, SBP over 100, GTF residual WNL, BMx1, all skin/PM/clean care done, free water given, keep HOB over 40, oriented pt for POC
--- NOTE | 2019-06-22 19:20 | NUR ---
Tele/RN notes Patient received, awake A/O x1. In no acute distress, breathing even and unlabored. No SOB. On O2 6LPM via NC. Saturation 98%. No S/S of pain. HOB semi banuelos. IV sited with no S/S of infection/Infiltration. G-tube in place, patent, connected to feeding as ordered. tolerating well. A-fib on the monitor. On droplet precautions for +covid. Safety maintained, bed at the lowest locked position. Call light within reach. Will continue to monitor as per plan of care.
[2019-06-22] MEDS: HYDROXYCHLOROQUINE 200 MG/8 ML SUSPENSION GT SCH (20:20)
[2019-06-23] VITALS: BP 107/68
--- NOTE | 2019-06-23 00:04 | NUR ---
patient Heart rate elevated up to 130-135 BPM, A-fib on the monitor. ranging from 115-135. patient clean and dry. in comfortable position. in no acute distress. breathing even and unlabored. Other Vitals stable. BP 107/68, HR 135, R19, T99.1, pain unable to scale. saturation 98%. Patient moving around. Restless. clean and dry. HOB elevated Semi banuelos. Safety maintained. [id number] called Dr Anita Sorenson, relayed patient current condition, VS, with new orders. Noted. Will carry out.
[2019-06-23] MEDS ORDERED: LORAZEPAM 0.5 MG TABLET GT ONE (00:30)
[2019-06-23] MEDS: ACETAMINOPHEN ES 500 MG TABLET GT PRN (00:44)
[2019-06-23] MEDS: DILTIAZEM HCL 30 MG TABLET GT SCH ×4 (00:45→17:20)
[2019-06-23] MEDS: ALBUTEROL FS 2.5 MG/3 ML VIAL.NEB NEB SCH (01:30)
[2019-06-23 04:00] VITALS: BP 108/72
[2019-06-23] MEDS ORDERED: DILTIAZEM HCL 30 MG TABLET GT SCH (06:00)
--- NOTE | 2019-06-23 07:20 | NUR ---
Tele/RN notes Patient remained in stable condition, awake A/O x1. In no acute distress, breathing even and unlabored. No SOB. On O2 6LPM via NC. Saturation 98%. No S/S of pain. HOB semi banuelos. IV sites with no S/S of infection/Infiltration. G-tube in place, patent, connected to feeding as ordered. tolerating well. No residual noted. A-fib on the monitor. On droplet precautions for +covid. Isolation precautions maintained and strictly observed. Due meds given as ordered, tolerated well. Mccloud cath intact, draining well with clear yellow color urine. Safety maintained, bed at the lowest locked position. Call light within reach. Endorse to AM shift nurse for FABIOLA.
[2019-06-23 07:39] LABS: BASOPHILS % (AUTO) 0.6 % (0.0-2.0); EOSINOPHILS % (AUTO) 1.8 % (0.0-6.0); HEMATOCRIT 33 % (39-51); HEMOGLOBIN 10.8 g/dL (13.5-17.5); LYMPHOCYTES # (AUTO) 0.7 /CMM (0.8-4.8); LYMPHOCYTES % (AUTO) 13.2 % (20.0-44.0); MEAN CORPUSCULAR HGB CONC 32 g/dl (31.0-36.0); MEAN CORPUSCULAR VOLUME 91 fL (80-96); MONOCYTES # (AUTO) 0.4 /CMM (0.1-1.30); MONOCYTES % (AUTO) 7.1 % (2.0-12.0); NEUTROPHILS # (AUTO) 4.2 /CMM (1.8-8.9); NEUTROPHILS % (AUTO) 77.3 % (43.0-81.0); PLATELET COUNT (AUTO) 213 /CMM (150-450); RED BLOOD CELL COUNT(AUTO) 3.67 MIL/uL (4.5-6.0); WHITE BLOOD COUNT (AUTO) 5.4 K/uL (4.3-11.0)
--- NOTE | 2019-06-23 07:47 | NUR ---
RN OPENING NOTES RECEIVED PATIENT RESTING IN BED COMFORTABLY. HE IS AOX1, NON-VERBAL, AND BEDBOUND. HE IS ON 6L OF O2 VIA NC, NO SOB OR RESP DISTRESS PRESENT AT THIS TIME. TELE MONITOR SHOWING AFIB, CONTROLLED. PAGE CATH IS PATENT AND INTACT, DRAINING YELLOW URINE BY GRAVITY. SKIN IS INTACT, REDNESS AT SACRUM AND SCROTAL AREA. GTUBE IS PATENT AND INTACT, INFUSING JEVITY AT 50 ML/HR, TOLERATING WELL. LAC 20G AND JULIA MIDLINE IS PATENT AND INTACT, CONTACT AND DROPLET PRECAUTIONS HAVE BEEN IMPLEMENTED AND ENFORCED FOR COVID 19 POSITIVE. SAFETY MEASURES HAVE BEEN IMPLEMENTED, CALL LIGHT IS WITHIN REACH, BED IS IN LOWEST AND LOCKED POSITION, SIDE RAILS UP X2, WILL CONTINUE TO MONITOR FOR ANY CHANGES.
[2019-06-23 07:51] LABS: CHLORIDE 95 mmol/L (98-107); CREATININE 1.8 mg/dL (0.6-1.3); GLUCOSE 81 mg/dL (74-106); MAGNESIUM 2.3 mg/dL (1.8-2.4); PHOSPHORUS 2.9 mg/dL (2.5-4.9); POTASSIUM 4.1 mmol/L (3.5-5.1); SODIUM SERUM 140 mmol/L (136-145); UREA NITROGEN, BLOOD 50 mg/dL (7-18)
[2019-06-23 07:54] LABS: CARBON DIOXIDE 44 mmol/L (21-32)
[2019-06-23 08:00] VITALS: BP 100/66
[2019-06-23] MEDS ORDERED: ALBUTEROL SULFATE 8 GM HFA.AER.AD IH PRN (08:00)
[2019-06-23] MEDS: PANTOPRAZOLE 40 MG/PACK PACK GT SCH (08:24)
[2019-06-23] MEDS: CLOTRIMAZOLE 1% 15 GM TUBE TP SCH ×2 (08:25→17:16)
[2019-06-23] MEDS: Z GUARD REMEDY 2 OZ OINT TP SCH (08:25)
[2019-06-23] MEDS: MEROPENEM 1 G in IV NS 0.9% 100 ML IV SCH ×2 (08:26→20:28)
[2019-06-23] MEDS ORDERED: FUROSEMIDE 40 MG/4 ML VIAL IV SCH (09:00)
[2019-06-23 12:00] VITALS: BP 117/63
[2019-06-23] MEDS: AZITHROMYCIN 250 MG TABLET GT SCH (12:21)
[2019-06-23 16:00] VITALS: BP 111/61
--- NOTE | 2019-06-23 19:09 | NUR ---
RN CLOSING NOTES PATIENT IS RESTING IN BED COMFORTABLY AT THIS TIME, NO S.SX OF DISTRESS. PT IS ON 6L OF OXYGEN VIA NC, TOLERATING WELL. DROPLET PRECAUTIONS HAVE BEEN IMPLEMENTED, AND ENFORCED. NO ACUTE CHANGES OCCURRED THROUGHOUT THE SHIFT, VITAL SIGNS ARE STABLE, PT NEEDS HAVE BEEN MET. SAFETY MEASURES HAVE BEEN IMPLEMENTED, CALL LIGHT IS WITHIN REACH, BED IS IN LOWEST AND LOCKED POSITION, SIDE RAILS UP X2, PT HAS BEEN ENDORSED TO NIGHTSHIFT RN FOR FABIOLA.
[2019-06-23 20:00] VITALS: BP 107/72
[2019-06-23] MEDS: HYDROXYCHLOROQUINE 200 MG/8 ML SUSPENSION GT SCH (20:27)
--- NOTE | 2019-06-23 23:00 | NUR ---
RN OPENING NOTE RECEIVED PATIENT IN BED A/O X 1. ON 6L O2 VIA NC. PAGE CATH IS PATENT AND INTACT, DRAINING YELLOW URINE. GTUBE PATENT AND INTACT, GT FEEDING JEVITY 1.2 AT 50 ML/HR, IV SITE LAC 20G AND JULIA MIDLINE ARE PATENT AND INTACT. IV SITES FLUSHING WELL. DROPLET AND CONTACT PRECAUTIONS HAVE BEEN IMPLEMENTED AND ENFORCED FOR COVID 19 POSITIVE. CALL LIGHT WITHIN REACH, BED IS IN LOWEST POSITION AND LOCKED. SIDE RAILS UP X2, WILL CONTINUE TO MONITOR PT
[2019-06-24] VITALS: BP 107/70
[2019-06-24] MEDS: DILTIAZEM HCL 30 MG TABLET GT SCH ×4 (00:34→17:09)
[2019-06-24 04:00] VITALS: BP 118/71
[2019-06-24] MEDS: JEVITY 1.2 CAL 1,000 ML BOTTLE GT PRN ×2 (05:09→23:56)
[2019-06-24 06:27] LABS: BASOPHILS % (AUTO) 0.5 % (0.0-2.0); EOSINOPHILS % (AUTO) 3.2 % (0.0-6.0); HEMATOCRIT 36 % (39-51); HEMOGLOBIN 11.4 g/dL (13.5-17.5); LYMPHOCYTES % (AUTO) 17.4 % (20.0-44.0); MEAN CORPUSCULAR HGB CONC 32 g/dl (31.0-36.0); MEAN CORPUSCULAR VOLUME 91 fL (80-96); MONOCYTES # (AUTO) 0.5 /CMM (0.1-1.30); MONOCYTES % (AUTO) 8.7 % (2.0-12.0); NEUTROPHILS % (AUTO) 70.2 % (43.0-81.0); PLATELET COUNT (AUTO) 258 /CMM (150-450); RED BLOOD CELL COUNT(AUTO) 3.93 MIL/uL (4.5-6.0); WHITE BLOOD COUNT (AUTO) 5.7 K/uL (4.3-11.0)
[2019-06-24 06:40] LABS: ALANINE AMINOTRANSFERASE 50 U/L (12-78); ALBUMIN 2.3 g/dL (3.4-5.0); ALKALINE PHOSPHATASE 35 U/L (46-116); ASPARTATE AMINOTRANSFERASE 64 U/L (15-37); BILIRUBIN,TOTAL 0.5 mg/dL (0.2-1.0); CALCIUM, SERUM 9.4 mg/dL (8.5-10.1); CHLORIDE 97 mmol/L (98-107); CREATININE 1.7 mg/dL (0.6-1.3); GLUCOSE 88 mg/dL (74-106); MAGNESIUM 2.3 mg/dL (1.8-2.4); PHOSPHORUS 2.5 mg/dL (2.5-4.9); POTASSIUM 4.7 mmol/L (3.5-5.1); SODIUM SERUM 143 mmol/L (136-145); TOTAL PROTEIN, SERUM 7.3 g/dL (6.4-8.2); UREA NITROGEN, BLOOD 50 mg/dL (7-18)
--- NOTE | 2019-06-24 07:19 | NUR ---
RN CLOSING NOTE PT IN BED ON 6L O2 VIA NC. PAGE CATH IS PATENT AND INTACT, DRAINING YELLOW URINE. GTUBE PATENT AND INTACT, GT FEEDING JEVITY 1.2 AT 60 ML/HR AND TOLERATING WELL, IV SITE LAC 20G AND JULIA MIDLINE ARE PATENT AND INTACT. IV SITES FLUSHING WELL. CALL LIGHT WITHIN REACH, BED IS IN LOWEST POSITION AND LOCKED. SIDE RAILS UP X2, ENDORSED TO AM NURSE FOR FABIOLA
[2019-06-24 07:26] LABS: CARBON DIOXIDE 47 mmol/L (21-32)
--- NOTE | 2019-06-24 07:38 | NUR ---
RN OPENING NOTES RECEIVED PATIENT RESTING IN BED COMFORTABLY. PT IS ON CONTACT AND DROPLET ISO FOR POSITIVE COVID-19. HE IS ON 6L OF OXYGEN VIA NC, TOLERATING WELL. HE IS AOX1, NON-VERBAL, AND BEDBOUND. TELE MONITOR SHOWING CONTROLLED AFIB. PAGE CATH IS PATENT AND INTACT, DRAINING YELLOW URINE BY GRAVITY. GTUBE IS INTACT, INFUSING JEVITY AT 60 ML/HR. SAFETY MEASURES HAVE BEEN IMPLEMENTED, CALL LIGHT IS WITHIN REACH, BED IS IN LOWEST AND LOCKED POSITION, SIDE RAILS UP X2, WILL CONTINUE TO MONITOR FOR ANY CHANGES.
[2019-06-24 08:00] VITALS: BP 118/71
[2019-06-24] MEDS: PANTOPRAZOLE 40 MG/PACK PACK GT SCH (08:21)
[2019-06-24] MEDS: MEROPENEM 1 G in IV NS 0.9% 100 ML IV SCH ×2 (08:21→21:19)
[2019-06-24] MEDS: Z GUARD REMEDY 2 OZ OINT TP SCH (08:21)
[2019-06-24] MEDS: CLOTRIMAZOLE 1% 15 GM TUBE TP SCH ×2 (08:21→17:10)
[2019-06-24 12:00] VITALS: BP 113/71
[2019-06-24] MEDS: IV NS 0.9% 1,000 ML IV PRN (15:14)
[2019-06-24 16:00] VITALS: BP 120/78
--- NOTE | 2019-06-24 19:05 | NUR ---
RN CLOSING NOTES PATIENT IS RESTING IN BED COMFORTABLY AT THIS TIME. CONTACT AND DROPLET ISO HAVE BEEN IMPLEMENTED AND ENFORCE FOR COVID-19. HE IS ON 6L OF OXYGEN VIA NC, TOLERATING WELL, 95% SAT. NO ACUTE CHANGES OCCURRED THROUGHOUT THE SHIFT, VITAL SIGNS ARE STABLE, PT NEEDS HAVE BEEN MET. SAFETY MEASURES HAVE BEEN IMPLEMENTED, CALL LIGHT IS WITHIN REACH, BED IS IN LOWEST AND LOCKED POSITION, SIDE RIALS UP X2, PT HAS BEEN ENDORSED TO NIGHTSHIFT RN FOR FABIOLA.
--- NOTE | 2019-06-24 19:45 | NUR ---
RN OPENING NOTE RECEIVED PATIENT IN BED, A/O X1, HOB ELEVATED. PT ON 6L O2 VIA NC. O2 SAT CURRENTLY 96%. PAGE CATH IS PATENT AND INTACT, DRAINING YELLOW URINE. GTUBE PATENT AND INTACT, GT FEEDING JEVITY 1.2 AT 60 ML/HR, JULIA MIDLINE IS PATENT AND INTACT. IV SITE FLUSHING WELL. DROPLET AND CONTACT PRECAUTIONS HAVE BEEN IMPLEMENTED AND ENFORCED FOR COVID 19 POSITIVE. CALL LIGHT WITHIN REACH, BED IS IN LOWEST POSITION AND LOCKED. SIDE RAILS UP X2, WILL CONTINUE TO MONITOR PT
[2019-06-24 20:00] VITALS: BP_SYST 114; BP_SYST 117; BP_DIAS 68; BP_DIAS 81
[2019-06-25] VITALS: BP 119/78
[2019-06-25] MEDS: DILTIAZEM HCL 30 MG TABLET GT SCH ×5 (00:27→22:38)
[2019-06-25 04:00] VITALS: BP 136/93
[2019-06-25 07:09] LABS: BASOPHILS % (AUTO) 0.6 % (0.0-2.0); HEMATOCRIT 33 % (39-51); HEMOGLOBIN 10.4 g/dL (13.5-17.5); LYMPHOCYTES # (AUTO) 0.6 /CMM (0.8-4.8); LYMPHOCYTES % (AUTO) 11.7 % (20.0-44.0); MEAN CORPUSCULAR HGB CONC 32 g/dl (31.0-36.0); MEAN CORPUSCULAR VOLUME 92 fL (80-96); MONOCYTES # (AUTO) 0.4 /CMM (0.1-1.30); MONOCYTES % (AUTO) 7.6 % (2.0-12.0); NEUTROPHILS # (AUTO) 4.1 /CMM (1.8-8.9); NEUTROPHILS % (AUTO) 75.1 % (43.0-81.0); PLATELET COUNT (AUTO) 245 /CMM (150-450); RED BLOOD CELL COUNT(AUTO) 3.53 MIL/uL (4.5-6.0); WHITE BLOOD COUNT (AUTO) 5.4 K/uL (4.3-11.0)
--- NOTE | 2019-06-25 07:11 | NUR ---
RN CLOSING NOTE PT IN BED ON 6L O2 VIA NC.O2 SAT 96-100% DURING SHIFT. PAGE CATH IS PATENT AND INTACT, DRAINING YELLOW URINE. GTUBE PATENT AND INTACT, GT FEEDING JEVITY 1.2 AT 60 ML/HR AND TOLERATING WELL, IV JULIA MIDLINE PATENT AND INTACT. IV SITE FLUSHING WELL. CALL LIGHT WITHIN REACH, BED IS IN LOWEST POSITION AND LOCKED. SIDE RAILS UP X2, ENDORSED TO AM NURSE FOR FABIOLA
[2019-06-25 07:21] LABS: CALCIUM, SERUM 7.7 mg/dL (8.5-10.1); CREATININE 1.3 mg/dL (0.6-1.3); MAGNESIUM 1.8 mg/dL (1.8-2.4); PHOSPHORUS 2.2 mg/dL (2.5-4.9); POTASSIUM 3.9 mmol/L (3.5-5.1)
[2019-06-25 08:00] VITALS: BP_SYST 115; BP_SYST 147; BP_DIAS 70; BP_DIAS 89
[2019-06-25] MEDS: PANTOPRAZOLE 40 MG/PACK PACK GT SCH (08:20)
[2019-06-25] MEDS: CLOTRIMAZOLE 1% 15 GM TUBE TP SCH ×2 (08:20→17:25)
[2019-06-25] MEDS: Z GUARD REMEDY 2 OZ OINT TP SCH (08:21)
--- NOTE | 2019-06-25 08:30 | NUR ---
rn notes patient in bed, awake, confused, with incomprehensible words/sounds. on oxygen support via nasal cannula with oxygen at 6lpm, sating fine at the moment. midline on the reina in place and flushing well. gft infusing well at prescribed rate. no gastric residual taken upon checking. bilateral soft restraints in place. removed and replace, skin is intact as noted pulses palpable. patient made comfortable in bed. safety measures in place, bed in low and lock position call light within reach.
[2019-06-25] MEDS ORDERED: NEUTRA PHOS 1 POWD.PACKET PO ONE (11:00)
[2019-06-25] MEDS: IV NS 0.9% 1,000 ML IV PRN (11:07)
[2019-06-25 12:00] VITALS: BP_SYST 115; BP_SYST 147; BP_DIAS 70; BP_DIAS 89
[2019-06-25 16:00] VITALS: BP 117/84
[2019-06-25] MEDS: JEVITY 1.2 CAL 1,000 ML BOTTLE GT PRN (18:17)
--- NOTE | 2019-06-25 19:00 | NUR ---
RN OPENING NOTES: PATIENT IN BED, AWAKE, WITH EPISODES OF SCREAMING. NO RESPIRATORY DISTRESS. ON O2 AT 4LITERS VIA NC, TOLERATING WELL, O2 SAT 95%. JULIA MIDLINE C/D/I, FLUSHING; ON NS AT 70 MLS/HR. ON BALLISTIC EXPERT, CONTROLLED AFIB SHOWING HR 90s. ON GTF AT 60 MLS/HR, NO RESIDUAL, HOB ELEVATED. ON CONTACT ISO FOR POSITIVE COVID. ON PAGE, PATENT AND DRAINING CLEAR YELLOW URINE. BED LOCKED AND LOW POSITION. ON BILATERAL SOFT WRIST RESTRAINTS ORDERED. CALL LIGHT WITHIN REACH. WILL CONT. TO MONITOR.
--- NOTE | 2019-06-25 19:16 | NUR ---
rn notes endorsed for continuit of care. patient calmlu sleeps in bed. tolerating oxygen at 4lpm, sating fine. no shortness of breath noted at this time. with ongoing gtf. ivf at desired rate. bilateral soft restraints on. alexandra catheter draining well. safety measures in place. call light within reach
[2019-06-25 20:00] VITALS: BP_SYST 144; BP_SYST 148; BP_DIAS 90; BP_DIAS 97
[2019-06-25] MEDS: ACETAMINOPHEN ES 500 MG TABLET GT PRN (21:52)
--- NOTE | 2019-06-25 21:52 | NUR ---
RN NOTE: AT 2129, PATIENT'S TEMP 100.8F. COOLING MEASURES PROVIDED. WILL ADMINISTER TYLENOL. AT 2151, TYLENOL 500 MG GIVEN VIA GT. WILL CONT. TO MONITOR. AT 2224, PATIENT BECOMING RESTLESS AND ANXIOUS M/B YELLING. PATIENT WAS CONTROLLED AFIB HR 90s BUT HR WENT UP TO 130-140s. ON CARDIZEM 30 MG Q6H. MICHELLE BATES NP MADE AWARE. NEW ORDERS RECEIVED TO GIVE CARDIZEM THAT'S DUE AT MIDNIGHT NOW AND ATIVAN 1 MG IV Q6H PRN. WILL CONT. TO MONITOR PATIENT. Addendum: 06/26/19 at 0114 by JAIR MONROE RN CORRECTION: MIKA BATES NP
[2019-06-25] MEDS: LORAZEPAM INJ 2 MG/ML VIAL IV PRN (22:32)
--- NOTE | 2019-06-25 23:29 | NUR ---
GLYNN NOTE: PATIENT'S HR CAME DOWN TO 110-120. RECHECKED TEMP 99.7F. WILL CONT. TO MONITOR. Addendum: 06/26/19 at 0030 by JAIR MONROE RN Robert, MICHELLE BATES NP MADE AWARE OF PATIENT'S CURRENT STATUS. NO FURTHER ORDERS AT THIS TIME. Addendum: 06/26/19 at 0114 by JAIR MONROE RN CORRECTION: MIKA BATES NP
[2019-06-26] VITALS: BP 114/74
--- NOTE | 2019-06-26 02:30 | NUR ---
RN NOTE: PATIENT STILL NOTED WITH RESTLESSNESS AND ATTEMPTING TO REMOVE LINES AND GT. FREQUENT REORIENTATION DONE. NON-PHARMACOLOGICAL INTERVENTIONS INEFFECTIVE. PATIENT UNABLE TO FOLLOW INSTRUCTIONS. AAOX0. MIKA BATES NP AWARE WITH ORDER TO RENEW RESTRAINTS. WILL CONT. TO MONITOR.
[2019-06-26] MEDS: IV NS 0.9% 1,000 ML IV PRN (02:59)
[2019-06-26 04:00] VITALS: BP 134/80
[2019-06-26] MEDS: DILTIAZEM HCL 30 MG TABLET GT SCH (06:07)
--- NOTE | 2019-06-26 06:22 | NUR ---
CLOSING NOTE: PATIENT IN BED, ASLEEP, BUT EASY TO AROUSE WITH EYES OPENING SPONTANEOUSLY AND RESPONSIVE WITH INCOMPREHENSIBLE SOUNDS. NO SOB DURING SHIFT. NO S/S OF PAIN. NO FACIAL GRIMACING. NOW AFIB CONTROLLED, HR 80s-90s. AFEBRILE; LATEST TEMP 99.0F. NO ACUTE DISTRESS AT THIS TIME. WILL ENDORSE TO AM SHIFT NURSE FOR CONTINUITY OF CARE.
[2019-06-26 06:30] LABS: BASOPHILS % (AUTO) 0.4 % (0.0-2.0); EOSINOPHILS % (AUTO) 2.6 % (0.0-6.0); HEMATOCRIT 34 % (39-51); HEMOGLOBIN 10.9 g/dL (13.5-17.5); LYMPHOCYTES # (AUTO) 0.6 /CMM (0.8-4.8); LYMPHOCYTES % (AUTO) 6.7 % (20.0-44.0); MEAN CORPUSCULAR HGB CONC 32 g/dl (31.0-36.0); MEAN CORPUSCULAR VOLUME 92 fL (80-96); MONOCYTES # (AUTO) 0.6 /CMM (0.1-1.30); MONOCYTES % (AUTO) 7.4 % (2.0-12.0); NEUTROPHILS % (AUTO) 82.9 % (43.0-81.0); PLATELET COUNT (AUTO) 320 /CMM (150-450); RED BLOOD CELL COUNT(AUTO) 3.66 MIL/uL (4.5-6.0); WHITE BLOOD COUNT (AUTO) 8.5 K/uL (4.3-11.0)
[2019-06-26 06:58] LABS: CARBON DIOXIDE 38 mmol/L (21-32); CHLORIDE 100 mmol/L (98-107); CREATININE 1.4 mg/dL (0.6-1.3); GLUCOSE 130 mg/dL (74-106); PHOSPHORUS 3.1 mg/dL (2.5-4.9); POTASSIUM 5.1 mmol/L (3.5-5.1); SODIUM SERUM 142 mmol/L (136-145); UREA NITROGEN, BLOOD 51 mg/dL (7-18)
--- NOTE | 2019-06-26 07:25 | NUR ---
RN opening note: Received patient in bed. Awake and confused. Isolation precautions strictly observed for R/O Covid. On cont. 02 via NC @ 6lpm being tolerated well with saturation at 97%. Appears relaxed and comfortable. No pain noted. No SOB noted and not in respiratory distress at this time. Mccloud catheter in place draining yellow urine. GT in patent and place. IV site clean, dry, patent and intact. Tele monitoring showing controlled Atrial Fibrillation with report of uncontrolled A. Fib from the shift prior. Bilateral soft wrist restraints on for behavior identified. call light in reach. bed locked, low and at semi-banuelos's position. siderails up x3. safety ensured and observed. will continue to monitor. Addendum: 06/26/19 at 1508 by LISETTE BLAND RN On cont. 02 via NC @ 4lpm
[2019-06-26 08:00] VITALS: BP 123/84
[2019-06-26] MEDS: CLOTRIMAZOLE 1% 15 GM TUBE TP SCH ×2 (08:30→17:16)
[2019-06-26] MEDS: PANTOPRAZOLE 40 MG/PACK PACK GT SCH (08:30)
[2019-06-26] MEDS: Z GUARD REMEDY 2 OZ OINT TP SCH (08:30)
[2019-06-26] MEDS ORDERED: JEVITY 1.2 CAL 1,000 ML BOTTLE GT PRN (11:00)
[2019-06-26] MEDS: JEVITY 1.2 CAL 1,000 ML BOTTLE GT PRN (11:00)
[2019-06-26 12:00] VITALS: BP 122/92
[2019-06-26] MEDS: ACETAMINOPHEN ES 500 MG TABLET GT PRN (13:23)
[2019-06-26] MEDS: METOPROLOL TARTRATE 25 MG TABLET GT SCH ×2 (13:23→20:41)
[2019-06-26 16:00] VITALS: BP 136/69
[2019-06-26 16:47] LABS: BILIRUBIN,URINE NEGATIVE (NEGATIVE); BLOOD, URINE SMALL Ery/uL (NEGATIVE); COLOR,URINE YELLOW (YELLOW); KETONES,URINE NEGATIVE (NEGATIVE); LEUKOCYTE ESTERASE ,URINE SMALL (NEGATIVE); NITRITE, URINE NEGATIVE (NEGATIVE); PROTEIN,URINE 100 mg/dl (NEGATIVE); UGLUCOSE NEGATIVE (NEGATIVE)
[2019-06-26 16:53] LABS: APPEARANCE,URINE HAZY (CLEAR)
[2019-06-26 17:01] LABS: BACTERIA,URINE Few /HPF (None Seen); SQUAMOUS EPITHELIAL CELL,UR Few /HPF (None Seen)
--- NOTE | 2019-06-26 18:25 | NUR ---
RN closing note: Patient in bed. Awake and confused. Isolation precautions strictly observed for R/O Covid. On cont. 02 via NC @ 4lpm being tolerated well with saturation at 98%. Appears relaxed and comfortable. No pain noted. No SOB noted and not in respiratory distress at this time. Mccloud catheter in place draining yellow urine. GT in patent and place with feeding being tolerated. IV site clean, dry, patent and intact. Tele monitoring showing controlled Atrial Fibrillation. Bilateral soft wrist restraints on for behavior identified. Call light in reach. bed locked, low and at semi-banuelos's position. siderails up x3. safety ensured and observed. Covid-19 swab done on shift, awaiting results. will endorse to oncoming shift for FABIOLA.
--- NOTE | 2019-06-26 19:20 | NUR ---
RN OPENING NOTES: Received pt awake in bed, confused. On isolation for Covid-19. On O2 via NC at 4L tolerating well. No respiratory distress noted. On tele monitor showing controlled A-fib. Has right upper arm mid line, patent and flushed. Dressing c/d/i. GT site flushed with no residual noted. Has feeding - Jevity 1.23 at 60cc/hr running, tolerating well. Noted w/ bilateral SWR. Mccloud catheter in place, patent and draining urine. No pain noted at this time. Safety measures in place. Bed in lowest and locked position, side rails up x3, call light within reach. Will continue to monitor.
[2019-06-26 20:00] VITALS: BP 142/84
[2019-06-27] VITALS: BP 124/74
[2019-06-27] MEDS: LORAZEPAM INJ 2 MG/ML VIAL IV PRN (02:43)
[2019-06-27] MEDS: ACETAMINOPHEN ES 500 MG TABLET GT PRN ×2 (03:38→12:19)
[2019-06-27] MEDS: JEVITY 1.2 CAL 1,000 ML BOTTLE GT PRN ×2 (03:53→21:43)
[2019-06-27 04:00] VITALS: BP 146/94
[2019-06-27 06:34] LABS: BASOPHILS % (AUTO) 0.5 % (0.0-2.0); EOSINOPHILS % (AUTO) 3.2 % (0.0-6.0); HEMATOCRIT 33 % (39-51); HEMOGLOBIN 10.4 g/dL (13.5-17.5); LYMPHOCYTES # (AUTO) 0.6 /CMM (0.8-4.8); LYMPHOCYTES % (AUTO) 6.2 % (20.0-44.0); MEAN CORPUSCULAR HGB CONC 32 g/dl (31.0-36.0); MEAN CORPUSCULAR VOLUME 93 fL (80-96); MONOCYTES # (AUTO) 0.6 /CMM (0.1-1.30); MONOCYTES % (AUTO) 5.9 % (2.0-12.0); NEUTROPHILS # (AUTO) 8.4 /CMM (1.8-8.9); NEUTROPHILS % (AUTO) 84.2 % (43.0-81.0); PLATELET COUNT (AUTO) 322 /CMM (150-450); RED BLOOD CELL COUNT(AUTO) 3.55 MIL/uL (4.5-6.0); WHITE BLOOD COUNT (AUTO) 9.9 K/uL (4.3-11.0)
--- NOTE | 2019-06-27 06:47 | NUR ---
RN CLOSING NOTES: Pt resting in bed, confused. On isolation precautions for positive covid. On 4L NC tolerating well. No respiratory distress noted. On tele monitor showing controlled a-fib. No acute changes noted during shift. On DIRECTOR OF PRODUCT DESIGN restraints, renewed. JULIA midline patent and flushing. Dressing c/d/i. Mccloud cath in place, draining urine. Safety measures in place. Bed in lowest and locked position, side rails up x3, call light within reach. Will endorse to AM nurse for FABIOLA.
[2019-06-27 06:54] LABS: ALANINE AMINOTRANSFERASE 53 U/L (12-78); ALBUMIN 2.3 g/dL (3.4-5.0); ALKALINE PHOSPHATASE 41 U/L (46-116); ASPARTATE AMINOTRANSFERASE 41 U/L (15-37); BILIRUBIN,TOTAL 0.5 mg/dL (0.2-1.0); CALCIUM, SERUM 9.5 mg/dL (8.5-10.1); CHLORIDE 102 mmol/L (98-107); CREATININE 1.4 mg/dL (0.6-1.3); GLUCOSE 141 mg/dL (74-106); MAGNESIUM 2.2 mg/dL (1.8-2.4); PHOSPHORUS 3.2 mg/dL (2.5-4.9); POTASSIUM 5.6 mmol/L (3.5-5.1); SODIUM SERUM 143 mmol/L (136-145); UREA NITROGEN, BLOOD 50 mg/dL (7-18)
[2019-06-27 07:01] LABS: CARBON DIOXIDE 42 mmol/L (21-32)
--- NOTE | 2019-06-27 07:34 | NUR ---
RN OPENING NOTES RECEIVED PATIENT RESTING IN BED COMFORTABLY, NO S/SX OF DISTRESS NOTED. HE IS AOX1, CONFUSED, NON-VERBAL, AND BEDBOUND. HE IS ON 4L OF OXYGEN VIA NC, TOLERATING WELL, NO SOB OR RESP DISTRESS. TELE MONITOR SHOWING CONTROLLED AFIF WITH HR IN THE UPPER 90'S. SKIN IS INTACT, SACRAL AND PERINEAL REDNESS PRESENT. GTUBE IS PATENT AND INTACT, INFUSING JEVITY AT 60 ML/HR, TOLERATING WELL. JULIA MIDLINE IS PATENT AND INTACT, NO FLUIDS ORDERED AT THIS TIME. SAFETY MEASURES HAVE BEEN IMPLEMENTED, CALL LIGHT IS WITHIN REACH, BED IS IN LOWEST AND LOCKED POSITION, SIDE RIALS UP X2, WILL CONTINUE TO MONITOR FOR ANY CHANGES.
[2019-06-27 08:00] VITALS: BP 136/81
[2019-06-27] MEDS: PANTOPRAZOLE 40 MG/PACK PACK GT SCH (08:28)
[2019-06-27] MEDS: Z GUARD REMEDY 2 OZ OINT TP SCH (08:45)
[2019-06-27] MEDS: METOPROLOL TARTRATE 25 MG TABLET GT SCH (08:45)
[2019-06-27] MEDS: CLOTRIMAZOLE 1% 15 GM TUBE TP SCH ×2 (08:45→17:41)
--- NOTE | 2019-06-27 09:42 | NUR ---
RN NOTES DR. MENJIVAR MADE AWARE OF CO2 LEVEL OF 42. WAS GIVEN ORDER FOR ABG, WILL CONTINUE TO MONITOR.
[2019-06-27 10:35] LABS: ABG OXYGEN SATURATION 97.4 % (92.0-98.5); ABG PCO2 60.7 mmHg (35.0-45.0); ABG PH 7.432 (7.350-7.450); ABG PO2 100.5 mmHg (75.0-100.0); AaDO2 85.8 mmHg; COHb 0.4 % (0.5-1.5); MetHb 0.5 % (0.0-1.5); O2Hb 96.5 % (94.0-97.0); SITE, ABG Left Radial; VENT MODE, BG nasal cannula
[2019-06-27] MEDS ORDERED: JEVITY 1.2 CAL 1,000 ML BOTTLE GT PRN (11:00)
[2019-06-27 12:00] VITALS: BP 132/76
[2019-06-27] MEDS: DILTIAZEM HCL 30 MG TABLET GT SCH ×2 (12:19→17:37)
--- NOTE | 2019-06-27 14:00 | NUR ---
PT OXYGEN SAT IS 96% ON 2L VIA NC, WILL CONTINUE TO MONITOR
--- NOTE | 2019-06-27 14:18 | NUR ---
RN NOTES DR. VILLEGAS MADE AWARE OF PT K LEVEL OF 5.6, NO NEW ORDERS AT THIS TIME.
[2019-06-27] MEDS ORDERED: acetaZOLAMIDE SODIUM 500 MG/VIAL VIAL IV SCH (15:00)
--- NOTE | 2019-06-27 15:43 | NUR ---
GLYNN NOTES GAVE TRANSFER REPORT TO RUBI MAKI FOR FABIOLA
--- NOTE | 2019-06-27 15:45 | NUR ---
TOP PRECIPITATOR OPERATOR HELPER NOTES RECEIVED PT FROM CUBA MAKI, PT IN BED, RESTING, NO SIGN OF PAIN OR DISTRESS, GT FEEDING INFUSING WELL, CALL LIGHT WITHIN REACH, KEPT COMFORTABLE IN BED.
[2019-06-27 16:00] VITALS: BP 118/72
[2019-06-27] MEDS: acetaZOLAMIDE SODIUM 500 MG/VIAL VIAL IV SCH (16:22)
--- NOTE | 2019-06-27 19:29 | NUR ---
MANAGER SOCIAL NOTES PT IN BED, RESTING, NO SIGN OF PAIN OR DISTRESS, TOLERATES GT FEEDING WELL, PM CARE PROVIDED, F/C INTACT AND PATENT, DRAINING WELL WITH CLEAR, YELLOW URINE, NEEDS ATTENDED, SAFETY AND ISOLATION PRECAUTIONS OBSERVED.
[2019-06-27 20:00] VITALS: BP 118/67
--- NOTE | 2019-06-27 20:00 | NUR ---
RN NOTES RECEIBVED PT. AWAKE ON BED,CONFUSED , ON BILATERAL WRIST RESTRAINTS, A-FIB ON TELE MONITOR , HR-86, G-TUBE FEEDING IN PLACE RUNNING @ 60ML/HR, NO RESIDUAL NOTED, SIDERAILSUPX2, CONTINUE TO MONITOR
[2019-06-28] VITALS: BP 123/69
[2019-06-28 04:00] VITALS: BP 139/75
[2019-06-28] MEDS: DILTIAZEM HCL 30 MG TABLET GT SCH ×5 (05:56→23:31)
--- NOTE | 2019-06-28 06:41 | NUR ---
RN NOTES sleeping but arousable, not in distress, no PAIN noted, morning care rendered, franci upx2, pt. needs attended
[2019-06-28 06:43] LABS: BASOPHILS # (AUTO) 0.1 /CMM (0.0-0.2); BASOPHILS % (AUTO) 0.7 % (0.0-2.0); EOSINOPHILS % (AUTO) 4.3 % (0.0-6.0); HEMATOCRIT 34 % (39-51); HEMOGLOBIN 10.9 g/dL (13.5-17.5); LYMPHOCYTES % (AUTO) 11.3 % (20.0-44.0); MEAN CORPUSCULAR HGB CONC 32 g/dl (31.0-36.0); MEAN CORPUSCULAR VOLUME 92 fL (80-96); MONOCYTES # (AUTO) 0.6 /CMM (0.1-1.30); MONOCYTES % (AUTO) 7.3 % (2.0-12.0); NEUTROPHILS # (AUTO) 6.6 /CMM (1.8-8.9); NEUTROPHILS % (AUTO) 76.4 % (43.0-81.0); PLATELET COUNT (AUTO) 358 /CMM (150-450); WHITE BLOOD COUNT (AUTO) 8.7 K/uL (4.3-11.0)
[2019-06-28 06:55] LABS: CALCIUM, SERUM 9.5 mg/dL (8.5-10.1); CREATININE 1.2 mg/dL (0.6-1.3); POTASSIUM 5.5 mmol/L (3.5-5.1)
--- NOTE | 2019-06-28 07:10 | NUR ---
RN NOTES ON TELEMONITORING A-FIB HR:106. REMAINS STABLE AT THIS TIME.
--- NOTE | 2019-06-28 07:10 | NUR ---
RN NOTES RECEIVED PATIENT IN BED, ALERT AND AWAKE, CONFUSED. HOB ELEVATED. ON O2 @ 4L/MIN VIA NC WITH SPO2 OF 97%. NO EVIDENCE OF PAIN NOR DISCOMFORT. BILATERAL WRIST RESTRAINT IN PLACE. BED IN LOW POSITION, LOCKED. FREQUENT VISUAL CHECK DONE. BED SIDERAILS UPX2.
[2019-06-28 08:00] VITALS: BP 135/86
[2019-06-28] MEDS: PANTOPRAZOLE 40 MG/PACK PACK GT SCH (08:12)
[2019-06-28] MEDS: ACETAMINOPHEN ES 500 MG TABLET GT PRN ×2 (09:10→18:09)
[2019-06-28] MEDS: CLOTRIMAZOLE 1% 15 GM TUBE TP SCH ×2 (09:30→16:19)
[2019-06-28] MEDS: Z GUARD REMEDY 2 OZ OINT TP SCH (09:30)
[2019-06-28 12:00] VITALS: BP 144/95
--- NOTE | 2019-06-28 14:32 | NUR ---
RN NOTES RELAYED 3RD COVID-19 TEST RESULT: POSITIVE TO DR DR. BAKARI DONOVAN WITH ORDERS FOR HOLD D/C AT THIS TIME.
[2019-06-28] MEDS: acetaZOLAMIDE SODIUM 500 MG/VIAL VIAL IV SCH (15:04)
[2019-06-28 16:00] VITALS: BP 136/89
[2019-06-28] MEDS: LORAZEPAM INJ 2 MG/ML VIAL IV PRN (16:19)
[2019-06-28] MEDS: JEVITY 1.2 CAL 1,000 ML BOTTLE GT PRN (16:20)
--- NOTE | 2019-06-28 19:10 | NUR ---
RN OPENING NOTE RECEIVED PATIENT IN BED RESTING WITH HOB ELEVATED. POSITIVE FOR COVID-19. ON CONTACT/DROPLET PRECAUTIONS. A&O X1. BREATHING EVEN AND NON LABORED, NO SOB AT THIS TIME. ON O2 4L VIA NC. ON PAGE, URINE IS CLEAR AND YELLOW IN COLOR. ON BILATERAL SOFT WRIST RESTRAINTS. CAPILLARY REFILL < 3 SECONDS. ON GTF JEVITY 1.2 @ 60CC/HR. JULIA MIDLINE PATENT. BED LOWERED AND LOCKED FOR SAFETY. WILL CONTINUE TO MONITOR.
--- NOTE | 2019-06-28 19:33 | NUR ---
RN NOTES PATIENT RESTING COMFORTABLY IN BED. ASLEEP, AROUSABLE TO VERBAL AND TACTILE STIMULI. HOB ELEVATED. ON O2 @ 4L/MIN VIA NC WITH SPO2 OF 98%. NO EVIDENCE OF PAIN NOR DISCOMFORT. BILATERAL WRIST RESTRAINT IN PLACE WITH SKIN CHECK AND CIRCULATION DONE WITH RELEASE OF WRIST RESTRAINTS DURING ADL'S. JULIA MIDLINE INTACT AND PATENT. CONTACT/DROPLET PRECAUTIONS OBSERVED AT ALL TIMES. BED IN LOWEST POSITION, LOCKED. FREQUENT VISUAL CHECK DONE. BED SIDERAILS UPX2. IN NO APPARENT DISTRESS.
[2019-06-28 20:00] VITALS: BP 145/82
[2019-06-29] VITALS (7 sets, daily range): BP systolic 111–132; BP diastolic 70–90
[2019-06-29] MEDS: DILTIAZEM HCL 30 MG TABLET GT SCH ×3 (06:09→18:03)
[2019-06-29] MEDS: JEVITY 1.2 CAL 1,000 ML BOTTLE GT PRN (06:11)
--- NOTE | 2019-06-29 07:02 | NUR ---
RN NOTE PATIENT REMAINED STABLE THROUGHOUT THE NIGHT. NO SIGNIFICANT CHANGES NOTED. ALL DUE MEDS GIVEN AND TOLERATED WELL. PATIENT IS KEPT CLEAN, DRY, AND COMFORTABLE. WILL ENDORSE TO AM SHIFT RN FOR CONTINUATION OF CARE.
--- NOTE | 2019-06-29 07:30 | NUR ---
MS RN OPENING NOTES RECEIVED PATIENT IN BED, ASLEEP. PATIENT ON OXYGEN THERAPY 4 LPM VIA NASAL CANNUAL SATURATING WELL AT 100 %. PATIENT BREATHING EVEN AND UNLABORED, NO SIGNS OF SOB AT THIS TIME. YOVANNY MIDLINE INTACT AND FLUSHING WELL. NO SIGNS OF PAIN SUCH MOANING OR FACIAL GRIMACING. PAGE IN PLACE. G-TUBE INFUSING JEVITY 1.2 AT 60 MLS/HR. SAFETY PRECAUTIONS IN PLACE; BED IN LOW POSITION AND LOCKED, RAILS UP X2, CALL LIGHT WITHIN REACH. WILL CONTINUE TO MONITOR PATIENT.
[2019-06-29] MEDS: PANTOPRAZOLE 40 MG/PACK PACK GT SCH (08:30)
[2019-06-29] MEDS: CLOTRIMAZOLE 1% 15 GM TUBE TP SCH ×2 (08:30→17:17)
[2019-06-29] MEDS: Z GUARD REMEDY 2 OZ OINT TP SCH (08:30)
--- NOTE | 2019-06-29 18:52 | NUR ---
MS RN CLOSING NOTES PATIENT IN BED, ASLEEP. PATIENT ON OXYGEN THERAPY 4 LPM VIA NASAL CANNUAL SATURATING WELL AT 100 %. PATIENT BREATHING EVEN AND UNLABORED, NO SIGNS OF SOB AT THIS TIME. YOVANNY MIDLINE INTACT AND FLUSHING WELL. NO SIGNS OF PAIN SUCH MOANING OR FACIAL GRIMACING. PAGE IN PLACE WITH OUTPUT FOR TODAY OF 860 MLS. G-TUBE INFUSING JEVITY 1.2 AT 60 MLS/HR. SAFETY PRECAUTIONS IN PLACE; BED IN LOW POSITION AND LOCKED, RAILS UP X2, CALL LIGHT WITHIN REACH. WILL ENDORSE TO MANAGER CLINICAL NURSE.
--- NOTE | 2019-06-29 19:50 | NUR ---
BONE CHAR PULLER NOTE: PATIENT RESTING IN BED, NO ACUTE DISTRESS NOTED. BREATHING EVEN AND UNLABORED, NO SOB NOTED. MIDLINE TO JULIA IN PLACE. G-TUBE IN PLACE, INFUSING JEVITY 1.2 AT 60ML/HR. RESTRAINTS TO BILATERAL WRIST IN PLACE, WITH GOOD CIRCULATION NOTED. ISOLATION PRECAUTIONS OBSERVED. BED LOCKED AND IN LOWEST POSITION, CALL LIGHT IN REACH. WILL CONTINUE TO MONITOR. Addendum: 06/29/19 at 2049 by MARTI EDWARDS RN TELE READING [id number]
[2019-06-30] MEDS: DILTIAZEM HCL 30 MG TABLET GT SCH ×4 (00:27→17:18)
[2019-06-30 00:30] VITALS: BP 130/75
--- NOTE | 2019-06-30 03:30 | NUR ---
PLODDING OPERATOR NOTE: PATIENT SLEEPING IN BED, NO ACUTE DISTRESS NOTED. BREATHING EVEN AND UNLABORED, NO SOB NOTED. G-TUBE IN PLACE INFUSING JEVITY1.2 AT 60ML/HR. HOB ELEVATED. BILATERAL SOFT WRIST RESTRAINTS IN PLACE, WITH GOOD CIRCULATION. PAGE CATHETER IN PLACE DRAINING CLEAR YELLOW URINE. ISOLATION PRECAUTIONS OBSERVED. BED LOCKED AND IN LOWEST POSITION. CALL LIGHT IN REACH. WILL CONTINUE TO MONITOR.
[2019-06-30 04:10] VITALS: BP 129/71
--- NOTE | 2019-06-30 06:30 | NUR ---
WEIGHER ALLOY NOTE: PATIENT RESTING IN BED, NO ACUTE DISTRESS NOTED. BREATHING EVEN AND UNLABORED, NO SOB NOTED. MIDLINE TO JULIA IN PLACE. G-TUBE IN PLACE, INFUSING JEVITY 1.2 AT 60ML/HR. RESTRAINTS TO BILATERAL WRIST IN PLACE, WITH GOOD CIRCULATION NOTED. ISOLATION PRECAUTIONS OBSERVED. BED LOCKED AND IN LOWEST POSITION, CALL LIGHT IN REACH. WILL ENDORSE TO DAY NURSE TO CONTINUE WITH PLAN OF CARE.
[2019-06-30 07:13] LABS: BASOPHILS # (AUTO) 0.1 /CMM (0.0-0.2); BASOPHILS % (AUTO) 1.4 % (0.0-2.0); EOSINOPHILS % (AUTO) 2.9 % (0.0-6.0); HEMATOCRIT 38 % (39-51); HEMOGLOBIN 11.8 g/dL (13.5-17.5); LYMPHOCYTES # (AUTO) 1.1 /CMM (0.8-4.8); LYMPHOCYTES % (AUTO) 9.8 % (20.0-44.0); MEAN CORPUSCULAR HGB CONC 31 g/dl (31.0-36.0); MEAN CORPUSCULAR VOLUME 94 fL (80-96); MONOCYTES # (AUTO) 0.8 /CMM (0.1-1.30); MONOCYTES % (AUTO) 7.7 % (2.0-12.0); NEUTROPHILS # (AUTO) 8.6 /CMM (1.8-8.9); NEUTROPHILS % (AUTO) 78.2 % (43.0-81.0); PLATELET COUNT (AUTO) 383 /CMM (150-450)
[2019-06-30 07:23] LABS: CREATININE 1.3 mg/dL (0.6-1.3); MAGNESIUM 2.2 mg/dL (1.8-2.4); POTASSIUM 5.4 mmol/L (3.5-5.1)
--- NOTE | 2019-06-30 07:30 | NUR ---
Initial PATIENT RESTING IN BED, NO ACUTE DISTRESS NOTED. BREATHING EVEN AND UNLABORED, NO SOB NOTED. MIDLINE TO JULIA IN PLACE. G-TUBE IN PLACE, INFUSING JEVITY 1.2 AT 60ML/HR. RESTRAINTS TO BILATERAL WRIST IN PLACE, WITH GOOD CIRCULATION NOTED. ISOLATION PRECAUTIONS OBSERVED. BED LOCKED AND IN LOWEST POSITION, CALL LIGHT IN REACH. WILL CONTINUE TO MONITOR
[2019-06-30] MEDS: PANTOPRAZOLE 40 MG/PACK PACK GT SCH (07:44)
[2019-06-30 08:00] VITALS: BP 147/85
[2019-06-30] MEDS: CLOTRIMAZOLE 1% 15 GM TUBE TP SCH ×2 (08:12→16:47)
[2019-06-30] MEDS: Z GUARD REMEDY 2 OZ OINT TP SCH (08:13)
[2019-06-30 10:36] LABS: EOSINOPHILS % (MANUAL) 2 % (0-4); LYMPHOCYTES % (MANUAL) 10 % (16-48); MONOCYTES % (MANUAL) 6 % (0-11.0); MYELOCYTES % 1 % (0-0); NEUTROPHILS % (MANUAL) 81 (42-76)
[2019-06-30 12:00] VITALS: BP_SYST 132; BP_SYST 146; BP_DIAS 67; BP_DIAS 76
[2019-06-30] MEDS ORDERED: FUROSEMIDE 40 MG/4 ML VIAL IV ONE (14:30)
[2019-06-30 16:00] VITALS: BP 135/65
[2019-06-30] MEDS: JEVITY 1.2 CAL 1,000 ML BOTTLE GT PRN (17:17)
--- NOTE | 2019-06-30 19:40 | NUR ---
CLOSING PATIENT IN BED, ASLEEP. PATIENT ON OXYGEN THERAPY 4 LPM VIA NASAL CANNUAL SATURATING WELL AT 100 %. PATIENT BREATHING EVEN AND UNLABORED, NO SIGNS OF SOB AT THIS TIME. YOVANNY MIDLINE INTACT AND FLUSHING WELL. NO SIGNS OF PAIN SUCH MOANING OR FACIAL GRIMACING. PAGE IN PLACE WITH OUTPUT FOR TODAY OF 860 MLS. G-TUBE INFUSING JEVITY 1.2 AT 60 MLS/HR. SAFETY PRECAUTIONS IN PLACE; BED IN LOW POSITION AND LOCKED, RAILS UP X2, CALL LIGHT WITHIN REACH. WILL ENDORSE TO STEEL BOX TOE INSERTER NURSE.
--- NOTE | 2019-06-30 19:57 | NUR ---
RN NOTES PATIENT IN BED, ASLEEP. PATIENT ON OXYGEN THERAPY 4 LPM VIA NASAL CANNUAL SATURATING WELL AT 100 %. PATIENT BREATHING EVEN AND UNLABORED, NO SIGNS OF SOB AT THIS TIME. YOVANNY MIDLINE INTACT AND FLUSHING WELL. NO SIGNS OF PAIN SUCH MOANING OR FACIAL GRIMACING. F G-TUBE INFUSING JEVITY 1.2 AT 60 MLS/HR. SAFETY PRECAUTIONS IN PLACE; BILATERAL SOFT WRIST RESTRAINTS IN PLACE, ASSESSED FOR ADEQUATE CIRCULATION. BED IN LOW POSITION AND LOCKED, RAILS UP X2, CALL LIGHT WITHIN REACH. WILL CONTINUE TO MONITOR ACCORDINGLY.
[2019-06-30 20:00] VITALS: BP 118/78
[2019-07-01] VITALS (10 sets, daily range): BP systolic 105–128; BP diastolic 68–82
[2019-07-01] MEDS: DILTIAZEM HCL 30 MG TABLET GT SCH ×4 (01:30→17:03)
--- NOTE | 2019-07-01 06:28 | NUR ---
RN NOTES ALL NEEDS ATTENDED AND MET, ABLE TO REST AND SLEPT AT INTERVALS, PATIENT IN BED, ASLEEP AT THIS TIME, PATIENT ON OXYGEN THERAPY 4 LPM VIA NASAL CANNUAL SATURATING WELL AT 100% PATIENT BREATHING EVEN AND UNLABORED, NO SIGNS OF SOB AT THIS TIME. YOVANNY MIDLINE INTACT AND FLUSHING WELL. NO SIGNS OF PAIN SUCH MOANING OR FACIAL GRIMACING. PAGE IN PLACE WITH OUTPUT FOR TODAY OF 860 MLS. G-TUBE INFUSING JEVITY 1.2 AT 60 MLS/HR. BED IN LOW POSITION AND LOCKED, RAILS UP X2, CALL LIGHT WITHIN REACH. WILL ENDORSE TO NURSE FOR CONTINUITY OF CARE.
[2019-07-01] MEDS: PANTOPRAZOLE 40 MG/PACK PACK GT SCH (07:41)
[2019-07-01 07:46] LABS: CALCIUM, SERUM 10.2 mg/dL (8.5-10.1); CREATININE 1.3 mg/dL (0.6-1.3); POTASSIUM 5.2 mmol/L (3.5-5.1)
--- NOTE | 2019-07-01 08:05 | NUR ---
ASSESSMENT TECHNICIAN OPENING NOTES RECEIVED PT ON BED, A/OX1, AWAKE AND PERFORMS EYE CONTACT. ON ISOLATION FOR COVID-19 POSITIVE. 4TH TESTING RESULT PENDING. RESPIRATION EVEN AND NON LABORED, YELLOW THICK SECRETIONS NOTED, PRODUCTIVE COUGH, ON O2 AT 4LPM VIA N/C, TOLERATED WELL. ABD SOFT AND NON DISTENDED WITH ACTIVE BOWEL SOUNDS, ON FC WITH YELLOW OUTPUT. G-TUBE SITE FLUSHING WELL WITH 5ML RESIDUAL NOTED, POSITIVE PLACEMENT IN AUSCULTATION, RUNNING JEVITY 1.2 AT 60 ML/HR X 24 HOURS. SKIN WARM TO TOUCH AND DRY. NO S/SX ON PAIN AND DISCOMFORT. LOW BED IN LOCKED POSITION, ON ACUTE MEDICAL RESTRAINT, ABLE TO MOVE EXTREMITIES WHEN RELEASED, SAFETY PRECAUTIONS ADDRESSED. IV SITE AT RIGHT UPPER ARM MIDLINE, NO S/SX OF INFILTRATION. TELE MONITOR SHOWS A-FIB 92. WILL CONTINUE TO MONITOR CARE.
[2019-07-01] MEDS: Z GUARD REMEDY 2 OZ OINT TP SCH (09:10)
[2019-07-01] MEDS: CLOTRIMAZOLE 1% 15 GM TUBE TP SCH ×2 (09:10→17:03)
--- NOTE | 2019-07-01 11:14 | NUR ---
KNITTED CLOTH EXAMINER NOTES PROVIDED ORAL CARE, REPOSITIONED TO RIGHT SIDE TOLERATED, CONTINUE TO ADMINISTER 4LPM VIA N/C, NO ACUTE DISTRESS NOTED. PRESENCE OF SOFT WRIST RESTRAINT, NO INJURY NOTED. WILL CONTINUE TO MONITOR
[2019-07-01] MEDS: JEVITY 1.2 CAL 1,000 ML BOTTLE GT PRN (11:16)
--- NOTE | 2019-07-01 14:15 | NUR ---
EXHIBITIONS CURATOR NOTES BED BATH PROVIDED. ORAL CARE PROVIDED, PT HAS TENDENCY TO BITE THE ORAL HYGIENE KIT REASON, CLEANED WITH ORAL SUCTION, NO COUGHING/ ASPIRATION NOTED. PPE USED PROPERLY. WILL CONTINUE TO MONITOR CARE.
--- NOTE | 2019-07-01 18:37 | NUR ---
DATABASE COORDINATOR CLOSING NOTES PT A/OX1, ON O2 AT 4LPM VIA NASAL CANNULA, SATING >92%, NO PRESENCE OF ACUTE RESPIRATORY DISTRESS, PRODUCTIVE COUGHING PRESENT. NO S/SX OF PAIN. SKIN WARM TO TOUCH AND DRY, SKIN PALE. ABD SOFT AND NON DISTENDED, FC URINE OUTPUT YELLOW IN COLOR, BM X1 LOOSE STOOL. G-TUBE SITE CLEAN AND DRY, PATENT IN FLUSHING, IN PLACED THROUGH AUSCULTATION, RESIDUAL OF 5ML. IV SITE AT RIGHT UPPER MIDLINE, PATENT IN FLUSHING. TELE MONITOR SHOWS CONTROLLED AFIB RATING 79-99. ON CONTACT/DROPLET ISOLATION WITH FACE SHIELD PRECAUTION DUE TO COVID-19 POSITIVE, REPEAT TEST PENDING. BED IN LOCKED POSITION, SIDE RAILS X2 FOR SAFETY, ON BOTH WRIST SOFT RESTRAINT DUE TO EPISODES OF PULLING OUT TUBING AND LINES, ROM PROVIDED AND REST PERIODS, NO INJURY NOTED DURING THE SHIFT. ENDORSED PT CARE TO NEXT SHIFT.
[2019-07-02] VITALS (7 sets, daily range): BP systolic 110–134; BP diastolic 70–89
[2019-07-02] MEDS: DILTIAZEM HCL 30 MG TABLET GT SCH ×5 (00:54→23:46)
[2019-07-02] MEDS: JEVITY 1.2 CAL 1,000 ML BOTTLE GT PRN ×2 (01:46→21:00)
--- NOTE | 2019-07-02 07:30 | NUR ---
TELE/RN OPENING NOTE THE PATIENT IS RECEIVED IN BED. PATIENT IS ALERT AND ORIENTED X1. COMMUNICATES WITH MAKING SOUNDS AND FEW CZECH WORDS. THE THE PATIENT DENIES PAIN. IN NO APPARENT DISTRESS. RECEIVING OXYGEN AT 4L/MIN VIA NASAL CANNULA AND SATURATION IS AT 100%. DENIES SOB. EXTERNAL TELE BOX READING SHOWING AFIB.GT FEEDING JEVITY 1.2 INFUSING AT 60ML/HR. ABDOMEN SOFT AND NON-DISTENDED. PAGE CATH PRESENT AND NOTED TO DRAIN CLEAR, YELLOW COLOR URINE. NO BLADDER DISTENSION NOTED. BILATERAL RESTRAINS OF PER ORDER. JULIA MIDLINE PATENT AND SALINE LOCKED. BED LOW AND LOCKED. SIDE RAILS UP X3. CALL LIGHT WITHIN REACH. WILL CONTINUE TO MONITOR.
[2019-07-02] MEDS: PANTOPRAZOLE 40 MG/PACK PACK GT SCH (09:28)
[2019-07-02] MEDS: CLOTRIMAZOLE 1% 15 GM TUBE TP SCH ×2 (09:28→17:30)
[2019-07-02] MEDS: Z GUARD REMEDY 2 OZ OINT TP SCH (09:28)
[2019-07-02] MEDS: FUROSEMIDE 20 MG TABLET GT SCH (09:28)
[2019-07-02] MEDS: LISINOPRIL (10MG) 10 MG TABLET GT SCH (09:31)
[2019-07-02 13:34] LABS: CARBON DIOXIDE 38 mmol/L (21-32); CHLORIDE 103 mmol/L (98-107); CREATININE 1.6 mg/dL (0.6-1.3); GLUCOSE 130 mg/dL (74-106); MAGNESIUM 2.2 mg/dL (1.8-2.4); POTASSIUM 4.9 mmol/L (3.5-5.1); SODIUM SERUM 143 mmol/L (136-145); UREA NITROGEN, BLOOD 69 mg/dL (7-18)
--- NOTE | 2019-07-02 18:54 | NUR ---
TELE/RN NOTE THE PATIENT IS ALERT AND ORIENTED X1. IN NO APPARENT DISTRESS. RECEIVING OXYGEN AT 4L/MIN VIA NASAL CANNULA AND SATURATION IS AT 100%. GT FEEDING JEVITY 1.2 INFUSING AT 60 ML/HR AND NOTED ONLY 5 ML RESIDUAL. ABDOMEN SOFT AND NON-DISTENDED. EXTERNAL TELE BOX READING IS AFIB 82. JULIA MIDLINE PATENT AND SALINE LOCKED. BILATERAL RESTRAINS ON PER ORDER. Q2HR SKIN ASSESSMENT DONE AND NO BREAKDOWN NOTED, NO S/S POOR CIRCULATION NOTED. PAGE CATH DRAINING CLEAR, YELLOW COLOR URINIE. NO BLADDER DISTENSION NOTED. BED LOW AND LOCKED. SIDE RAILS UP X3. CALL LIGHT WITHIN REACH. WILL ENDORSE TO CERTIFIED ORTHOTIST PRACTICE MANAGER
--- NOTE | 2019-07-02 19:30 | NUR ---
VACUUM PAN OPERATOR OPENING NOTES RECEIVED PATIENT FROM MORNING SHIFT, ALERT AND ORIENTED X 1 CONFUSED. BREATHING REGULAR AND UNLABORED ON OXYGEN AT 4L/MIN VIA NASAL CANNULA. RIGHT UPPER ARM MIDLINE INTACT, FLUSHING WELL WITH NO BLEEDING OR S/S OF INFECTION NOTED. GTUBE PATENT AND INTACT WITH NO RESIDUAL ASPIRATED, ON-GOING FEEDING TOLERATING WELL. ON CARDIAC MONITORING WITH ATRIAL FIBRILLATION AT 84bpm. PAGE CATH INTACT WITH CLEAR YELLOW URINE DRAINING WELL. NO S/S OF PAIN/DISCOMFORT SEEN AT THIS TIME. BILATERAL SOFT WRIST RESTRAINT ON, SKIN ASSESSMENT DONE. BED LOW AND LOCKED ON SEMI FOWLERS POSITION. CALL LIGHT IN REACH. WILL CONTINUE TO MONITOR.
[2019-07-02] MEDS: LORAZEPAM INJ 2 MG/ML VIAL IV PRN (22:44)
--- NOTE | 2019-07-02 23:00 | NUR ---
EMPLOYMENT CASE MANAGER NOTES SEEN SHOUTING AND TRYING TO PULL HIS GTUBE, ATIVAN 1MG GIVEN VIA IV PUSH. NON-PHARMACOLOGICAL INTERVENTIONS PROVIDED. VITAL SIGNS WNL. MAINTAINED ON BILATERAL SOFT WRIST RESTRAINTS. WILL CONTINUE TO MONITOR.
[2019-07-03] VITALS: BP_SYST 123; BP_SYST 135; BP_DIAS 76; BP_DIAS 84
[2019-07-03 04:00] VITALS: BP 124/79
[2019-07-03] MEDS: DILTIAZEM HCL 30 MG TABLET GT SCH ×3 (05:36→17:12)
[2019-07-03 06:28] LABS: BASOPHILS # (AUTO) 0.1 /CMM (0.0-0.2); BASOPHILS % (AUTO) 1.1 % (0.0-2.0); EOSINOPHILS % (AUTO) 1.7 % (0.0-6.0); HEMATOCRIT 34 % (39-51); HEMOGLOBIN 10.9 g/dL (13.5-17.5); LYMPHOCYTES # (AUTO) 1.1 /CMM (0.8-4.8); LYMPHOCYTES % (AUTO) 9.9 % (20.0-44.0); MEAN CORPUSCULAR HGB CONC 33 g/dl (31.0-36.0); MEAN CORPUSCULAR VOLUME 91 fL (80-96); MONOCYTES # (AUTO) 1.1 /CMM (0.1-1.30); MONOCYTES % (AUTO) 10.1 % (2.0-12.0); NEUTROPHILS # (AUTO) 8.3 /CMM (1.8-8.9); NEUTROPHILS % (AUTO) 77.2 % (43.0-81.0); PLATELET COUNT (AUTO) 324 /CMM (150-450); RED BLOOD CELL COUNT(AUTO) 3.67 MIL/uL (4.5-6.0); WHITE BLOOD COUNT (AUTO) 10.7 K/uL (4.3-11.0)
--- NOTE | 2019-07-03 06:30 | NUR ---
MOTOR VEHICLE OPERATOR ROAD SUPERVISOR CLOSING NOTES PATIENT IN BED ALERT AND ORIENTED X 1 CONFUSED. AFEBRILE, BREATHING REGULAR AND UNLABORED ON OXYGEN AT 4L/MIN VIA NASAL CANNULA. RIGHT UPPER ARM MIDLINE INTACT AND FLUSHING WELL. GTUBE FEEDING TOLERATING WELL WITH NO EPISODE OF NAUSEA/VOMITING NOTED THE WHOLE SHIFT. MAINTAINED ON CARDIAC MONITORING WITH ATRIAL FIBRILLATION AT 87bpm. PAGE CATH INTACT WITH CLEAR YELLOW URINE 650CC OUTPUT. NO S/S OF PAIN/DISCOMFORT SEEN AT THIS TIME. MAINTAINED ON BILATERAL SOFT WRIST RESTRAINT ON, SKIN ASSESSMENT DONE. BED LOW AND LOCKED ON SEMI FOWLERS POSITION. CALL LIGHT IN REACH. ENDORSE TO MORNING SHIFT FOR FABIOLA.
[2019-07-03 07:04] LABS: ALBUMIN 2.7 g/dL (3.4-5.0); BILIRUBIN,TOTAL 0.5 mg/dL (0.2-1.0); CALCIUM, SERUM 9.8 mg/dL (8.5-10.1); CREATININE 1.3 mg/dL (0.6-1.3); MAGNESIUM 2.2 mg/dL (1.8-2.4); PHOSPHORUS 4.1 mg/dL (2.5-4.9); POTASSIUM 4.1 mmol/L (3.5-5.1); TOTAL PROTEIN, SERUM 7.4 g/dL (6.4-8.2)
--- NOTE | 2019-07-03 07:30 | NUR ---
ms rn received on bed,awake,oriented x1,patient confused, not in any form of distress, respirations even and unlabored,no sob noted, lungs have crackles bilaterally,bilateral restraints on,no s/s of pain at this time,all needs attended.
[2019-07-03 08:00] VITALS: BP 118/73
[2019-07-03] MEDS: FUROSEMIDE 20 MG TABLET GT SCH (08:08)
[2019-07-03] MEDS: PANTOPRAZOLE 40 MG/PACK PACK GT SCH (08:08)
[2019-07-03] MEDS: LISINOPRIL (10MG) 10 MG TABLET GT SCH (08:09)
[2019-07-03] MEDS: LORAZEPAM INJ 2 MG/ML VIAL IV PRN (08:10)
--- NOTE | 2019-07-03 08:30 | NUR ---
ms rn on g tube feeding , due meds given,tolerated well w/o residuel,all needs attended.
[2019-07-03] MEDS: CLOTRIMAZOLE 1% 15 GM TUBE TP SCH ×2 (09:00→17:11)
--- NOTE | 2019-07-03 09:30 | NUR ---
ms rn was seen by raghavendra anderson/orders made and carried out.
[2019-07-03 12:00] VITALS: BP 127/73
--- NOTE | 2019-07-03 15:00 | NUR ---
ms rn on bed, no distress noted.
[2019-07-03 16:00] VITALS: BP 115/82
[2019-07-03] MEDS: Z GUARD REMEDY 2 OZ OINT TP SCH (16:32)
[2019-07-03] MEDS: JEVITY 1.2 CAL 1,000 ML BOTTLE GT PRN (17:40)
--- NOTE | 2019-07-03 19:10 | NUR ---
MERCHANDISE STOCKER NOTES RECEIVED PT IN BED AND AWAKE. PT A/O X 1 AND CONFUSED. RESPIRATIONS EVEN AND UNLABORED WITH NO S/S OF ACUTE DISTRESS OR SOB NOTED. PT ON OXYGEN AT 4L/MIN VIA NASAL CANNULA. PT NOTED WITH RIGHT UPPER ARM MIDLINE INTACT AND FLUSHING WELL. PT WITH GTUBE FEEDING TOLERATING WELL. PT WITH PAGE CATH INTACT AND DRAINING WELL. NO S/S OF PAIN AT THIS TIME. PT NOTED WITH BILATERAL SOFT WRIST RESTRAINT ON. SAFETY MEASURES IN PLACE WITH BED IN LOWEST LOCKED POSITION WITH SIDE RAILS UP X2. CALL LIGHT WITHIN REACH. WILL CONTINUE TO MONITOR.
[2019-07-03 20:00] VITALS: BP 120/76
[2019-07-04] VITALS: BP 120/90
[2019-07-04] MEDS: LORAZEPAM INJ 2 MG/ML VIAL IV PRN (00:39)
[2019-07-04] MEDS: DILTIAZEM HCL 30 MG TABLET GT SCH ×4 (00:39→17:31)
[2019-07-04 04:00] VITALS: BP 101/63
--- NOTE | 2019-07-04 06:37 | NUR ---
DRAPERY SEAMSTRESS NOTES PT IN BED AND RESTING. PT A/O X 1 AND CONFUSED. RESPIRATIONS EVEN AND UNLABORED WITH NO S/S OF ACUTE DISTRESS OR SOB NOTED. PT ON OXYGEN AT 4L/MIN VIA NASAL CANNULA. PT NOTED WITH RIGHT UPPER ARM MIDLINE INTACT AND FLUSHING WELL. PT WITH GTUBE FEEDING TOLERATING WELL. PT WITH PAGE CATH INTACT AND DRAINING WELL. NO S/S OF PAIN AT THIS TIME. PT NOTED WITH BILATERAL SOFT WRIST RESTRAINT ON. PT KEPT CLEAN, DRY, AND COMFORTABLE. SAFETY MEASURES IN PLACE WITH BED IN LOWEST LOCKED POSITION WITH SIDE RAILS UP X2. CALL LIGHT WITHIN REACH. WILL ENDORSE TO ONCOMING NURSE FOR FABIOLA..
[2019-07-04 08:00] VITALS: BP 102/67
--- NOTE | 2019-07-04 08:00 | NUR ---
SHODDY MILL WORKER NOTES PT IN BED AND RESTING. PT A/O X 1 AND CONFUSED. RESPIRATIONS EVEN AND UNLABORED WITH NO S/S OF ACUTE DISTRESS OR SOB NOTED. PT ON OXYGEN AT 4L/MIN VIA NASAL CANNULA. PT NOTED WITH RIGHT UPPER ARM MIDLINE INTACT AND FLUSHING WELL. PT WITH GTUBE FEEDING TOLERATING WELL. PT WITH PAGE CATH INTACT AND DRAINING YELLOW URINE OUTPUT. NO S/S OF PAIN AT THIS TIME. WITH BILATERAL SOFT WRIST RESTRAINT ON DUE TO PULLING OUT TUBES,PAGE AND IV LINES. RELEASED RESTRAINT TO CHECK CIRCULATION AND FOR ANY SKIN BREAKDOWN DURING ADL CARE. PT KEPT CLEAN, DRY, AND COMFORTABLE. NO S/S OF PAIN . TURNED EVERY TWO HRS. SAFETY MEASURES IN PLACE WITH BED IN LOWEST LOCKED POSITION WITH SIDE RAILS UP X2. CALL LIGHT WITHIN REACH.
[2019-07-04] MEDS: PANTOPRAZOLE 40 MG/PACK PACK GT SCH (08:38)
[2019-07-04] MEDS: FUROSEMIDE 20 MG TABLET GT SCH (08:38)
[2019-07-04] MEDS: LISINOPRIL (10MG) 10 MG TABLET GT SCH (08:38)
[2019-07-04] MEDS: Z GUARD REMEDY 2 OZ OINT TP SCH (09:20)
[2019-07-04] MEDS: CLOTRIMAZOLE 1% 15 GM TUBE TP SCH ×2 (09:38→17:38)
[2019-07-04 12:00] VITALS: BP 123/68
[2019-07-04] MEDS: JEVITY 1.2 CAL 1,000 ML BOTTLE GT PRN (14:30)
[2019-07-04 16:00] VITALS: BP 101/64
[2019-07-04 20:00] VITALS: BP_SYST 128; BP_DIAS 76; BP_DIAS 87
[2019-07-05] VITALS (7 sets, daily range): BP systolic 98–128; BP diastolic 51–76
[2019-07-05] MEDS: DILTIAZEM HCL 30 MG TABLET GT SCH ×4 (00:02→17:00)
--- NOTE | 2019-07-05 02:30 | NUR ---
BIG DATA ANALYTICS LEAD: Transferred of care from GLYNN Zimmer (Registry) Patient in bed, released and reapplied bilateral wrist restraints, no skin injury. Fall precaution. Contact/Droplet precaution maintained.
[2019-07-05] MEDS: JEVITY 1.2 CAL 1,000 ML BOTTLE GT PRN ×2 (05:13→17:14)
[2019-07-05 06:22] LABS: BASOPHILS # (AUTO) 0.1 /CMM (0.0-0.2); EOSINOPHILS % (AUTO) 1.9 % (0.0-6.0); HEMATOCRIT 35 % (39-51); HEMOGLOBIN 11.3 g/dL (13.5-17.5); LYMPHOCYTES # (AUTO) 0.8 /CMM (0.8-4.8); LYMPHOCYTES % (AUTO) 7.6 % (20.0-44.0); MEAN CORPUSCULAR HGB CONC 32 g/dl (31.0-36.0); MEAN CORPUSCULAR VOLUME 92 fL (80-96); MONOCYTES # (AUTO) 1.1 /CMM (0.1-1.30); MONOCYTES % (AUTO) 9.9 % (2.0-12.0); NEUTROPHILS # (AUTO) 8.7 /CMM (1.8-8.9); NEUTROPHILS % (AUTO) 79.6 % (43.0-81.0); PLATELET COUNT (AUTO) 281 /CMM (150-450); WHITE BLOOD COUNT (AUTO) 10.9 K/uL (4.3-11.0)
--- NOTE | 2019-07-05 06:44 | NUR ---
BUILDING MAINTENANCE TECHNICIAN: END OF SHIFT REPORT Patient in bed, confused, restless at times. 98% on 4L Oxygen NC, tolerating well. Afib controlled in the Tele monitor. JULIA Midline intact. Gtube feeding at 60ml/hr goal rate. No nausea, no vomiting. Bilateral wrist restraints in place, released and reapplied every 2 hours, no skin injury. Contact/Droplet precaution maintained.
[2019-07-05 07:03] LABS: CALCIUM, SERUM 10.1 mg/dL (8.5-10.1); CARBON DIOXIDE 36 mmol/L (21-32); CHLORIDE 104 mmol/L (98-107); CREATININE 1.5 mg/dL (0.6-1.3); GLUCOSE 87 mg/dL (74-106); POTASSIUM 4.5 mmol/L (3.5-5.1); SODIUM SERUM 145 mmol/L (136-145); UREA NITROGEN, BLOOD 75 mg/dL (7-18)
--- NOTE | 2019-07-05 07:30 | NUR ---
CDL BULK DRIVER OPENING NOTES RECEIVED PT IN BED, OBTUNDED. PT TOLERATING CURRENT VENT SETTING, WITH NO ACUTE RESPIRATORY DISTRESS NOTED. ON TELEMONITORING SR 97. GEN EDEMA ON BUE, BLE 2+ NOTED. PIV TO JULIA MIDLINE, FLUSHED WITH NS, INTACT AND OPERATIONAL. ON GOING GT FEEDING JEVITY 1.2 AT 60 ML/HR. FC IN PLACE. PT KEPT COMFORTABLE. HOB ELEVATED. PT'S BED IN LOWEST, LOCKED POSITION WITH SR X3. CALL LIGHT KEPT WITHIN REACH. WILL CONTINUE PLAN OF CARE. Addendum: 07/05/19 at 1935 by ABY FUENTES RN WRONG DOCUMENTATION.
--- NOTE | 2019-07-05 07:35 | NUR ---
GENERAL MAINTENANCE TECHNICIAN OPENING NOTES PT REMAINS IN BED, INTERMITTENTLY DOZING OFF, AOX1. PT ON SUPPLEMENTARY OXYGEN AT 2LPM, WITH NO ACUTE RESPIRATORY DISTRESS NOTED. ON TELEMONITORING SR 92. PIV TO JULIA MIDLINE, FLUSHED WITH NS, INTACT AND OPERATIONAL. ON GOING GT FEEDING JEVITY 1.2 AT 60 ML/HR. FC IN PLACE. PT KEPT COMFORTABLE. HOB ELEVATED. PT'S BED IN LOWEST, LOCKED POSITION WITH SR X3. CALL LIGHT KEPT WITHIN REACH. ENDORSED TO INCOMING NIGHT NURSE FOR FABIOLA.
[2019-07-05] MEDS: PANTOPRAZOLE 40 MG/PACK PACK GT SCH (08:19)
[2019-07-05] MEDS: FUROSEMIDE 20 MG TABLET GT SCH (08:19)
[2019-07-05] MEDS: LISINOPRIL (10MG) 10 MG TABLET GT SCH (08:20)
[2019-07-05] MEDS: CLOTRIMAZOLE 1% 15 GM TUBE TP SCH ×2 (08:20→17:00)
[2019-07-05] MEDS: Z GUARD REMEDY 2 OZ OINT TP SCH (08:20)
[2019-07-05] MEDS ORDERED: DILT30TA14 GT (12:29)
[2019-07-05] MEDS ORDERED: LISI10TA5 GT (12:29)
[2019-07-05] MEDS ORDERED: LACT-209 GT (12:29)
[2019-07-05] MEDS ORDERED: FURO20TA4 GT (12:29)
--- NOTE | 2019-07-05 19:31 | NUR ---
PRECINCT CAPTAIN CLOSING NOTES PT REMAINS IN BED, INTERMITTENTLY DOZING OFF. PT ON SUPPLEMENTARY OXYGEN AT 2LPM, WITH NO ACUTE RESPIRATORY DISTRESS NOTED. ON TELEMONITORING SR 80. PIV TO JULIA MIDLINE, FLUSHED WITH NS, INTACT AND OPERATIONAL. ON GOING GT FEEDING JEVITY 1.2 AT 60 ML/HR. FC IN PLACE, TOTAL OUTPUT OF 900ML. PT KEPT COMFORTABLE. ALL NEEDS AND CARE ATTENDED. HOB ELEVATED. PT'S BED IN LOWEST, LOCKED POSITION WITH SR X3. CALL LIGHT KEPT WITHIN REACH. ENDORSED TO INCOMING NIGHT NURSE FOR FABIOLA.
[2019-07-06] VITALS: BP 136/90
[2019-07-06] MEDS: DILTIAZEM HCL 30 MG TABLET GT SCH ×5 (00:06→23:54)
[2019-07-06 04:00] VITALS: BP 115/69
--- NOTE | 2019-07-06 06:33 | NUR ---
EVENT MARKETING COORDINATOR NOTES PT SLEEPING. EASILY AROUSABLE. NOT IN ANY DISTRESS. NO SOB NOTED. NO S/SX OF ANY PAIN OR DISCOMFORT AT THIS TIME. WITH ML PATENT & INTACT. WITH GTF INFUSING WELL. AM CARE DONE. MONITORED ACCORDINGLY. CALL LIGHT WITHIN REACH. BED IN LOWEST POSITION. SR UP X 3 WITH BED ALARM ON FOR SAFETY. WILL ENDORSE TO NEXT SHIFT. Addendum: 07/06/19 at 0636 by MINOR DANIELS RN ON TELE AFIB @ 80S
[2019-07-06 08:00] VITALS: BP 130/55
[2019-07-06] MEDS: LISINOPRIL (10MG) 10 MG TABLET GT SCH (09:00)
[2019-07-06] MEDS: Z GUARD REMEDY 2 OZ OINT TP SCH (09:00)
[2019-07-06] MEDS: FUROSEMIDE 20 MG TABLET GT SCH (09:00)
[2019-07-06] MEDS: CLOTRIMAZOLE 1% 15 GM TUBE TP SCH ×2 (09:00→19:20)
[2019-07-06] MEDS: PANTOPRAZOLE 40 MG/PACK PACK GT SCH (11:11)
[2019-07-06 12:00] VITALS: BP 136/59
[2019-07-06 16:00] VITALS: BP 135/56
[2019-07-06] MEDS: JEVITY 1.2 CAL 1,000 ML BOTTLE GT PRN (16:25)
--- NOTE | 2019-07-06 19:00 | NUR ---
DELIVERY PROFESSIONAL: END OF SHIFT REPORT Patient in bed, confused, restless and combative at times. O2 Sat=98% on 4L Oxygen NC, tolerating well. A-fib (controlled) noted on the Tele monitor. JULIA Midline intact. Gtube feeding at 60ml/hr goal rate. No nausea, no vomiting. No residual noted during shift. Bilateral wrist restraints in place, released and reapplied every 2 hours, no skin injury. Contact/Droplet/Airborne precautions maintained for COVID-19 precautions. Aspiration and all safety precautions maintained during shift. Pt safety maintained during shift. SBAR report given to GLYNN Sellers for continuity of care.
--- NOTE | 2019-07-06 19:58 | NUR ---
MANAGER INPATIENT OPENING NOTE RECEIVE PATIENT IN BED. A/O X 1 TO SELF. ON OXYGEN 3L/MIN VIA NASAL CANNULA. RESPIRATIONS ARE EVEN AND UNLABORED. NO S/S SOB NOTED. NO S/S ASIF AT THIS TIME. EXTERNAL TELE MONITOR READS SINUS RHYTHM HR 98. IN NO APPARENT DISTRESS. IV ACCESS IN JULIA MIDLINE. PATIENT HAS BILATERAL SOFT WRIST RESTRAINTS, NO REDNESS NOTED, GOOD CAP REFIL, 2 FINGER BREATHS OF ROOM BETWEEN SKIN AND RESTRAINT. GTUBE IS PRESENT, ASPIRATED, 5ML RESIDUAL, FLUSHED WITH 200ML, NO RESISTANCE, RUNNING JEVITY1.2 @60ML/HR. BED IS LOW AND MIAH,D HOB ELEVATED IN HIGH FOWLERS, SIDE RIALS UP X3, BED ALARM ON. CALL LIGHT WITHIN REACH. WILL CONTINUE TO MONITOR. Addendum: 07/06/19 at 2001 by POPPY MURGUIA RN PATIENT IS COVID POSITIVE
[2019-07-06 20:00] VITALS: BP 113/64
[2019-07-06] MEDS: LORAZEPAM INJ 2 MG/ML VIAL IV PRN (22:55)
--- NOTE | 2019-07-06 22:57 | NUR ---
GLASS SETTER NOTE ADMINISTERED PRN ATIVAN 1MG D/T PATIENT BEING VERY RESTLESS, TUGGING ON PAGE, SCREAMING, KICKING. WILL CONTINUE TO MONITOR. Addendum: 07/06/19 at 2258 by POPPY MURGUIA RN LEAH MAKI WITNESS WASTE IN OMNI CELL AND RX DESTROYER.
[2019-07-07] VITALS (7 sets, daily range): BP systolic 81–110; BP diastolic 49–72
[2019-07-07] MEDS: DILTIAZEM HCL 30 MG TABLET GT SCH ×4 (06:00→23:57)
--- NOTE | 2019-07-07 06:39 | NUR ---
SILVER WRAPPER CLOSING NOTE PATIENT IS COVID POSITIVE. PATIENT IN BED. A/O X 1 TO SELF. ON OXYGEN 3L/MIN VIA NASAL CANNULA. RESPIRATIONS ARE EVEN AND UNLABORED. NO SOB NOTED. NO S/S PAIN NOTED. EXTERNAL TELE MONITOR READS SINUS RHYTHM HR 98. NO DISTRESS NOTED. IV ACCESS MAINTAINED IN JULIA MIDLINE. PATIENT REMAINS WITH BILATERAL SOFT WRIST RESTRAINTS, NO REDNESS NOTED, GOOD CAP REFILL, 2 FINGER BREATHS OF ROOM BETWEEN SKIN AND RESTRAINT. GTUBE IS MAINTAINED RUNNING JEVITY1.2 @60ML/HR. BED IS LOW AND LOCKED HOB ELEVATED IN HIGH FOWLERS, SIDE RIALS UP X3, BED ALARM ON. CALL LIGHT WITHIN REACH. WILL ENDORSE TO NEXT SHIFT
[2019-07-07 07:11] LABS: BASOPHILS # (AUTO) 0.1 /CMM (0.0-0.2); BASOPHILS % (AUTO) 1.1 % (0.0-2.0); EOSINOPHILS % (AUTO) 2.7 % (0.0-6.0); HEMATOCRIT 34 % (39-51); HEMOGLOBIN 11.4 g/dL (13.5-17.5); LYMPHOCYTES # (AUTO) 1.2 /CMM (0.8-4.8); LYMPHOCYTES % (AUTO) 12.6 % (20.0-44.0); MEAN CORPUSCULAR HGB CONC 33 g/dl (31.0-36.0); MEAN CORPUSCULAR VOLUME 91 fL (80-96); MONOCYTES # (AUTO) 1.1 /CMM (0.1-1.30); MONOCYTES % (AUTO) 11.6 % (2.0-12.0); NEUTROPHILS # (AUTO) 6.9 /CMM (1.8-8.9); PLATELET COUNT (AUTO) 205 /CMM (150-450); RED BLOOD CELL COUNT(AUTO) 3.76 MIL/uL (4.5-6.0); WHITE BLOOD COUNT (AUTO) 9.6 K/uL (4.3-11.0)
[2019-07-07 07:28] LABS: ALANINE AMINOTRANSFERASE 51 U/L (12-78); ALBUMIN 2.8 g/dL (3.4-5.0); ALKALINE PHOSPHATASE 51 U/L (46-116); ASPARTATE AMINOTRANSFERASE 35 U/L (15-37); BILIRUBIN,TOTAL 0.6 mg/dL (0.2-1.0); CARBON DIOXIDE 38 mmol/L (21-32); CHLORIDE 103 mmol/L (98-107); CREATININE 1.6 mg/dL (0.6-1.3); GLUCOSE 86 mg/dL (74-106); MAGNESIUM 2.2 mg/dL (1.8-2.4); PHOSPHORUS 4.7 mg/dL (2.5-4.9); POTASSIUM 5.3 mmol/L (3.5-5.1); SODIUM SERUM 143 mmol/L (136-145); TOTAL PROTEIN, SERUM 7.5 g/dL (6.4-8.2); UREA NITROGEN, BLOOD 78 mg/dL (7-18)
--- NOTE | 2019-07-07 07:30 | NUR ---
BACK PANEL PADDER NOTES PATIENT RESTING IN BED. PATIENT COVID POSITIVE, NO ACUTE DISTRESS NOTED AT THIS TIME. NO S/S OF ANY DISCOMFORT OR PAIN. PATIENT ON O2 3LPM VIA NASAL CANULA. SAWYER HELPER ON SR 92. SKIN WARM TO TOUCH, IV ACCESS SITE INTACT AND PATENT. GTUBE INTACT AND PATENT WITH JEVITY RUNNING AT 60ML/HR, TOLERATING WELL. ALISON. SOFT WRIST RESTRAINTS ON, CHECKED FOR CIRCULATION AND REDNESS. PATIENT. PATIENT'S NEEDS ATTENDED, BED ON LOWEST LOCKED POSITION, CALL LIGHT WITHIN REACH. WILL CONTINUE TO MONITOR.
[2019-07-07] MEDS: PANTOPRAZOLE 40 MG/PACK PACK GT SCH (08:07)
[2019-07-07] MEDS: FUROSEMIDE 20 MG TABLET GT SCH (08:29)
[2019-07-07] MEDS: LISINOPRIL (10MG) 10 MG TABLET GT SCH (08:30)
[2019-07-07] MEDS: CLOTRIMAZOLE 1% 15 GM TUBE TP SCH ×2 (08:32→17:15)
[2019-07-07] MEDS: Z GUARD REMEDY 2 OZ OINT TP SCH (08:33)
[2019-07-07] MEDS: JEVITY 1.2 CAL 1,000 ML BOTTLE GT PRN ×2 (09:34→23:36)
--- NOTE | 2019-07-07 18:17 | NUR ---
DIABETES SPECIALIST NOTES PATIENT RESTING IN BED, NO RESPIRATORY DISTRESS, NO S/S OF ANY DISCOMFORT. SKIN WARM TO TOUCH, BILAT SOFT WRIST RESTRAINTS REMOVED AND CHECKED FOR REDNESS AND CIRCULATION. PATIENT'S NEEDS ATTENDED, BED ON LOWEST LOCKED POSITION, CALL LIGHT WITHIN REACH. WILL ENDORSE TO ONCOMING NURSE.
--- NOTE | 2019-07-07 19:10 | NUR ---
FITTER PLACER OPENING NOTE RECEIVE PATIENT IN BED. A/O X 1 TO SELF. ON OXYGEN 3L/MIN VIA NASAL CANNULA. RESPIRATIONS ARE EVEN AND UNLABORED. NO S/S SOB NOTED. NO S/S ASIF AT THIS TIME.DROPLET ISOLATION MAINTAINED AND OBSERVED FOR COVID 19 (+) EXTERNAL TELE MONITOR READS SINUS RHYTHM HR 98. IN NO APPARENT DISTRESS. IV ACCESS IN JULIA MIDLINE. PATIENT HAS BILATERAL SOFT WRIST RESTRAINTS, NO REDNESS NOTED, GOOD CAP REFIL, 2 FINGER BREATHS OF ROOM BETWEEN SKIN AND RESTRAINT. GTUBE IS PRESENT, ASPIRATED, 5ML RESIDUAL, FLUSHED WITH 200ML, NO RESISTANCE, RUNNING JEVITY1.2 @60ML/HR. BED IS LOW AND MIAH,D HOB ELEVATED IN HIGH FOWLERS, SIDE RIALS UP X3, BED ALARM ON. CALL LIGHT WITHIN REACH. WILL CONTINUE TO MONITOR.
[2019-07-08] VITALS (8 sets, daily range): BP systolic 91–112; BP diastolic 53–79
[2019-07-08] MEDS: LORAZEPAM INJ 2 MG/ML VIAL IV PRN (02:05)
[2019-07-08] MEDS: DILTIAZEM HCL 30 MG TABLET GT SCH ×3 (05:52→17:45)
--- NOTE | 2019-07-08 06:54 | NUR ---
ACCOUNTING FILE CLERK CLOSING NOTES PT REMAINS IN BED, INTERMITTENTLY DOZING OFF. PT ON SUPPLEMENTARY OXYGEN AT 2LPM, WITH NO ACUTE RESPIRATORY DISTRESS NOTED. ON TELEMONITORING SR 80. PIV TO JULIA MIDLINE, FLUSHED WITH NS, INTACT AND OPERATIONAL. ON GOING GT FEEDING JEVITY 1.2 AT 60 ML/HR. FC IN PLACE, TOTAL OUTPUT OF 550ML. PT KEPT COMFORTABLE. ALL NEEDS AND CARE ATTENDED. HOB ELEVATED. STILL ON BILATERAL WRIST RESTRAINT PT'S BED IN LOWEST, LOCKED POSITION WITH SR X3. CALL LIGHT KEPT WITHIN REACH. ENDORSED TO INCOMING NURSE FOR FABIOLA.
--- NOTE | 2019-07-08 07:30 | NUR ---
RN OPENING NOTE RECEIVED PATIENT FROM PM NURSE. PATIENT IS A/O X1, RESTING IN BED, ON OXYGEN VIA NC ON 3L, SATURATING WELL, TOLERATING WELL, NO S/S OF RESPIRATORY DISTRESS NOTED. PATIENT ON TELE MONITOR, CONTROLLED MD CALEB IS AWARE. PATIENT HAS HAD A BM, CLEANED PT AND CHANGED THE BED. PAGE IS IN PLACE, INTACT AND DRAINING URINE. GT FEEDING RUNNING ORDERED, JEVITY 1.2 @ 60CC/HR, TOLERATING WELL, NO RESIDUAL NOTED. JULAI MIDLINE IS INTACT, FLUSHED WELL, NO S.S OF INFECTION NOTED. ALL PATIENT NEEDS ATTENDED TO, SAFETY MAINTAINED, CALL LIGHT WITHIN REACH, WILL CONTINUE TO MONITOR.
[2019-07-08] MEDS: PANTOPRAZOLE 40 MG/PACK PACK GT SCH (08:23)
[2019-07-08] MEDS: LISINOPRIL (10MG) 10 MG TABLET GT SCH (09:14)
[2019-07-08] MEDS: CLOTRIMAZOLE 1% 15 GM TUBE TP SCH ×2 (09:14→17:09)
[2019-07-08] MEDS: FUROSEMIDE 20 MG TABLET GT SCH (09:14)
[2019-07-08] MEDS: Z GUARD REMEDY 2 OZ OINT TP SCH (09:15)
--- NOTE | 2019-07-08 10:00 | NUR ---
COMBINER OPERATOR NOTES PER DR. WINTER ALL COVID NEGATIVE PATIENTS NOT ON VENT MAY DC TELEMETRY.
[2019-07-08] MEDS: JEVITY 1.2 CAL 1,000 ML BOTTLE GT PRN (16:51)
--- NOTE | 2019-07-08 18:19 | NUR ---
RN NOTE NO CHANGES TO PATIENT CONDITION DURING MY SHIFT. PENDING PLACEMENT IN A FACILITY, ALL PATIENT NEEDS MET, CALL LIGHT WITHIN REACH, SAFETY MAINTAINED, WILL ENDORSE TO PM NURSE FOR CONTINUITY OF CARE.
--- NOTE | 2019-07-08 19:20 | NUR ---
SALES CLOSER OPENING NOTE RECEIVE PATIENT IN BED. A/O X 1 TO SELF. ON OXYGEN 3L/MIN VIA NASAL CANNULA. RESPIRATIONS ARE EVEN AND UNLABORED. NO S/S SOB NOTED. NO S/S PAIN AT THIS TIME.DROPLET ISOLATION MAINTAINED AND OBSERVED FOR COVID 19 (+) EXTERNAL TELE MONITOR READS SINUS RHYTHM HR 85. IN NO APPARENT DISTRESS. IV ACCESS IN JULIA MIDLINE. PATIENT HAS BILATERAL SOFT WRIST RESTRAINTS, NO REDNESS NOTED, GOOD CAP REFIL, 2 FINGER BREATHS OF ROOM BETWEEN SKIN AND RESTRAINT. GTUBE IS PRESENT, ASPIRATED, 5ML RESIDUAL, FLUSHED WITH 200ML, NO RESISTANCE, RUNNING JEVITY1.2 @60ML/HR. BED IS LOW AND MIAH,D HOB ELEVATED IN HIGH FOWLERS, SIDE RIALS UP X3, BED ALARM ON. CALL LIGHT WITHIN REACH. WILL CONTINUE TO MONITOR.
[2019-07-09] VITALS: BP_SYST 101; BP_SYST 110; BP_DIAS 62; BP_DIAS 63
[2019-07-09] MEDS: DILTIAZEM HCL 30 MG TABLET GT SCH ×4 (00:04→17:21)
[2019-07-09] MEDS ORDERED: Z GUARD REMEDY 4 OZ OINT TP ONE (00:11)
[2019-07-09] MEDS: Z GUARD REMEDY 2 OZ OINT TP PRN (01:50)
[2019-07-09 04:00] VITALS: BP 123/71
[2019-07-09 06:29] LABS: BASOPHILS # (AUTO) 0.1 /CMM (0.0-0.2); BASOPHILS % (AUTO) 1.3 % (0.0-2.0); EOSINOPHILS % (AUTO) 2.6 % (0.0-6.0); HEMATOCRIT 33 % (39-51); HEMOGLOBIN 10.8 g/dL (13.5-17.5); LYMPHOCYTES # (AUTO) 0.8 /CMM (0.8-4.8); LYMPHOCYTES % (AUTO) 8.6 % (20.0-44.0); MEAN CORPUSCULAR HGB CONC 33 g/dl (31.0-36.0); MEAN CORPUSCULAR VOLUME 92 fL (80-96); MONOCYTES # (AUTO) 0.9 /CMM (0.1-1.30); NEUTROPHILS # (AUTO) 6.8 /CMM (1.8-8.9); NEUTROPHILS % (AUTO) 77.5 % (43.0-81.0); PLATELET COUNT (AUTO) 171 /CMM (150-450); RED BLOOD CELL COUNT(AUTO) 3.58 MIL/uL (4.5-6.0); WHITE BLOOD COUNT (AUTO) 8.8 K/uL (4.3-11.0)
--- NOTE | 2019-07-09 06:44 | NUR ---
DELIVERY ROOM CLERK CLOSING NOTES PT REMAINS IN BED, INTERMITTENTLY DOZING OFF. PT ON SUPPLEMENTARY OXYGEN AT 2LPM, WITH NO ACUTE RESPIRATORY DISTRESS NOTED. ON TELEMONITORING SR 80. PIV TO JULIA MIDLINE, FLUSHED WITH NS, INTACT AND OPERATIONAL. ON GOING GT FEEDING JEVITY 1.2 AT 60 ML/HR. FC IN PLACE, TOTAL OUTPUT OF 500ML. PT KEPT COMFORTABLE. ALL NEEDS AND CARE ATTENDED. HOB ELEVATED. STILL ON BILATERAL WRIST RESTRAINT PT'S BED IN LOWEST, LOCKED POSITION WITH SR X3. CALL LIGHT KEPT WITHIN REACH. ENDORSED TO INCOMING NURSE FOR FABIOLA.
[2019-07-09 06:54] LABS: ALANINE AMINOTRANSFERASE 48 U/L (12-78); ALBUMIN 2.9 g/dL (3.4-5.0); ALKALINE PHOSPHATASE 49 U/L (46-116); ASPARTATE AMINOTRANSFERASE 29 U/L (15-37); BILIRUBIN,TOTAL 0.5 mg/dL (0.2-1.0); CALCIUM, SERUM 9.8 mg/dL (8.5-10.1); CARBON DIOXIDE 37 mmol/L (21-32); CHLORIDE 101 mmol/L (98-107); CREATININE 1.4 mg/dL (0.6-1.3); GLUCOSE 136 mg/dL (74-106); MAGNESIUM 2.3 mg/dL (1.8-2.4); PHOSPHORUS 3.9 mg/dL (2.5-4.9); POTASSIUM 4.7 mmol/L (3.5-5.1); SODIUM SERUM 142 mmol/L (136-145); TOTAL PROTEIN, SERUM 7.6 g/dL (6.4-8.2); UREA NITROGEN, BLOOD 78 mg/dL (7-18)
--- NOTE | 2019-07-09 07:43 | NUR ---
RN OPENING NOTES RECEIVED PATIENT IN STABLE CONDITION FROM PM NURSE. PATIENT RESTING IN BED, ON OXYGEN AT 3LPM, TOLERATING WELL, SATURATING WELL, NO SOB NOTED, NO ACUTE RESPIRATORY DISTRESS NOTED. PT ON TELE MONITOR, SR NOTED WITH CONTROLLED AFIB, HR IN THE 80S. A/OX 1, PT IS CONFUSED, ATTEMPTS TO GET OUT OF BED AND PULL ON LINES, PT IS ON BILATERAR WRIST RESTRAINTS. GT INTACT, NO S/S OF INFECTION NOTED, JEVITY 1.2 RUNNING @60CC/HR, TOLERATING WELL, NO RESIDUAL NOTED. SAFETY MAINTAINED, CALL LIGHT WITHIN REACH, WILL CONTINUE TO MONITOR.
[2019-07-09 08:00] VITALS: BP 106/67
[2019-07-09] MEDS: PANTOPRAZOLE 40 MG/PACK PACK GT SCH (08:12)
[2019-07-09] MEDS: CLOTRIMAZOLE 1% 15 GM TUBE TP SCH ×2 (09:04→17:21)
[2019-07-09] MEDS: FUROSEMIDE 20 MG TABLET GT SCH (09:04)
[2019-07-09] MEDS: Z GUARD REMEDY 2 OZ OINT TP SCH (09:04)
[2019-07-09] MEDS: LISINOPRIL (10MG) 10 MG TABLET GT SCH (09:04)
[2019-07-09] MEDS: JEVITY 1.2 CAL 1,000 ML BOTTLE GT PRN (09:17)
[2019-07-09 12:00] VITALS: BP 91/42
[2019-07-09 16:00] VITALS: BP 114/68
--- NOTE | 2019-07-09 19:09 | NUR ---
RN CLOSING NOTES NO ACUTE CHANGES TO PATIENT CONDITION DURING MY SHIFT. PATIENT IN STABLE CONDITION, REMAINED ON 3L O2 VIA NC, TOLERATING WELL, NO SOB NOTED, NO ACUTE DISTRESS NOTED. ALL PATIENT NEEDS MET, SAFETY WAS MAINTAINED, ALL SCHEDULED MEDS GIVEN ON TIME, CALL LIGHT WITHIN REACH, ENDORSED TO PM NURSE TO CONTINUE CARE.
[2019-07-09 20:00] VITALS: BP 97/65
[2019-07-10] VITALS: BP 114/89
[2019-07-10] MEDS: DILTIAZEM HCL 30 MG TABLET GT SCH ×5 (00:53→23:17)
[2019-07-10 04:00] VITALS: BP_SYST 105; BP_SYST 137; BP_DIAS 72
[2019-07-10 08:00] VITALS: BP 99/63
--- NOTE | 2019-07-10 08:10 | NUR ---
TELE/RN NOTE RECEIVED THE PATIENT AT 0800. THE PATIENT IS ALERT AND ORIENTED X1. RECEIVING OXYGEN AT 3L/MIN VIA NASAL CANNULA AND SATURATION IS AT 96%. RESPIRATION REGULAR AND UNLABORED. TELE BOX READING IS AFIB 85. GT FEEDING JEVITY 1.2 INFUSING AT 60ML/HR. JULIA MIDLINE PATENT AND SALINE LOCKED. BED LOW AND LOCKED. SIDE RAILS UP X3. CALL LIGHT WITHIN REACH. WILL CONTINUE TO MONITOR.
--- NOTE | 2019-07-10 08:56 | NUR ---
TELE/RN NOTE THE PATIENT WITH AN ORDER OF LEFT SOFT-WRIST RESTRAIN. NOTED THAT THE PATIENT IS ATTEMPTING TO PULL OUT LINES WITH RIGHT HAND TOO. RECEIVED NEW ORDER TO DISCONTINUE LEFT SOFT-WRITS RESTRAIN AND OBTAINED NEW ORDER OF BILATERAL SOFT-WRIST RESTRAIN. THE ORDERS READ BACK, VERIFIED. NOTED AND CARRIED OUT.
[2019-07-10] MEDS: LISINOPRIL (10MG) 10 MG TABLET GT SCH (09:00)
[2019-07-10] MEDS: CLOTRIMAZOLE 1% 15 GM TUBE TP SCH ×2 (09:00→17:22)
[2019-07-10] MEDS: FUROSEMIDE 20 MG TABLET GT SCH (09:28)
[2019-07-10] MEDS: PANTOPRAZOLE 40 MG/PACK PACK GT SCH (09:28)
[2019-07-10] MEDS: Z GUARD REMEDY 2 OZ OINT TP SCH (09:31)
[2019-07-10 12:00] VITALS: BP 105/71
[2019-07-10 16:00] VITALS: BP 105/72
--- NOTE | 2019-07-10 18:46 | NUR ---
TELE/RN NOTE THE PATIENT IS ALERT AND ORIENTED X1. RECEIVING OXYGEN AT 3L/MIN VIA NASAL CANNULA AND SATURATION IS AT 95%. NO MANIFESTATION OF DISTRESS NOTED. GT FEEDING JEVITY 1.2 INFUSING T 60ML/HR AND NO RESIDUAL NOTED. PAGE CATH DRAINING CLEAR, YELLOW COLOR URINE. NO BLADDER DISTENSION NOTED. JULIA MIDLINE PATENT AND SALINE LOCKED. BILATERAL SOFT-WRIST RESTRAINS ON PER ORDER, SKIN ASSESSMENT DONE AND NO SKIN BREAKDOWN NOTED AND NO S/S POOR CIRCULATION NOTED. BED LOW AND LOCKED. SIDE RAILS UP X3. CALL LIGHT WITHIN REACH. WILL ENDORSE TO OVEN TECHNICIAN.
--- NOTE | 2019-07-10 19:40 | NUR ---
RN OPENING NOTE RECEIVED PT A/O X 1. ON O2 VIA NC AT 3 L/MIN AND SATURATION IS AT 100%. NO S/S OF RESPIRATORY DISTRESS. GT FEEDING JEVITY 1.2 INFUSING AT 60ML/HR, NO RESIDUAL NOTED. PAGE CATH INTACT AND DRAINING YELLOW URINE. JULIA MIDLINE PATENT AND INTACT FLUSHING WELL. BILATERAL SOFT-WRIST RESTRAINTS ON PER ORDER, SKIN ASSESSMENT DONE AND NO SKIN BREAKDOWN NOTED. BED LOCKED AND IN LOWEST POSITION. SIDE RAILS UP X2. CALL LIGHT WITHIN REACH WILL CONTINUE TO MONITOR PT
[2019-07-10 20:00] VITALS: BP 109/65
[2019-07-10] MEDS: JEVITY 1.2 CAL 1,000 ML BOTTLE GT PRN (23:15)
[2019-07-11] VITALS: BP 118/64
[2019-07-11 04:00] VITALS: BP 100/58
[2019-07-11] MEDS: DILTIAZEM HCL 30 MG TABLET GT SCH ×4 (05:59→23:48)
--- NOTE | 2019-07-11 06:29 | NUR ---
RN CLOSING NOTE PT AWAKE A/O X 1. ON O2 VIA NC AT 3 L/MIN AND SATURATION CURRENTLY AT 98%. NO S/S OF RESPIRATORY DISTRESS. GT FEEDING JEVITY 1.2 INFUSING AT 60ML/HR, NO RESIDUAL NOTED. PAGE CATH INTACT AND DRAINING YELLOW URINE. JULIA MIDLINE PATENT AND INTACT FLUSHING WELL. BILATERAL SOFT-WRIST RESTRAINTS ON PER ORDER, SKIN ASSESSMENT DONE AND NO SKIN BREAKDOWN NOTED. BED LOCKED AND IN LOWEST POSITION. SIDE RAILS UP X2. CALL LIGHT WITHIN REACH WILL. ENDORSED TO AM RN FOR FABIOLA
[2019-07-11 06:40] LABS: BASOPHILS # (AUTO) 0.1 /CMM (0.0-0.2); EOSINOPHILS % (AUTO) 2.6 % (0.0-6.0); HEMATOCRIT 34 % (39-51); HEMOGLOBIN 10.9 g/dL (13.5-17.5); LYMPHOCYTES # (AUTO) 1.1 /CMM (0.8-4.8); LYMPHOCYTES % (AUTO) 12.5 % (20.0-44.0); MEAN CORPUSCULAR HGB CONC 32 g/dl (31.0-36.0); MEAN CORPUSCULAR VOLUME 92 fL (80-96); MONOCYTES # (AUTO) 1.1 /CMM (0.1-1.30); MONOCYTES % (AUTO) 11.8 % (2.0-12.0); NEUTROPHILS # (AUTO) 6.5 /CMM (1.8-8.9); NEUTROPHILS % (AUTO) 72.1 % (43.0-81.0); PLATELET COUNT (AUTO) 156 /CMM (150-450); RED BLOOD CELL COUNT(AUTO) 3.67 MIL/uL (4.5-6.0)
--- NOTE | 2019-07-11 07:00 | NUR ---
RN TELE1 A/O X1 CONFUSED, PATIENT ON NC, WITH 3L. SATURATING @ 95%> . ON EXTERNAL MONITOR WITH AFIB CONTROLLED IN THE 80'S . PAGE IN PLACE PATENT AND INTACT. PATIENT HAS SARAL REDNESS. COVEREDE WITH MEPILEX, ON BILATERAL WRIST RESTRAINT, NO SIGNS OF SKIN BREAKDOWN AND OR REDNESS ON THE AREA. PEG WITH JEVITY 1.2 @ 60 ML/HR, PATIENT HAS JULIA MIDLINE, PATENT AND INTACT,. NO SIGNS OF INFILTRATION, INFECTION, OR REDNESS. BED LOCKED LOWEST POSITION CALL LIGHT WITH IN REACH ALL SAFETY MEASURES IMPLEMENTED PER HOSPITAL POLICY
[2019-07-11 07:06] LABS: CALCIUM, SERUM 9.8 mg/dL (8.5-10.1); CARBON DIOXIDE 37 mmol/L (21-32); CHLORIDE 104 mmol/L (98-107); CREATININE 1.4 mg/dL (0.6-1.3); GLUCOSE 84 mg/dL (74-106); POTASSIUM 5.1 mmol/L (3.5-5.1); SODIUM SERUM 144 mmol/L (136-145)
[2019-07-11 07:25] LABS: UREA NITROGEN, BLOOD 80 mg/dL (7-18)
[2019-07-11 08:00] VITALS: BP 108/72
[2019-07-11] MEDS: PANTOPRAZOLE 40 MG/PACK PACK GT SCH (09:44)
[2019-07-11] MEDS: LISINOPRIL (10MG) 10 MG TABLET GT SCH (09:45)
[2019-07-11] MEDS: CLOTRIMAZOLE 1% 15 GM TUBE TP SCH ×2 (09:45→16:14)
[2019-07-11] MEDS: FUROSEMIDE 20 MG TABLET GT SCH (09:45)
[2019-07-11] MEDS: Z GUARD REMEDY 2 OZ OINT TP SCH (09:45)
[2019-07-11 12:00] VITALS: BP 123/88
[2019-07-11 16:00] VITALS: BP 102/88
[2019-07-11] MEDS: JEVITY 1.2 CAL 1,000 ML BOTTLE GT PRN (16:07)
--- NOTE | 2019-07-11 18:28 | NUR ---
RN TELE1 CLOSING PATIENT IS STABLE CONDITION AT THIS TIME, NO PAIN, NO ACUTE RESPIRATORY DISTRESS. BED LOCKED AND LOWEST POSITION CALL LIGHT WITH IN REACH ALL SAFETY MEASURE IMPLEMENTED PER HOSPITAL POLICY
--- NOTE | 2019-07-11 19:40 | NUR ---
JOINT FINISHER NOTES, PATIENT IN BED SLEEPING AT THIS TIME, ON NC AT 3L WITH OS SAT > 95%> , AFIB CONTROLLED ON TELE MONITOR WITH HR 70S- 80'S AT THIS TIME, PAGE IN PLACE PATENT AND INTACT, JULIA MIDLINE IN PLACED PATENT AND INTACT, ON BILATERAL SOFT WRIST RESTRAINT, NO S/S OF CIRCULATION COMPROMISED OR ABNORMALITY NOTED, PEG IN PLACED WITH JEVITY 1.2 AT 60 ML/HR PATIENT TOLERATED WELL, WITH MINIMAL RESIDUAL NOTED AT THIS TIME, BED LOCKED AND LOWEST POSITION, CALL LIGHT WITHIN REACH, ALL SAFETY MEASURES IMPLEMENTED, ISOLATION PRECAUTIONS FOR + COVID, WILL CONTINUE TO MONITOR CLOSELY.
[2019-07-11 20:00] VITALS: BP 96/66
[2019-07-12] VITALS: BP 126/99
[2019-07-12] MEDS: LORAZEPAM INJ 2 MG/ML VIAL IV PRN (02:50)
[2019-07-12 04:00] VITALS: BP 116/76
[2019-07-12] MEDS: DILTIAZEM HCL 30 MG TABLET GT SCH ×3 (05:35→17:33)
--- NOTE | 2019-07-12 06:33 | NUR ---
RN CLOSING NOTES, PATIENT IN BED SLEEPING AT THIS TIME, ON NC AT 3L WITH O2 SAT 95%-100%> , AFIB CONTROLLED ON TELE MONITOR WITH HR 70S- 80'S AT THIS TIME, CONTINUE ON BILATERAL SOFT WRIST RESTRAINT, NO S/S OF CIRCULATION COMPROMISED OR ABNORMALITY NOTED, ATIVAN GIVEN ONE TIME DURING SHIFT FOR AGITATION, BESIDES THAT, NO SIGNIFICANT CHANGE IN CONDITION, REMAINED STABLE WITH STABLE VS, REPOSITIONED AND CLEAN, BED LOCKED AND LOWEST POSITION, CALL LIGHT WITHIN REACH, ALL SAFETY MEASURES IMPLEMENTED, ISOLATION PRECAUTIONS FOR + COVID, WILL ENDORSE CONTINUITY OF CARE TO ONCOMING NURSE.
--- NOTE | 2019-07-12 07:00 | NUR ---
STEEL SASH ERECTOR NOTES, PATIENT IN BED SLEEPING AT THIS TIME, ON NC AT 3L WITH OS SAT > 95%> , AFIB CONTROLLED ON TELE MONITOR WITH HR 70S- 80'S AT THIS TIME, PAGE IN PLACE PATENT AND INTACT, JULIA MIDLINE IN PLACED PATENT AND INTACT, ON BILATERAL SOFT WRIST RESTRAINT, NO S/S OF CIRCULATION COMPROMISED OR ABNORMALITY NOTED, PEG IN PLACED WITH JEVITY 1.2 AT 60 ML/HR PATIENT TOLERATED WELL, WITH MINIMAL RESIDUAL NOTED AT THIS TIME, BED LOCKED AND LOWEST POSITION, CALL LIGHT WITHIN REACH, ALL SAFETY MEASURES IMPLEMENTED,
[2019-07-12 08:00] VITALS: BP 101/60
[2019-07-12] MEDS: PANTOPRAZOLE 40 MG/PACK PACK GT SCH (08:00)
[2019-07-12] MEDS: CLOTRIMAZOLE 1% 15 GM TUBE TP SCH ×2 (09:07→17:31)
[2019-07-12] MEDS: Z GUARD REMEDY 2 OZ OINT TP SCH (09:07)
[2019-07-12] MEDS: FUROSEMIDE 20 MG TABLET GT SCH (09:21)
[2019-07-12] MEDS: LISINOPRIL (10MG) 10 MG TABLET GT SCH (09:22)
[2019-07-12 12:00] VITALS: BP 110/72
[2019-07-12 16:00] VITALS: BP_SYST 100; BP_DIAS 62; BP_DIAS 70
--- NOTE | 2019-07-12 19:35 | NUR ---
RN Notes Received patient awake,confused,constantly moving in bed. HOB on 3 LPM O@ via NC with good saturation. Tele monitor reads A fib with heart rate at 89. GT intact with ongoing feeding tolerated well. Right upper arm midline intact. Bilateral wrist restraints on, with good circulation noted. Mccloud intact to gravity. Kept clean and dry. Will continue to monitor.
[2019-07-12 20:00] VITALS: BP_SYST 103; BP_DIAS 61; BP_DIAS 63
[2019-07-13] VITALS: BP 107/64
[2019-07-13 04:00] VITALS: BP 110/73
[2019-07-13] MEDS: DILTIAZEM HCL 30 MG TABLET GT SCH ×5 (05:37→23:29)
[2019-07-13 06:30] LABS: BASOPHILS # (AUTO) 0.1 /CMM (0.0-0.2); BASOPHILS % (AUTO) 1.2 % (0.0-2.0); EOSINOPHILS % (AUTO) 4.4 % (0.0-6.0); HEMATOCRIT 34 % (39-51); HEMOGLOBIN 11.3 g/dL (13.5-17.5); LYMPHOCYTES # (AUTO) 1.4 /CMM (0.8-4.8); LYMPHOCYTES % (AUTO) 17.4 % (20.0-44.0); MEAN CORPUSCULAR HGB CONC 33 g/dl (31.0-36.0); MEAN CORPUSCULAR VOLUME 92 fL (80-96); MONOCYTES # (AUTO) 0.8 /CMM (0.1-1.30); MONOCYTES % (AUTO) 10.5 % (2.0-12.0); NEUTROPHILS # (AUTO) 5.2 /CMM (1.8-8.9); NEUTROPHILS % (AUTO) 66.5 % (43.0-81.0); PLATELET COUNT (AUTO) 153 /CMM (150-450); RED BLOOD CELL COUNT(AUTO) 3.74 MIL/uL (4.5-6.0); WHITE BLOOD COUNT (AUTO) 7.8 K/uL (4.3-11.0)
--- NOTE | 2019-07-13 06:49 | NUR ---
RN Notes Patient sleep well overnight, vital signs stable, afebrile. Confused and constantly moving in bed. Telemonitor reads A. Fib. No signs of distress and discomfort noted. GT feeding tolerated well. Spoke with the son and daughter in law and wants another SARS COV 2 test. kept clean and dry. Repositioned per protocol. Will endorse for continuity of care.
[2019-07-13 06:54] LABS: CALCIUM, SERUM 9.9 mg/dL (8.5-10.1); CARBON DIOXIDE 39 mmol/L (21-32); CHLORIDE 103 mmol/L (98-107); CREATININE 1.5 mg/dL (0.6-1.3); GLUCOSE 87 mg/dL (74-106); SODIUM SERUM 146 mmol/L (136-145)
[2019-07-13 06:58] LABS: UREA NITROGEN, BLOOD 84 mg/dL (7-18)
[2019-07-13 08:00] VITALS: BP 135/57
--- NOTE | 2019-07-13 08:00 | NUR ---
PATIENT WAS RESTING IN ROOM ROOM WHEN I ARRIVED ON THE UNIT- NO S/S OF DISTRESS- AFEBRILE- NC IN USE-VITALS STABLE- SAFETY PRECAUTIONS IN PLACE- ISOLATION ROOM ACTIVE- WILL CONTINUE TO MONITOR REPORT AND RECORD
[2019-07-13] MEDS: FUROSEMIDE 20 MG TABLET GT SCH (08:26)
[2019-07-13] MEDS: PANTOPRAZOLE 40 MG/PACK PACK GT SCH (08:26)
[2019-07-13] MEDS: LISINOPRIL (10MG) 10 MG TABLET GT SCH (08:26)
[2019-07-13] MEDS: CLOTRIMAZOLE 1% 15 GM TUBE TP SCH ×2 (09:00→17:45)
[2019-07-13] MEDS: Z GUARD REMEDY 2 OZ OINT TP SCH (09:00)
[2019-07-13 12:00] VITALS: BP 102/75
--- NOTE | 2019-07-13 12:00 | NUR ---
patient resting in room- vitals stable- no s/s of distress- remain in restraints-safety precautions in place- will continue to monitor report and record
[2019-07-13 16:00] VITALS: BP 107/75
--- NOTE | 2019-07-13 19:01 | NUR ---
PROVIDED REPORT - PATIENT SAFE STABLE- TRANSFERRED TO 3W - OFFERED REPORT AND ENDORSED CARE
--- NOTE | 2019-07-13 19:02 | NUR ---
ENDORSED CARE TO PM RN - SAFETY PRECAUTIONS IN PLACE- VITALS STABLE -
--- NOTE | 2019-07-13 19:45 | NUR ---
[facility] SERVICER OPENING NOTES RECEIVED PATIENT RESTING IN BED COMFORTABLY; PATIENT ON 3L NC, TOLERATING WELL; NO SOB OR S/S OF ACUTE RESPIRATORY DISTRESS NOTED; PATIENT IS AWAKE, A/OX1 CONFUSED; PATIENT ON BILATERAL SOFT WRIST RESTRAINTS; SKIN INTACT, NO EVIDENCE OF SKIN BREAKDOWN NOTED; GTUBE IN PLACE, FLUSHING WELL; RUNNING JEVITY 1.2 @ 60ML/HR; JULIA MIDLINE INTACT AND PATENT; FLUSHING WELL, NO S/S OF REDNESS OR INFILTRATION; SAFETY PRECAUTIONS IMPLEMENTED; BED LOCKED IN LOW POSITION, SIDE RAILS X2; CALL LIGHT WITHIN REACH, WILL CONTINUE TO MONITOR
[2019-07-13 20:00] VITALS: BP_SYST 112; BP_SYST 122; BP_DIAS 76
[2019-07-14] VITALS (7 sets, daily range): BP systolic 102–137; BP diastolic 60–82
[2019-07-14] MEDS: LORAZEPAM INJ 2 MG/ML VIAL IV PRN (02:23)
--- NOTE | 2019-07-14 02:45 | NUR ---
IMPLEMENT MECHANIC NOTES PATIENT RESTLESS AND MOANING; ATIVAN ADMINISTERED ORDERED; SPO2 100% ON 3L NC; PATIENT TOLERATING NC WELL; WILL CONTINUE TO MONITOR
[2019-07-14] MEDS: DILTIAZEM HCL 30 MG TABLET GT SCH ×4 (06:00→23:55)
--- NOTE | 2019-07-14 06:28 | NUR ---
PHARMACEUTICAL REPRESENTATIVE CLOSING NOTES PATIENT IN BED, RESTING COMFORTABLY; A/OX1 CONFUSED; PATIENT GROANING AND IN DISTRESS; SP02 AT 100%, PATIENT TOLERATING 3L NC WELL; NO SOB NOTED, NO S/S OF ACUTE RESPIRATORY DISTRESS NOTED; TELE MONITOR READS AFIB WITH 73BPM; JULIA MIDLINE INTACT AND PATENT; FLUSHING WELL, NO S/S OF REDNESS OR INFILTRATION NOTED; GTUBE IN PLACE; RUNNING JEVITY 1.2 LUCAS AT 60ML/HR; NO NEW TUBE FEEDING FOUND IN KITCHEN; WILL ENDORSE TO ONCOMING NURSE; PAGE INTACT AND PATENT; FLOWING YELLOW URINE, OUTPUT OF 600ML THROUGHOUT SHIFT; ALL NEEDS RENDERED; SAFETY PRECAUTIONS IN PLACE; BILATERAL SOFT WRIST RESTRAINTS INTACT, NO S/S OR EVIDENCE OF SKIN BREAKDOWN; BED LOCKED IN LOW POSITION; SIDE RAILS X2; WILL ENDORSE FABIOLA TO ONCOMING NURSE
[2019-07-14 07:10] LABS: BASOPHILS # (AUTO) 0.2 /CMM (0.0-0.2); BASOPHILS % (AUTO) 2.4 % (0.0-2.0); EOSINOPHILS % (AUTO) 5.3 % (0.0-6.0); HEMATOCRIT 34 % (39-51); LYMPHOCYTES # (AUTO) 1.1 /CMM (0.8-4.8); LYMPHOCYTES % (AUTO) 16.3 % (20.0-44.0); MEAN CORPUSCULAR HGB CONC 32 g/dl (31.0-36.0); MEAN CORPUSCULAR VOLUME 93 fL (80-96); MONOCYTES # (AUTO) 0.7 /CMM (0.1-1.30); MONOCYTES % (AUTO) 10.6 % (2.0-12.0); NEUTROPHILS # (AUTO) 4.6 /CMM (1.8-8.9); NEUTROPHILS % (AUTO) 65.4 % (43.0-81.0); PLATELET COUNT (AUTO) 145 /CMM (150-450); RED BLOOD CELL COUNT(AUTO) 3.67 MIL/uL (4.5-6.0)
--- NOTE | 2019-07-14 07:12 | NUR ---
OLIVE KNOCKER NOTES BLOOD PRESSURE 102/75, CARDIZEM NOT GIVEN THROUGHOUT SHIFT; PAGED EPIC TO INFORM ABOUT PATIENT BLOOD PRESSURE
[2019-07-14 07:22] LABS: CALCIUM, SERUM 9.8 mg/dL (8.5-10.1); CARBON DIOXIDE 38 mmol/L (21-32); CHLORIDE 105 mmol/L (98-107); CREATININE 1.6 mg/dL (0.6-1.3); GLUCOSE 109 mg/dL (74-106); POTASSIUM 4.4 mmol/L (3.5-5.1); SODIUM SERUM 147 mmol/L (136-145)
--- NOTE | 2019-07-14 07:30 | NUR ---
wind energy project manager Notes Received patient in bed from night shift manager. Patient is COVID + saturating 100% on 3L Nasal Cannula. Alert and oriented to self. Speaks Uruguayan and Wallisian. Patient is in A-Fib 80s. In a diaper BMx1. Bed Rest, with restraints. BL Soft restraints on wrist. No skin breakdown. Jevity 1.2 monster running at 60mL per hour. Patient is currently medically stable for placement per MD, awaiting two negative COVID swabs. Bed in lowest and locked position. Call light within reach. Patient needs attended to.
[2019-07-14 07:31] LABS: UREA NITROGEN, BLOOD 83 mg/dL (7-18)
[2019-07-14] MEDS: PANTOPRAZOLE 40 MG/PACK PACK GT SCH (07:34)
[2019-07-14] MEDS: LISINOPRIL (10MG) 10 MG TABLET GT SCH (08:38)
[2019-07-14] MEDS: CLOTRIMAZOLE 1% 15 GM TUBE TP SCH ×2 (08:39→16:43)
[2019-07-14] MEDS: FUROSEMIDE 20 MG TABLET GT SCH (08:39)
[2019-07-14] MEDS: Z GUARD REMEDY 2 OZ OINT TP SCH (08:40)
[2019-07-14] MEDS: JEVITY 1.2 CAL 1,000 ML BOTTLE GT PRN (11:26)
--- NOTE | 2019-07-14 13:00 | NUR ---
back tufter Notes Per order from Robel Cordero MD, started IV fluids 100mL per hour. Patient stable and not in distress at this time.
--- NOTE | 2019-07-14 13:00 | NUR ---
secretarial stenographer Notes Robel Cordero MD has given verbal order should 4 point restraints be needed to protect patient from hurting himself trying to crawl out of siderails. Patient has been explained several times for his safety to only turn but to not try and get out of bed. Will continue to monitor.
[2019-07-14] MEDS: IV NS 0.9% 1,000 ML IV PRN ×2 (16:42→23:55)
--- NOTE | 2019-07-14 19:00 | NUR ---
assembly technician Notes Patient is in bed resting comfortably. No signs or symptoms of distress. UOP 550mL. Patient started on IVF 100mL/ HR . No acute events on shift. Will endorse to night shift supervisor. Bed in lowest position, call light within reach. All measures taken to ensure client safety.
--- NOTE | 2019-07-14 22:15 | NUR ---
WAGON DRIVER SALESPERSON OPENING NOTE RECEIVED REPORT FROM VAIBHAV FOR FABIOLA. PATIENT MR MORALES IN BED. A/O X 1 TO SELF. ON OXYGEN 3L/MIN VIA NASAL CANNULA. RESPIRATIONS ARE EVEN AND UNLABORED. NO S/S SOB NOTED. NO S/S ASIF AT THIS TIME.DROPLET ISOLATION MAINTAINED AND OBSERVED FOR COVID 19 (+) EXTERNAL TELE MONITOR READS SINUS RHYTHM HR 98. IN NO APPARENT DISTRESS. IV ACCESS IN JULIA MIDLINE. PATIENT HAS BILATERAL SOFT WRIST RESTRAINTS, NO REDNESS NOTED, GOOD CAP REFIL, 2 FINGER BREATHS OF ROOM BETWEEN SKIN AND RESTRAINT. GTUBE IS PRESENT, ASPIRATED, 5ML RESIDUAL, FLUSHED WITH 200ML, NO RESISTANCE, RUNNING JEVITY1.2 @60ML/HR. BED IS LOW AND MIAH,D HOB ELEVATED IN HIGH FOWLERS, SIDE RIALS UP X3, BED ALARM ON. CALL LIGHT WITHIN REACH. WILL CONTINUE TO MONITOR.
[2019-07-15] VITALS: BP 124/75
[2019-07-15] MEDS: Z GUARD REMEDY 2 OZ OINT TP PRN (03:29)
[2019-07-15 04:01] VITALS: BP 126/68
[2019-07-15] MEDS: DILTIAZEM HCL 30 MG TABLET GT SCH ×3 (06:47→17:41)
[2019-07-15] MEDS: PANTOPRAZOLE 40 MG/PACK PACK GT SCH (06:47)
--- NOTE | 2019-07-15 07:17 | NUR ---
VENEER GLUER CLOSING NOTES PT REMAINS IN BED, INTERMITTENTLY DOZING OFF. PT ON SUPPLEMENTARY OXYGEN AT 2LPM, WITH NO ACUTE RESPIRATORY DISTRESS NOTED. ON TELEMONITORING SR 80. PIV TO JULIA MIDLINE, FLUSHED WITH NS, INTACT AND OPERATIONAL. ON GOING GT FEEDING JEVITY 1.2 AT 60 ML/HR. FC IN PLACE, TOTAL OUTPUT OF 900ML. PT KEPT COMFORTABLE. ALL NEEDS AND CARE ATTENDED. HOB ELEVATED. STILL ON BILATERAL WRIST RESTRAINT PT'S BED IN LOWEST, LOCKED POSITION WITH SR X3. CALL LIGHT KEPT WITHIN REACH. ENDORSED TO INCOMING NURSE FOR FABIOLA.
--- NOTE | 2019-07-15 07:33 | NUR ---
SUPERINTENDENT TRANSMISSION OPENING NOTES RECEIVED PATIENT FROM PM NURSE, PT RESTING IN BED, A/O X1, PATIENT IS CONFUSED. ON 3L O2 VIA NC, SATURATING WELL AT 98%, NO SIGNS AND SYMPTOMS OF RESPIRATORY DISTRESS NOTED, BREATHING IS EVEN AND UNLABORED. ON TELE MONITOR, A FIB WITH HR IN THE 70S. JULIA MIDLINE, INTACT, PATENT, AND FLUSHED WELL. G TUBE IS INTACT, JEVITY 1.2 RUNNING ORDERED, TOLERATING WELL, NO RESIDUAL NOTED. NO S.S OF INFECTION NOTED. SAFETY MAINTAINED, CALL LIGHT WITHIN REACH, WILL CONTINUE TO MONITOR CLOSELY.
[2019-07-15 08:00] VITALS: BP 108/66
--- NOTE | 2019-07-15 08:15 | NUR ---
heel nail rasper Notes Received patient in bed from tire recapper. Patient is COVID + saturating 100% on 3L Nasal Cannula. Alert and oriented to self. Speaks Prydeinig and Romanian. Patient is in A-Fib 80s-90s. Bed Rest, with restraints. BL Soft restraints on wrist. No skin breakdown. Jevity 1.2 monster running at 60mL per hour. IV NS running at 100mL per hour. Midline intact and flushing well. Patient is currently medically stable for placement per MD, awaiting two negative COVID swabs. One to be done today. Bed in lowest and locked position. Call light within reach. Patient needs attended to.
[2019-07-15 08:38] LABS: BASOPHILS # (AUTO) 0.1 /CMM (0.0-0.2); BASOPHILS % (AUTO) 1.2 % (0.0-2.0); EOSINOPHILS % (AUTO) 6.1 % (0.0-6.0); HEMATOCRIT 31 % (39-51); HEMOGLOBIN 10.4 g/dL (13.5-17.5); LYMPHOCYTES # (AUTO) 0.8 /CMM (0.8-4.8); LYMPHOCYTES % (AUTO) 12.5 % (20.0-44.0); MEAN CORPUSCULAR HGB CONC 33 g/dl (31.0-36.0); MEAN CORPUSCULAR VOLUME 92 fL (80-96); MONOCYTES # (AUTO) 0.6 /CMM (0.1-1.30); MONOCYTES % (AUTO) 9.2 % (2.0-12.0); NEUTROPHILS # (AUTO) 4.8 /CMM (1.8-8.9); PLATELET COUNT (AUTO) 122 /CMM (150-450); RED BLOOD CELL COUNT(AUTO) 3.39 MIL/uL (4.5-6.0); WHITE BLOOD COUNT (AUTO) 6.8 K/uL (4.3-11.0)
[2019-07-15 09:05] LABS: CALCIUM, SERUM 8.9 mg/dL (8.5-10.1); CREATININE 1.3 mg/dL (0.6-1.3); POTASSIUM 4.2 mmol/L (3.5-5.1)
[2019-07-15] MEDS: FUROSEMIDE 20 MG TABLET GT SCH (09:42)
[2019-07-15] MEDS: LISINOPRIL (10MG) 10 MG TABLET GT SCH (09:43)
[2019-07-15] MEDS: Z GUARD REMEDY 2 OZ OINT TP SCH (09:44)
[2019-07-15] MEDS: CLOTRIMAZOLE 1% 15 GM TUBE TP SCH ×2 (09:45→17:40)
[2019-07-15] MEDS: IV NS 0.9% 1,000 ML IV PRN ×2 (11:03→20:34)
[2019-07-15 12:00] VITALS: BP 104/70
[2019-07-15 16:00] VITALS: BP 100/65
--- NOTE | 2019-07-15 19:00 | NUR ---
pipe line gauger Notes Patient is in bed resting comfortably. No signs or symptoms of distress. UOP 880mL. Patient on IVF 100mL/ HR . No acute events on shift. Will endorse to security shift supervisor. Bed in lowest position, call light within reach. All measures taken to ensure client safety.
--- NOTE | 2019-07-15 19:00 | NUR ---
pickling grader opening notes Received Pt from morning nurse. Pt is resting in bed comfortably. Pt is alert and orientedX1. Respiration is normal in 3 L NC. O2 sat is 100%. No SOB. No S/S of distress noted. JULIA midline is clean, intact, patent and infusing well NS @ 100 ml/hr. tele monitor showed a-fib hr at 72 bpm. bilateral soft wrist restraints are intact, skin is warm to touch and circulation is checked Q 2 hr. Turning and repositioning Q 2 hr. Tube feeding jevity 1.2 monster running at 60 ml/hr. Mccloud cath is intact, patent and draining yellow urine. Contact and droplet precautions are maintained. Safety precautions is maintained. Bed at low position, brakes locked, side rails upx2, bed alarm is on and call light is within reach. will continue to monitor.
[2019-07-15 20:00] VITALS: BP 111/69
[2019-07-16] VITALS (7 sets, daily range): BP systolic 107–136; BP diastolic 63–88
[2019-07-16] MEDS: LORAZEPAM INJ 2 MG/ML VIAL IV PRN ×2 (01:22→11:44)
--- NOTE | 2019-07-16 01:22 | NUR ---
plumber's assistant notes Pt is agitated, screaming, yelling, and kicking the pillows and blanket. Administered ativan inj 1mg/0.5 ml/ iv push as ordered for agitation and anxiety. VS is stable. O2 sat is 100%. Safety precautions is maintained. Will continue to monitor.
[2019-07-16] MEDS: DILTIAZEM HCL 30 MG TABLET GT SCH ×4 (05:35→17:37)
[2019-07-16 06:25] LABS: CALCIUM, SERUM 8.5 mg/dL (8.5-10.1); CREATININE 1.2 mg/dL (0.6-1.3); POTASSIUM 4.3 mmol/L (3.5-5.1)
[2019-07-16 06:35] LABS: BASOPHILS # (AUTO) 0.1 /CMM (0.0-0.2); BASOPHILS % (AUTO) 1.1 % (0.0-2.0); EOSINOPHILS % (AUTO) 9.3 % (0.0-6.0); HEMATOCRIT 31 % (39-51); LYMPHOCYTES # (AUTO) 0.9 /CMM (0.8-4.8); LYMPHOCYTES % (AUTO) 14.3 % (20.0-44.0); MEAN CORPUSCULAR HGB CONC 33 g/dl (31.0-36.0); MEAN CORPUSCULAR VOLUME 93 fL (80-96); MONOCYTES # (AUTO) 0.5 /CMM (0.1-1.30); MONOCYTES % (AUTO) 8.3 % (2.0-12.0); NEUTROPHILS # (AUTO) 4.2 /CMM (1.8-8.9); PLATELET COUNT (AUTO) 113 /CMM (150-450); RED BLOOD CELL COUNT(AUTO) 3.29 MIL/uL (4.5-6.0); WHITE BLOOD COUNT (AUTO) 6.3 K/uL (4.3-11.0)
--- NOTE | 2019-07-16 06:50 | NUR ---
fixed wing aircraft crew chief closing notes Pt is sleeping in bed comfortably. Pt is alert and orientedX1 with episode of confusion. Respiration is normal in 3 L NC. No SOB. No S/S of distress noted. VS is stable. JULIA midline is clean, intact, patent and infusing well NS @ 100 ml/hr. tele monitor showed a-fib hr at 77 bpm. Bilateral soft wrist restraints are intact, skin is warm to touch and circulation is checked Q 2 hr. Turning and repositioning Q 2 hr. Skin care provided. Kept Pt clean, dry and comfortable. Tube feeding jevity 1.2 monster running at 60 ml/hr. Pt tolerated well. Mccloud cath is intact, patent and draining yellow urine. Contact and droplet precautions are maintained. Safety precautions is maintained. Bed at low position, brakes locked, side rails upx2, bed alarm is on and call light is within reach. Will endorse to morning nurse for FABIOLA.
--- NOTE | 2019-07-16 07:30 | NUR ---
RN OPENING NOTE RECEIVED PATIENT IN BED. NO ACUTE DISTRESS NOTED. A&OX1, PT. IS CONFUSED. ON 3L O2 VIA NC, IS SATURATING WELL AT 96%. BREATHING IS EVEN AND UNLABORED. PT. IS ON TELE MONITOR, A. FIB NOTED, HR OF 77. PAGE IN PLACE, INTACT, PATENT, DRAINING CLEAR YELLOW URINE. PT. IS IN BILATERAL SOFT WRIST RESTRAINTS, SAFETY MEASURES IN PLACE. EVALUATED PER UNIT PROTOCOL. IV JULIA MIDLINE RUNNING NS AT 100ML/HR, IS INTACT, PATENT, AND FLUSHED WELL, WITH NO S/S OF INFECTION. SAFETY MAINTAINED. CALL LIGHT WITHIN REACH. WILL CONTINUE TO ROUND AND MONITOR CLOSELY.
[2019-07-16] MEDS: PANTOPRAZOLE 40 MG/PACK PACK GT SCH (08:22)
[2019-07-16] MEDS: FUROSEMIDE 20 MG TABLET GT SCH (09:09)
[2019-07-16] MEDS: LISINOPRIL (10MG) 10 MG TABLET GT SCH (09:09)
[2019-07-16] MEDS: CLOTRIMAZOLE 1% 15 GM TUBE TP SCH ×2 (09:10→17:37)
[2019-07-16] MEDS: Z GUARD REMEDY 2 OZ OINT TP SCH (09:10)
--- NOTE | 2019-07-16 19:59 | NUR ---
RN NOTE PATIENT STABLE THROUGHOUT SHIFT. NO ACUTE CHANGES NOTED. WILL CONTINUE TAKING CARE OF THE PATIENT UNTIL NEXT SHIFT. SAFETY MAINTAINED, CALL LIGHT WITHIN REACH, WILL CONTINUE TO MONITOR.
[2019-07-17] VITALS (7 sets, daily range): BP systolic 91–130; BP diastolic 60–87
[2019-07-17] MEDS: JEVITY 1.2 CAL 1,000 ML BOTTLE GT PRN ×2 (00:06→23:15)
[2019-07-17] MEDS: DILTIAZEM HCL 30 MG TABLET GT SCH ×4 (00:06→16:59)
[2019-07-17] MEDS: LORAZEPAM INJ 2 MG/ML VIAL IV PRN ×3 (03:20→23:16)
--- NOTE | 2019-07-17 06:09 | NUR ---
RN CLOSING NOTES PATIENT REMAINED IN STABLE CONDITION DURING MY SHIFT. NO ACUTE CHANGES TO PATIENT CONDITION THROUGHOUT MY SHIFT. PATIENT REMAINED ON OXYGEN VIA NC, TOLERATED WELL WITH SATURATION AT 100%. ATIVAN WAS GIVEN AT 0330 FOR ANXIETY, PATIENT WAS KICKING AROUND IN BED AND WAS ATTEMPTING TO GET OUT OF WRIST RESTRAINTS. ATIVAN WAS EFFECTIVE WITH HELPING THE PATIENT RELAX. PT KEPT CLEAN AND DRY. SAFETY WAS MAINTAINED, CALL LIGHT WITHIN REACH, WILL ENDORSE TO AM NURSE TO CONTINUE CARE.
[2019-07-17 06:54] LABS: BASOPHILS # (AUTO) 0.1 /CMM (0.0-0.2); BASOPHILS % (AUTO) 1.1 % (0.0-2.0); HEMATOCRIT 32 % (39-51); HEMOGLOBIN 10.5 g/dL (13.5-17.5); LYMPHOCYTES # (AUTO) 1.2 /CMM (0.8-4.8); LYMPHOCYTES % (AUTO) 17.1 % (20.0-44.0); MEAN CORPUSCULAR HGB CONC 33 g/dl (31.0-36.0); MEAN CORPUSCULAR VOLUME 93 fL (80-96); MONOCYTES # (AUTO) 0.6 /CMM (0.1-1.30); MONOCYTES % (AUTO) 8.9 % (2.0-12.0); NEUTROPHILS # (AUTO) 4.4 /CMM (1.8-8.9); NEUTROPHILS % (AUTO) 63.9 % (43.0-81.0); PLATELET COUNT (AUTO) 116 /CMM (150-450); RED BLOOD CELL COUNT(AUTO) 3.43 MIL/uL (4.5-6.0); WHITE BLOOD COUNT (AUTO) 6.8 K/uL (4.3-11.0)
[2019-07-17 07:08] LABS: BILIRUBIN,TOTAL 0.4 mg/dL (0.2-1.0); CALCIUM, SERUM 8.9 mg/dL (8.5-10.1); CREATININE 1.1 mg/dL (0.6-1.3); MAGNESIUM 2.1 mg/dL (1.8-2.4); PHOSPHORUS 2.6 mg/dL (2.5-4.9)
--- NOTE | 2019-07-17 08:00 | NUR ---
RN NOTES RECEIVED PATIENT IN THE ROOM A/O X1 WHEN CALLED NAME, TELE [id number], ANXIOUS, YELLING, ON OR 2LNC, PATIENT HAS NO ACUTE RESPIRATORY DISTRESS, V/S STABLE, GT INFUSING 24 HR INTACT 60 ML/HR, RESIDUAL, AND PLACEMENT CHECKED, MEDICATION GIVEN VIA GT, HOB KEEP ELEVATED FOR ASPIRATION PRECAUTION,PATIENT HAS SOFT RESTRAIN CHECKED CIRCULATION. ASSIST PATIENT TURN AND REPOSTION Q 2 HR, F/C DRAINING LIGHT YELLOW OUTPUT. PATIENT ISOLATION OF COVID+, ASSIST TURN AND REPOSTION Q 2 HR.
[2019-07-17] MEDS: PANTOPRAZOLE 40 MG/PACK PACK GT SCH (09:31)
[2019-07-17] MEDS: FUROSEMIDE 20 MG TABLET GT SCH (09:31)
[2019-07-17] MEDS: CLOTRIMAZOLE 1% 15 GM TUBE TP SCH ×2 (09:32→16:59)
[2019-07-17] MEDS: LISINOPRIL (10MG) 10 MG TABLET GT SCH (09:32)
[2019-07-17] MEDS: Z GUARD REMEDY 2 OZ OINT TP SCH (09:33)
--- NOTE | 2019-07-17 09:33 | NUR ---
RN NOTES ADMINISTERED ATIVAN 1 MG /ML IV PUSH FOR ANXIETY, YELLING, SCREAMING, V/S TAKEN BP 130/82, P-79.
[2019-07-17] MEDS: ACETAMINOPHEN ES 500 MG TABLET GT PRN ×2 (13:10→23:18)
--- NOTE | 2019-07-17 13:10 | NUR ---
RN NOTES ADMINISTERED TYLENOL 500 MG VIA GT FOR GENERALIZED PAIN PER PATIENT REQUEST. ALSO ADMINISTERED SCHEDULED MEDICATION, PATIENT TOLERATING FEEDING WELL, KEEP HOB ELEVATED FOR ASPIRATION PRECAUTION. INFUSED 200 ML OF WATER Q6 HR PRESCRIBED.
--- NOTE | 2019-07-17 16:00 | NUR ---
RN NOTES MEDICATION WERE ADMINISTERED FOR PAIN EFFECTIVE, V/S STABLE, ASSIST TURN AND REPOSTION Q 2 HR. KEEP HOB ELEVATED FOR ASPIRATION PRECAUTION.
--- NOTE | 2019-07-17 18:28 | NUR ---
RN NOTES PATIENT IN THE BED, ADMINISTERED SCHEDULED MEDICATION, V/S STABLE, ASSIST TURN AND REPOSTION Q 2 HR, GT FEEDING INTACT PATIENT TOLERATING WELL, ASSIST TURN AND REPOSTION Q 2 HR., KEEP HOB ELEVATED ASPIRATION PRECAUTION, CALL LIGHT WITHIN TO REACH, CHECKED CIRCULATION ON SOFT RESTRAIN BOTH WRISTS. ENDORSED ONCOMING NURSE FOLLOW PLAN OF CARE.
--- NOTE | 2019-07-17 19:15 | NUR ---
RN PM TELE OPENING NOTE REPORT RECIEVED FROM SANTOSH MAKI. PATIENT IN THE BED, BILATERAL SOFT WRIST RESTRAINTS ON, PATIENT IN NO APPARENT DISTRESS. ON ISOFLEX AIR MATTRESS. SKIN PRECAUTIONS IN PLACE, ASSIST TURN AND REPOSTION Q 2 HR, GT FEEDING INFUSING AT 60 ML AN HOUR,KEEP HOB ELEVATED ASPIRATION PRECAUTIONS IN PLACE, CALL LIGHT WITHIN REACH, CHECKED CIRCULATION ON SOFT RESTRAIN BOTH WRISTS. ON DROPLET/COVID 19 PRECAUTIONS WILL CONT TO MONITOR. TELE MONITORING PT AFIB AT 65.
--- NOTE | 2019-07-17 23:18 | NUR ---
tyelenol administered ativan administered prn as ordered patient yelling out appears uncomfortable yelling out in bed. flacc of 3. tyelneol administered per orders. ativan adminstered prn d/t patient being agitated. patient repositiioned for comfort will cont to monitor.
[2019-07-18] VITALS: BP 115/87
--- NOTE | 2019-07-18 | NUR ---
right upper arm midline dressing coming undone. dressing changed per protocol. midline catheter noted to have 3/4 inch exposed, covered with biopatch and sterile dressing applied. catheter flushes and blood return is present. will cont to monitor. no signs of infiltration present.
[2019-07-18] MEDS: DILTIAZEM HCL 30 MG TABLET GT SCH ×5 (00:01→23:53)
[2019-07-18 04:00] VITALS: BP 118/70
[2019-07-18 06:37] LABS: BASOPHILS # (AUTO) 0.1 /CMM (0.0-0.2); BASOPHILS % (AUTO) 1.3 % (0.0-2.0); EOSINOPHILS % (AUTO) 9.5 % (0.0-6.0); HEMATOCRIT 32 % (39-51); HEMOGLOBIN 10.6 g/dL (13.5-17.5); LYMPHOCYTES # (AUTO) 1.4 /CMM (0.8-4.8); LYMPHOCYTES % (AUTO) 20.2 % (20.0-44.0); MEAN CORPUSCULAR HGB CONC 34 g/dl (31.0-36.0); MEAN CORPUSCULAR VOLUME 93 fL (80-96); MONOCYTES # (AUTO) 0.4 /CMM (0.1-1.30); MONOCYTES % (AUTO) 6.2 % (2.0-12.0); NEUTROPHILS # (AUTO) 4.4 /CMM (1.8-8.9); NEUTROPHILS % (AUTO) 62.8 % (43.0-81.0); PLATELET COUNT (AUTO) 121 /CMM (150-450); RED BLOOD CELL COUNT(AUTO) 3.42 MIL/uL (4.5-6.0)
[2019-07-18 07:01] LABS: CALCIUM, SERUM 8.9 mg/dL (8.5-10.1); CREATININE 1.1 mg/dL (0.6-1.3); PHOSPHORUS 2.8 mg/dL (2.5-4.9); POTASSIUM 3.9 mmol/L (3.5-5.1)
--- NOTE | 2019-07-18 07:45 | NUR ---
PLUG SHAPER HAND NOTES PATIENT AWAKE IN BED, SCREAMING AT TIMES. NO RESPIRATORY DISTRESS, ON NC WITH O2 AT 2LPM. PATIENT ON SCOW DERRICK OPERATOR AFIB 80. PATIENT WITH NO S/S OF DISCOMFORT OR PAIN AT THIS TIME, REPOSITIONED, BILAT SOFT WRIST RESTRAINTS ON, CHECKED FOR REDNESS AND CIRCULATION. SKIN WARM TO TOUCH, IV ACCESS SITE INTACT AND PATENT. PATIENT'S NEEDS ATTENDED, BED ON LOWEST LOCKED POSITION, CALL LIGHT WITHIN REACH. WILL CONTINUE TO MONITOR.
[2019-07-18 08:00] VITALS: BP 119/66
[2019-07-18] MEDS: FUROSEMIDE 20 MG TABLET GT SCH (08:24)
[2019-07-18] MEDS: PANTOPRAZOLE 40 MG/PACK PACK GT SCH (08:24)
[2019-07-18] MEDS: CLOTRIMAZOLE 1% 15 GM TUBE TP SCH ×2 (08:25→16:50)
[2019-07-18] MEDS: LISINOPRIL (10MG) 10 MG TABLET GT SCH (08:25)
[2019-07-18] MEDS: Z GUARD REMEDY 2 OZ OINT TP SCH (08:25)
[2019-07-18] MEDS: LORAZEPAM INJ 2 MG/ML VIAL IV PRN ×2 (08:33→16:30)
[2019-07-18 12:00] VITALS: BP 126/74
[2019-07-18 16:00] VITALS: BP 132/86
--- NOTE | 2019-07-18 19:01 | NUR ---
KINDERGARTEN TUTOR NOTES PATIENT RESTING IN BED. NO RESPIRATORY DISTRESS, ON NC WITH O2 AT 2LPM. PATIENT ON FURNITURE SANDER AFIB 80. PATIENT WITH NO S/S OF DISCOMFORT OR PAIN AT THIS TIME, REPOSITIONED, BILAT SOFT WRIST RESTRAINTS ON, CHECKED FOR REDNESS AND CIRCULATION. SKIN WARM TO TOUCH, IV ACCESS SITE INTACT AND PATENT. PATIENT'S NEEDS ATTENDED, BED ON LOWEST LOCKED POSITION, CALL LIGHT WITHIN REACH. WILL ENDORSE TO ONCOMING NURSE.
--- NOTE | 2019-07-18 19:20 | NUR ---
GREEN MATERIAL VALUE ADDED ASSESSOR OPENING NOTES PATIENT AWAKE IN BED. A/OX1. ON 2L NC; SPO2 97%. NO S/S OF ACUTE RESPIRATORY DISTRESS OR PAIN NOTED. TELE MONITOR READING AFIB, HEART RATE 84. RIGHT UPPER ARM MIDLINE PRESENT, INTACT & PATENT, HEP LOCKED. BILATERAL SOFT WRIST RESTRAINTS PRESENT, SKIN CIRCULATION WNL. PAGE CATH PRESENT, DRAINING WELL. DROPLET/CONTACT PRECAUTIONS IN PLACE FOR POSITIVE COVID 19. SAFETY MEASURES IN PLACE AND PATIENT'S NEEDS MET. BED LOCKED, ALARM ON, SIDE RAILS X3, CALL LIGHT WITHIN REACH. WILL CONTINUE TO MONITOR.
[2019-07-18 20:00] VITALS: BP 132/77
[2019-07-19] VITALS (7 sets, daily range): BP systolic 98–127; BP diastolic 63–73
[2019-07-19] MEDS: JEVITY 1.2 CAL 1,000 ML BOTTLE GT PRN ×2 (05:12→21:41)
[2019-07-19] MEDS: DILTIAZEM HCL 30 MG TABLET GT SCH ×3 (05:16→17:00)
[2019-07-19 06:49] LABS: BASOPHILS # (AUTO) 0.1 /CMM (0.0-0.2); BASOPHILS % (AUTO) 1.1 % (0.0-2.0); EOSINOPHILS % (AUTO) 9.5 % (0.0-6.0); HEMATOCRIT 34 % (39-51); HEMOGLOBIN 11.2 g/dL (13.5-17.5); LYMPHOCYTES # (AUTO) 1.7 /CMM (0.8-4.8); LYMPHOCYTES % (AUTO) 20.1 % (20.0-44.0); MEAN CORPUSCULAR HGB CONC 33 g/dl (31.0-36.0); MEAN CORPUSCULAR VOLUME 93 fL (80-96); MONOCYTES # (AUTO) 0.6 /CMM (0.1-1.30); MONOCYTES % (AUTO) 7.2 % (2.0-12.0); NEUTROPHILS # (AUTO) 5.4 /CMM (1.8-8.9); NEUTROPHILS % (AUTO) 62.1 % (43.0-81.0); PLATELET COUNT (AUTO) 142 /CMM (150-450); RED BLOOD CELL COUNT(AUTO) 3.63 MIL/uL (4.5-6.0); WHITE BLOOD COUNT (AUTO) 8.7 K/uL (4.3-11.0)
--- NOTE | 2019-07-19 06:53 | NUR ---
FARM TRACTOR OPERATOR CLOSING NOTES PATIENT AWAKE IN BED. A/OX1. NO CHANGES DURING SHIFT. REMAINS STABLE ON 2L NC; SPO2 100. TELE MONITOR READING AFIB, HEART RATE 77. RIGHT UPPER ARM MIDLINE PRESENT, INTACT & PATENT, HEP LOCKED. BILATERAL SOFT WRIST RESTRAINTS PRESENT, SKIN CIRCULATION WNL. PAGE CATH PRESENT, 1400 ML OF CLEAR YELLOW URINE DRAINED FROM BAG. DROPLET/CONTACT PRECAUTIONS IN PLACE FOR POSITIVE COVID 19. SAFETY MEASURES IN PLACE AND PATIENT'S NEEDS MET. BED LOCKED, ALARM ON, SIDE RAILS X3, CALL LIGHT WITHIN REACH. WILL ENDORSE TO DAY SHIFT NURSE PLAN OF CARE.
[2019-07-19 07:10] LABS: CALCIUM, SERUM 9.1 mg/dL (8.5-10.1); CREATININE 1.1 mg/dL (0.6-1.3); PHOSPHORUS 3.5 mg/dL (2.5-4.9); POTASSIUM 5.1 mmol/L (3.5-5.1)
--- NOTE | 2019-07-19 08:00 | NUR ---
ORCHESTRA LEADER OPENING NOTES RECEIVED PT IN BED AWAKE IN BED. A/OX1. ON 2L NC; SPO2 97%. NO CARDIAC OR RESPIRATORY DISTRESS NOTED. NO COMPLAINTS OF PAIN OR DISCOMFORT. TELE MONITOR READING AFIB, HEART RATE 78. RIGHT UPPER ARM MIDLINE PRESENT, INTACT & PATENT, HEP LOCKED. BILATERAL SOFT WRIST RESTRAINTS PRESENT, SKIN CIRCULATION WNL. NO S/S OF SKIN BREAKDOWN UNDER SOFT RESTRAINTS NOTED. PAGE CATH PRESENT, INTACT AND PATENT AND DRAINING WELL. DROPLET/CONTACT PRECAUTIONS IN PLACE FOR POSITIVE COVID 19. SAFETY MEASURES IN PLACE AND PATIENT'S NEEDS MET. BED LOCKED, ALARM ON, SIDE RAILS X3, CALL LIGHT WITHIN REACH. WILL CONTINUE TO MONITOR.
[2019-07-19] MEDS: CLOTRIMAZOLE 1% 15 GM TUBE TP SCH ×2 (08:12→16:40)
[2019-07-19] MEDS: Z GUARD REMEDY 2 OZ OINT TP SCH (08:12)
[2019-07-19] MEDS: FUROSEMIDE 20 MG TABLET GT SCH (08:12)
[2019-07-19] MEDS: PANTOPRAZOLE 40 MG/PACK PACK GT SCH (08:12)
[2019-07-19] MEDS: LISINOPRIL (10MG) 10 MG TABLET GT SCH (08:12)
[2019-07-19] MEDS: LORAZEPAM INJ 2 MG/ML VIAL IV PRN ×2 (08:30→17:15)
--- NOTE | 2019-07-19 16:00 | NUR ---
O2 TITRATION O2 TITRATED. PT PLACED ON ROOM AIR. SATURATING AT 96-97%. WILL RECHECK IN 1 HR.
--- NOTE | 2019-07-19 17:00 | NUR ---
PT PLACED ON ROOM AIR PT STILL SATURATING AT 97% ON ROOM AIR. NO SOB NOTED. SATURATING WELL ON ROOM AIR.
--- NOTE | 2019-07-19 18:00 | NUR ---
ATIVAN ADMINISTERED ATIVAN ADMINISTERED D/2 RESTLESSNESS, AGITATION. SCREAMING AND YELLING. SATURATING WELL ON ROOM AIR. O2 SAT AT 97-98% ON ROOM AIR.
--- NOTE | 2019-07-19 18:19 | NUR ---
SUPERVISOR FILES CLOSING NOTES PT IN BED AWAKE IN BED. A/OX1. ON 2L NC; SPO2 97% ON ROOM AIR. NO CARDIAC OR RESPIRATORY DISTRESS NOTED. NO COMPLAINTS OF PAIN OR DISCOMFORT. TELE MONITOR READING AFIB, HEART RATE 70S. RIGHT UPPER ARM MIDLINE PRESENT, INTACT & PATENT, HEP LOCKED. BILATERAL SOFT WRIST RESTRAINTS PRESENT, SKIN CIRCULATION WNL. NO S/S OF SKIN BREAKDOWN UNDER SOFT RESTRAINTS NOTED. PAGE CATH PRESENT, INTACT AND PATENT AND DRAINING WELL. DROPLET/CONTACT PRECAUTIONS IN PLACE FOR POSITIVE COVID 19. SAFETY MEASURES IN PLACE AND PATIENT'S NEEDS MET. BED LOCKED, ALARM ON, SIDE RAILS X3, CALL LIGHT WITHIN REACH. ALL NEEDS MET AND ATTENDED. .
--- NOTE | 2019-07-19 19:21 | NUR ---
MEDICAL BILLING ASSOCIATE PATIENT IN BED A/O X 1 MAINTAINS ISOLATION STABLE AND NOT IN DISTRESS. SAFETY MEASURES IN PLACE. WILL CONTINUE TO MONITOR
[2019-07-20] VITALS (9 sets, daily range): BP systolic 106–133; BP diastolic 54–76
[2019-07-20] MEDS: DILTIAZEM HCL 30 MG TABLET GT SCH ×4 (00:29→17:53)
--- NOTE | 2019-07-20 05:40 | NUR ---
ASLEEP AND EASILY AWAKEN, SLEPT WELL, ON CARDIAC MONITORING CONTROLLED A-FIB 80'S HR IN TELE MONITOR. ALL NEEDS ATTENDED AND ANTICIPATED, KEPT CLEAN, DRY AND COMFORTABLE. REPOSITION EVERY 2 HOURS. NO S/S OF DISTRESS. MAINTAINS ISOLATION PRECAUTION AT ALL TIMES. BILATERAL SOFT WRIST RESTRAINT WITH NO IMPAIRED CIRCULATION, SAFETY MEASURES AT ALL TIMES. WILL ENDORSE TO NEXT SHIFT.
[2019-07-20 06:47] LABS: BASOPHILS # (AUTO) 0.1 /CMM (0.0-0.2); EOSINOPHILS % (AUTO) 7.3 % (0.0-6.0); HEMATOCRIT 34 % (39-51); HEMOGLOBIN 11.2 g/dL (13.5-17.5); LYMPHOCYTES # (AUTO) 1.8 /CMM (0.8-4.8); LYMPHOCYTES % (AUTO) 20.5 % (20.0-44.0); MEAN CORPUSCULAR HGB CONC 33 g/dl (31.0-36.0); MEAN CORPUSCULAR VOLUME 93 fL (80-96); MONOCYTES # (AUTO) 0.6 /CMM (0.1-1.30); MONOCYTES % (AUTO) 7.1 % (2.0-12.0); NEUTROPHILS # (AUTO) 5.7 /CMM (1.8-8.9); NEUTROPHILS % (AUTO) 64.1 % (43.0-81.0); PLATELET COUNT (AUTO) 141 /CMM (150-450); RED BLOOD CELL COUNT(AUTO) 3.65 MIL/uL (4.5-6.0); WHITE BLOOD COUNT (AUTO) 8.9 K/uL (4.3-11.0)
[2019-07-20 07:19] LABS: CALCIUM, SERUM 9.3 mg/dL (8.5-10.1); CREATININE 1.3 mg/dL (0.6-1.3); PHOSPHORUS 3.2 mg/dL (2.5-4.9); POTASSIUM 5.2 mmol/L (3.5-5.1)
[2019-07-20] MEDS: ACETAMINOPHEN ES 500 MG TABLET GT PRN (08:22)
[2019-07-20] MEDS: FUROSEMIDE 20 MG TABLET GT SCH (08:22)
[2019-07-20] MEDS: PANTOPRAZOLE 40 MG/PACK PACK GT SCH (08:22)
[2019-07-20] MEDS: LISINOPRIL (10MG) 10 MG TABLET GT SCH (08:23)
[2019-07-20] MEDS: Z GUARD REMEDY 2 OZ OINT TP SCH (08:37)
[2019-07-20] MEDS: CLOTRIMAZOLE 1% 15 GM TUBE TP SCH ×2 (08:37→16:50)
--- NOTE | 2019-07-20 19:17 | NUR ---
Handoff with night team registered nurse. Vinay Harris RN
--- NOTE | 2019-07-20 19:35 | NUR ---
WAITER/WAITRESS NOTES PATIENT IN BED, ALERT AND ORIENTED X 1. BREATHING EVEN AND UNLABORED ON 2L NC. SHOWS NO SIGNS OF ACUTE RESPIRATORY DISTRESS, NO ACUTE PAIN. TELE MONITOR AFIB 99HR. JULIA MIDLINE IS CLEAN DRY AND INTACT. SHOWS NO SIGNS OF INFILTRATION, NO REDNESS. GTUBE PULLED OUT, PT IS NPO EXCEPT MEDS. MD IS AWARE OF GTUBE. BILATERAL SOFT WRIST RESTRAINT NO SKIN TEAR AND S/S OF POOR CIRCULATION. SAFETY PRECAUTIONS IN PLACE. BED IN LOWEST POSITION, LOCKED, AND CALL LIGHT KEPT WITHIN REACH. WILL CONTINUE TO MONITOR.
[2019-07-20] MEDS: LORAZEPAM INJ 2 MG/ML VIAL IV PRN (23:39)
[2019-07-21] VITALS (7 sets, daily range): BP systolic 123–135; BP diastolic 60–84
[2019-07-21] MEDS: DILTIAZEM HCL 30 MG TABLET GT SCH ×4 (00:41→17:10)
--- NOTE | 2019-07-21 06:32 | NUR ---
WHITE KID BUFFER NOTES PATIENT IN BED, ASLEEP, ALERT AND ORIENTED X 1. BREATHING EVEN AND UNLABORED ON 2L NC. SHOWS NO SIGNS OF ACUTE RESPIRATORY DISTRESS, NO ACUTE PAIN. TELE MONITOR AFIB 82HR. JULIA MIDLINE IS CLEAN DRY AND INTACT. SHOWS NO SIGNS OF INFILTRATION, NO REDNESS. GTUBE PULLED OUT, PT IS NPO EXCEPT MEDS. PAGE CATHETER INTACT FLOWING URINE. BILATERAL SOFT WRIST RESTRAINT NO SKIN TEAR AND S/S OF POOR CIRCULATION. ALL DUE MEDICATIONS GIVEN. SAFETY PRECAUTIONS IN PLACE. BED IN LOWEST POSITION, LOCKED, AND CALL LIGHT KEPT WITHIN REACH. WILL ENDORSE TO ONCOMING NURSE.
--- NOTE | 2019-07-21 07:25 | NUR ---
CHAIN FORMING MACHINE OPERATOR NOTES RECEIVED PT IN BED, AWAKE, A/OX1, CONFUSED. PT ON SUPPLEMENTARY OXYGEN AT 2L VIA NC, WITH NO ACUTE RESPIRATORY DISTRESS NOTED. ON TELEMONITORING SR 86. PIV TO JULIA MIDLINE, RUNNING NS AT TKO, INTACT AND OPERATIONAL. PER NIGHT NURSE NO GT FEEDING, PT PULLED OUT YESTERDAY AND MD IS AWARE. FC IN PLACE WITH YELLOW URINE IN THE BAG. PT KEPT COMFORTABLE. HOB ELEVATED. CALL LIGHT KEPT WITHIN REACH. PT'S BED IN LOWEST, LOCKED POSITION WITH SRX3. WILL CONTINUE PLAN OF CARE.
[2019-07-21] MEDS: LORAZEPAM INJ 2 MG/ML VIAL IV PRN (07:57)
[2019-07-21] MEDS: LISINOPRIL (10MG) 10 MG TABLET GT SCH (09:00)
[2019-07-21] MEDS: PANTOPRAZOLE 40 MG/PACK PACK GT SCH (09:00)
[2019-07-21] MEDS: FUROSEMIDE 20 MG TABLET GT SCH (09:00)
[2019-07-21] MEDS: CLOTRIMAZOLE 1% 15 GM TUBE TP SCH ×2 (09:22→17:10)
[2019-07-21] MEDS: Z GUARD REMEDY 2 OZ OINT TP SCH (09:22)
--- NOTE | 2019-07-21 09:22 | NUR ---
INFORMATION SENT:FACESHEET, PROGRESS NOTES 07/19, 24HRS REPORT,UR 07/19. FAXED TO:[phone] FAX SENT BY ZOHRA
--- NOTE | 2019-07-21 09:38 | NUR ---
VOCAL TEACHER NOTES ALL GT MEDS NOT GIVEN TO PT, NO GT IN PLACE. PER CHARGE NURSE/MEAGHAN TO TRY NURSING SWALLOW EVAL AT BEDSIDE. RN TRIED A LITTLE APPLE SAUCE, PT JUST LEFT IT IN HIS MOUTH, UNABLE TO SWALLOW, AND STARTED PUSHING RN'S HANDS AWAY. WILL CONTINUE PLAN OF CARE.
--- NOTE | 2019-07-21 09:54 | NUR ---
DISTRIBUTION CENTER ASSOCIATE NOTES PAGED DR. SUMMER DURAN IN REGARDING TO ATIVAN 0.5 PRN NOT EFFECTIVE. PT STILL RESTLESS AND AGITATED. STILL OLSO ON BOTH SOFT WRIST RESTRAINTS. WILL CONTINUE TO MONITOR, AWAITING FOR CALL BACK.
[2019-07-21] MEDS ORDERED: HALOPERIDOL LACTATE INJ 5 MG/ML VIAL IV ONE (11:30)
--- NOTE | 2019-07-21 11:35 | NUR ---
DUPLIGRAPH OPERATOR NOTES RECEIVED TELEPHONE ORDERS FROM HOSPITALIST/TS. ORDERS PLACED AND CARRIED OUT. WILL CONTINUE TO MONITOR.
[2019-07-21] MEDS: IV D5/ 0.9% NACL 1,000 ML IV PRN (11:40)
--- NOTE | 2019-07-21 11:45 | NUR ---
PLANT CONTROL AIDE NOTES HALDOL 5MG IM ONE TIME DOSE TO GIVE, ADMINISTERED TO RIGHT DELTOID. VS TAKEN AND STABLE. WILL CONTINUE TO MONITOR.
--- NOTE | 2019-07-21 12:39 | NUR ---
HEAD MIXER NOTES PER DNP/TS TO CALL FOR GI CONSULT. ON-CALL TODAY IS DR. MARTIN, CALLED OFFICE [phone] AND LEFT DETAILED MESSAGE. AWAITING FOR CALL BACK. CHARGE NURSE AWARE WELL.
--- NOTE | 2019-07-21 14:22 | NUR ---
DR. MARTIN NOTIFIED REGARDING PEG PLACEMENT PER DR. MARTIN HE DOESNT DO PEG FOR POSITIVE COVID PATIENT AND HE WILL TALK TO SUMMER DURAN.
[2019-07-21] MEDS ORDERED: HALOPERIDOL LACTATE INJ 5 MG/ML VIAL IM PRN (15:00)
--- NOTE | 2019-07-21 15:46 | NUR ---
GAS WELDING MACHINE OPERATOR NOTES CALLED RP/SEYMOUR/SON FOR NGT PLACEMENT D/T GTUBE PLACEMENT WILL NOT HAPPEN UNTIL PT BECOMES NEGATIVE OF COVID PER DR MARTIN. SON/SEYMOUR GAVE CONSENT FOR NGT THROUGH THE PHONE, WITNESSED BY ZAKIA/MEAGHAN WELL. PER FAMILY REQUESTED TO INFORM HOSPITALIST TO TRY THE NEW MEDICATION/REMDESIVIR. PER DNP/TS STATED "WEDONT HAVE IT, WE'LL RE TEST PT TOMORROW". RN WILL NOTIFY FAMILY WELL.
--- NOTE | 2019-07-21 16:04 | NUR ---
DISPATCH CLERK NOTES NGT PLACED THROUGH LEFT NARES, AWAITING FOR CXR TO CONFIRM PLACEMENT.
--- NOTE | 2019-07-21 16:32 | NUR ---
SPORTS PHOTOGRAPHER NOTES PT NOT TOLERATING NGT, USED 16FR. CONFIRMED WITH CXR. PAGED HOSPITALIST/TS TO INFORM WELL. NGT COILED SHOWED ON THE CXR.
--- NOTE | 2019-07-21 16:40 | NUR ---
PATIENT CXR COILING ,UNABLE TO REPOSITION PATIENT GETTING AGITATED AND RESTLESS,NG PULLED OUT WILL NOTIFY MD.
--- NOTE | 2019-07-21 16:43 | NUR ---
PER DR. SUMMER DURAN OK TO HOLD OFF FOR NOW AND MAY REINSERT AGAIN HODAN WHITE,WILL ENDORSED.
--- NOTE | 2019-07-21 16:46 | NUR ---
CENTRIFUGAL CASTING MACHINE OPERATOR NOTES SON/SEYMOUR MADE AWARE PT DID NOT TOLERATE NGT. NGT REMOVED AND DNP/TS MADE AWARE. PLAN TO REINSERT TONIGHT, IF UNSUCCESSFUL, TO LET MD AND FAMILY/SON/SEYMOUR. PER SEYMOUR, REQUESTED TO BE CALLED FIRST TONIGH BEFORE LETTING NURSE TO INSERT. WILL ENDORSE TO INCOMING BOARDER MACHINE NURSE WELL.
--- NOTE | 2019-07-21 19:04 | NUR ---
ELIGIBILITY SERVICES REPRESENTATIVE NOTES PT REMAINS IN BED, INTERMITTENTLY DOZING OFF, A/OX1, CONFUSED. PT ON SUPPLEMENTARY OXYGEN AT 2L VIA NC, WITH NO ACUTE RESPIRATORY DISTRESS NOTED. ON TELEMONITORING CONTROLLED AFIB 88. IVF D5NS AT 50ML/HR TO JULIA MIDLINE, INTACT AND INFUSING FLUID. FC IN PLACE WITH YELLOW URINE IN THE BAG, 900ML OUTPUT. PT KEPT COMFORTABLE. HOB ELEVATED. ALL NEEDS AND CARE PROVIDED. CALL LIGHT KEPT WITHIN REACH. PT'S BED IN LOWEST, LOCKED POSITION WITH SRX3. WILL ENDORSED TO INCOMING NIGHT NURSE FOR FABIOLA.
--- NOTE | 2019-07-21 20:18 | NUR ---
CHRISTIAN SCIENCE PRACTITIONER NOTES PT REMAINS IN BED, INTERMITTENTLY DOZING OFF, A/OX1, CONFUSED. PT ON SUPPLEMENTARY OXYGEN AT 2L VIA NC, WITH NO ACUTE RESPIRATORY DISTRESS NOTED. ON TELEMONITORING CONTROLLED AFIB 89. IVF D5NS AT 50ML/HR TO JULIA MIDLINE, INTACT, PATENT AND INFUSING WELL. FC IN PLACE WITH YELLOW URINE IN THE BAG, 900ML OUTPUT. PT KEPT COMFORTABLE. HOB ELEVATED. SAFETY MEASURES IN PLACE, ASPIRATION PRECAUTION EMPHASIZED. CALL LIGHT KEPT WITHIN REACH. PT'S BED IN LOWEST, LOCKED POSITION WITH SRX3. CALLED AND SPOKE TO SKYLER MEJIA ( [phone] ) INFORMED HIM THAT PER MD ORDER, WILL ATTEMPT TO RE INSERT NGT ONE MORE TIME ONLY. PATIENT IS RESTING AND ASLEEP AT THIS TIME, WILL LET THE PATIENT SLEEP AND REST, MINIMIZE POSSIBILITY OF AGITATION. DUE MEDICATION AT 12 MIDNIGHT.WILL CONTINUE TO MONITOR ACCORDINGLY.
[2019-07-22] VITALS (12 sets, daily range): BP systolic 107–133; BP diastolic 54–88
[2019-07-22] MEDS: DILTIAZEM HCL 30 MG TABLET GT SCH ×4 (06:00→17:09)
--- NOTE | 2019-07-22 06:01 | NUR ---
PROGRAMMING INTERNSHIP NOTES PT REMAINS IN BED, INTERMITTENTLY DOZING OFF, A/OX1, CONFUSED. PT ON SUPPLEMENTARY OXYGEN AT 2L VIA NC, WITH NO ACUTE RESPIRATORY DISTRESS NOTED. ON TELEMONITORING CONTROLLED AFIB 89. IVF D5NS AT 50ML/HR TO JULIA MIDLINE, INTACT, PATENT AND INFUSING WELL. FC IN PLACE WITH YELLOW URINE IN THE BAG, 900ML OUTPUT. PT KEPT COMFORTABLE. HOB ELEVATED. SAFETY MEASURES IN PLACE, ASPIRATION PRECAUTION EMPHASIZED. CALL LIGHT KEPT WITHIN REACH. PT'S BED IN LOWEST, LOCKED POSITION WITH SRX3. PATIENT IS RESTING AND AT THIS TIME, AWAITING FOR XRAY NGT PROPER PLACEMENT RESULT, ALL NEEDS ANTICIPATED. WILL LET THE PATIENT SLEEP AND REST, MINIMIZE POSSIBILITY OF AGITATION. DUE MEDICATION AT 12 MIDNIGHT.WILL ENDORSE TO AM NURSE FOR CONTINUITY OF CARE.
[2019-07-22] MEDS: IV D5/ 0.9% NACL 1,000 ML IV PRN (06:56)
[2019-07-22 07:26] LABS: BASOPHILS # (AUTO) 0.1 /CMM (0.0-0.2); BASOPHILS % (AUTO) 1.1 % (0.0-2.0); EOSINOPHILS % (AUTO) 3.8 % (0.0-6.0); HEMATOCRIT 33 % (39-51); LYMPHOCYTES # (AUTO) 1.2 /CMM (0.8-4.8); MEAN CORPUSCULAR HGB CONC 33 g/dl (31.0-36.0); MEAN CORPUSCULAR VOLUME 93 fL (80-96); MONOCYTES # (AUTO) 0.7 /CMM (0.1-1.30); MONOCYTES % (AUTO) 8.1 % (2.0-12.0); NEUTROPHILS # (AUTO) 6.3 /CMM (1.8-8.9); PLATELET COUNT (AUTO) 140 /CMM (150-450); RED BLOOD CELL COUNT(AUTO) 3.59 MIL/uL (4.5-6.0); WHITE BLOOD COUNT (AUTO) 8.7 K/uL (4.3-11.0)
[2019-07-22 07:42] LABS: ALANINE AMINOTRANSFERASE 44 U/L (12-78); ALBUMIN 3.3 g/dL (3.4-5.0); ALKALINE PHOSPHATASE 53 U/L (46-116); ASPARTATE AMINOTRANSFERASE 27 U/L (15-37); BILIRUBIN,TOTAL 0.7 mg/dL (0.2-1.0); CALCIUM, SERUM 9.3 mg/dL (8.5-10.1); CARBON DIOXIDE 31 mmol/L (21-32); CHLORIDE 108 mmol/L (98-107); CREATININE 1.5 mg/dL (0.6-1.3); GLUCOSE 111 mg/dL (74-106); MAGNESIUM 2.1 mg/dL (1.8-2.4); PHOSPHORUS 3.6 mg/dL (2.5-4.9); POTASSIUM 5.2 mmol/L (3.5-5.1); SODIUM SERUM 146 mmol/L (136-145); TOTAL PROTEIN, SERUM 7.3 g/dL (6.4-8.2); UREA NITROGEN, BLOOD 44 mg/dL (7-18)
--- NOTE | 2019-07-22 07:45 | NUR ---
[facility] FORMER OPENING NOTES RECEIVED PT ON BED, AWAKE, RESTLESS BEHAVIOR BUT ABLE TO DIVERT, TO MONITOR CLOSELY, ON BOTH WRIST SOFT RESTRAINT, PT PULLED G-TUBE 2 DAYS AGO PER REPORT. RESPIRATION EVEN AND NON LABORED WITH NO ACUTE RESPIRATORY DISTRESS, ON O2 AT 2LPM VIA N/C, HOB ELEVATED. ABD SOFT AND NON DISTENDED WITH ACTIVE BOWEL SOUNDS, ON FC YELLOW URINE. NO S/SX OF PAIN AND DISCOMFORT. SKIN WARM TO TOUCH AND DRY. TELE MONITOR SHOWS CONTROLLED AFIB 117, IV SITE AT RIGHT UPPER MIDLINE PATENT IN FLUSHING RUNNING D5NS AT 50 L/HR. NO FEEDING D/T NGT MALFUNCTION, WAITING FOR XRAY RESULT. REPEAT COVID-19 TESTING TODAY ORDERED. BED IN LOW LOCKED POSITION, SR UP FOR SAFETY, ON CONTACT/DROPLET ISOLATION DUE TO + COVID19. PPE UTILIZED PROPERLY. WILL CONTINUE TO MONITOR CARE.
[2019-07-22] MEDS: FUROSEMIDE 20 MG TABLET GT SCH (09:00)
[2019-07-22] MEDS: PANTOPRAZOLE 40 MG/PACK PACK GT SCH (09:00)
[2019-07-22] MEDS: LISINOPRIL (10MG) 10 MG TABLET GT SCH (09:00)
[2019-07-22] MEDS: Z GUARD REMEDY 2 OZ OINT TP SCH (09:42)
[2019-07-22] MEDS: CLOTRIMAZOLE 1% 15 GM TUBE TP SCH ×2 (09:42→17:09)
--- NOTE | 2019-07-22 09:57 | NUR ---
CITRIX ARCHITECT NOTES PAGED CENTRAL SUPPLY FOR STETHOSCOPE TO PERFORM NGT ADVANCEMENT PER XRAY RECOMMENDATION. MEDICATION 9AM DUE VIA NGT PENDING TO GIVE
--- NOTE | 2019-07-22 10:26 | NUR ---
ASSOCIATE PROFESSOR OF PATHOLOGY NOTES 9AM MEDICATION NOT GIVEN DUE TO UNSAFE PLACEMENT OF NGT. WILL CONTINUE TO MONITOR PLAN OF CARE
--- NOTE | 2019-07-22 11:41 | NUR ---
AUTOMATIC HEAD SAWYER NOTES ADVANCED 5CM NGT PLACEMENT PER CXR RECOMMENDATION, POSITIVE BOWEL SOUNDS VIA AIR PLACEMENT. NOTIFIED DNP ROGER WITH NEW ORDER OF XRAY FOR PLACEMENT CHECK. ORDER READ BACK, NOTED AND CARRIED OUT. WILL CONTINUE TO MONITOR PLAN OF CARE
--- NOTE | 2019-07-22 12:28 | NUR ---
ROOF BOLTING COAL MINER NOTES 12 NN MEDICATION NOT ADMINISTERED DUE TO NGT DISPLACEMENT.
--- NOTE | 2019-07-22 12:33 | NUR ---
BENCH WORKER BINDING NOTES MEAGHAN PLATING ENGINEER NURSE TALKED TO YONATAN DURAN REGARDING NGT XRAY. PER DNP, HE WILL REVIEW THE FILM. WILL CONTINUE TO MONITOR CARE
--- NOTE | 2019-07-22 13:17 | NUR ---
FIRE EQUIPMENT INSPECTOR HELPER NOTES RECEIVED ORDER FROM YONATAN DURAN TO RE-START FEEDING WITH CURRENT ORDER OF JEVITY 1.2 AT 60 ML/HR X 24 HOURS VIA NGT, D/C IVF. RE-SWAB FOR COVID-19 TESTING. ORDER READ DAGO NOTED AND CARRIED OUT. WILL CONTINUE TO MONITOR PLAN OF CARE.
[2019-07-22] MEDS: JEVITY 1.2 CAL 1,000 ML BOTTLE GT PRN (13:45)
--- NOTE | 2019-07-22 14:06 | NUR ---
PEARL RESTORER NOTES PERFORMED COVID-19 SWAB TO LEFT NOSTRILS. DROPPED OFF TO THE LAB. PENDING RESULT. WILL CONTINUE TO MONITOR
--- NOTE | 2019-07-22 14:10 | NUR ---
ROOM SERVICE MANAGER NOTES NGT WITH 2 ML RESIDUAL, AIR PUSHED AND IN PLACE. PT TOLERATING FEEDING AT 60 ML/HR. WILL CONTINUE TO ASSESS.
--- NOTE | 2019-07-22 18:52 | NUR ---
BALL TRUING MACHINE OPERATOR CLOSING NOTES PT AAO X1. RESPIRATION NOT IN ACUTE RESPIRATORY DISTRESS, O2 AT 2LPM VIA N/C SATING 94-99%. ABD SOFT AND NON DISTENDED, BMX1 TODAY, FC WITH YELLOW TEA COLOR URINE, NGT FEEDING AT 60 ML/HR, 2ML RESIDUAL. FLACC-0. SKIN WARM TO TOUCH AND DRY, NO NEW OPEN SKIN BREAKDOWN. IV SITE AT RIGHT UPPER MIDLINE H/L, PATENT IN FLUSHING. TELE MONITOR SHOWS CONTROLLED AFIB 86. ON CONTACT/DROPLET ISOLATION DUE TO + COVID 19. BED IN LOW LOCKED POSITION, SR X2 UP FOR SAFETY, BED ALARM ON. ENDORSED PT CARE TO NEXT SHIFT.
[2019-07-23] VITALS: BP 107/69
[2019-07-23] MEDS: DILTIAZEM HCL 30 MG TABLET GT SCH ×4 (00:35→17:40)
[2019-07-23 04:00] VITALS: BP 128/74
--- NOTE | 2019-07-23 07:10 | NUR ---
GOLF COURSE RANGER NOTES RECEIVED PATIENT IN BED, AWAKE AND ALERT ORIENTED X1. HOB ELEVATED. ON 02 @ 2L/MIN VIA NC MARIAH WELL WITH SPO2 OF 100%. PAGE CATHETER INTACT DRAINING YELLOW COLORED URINE VIA BEDSIDE. NGT INTACT AND PATENT ON JEVITY 1.2 @ 60ML/HR MARIAH WELL. NO RESIDUAL NOTED. JULIA MIDLINE INTACT AND PATENT. BED IN LOWEST POSITION, LOCKED. BILATERAL WRIST RESTRAINT IN PLACE WITH SKIN AND CIRCUALTION CHECK DONE. FREQUENT VISUAL CHECK DONE. BED SIDERAILS UP X2. CALL LIGHT WITHIN REACH.
--- NOTE | 2019-07-23 07:15 | NUR ---
PRIMARY SPECIAL EDUCATOR NOTES ON TELE MONITORING SR: 77
[2019-07-23 08:00] VITALS: BP_SYST 95; BP_SYST 97; BP_DIAS 69; BP_DIAS 70
[2019-07-23] MEDS: LISINOPRIL (10MG) 10 MG TABLET GT SCH (09:00)
[2019-07-23] MEDS: Z GUARD REMEDY 2 OZ OINT TP SCH (09:17)
[2019-07-23] MEDS: FUROSEMIDE 20 MG TABLET GT SCH (09:17)
[2019-07-23] MEDS: CLOTRIMAZOLE 1% 15 GM TUBE TP SCH ×2 (09:17→17:39)
[2019-07-23] MEDS: PANTOPRAZOLE 40 MG/PACK PACK GT SCH (09:17)
--- NOTE | 2019-07-23 09:18 | NUR ---
CONCRETE MASON NOTES HELD LISINOPRIL B/P
[2019-07-23 12:00] VITALS: BP 109/70
[2019-07-23 16:00] VITALS: BP 116/80
--- NOTE | 2019-07-23 18:45 | NUR ---
SUSTAINABILITY CONSULTANT NOTES PATIENT RESTING COMFORTABLY IN BED. HOB ELEVATED. NO SOB NOTED. ON ROOM AIR 96%. NO COUGH NOR FEVER NOTED. PAGE CATHETER INTACT AND PATENT DRAINING YELLOW COLORED URINE VIA BEDSIDE VIA GRAVITY. NGT INTACT AND PATENT ON JEVITY 1.2 @ 60ML/HR MARIAH WELL. NO RESIDUAL NOTED. JULIA MIDLINE INTACT AND PATENT INFUSING D5 NS @ 50ML/HR. BED IN LOWEST POSITION, LOCKED. BILATERAL WRIST RESTRAINT IN PLACE WITH SKIN AND CIRCULATION CHECK DONE. FREQUENT VISUAL CHECK DONE. BED SIDERAILS UP X2. CALL LIGHT WITHIN REACH. IN NO APPARENT DISTRESS.
[2019-07-23] MEDS: JEVITY 1.2 CAL 1,000 ML BOTTLE GT PRN (19:06)
[2019-07-23 20:00] VITALS: BP 106/66
[2019-07-24] VITALS (9 sets, daily range): BP systolic 100–154; BP diastolic 65–83
[2019-07-24] MEDS: DILTIAZEM HCL 30 MG TABLET GT SCH ×4 (00:45→18:15)
--- NOTE | 2019-07-24 04:55 | NUR ---
DOUGH SHEETER NOTES REPORT GIVEN TO 2W RN MELVIN TO TRANSFER
--- NOTE | 2019-07-24 05:15 | NUR ---
X RAY CONTROL EQUIPMENT REPAIRER NOTE: RECEIVE PATIENT FROM [place], PATIENT RESTING IN BED, NO ACUTE DISTRESS NOTED. MIDLINE TO JULIA IN PLACE. NG TUBE TO RIGHT NARES IN PLACE. PAGE CATHETER IN PLACE. BILATERAL SOFT WRIST RESTRAINTS IN PLACE, WITH GOOD CIRCULATION NOTED. BED LOCKED AND IN LOWEST POSITION, CALL LIGHT IN REACH. WILL CONTINUE TO MONITOR.
--- NOTE | 2019-07-24 05:20 | NUR ---
MEDICAL TECHNOLOGIST HEMATOLOGY NOTES TRANSFERRED PT TO 2W VIA HOSPITAL BED ACCORDING TO ACLS PROTOCOL. NAD AT THE TIME.
--- NOTE | 2019-07-24 06:10 | NUR ---
TIRE BEADER MAKER NOTE: PATIENT RESTING IN BED, NO ACUTE DISTRESS NOTED. MIDLINE TO JULIA IN PLACE. NG TUBE TO RIGHT NARES IN PLACE, INFUSING JEVITY AT 60ML/HR. PAGE CATHETER IN PLACE. BILATERAL SOFT WRIST RESTRAINTS IN PLACE, WITH GOOD CIRCULATION NOTED. BED LOCKED AND IN LOWEST POSITION, CALL LIGHT IN REACH. WILL ENDORSE TO DAY NURSE TO CONTINUE WITH PLAN OF CARE.
[2019-07-24] MEDS ORDERED: DILTIAZEM HCL 30 MG TABLET ONE (07:07)
--- NOTE | 2019-07-24 07:55 | NUR ---
LOZENGE DOUGH MIXER NOTES PATIENT RESTING IN BED, NO RESPIRATORY DISTRESS, NO S/S OF ANY DISCOMFORT AT THIS TIME. INTERACTIVE MEDIA MARKETING DIRECTOR ON AFIB 80. SKIN WARM TO TOUCH, IV ACCESS SITE INTACT AND PATENT. NG TUBE INTACT AND ON THE RT NARE. PATIENT ON BILAT SOFT WRIST RESTRAINTS, REMOVED AND CHECKED FOR REDNESS AND CIRCULATION. PATIENT'S NEEDS ATTENDED, BED ON LOWEST LOCKED POSITION, CALL LIGHT WITHIN REACH. WILL CONTINUE TO MONITOR.
[2019-07-24] MEDS: FUROSEMIDE 20 MG TABLET GT SCH (08:45)
[2019-07-24] MEDS: PANTOPRAZOLE 40 MG/PACK PACK GT SCH (08:45)
[2019-07-24] MEDS: LISINOPRIL (10MG) 10 MG TABLET GT SCH (08:45)
[2019-07-24] MEDS: Z GUARD REMEDY 2 OZ OINT TP SCH (08:46)
[2019-07-24] MEDS: CLOTRIMAZOLE 1% 15 GM TUBE TP SCH ×2 (08:46→18:16)
[2019-07-24] MEDS: LORAZEPAM INJ 2 MG/ML VIAL IV PRN (09:42)
--- NOTE | 2019-07-24 18:35 | NUR ---
M/S RN NOTES PATIENT RESTING IN BED, NO RESPIRATORY DISTRESS, NO S/S OF ANY DISCOMFORT AT THIS TIME. SKIN WARM TO TOUCH, IV ACCESS SITE INTACT AND PATENT. NG TUBE INTACT AND ON THE RT NARE. PATIENT ON BILAT SOFT WRIST RESTRAINTS, REMOVED AND CHECKED FOR REDNESS AND CIRCULATION. PATIENT'S NEEDS ATTENDED, BED ON LOWEST LOCKED POSITION, CALL LIGHT WITHIN REACH. WILL ENDORSE TO ONCOMING NURSE.
--- NOTE | 2019-07-24 19:45 | NUR ---
CARDIAC MONITOR NOTE: PATIENT RESTING IN BED, NO ACUTE DISTRESS NOTED. MIDLINE TO JULIA IN PLACE. NG TUBE TO RIGHT NARES IN PLACE, INFUSING JEVITY AT 60ML/HR. PAGE CATHETER IN PLACE. BILATERAL SOFT WRIST RESTRAINTS IN PLACE, WITH GOOD CIRCULATION NOTED. BED LOCKED AND IN LOWEST POSITION, CALL LIGHT IN REACH. WILL CONTINUE TO MONITOR.
--- NOTE | 2019-07-24 20:30 | NUR ---
HAND NAILER NOTE: RECEIVED CALL FROM DR. MARTIN, PATIENT TO GO FOR SURGERY IN AM FOR NEW PEG PLACEMENT/EGD. CALLED PATIENT SON, SEYMOUR AND RECEIVED VERBAL CONSENT FOR PROCEDURE AND THAT WAS INFORMED EARLIER TODAY THAT PATIENT WILL BE GOING TO SURGERY FOR PEG. SECOND NURSE DEMETRI VERIFIED THAT PATIENT SON CONSENT FOR PROCEDURE. PAPERWORK SIGNED AND FILED IN CHART. PATIENT TO BE NPO AFTER MIDNIGHT FOR SURGERY AT 0700. LABS ORDERED FOR UPDATED LABS BEFORE SURGERY. ORDERS NOTED AND CARRIED OUT. WILL CONTINUE TO MONITOR.
[2019-07-25] VITALS (9 sets, daily range): BP systolic 105–152; BP diastolic 63–91
[2019-07-25] MEDS: DILTIAZEM HCL 30 MG TABLET GT SCH ×4 (00:06→18:37)
--- NOTE | 2019-07-25 00:30 | NUR ---
FOLDER MACHINE ADJUSTER NOTE: PATIENT FEEDING HELD AND NG TUBE FLUSHED. PATIENT TO BE NPO FOR SURGERY IN MORNING. MIDNIGHT CARDIZEM GIVEN PER MD ORDER. WILL CONTINUE TO MONITOR.
--- NOTE | 2019-07-25 06:30 | NUR ---
RECOVERY OPERATOR HELPER NOTE: PATIENT RESTING IN BED, NO ACUTE DISTRESS NOTED. MIDLINE TO JULIA IN PLACE. NG TUBE TO RIGHT NARES IN PLACE. FEEDING HELD SINCE MIDNIGHT FOR SURGERY THIS MORNING FOR PEG PLACEMENT. TELE READING AFIB 85. PAGE CATHETER IN PLACE. BILATERAL SOFT WRIST RESTRAINTS IN PLACE, WITH GOOD CIRCULATION NOTED. BED LOCKED AND IN LOWEST POSITION, CALL LIGHT IN REACH. WILL ENDORSE TO DAY NURSE TO CONTINUE WITH PLAN OF CARE.
[2019-07-25 06:51] LABS: BASOPHILS % (AUTO) 0.6 % (0.0-2.0); CALCIUM, SERUM 9.2 mg/dL (8.5-10.1); CREATININE 1.3 mg/dL (0.6-1.3); EOSINOPHILS % (AUTO) 3.9 % (0.0-6.0); HEMATOCRIT 33 % (39-51); HEMOGLOBIN 11.1 g/dL (13.5-17.5); LYMPHOCYTES # (AUTO) 1.2 /CMM (0.8-4.8); LYMPHOCYTES % (AUTO) 14.4 % (20.0-44.0); MAGNESIUM 1.9 mg/dL (1.8-2.4); MEAN CORPUSCULAR HGB CONC 34 g/dl (31.0-36.0); MEAN CORPUSCULAR VOLUME 93 fL (80-96); MONOCYTES # (AUTO) 0.8 /CMM (0.1-1.30); MONOCYTES % (AUTO) 9.5 % (2.0-12.0); NEUTROPHILS # (AUTO) 6.2 /CMM (1.8-8.9); NEUTROPHILS % (AUTO) 71.6 % (43.0-81.0); PHOSPHORUS 3.4 mg/dL (2.5-4.9); PLATELET COUNT (AUTO) 132 /CMM (150-450); POTASSIUM 3.9 mmol/L (3.5-5.1); RED BLOOD CELL COUNT(AUTO) 3.58 MIL/uL (4.5-6.0); WHITE BLOOD COUNT (AUTO) 8.6 K/uL (4.3-11.0)
--- NOTE | 2019-07-25 07:07 | NUR ---
UTILITY WORKER OPENING NOTE: RECEIVED PT IN BED RESTING. NO S/S OF ANY ACUTE DISTRESS NOTED. AOX1, CONFUSED. PT IS FINNISH SPEAKING. JULIA MIDLINE IN PLACE, INTACT AND PATENT. NG TUBE TO RIGHT NARES IN PLACE. PT IS BEING TAKEN TO SURGERY BY BED THIS MORNING FOR PEG PLACEMENT. TELE READING AFIB 97. PAGE CATHETER IN PLACE, DRAINING TO GRAVITY CLEAR YELLOW URINE OUTPUT. BILATERAL SOFT WRIST RESTRAINTS IN PLACE, WITH GOOD CIRCULATION NOTED. CAPILLARY REFILL OF <3 SECONDS, RADIAL PULSES PRESENT. BED IN LOCKED LOWEST POSITION, SIDE RAILS UP, BED ALARM ON, CALL LIGHT WITHIN REACH. WILL CONTINUE TO MONITOR
[2019-07-25] MEDS ORDERED: ANESTHESIA TRAY IN PYXIS 1 EA TRAY MC ONE (07:12)
--- NOTE | 2019-07-25 08:05 | NUR ---
PT RETURNED FROM SURGERY BY BED. PEG PLACEMENT DONE. NO SOB NOTED. NO GRIMACE, NO MOANING OR S/S OF PAIN. PT AFEBRILE AT THIS TIME. V/S STABLE. BP 148/91, HR 98 RR 18, T 97.1, SPO2 100.
--- NOTE | 2019-07-25 08:20 | NUR ---
V/S STABLE. BP 142/80, HR 96 RR 18, T 98.2, SPO2 98.
--- NOTE | 2019-07-25 08:50 | NUR ---
V/S STABLE. BP 136/88, HR 74 RR 18, T 97.9, SPO2 100.
[2019-07-25] MEDS: LISINOPRIL (10MG) 10 MG TABLET GT SCH (09:49)
[2019-07-25] MEDS: PANTOPRAZOLE 40 MG/PACK PACK GT SCH (09:49)
--- NOTE | 2019-07-25 09:50 | NUR ---
V/S STABLE. BP 132/90, HR 88 RR 18, T 98.0, SPO2 96.
[2019-07-25] MEDS: Z GUARD REMEDY 2 OZ OINT TP SCH (09:51)
[2019-07-25] MEDS: CLOTRIMAZOLE 1% 15 GM TUBE TP SCH ×2 (10:23→17:23)
--- NOTE | 2019-07-25 16:00 | NUR ---
PT TEMP 100.6. COOLING MEASURES IN PLACE. ICE PACK UNDER ARMS, SHEETS REMOVED. WILL CONTINUE TO MONITOR
--- NOTE | 2019-07-25 18:10 | NUR ---
TEMP RECHECKED. TEMP AT 98.7
--- NOTE | 2019-07-25 19:10 | NUR ---
LOCK MASTER CLOSING NOTE: PT IN BED RESTING AT THIS TIME. EASILY AROUSED. NO S/S OF ANY ACUTE DISTRESS NOTED. PT REMAINED STABLE THROUGHOUT SHIFT. JULIA MIDLINE IN PLACE, INTACT AND PATENT. PEG IN PLACE. PAGE CATHETER IN PLACE, DRAINING TO GRAVITY CLEAR YELLOW URINE OUTPUT OF 5OOCC. BILATERAL SOFT WRIST RESTRAINTS IN PLACE, WITH GOOD CIRCULATION NOTED. CAPILLARY REFILL OF <3 SECONDS, RADIAL PULSES PRESENT. PT KEPT CLEAN AND DRY. ALL NEEDS PROVIDED ANTICIPATED. BED IN LOCKED LOWEST POSITION, SIDE RAILS UP, BED ALARM ON, CALL LIGHT WITHIN REACH. WILL ENDORSE TO NIGHT NURSE FOR FABIOLA
--- NOTE | 2019-07-25 19:35 | NUR ---
SPINNING ROOM WORKER OPENING NOTES PATIENT SLEEPING IN BED. A/OX1. ON 2L NC. NO S/S OF ACUTE RESPIRATORY DISTRESS OR PAIN NOTED. TELE MONITOR READING AFIB WITH OCCASIONAL PVCS, HEART RATE 88. MIDLINE PRESENT ON RIGHT UPPER ARM, INTACT AND PATENT, HEP LOCKED. CONTACT AND DROPLET PRECAUTIONS IN PLACE FOR POSITIVE COVID 19. PEG TUBE INTACT & PATENT; PATIENT CURRENTLY NPO EXCEPT MEDS. BILATERAL SOFT WRIST RESTRAINTS PRESENT FOR PATIENT SAFETY; SKIN CIRCULATION WNL. PAGE CATH PRESENT AND DRAINING WELL. SAFETY MEASURES IN PLACE AND PATIENT'S NEEDS MET. BED LOCKED, ALARM ON, SIDE RAILS X2, HOB ELEVATED, CALL LIGHT WITHIN REACH. WILL CONTINUE TO MONITOR.
[2019-07-26] VITALS (10 sets, daily range): BP systolic 96–129; BP diastolic 48–78
[2019-07-26] MEDS: DILTIAZEM HCL 30 MG TABLET GT SCH ×4 (00:15→18:05)
--- NOTE | 2019-07-26 07:02 | NUR ---
COMPUTER SYSTEM VALIDATION SPECIALIST CLOSING NOTES PATIENT SLEEPING IN BED, EASY TO AWAKEN. A/OX1. ON 2L NC. NO S/S OF ACUTE RESPIRATORY DISTRESS OR PAIN NOTED. TELE MONITOR READING AFIB WITH OCCASIONAL PVCS, HEART RATE 84. MIDLINE PRESENT ON RIGHT UPPER ARM, INTACT AND PATENT, HEP LOCKED. CONTACT AND DROPLET PRECAUTIONS REMAIN IN PLACE FOR POSITIVE COVID 19. PEG TUBE INTACT & PATENT; PATIENT CURRENTLY NPO EXCEPT MEDS. BILATERAL SOFT WRIST RESTRAINTS PRESENT FOR PATIENT SAFETY; SKIN CIRCULATION WNL. PAGE CATH PRESENT AND DRAINING WELL, 750 ML OF CLEAR YELLOW URINE EMPTIED. SAFETY MEASURES IN PLACE AND PATIENT'S NEEDS MET. BED LOCKED, ALARM ON, SIDE RAILS X2, HOB ELEVATED, CALL LIGHT WITHIN REACH. WILL ENDORSE TO DAY SHIFT NURSE PLAN OF CARE.
--- NOTE | 2019-07-26 08:00 | NUR ---
DUDE WRANGLER OPENING NOTES Received Patient resting in bed. A/O x 1, confused, Mongolian speaking. VS stable with no acute distress. Breathing even and unlabored on 2LPM via NC with no respiratory distress. Denies pain. No signs and symptoms of pain. Telemonitor in place and patent reading controlled AFib with HR-85. PEG tube in place and patent. Mccloud Cath in place and patent. JULIA Midline clean, intact, patent and flushing well. Bilateral soft wrist restraints in place with skin clean, intact, and cap refill of <3sec. Isolation precautions in place. Safety precautions in place. Bed locked and set to lowest position with side rails x 3 up. All needs rendered at this time. Call light within reach. Will continue to monitor.
[2019-07-26 08:02] LABS: BASOPHILS % (AUTO) 0.5 % (0.0-2.0); EOSINOPHILS % (AUTO) 1.9 % (0.0-6.0); HEMATOCRIT 31 % (39-51); HEMOGLOBIN 10.2 g/dL (13.5-17.5); LYMPHOCYTES % (AUTO) 12.4 % (20.0-44.0); MEAN CORPUSCULAR HGB CONC 33 g/dl (31.0-36.0); MEAN CORPUSCULAR VOLUME 94 fL (80-96); MONOCYTES # (AUTO) 0.5 /CMM (0.1-1.30); MONOCYTES % (AUTO) 6.4 % (2.0-12.0); NEUTROPHILS # (AUTO) 6.7 /CMM (1.8-8.9); NEUTROPHILS % (AUTO) 78.8 % (43.0-81.0); PLATELET COUNT (AUTO) 140 /CMM (150-450); WHITE BLOOD COUNT (AUTO) 8.4 K/uL (4.3-11.0)
[2019-07-26 08:35] LABS: CALCIUM, SERUM 8.8 mg/dL (8.5-10.1); CARBON DIOXIDE 32 mmol/L (21-32); CHLORIDE 107 mmol/L (98-107); CREATININE 1.4 mg/dL (0.6-1.3); GLUCOSE 84 mg/dL (74-106); MAGNESIUM 1.9 mg/dL (1.8-2.4); PHOSPHORUS 3.6 mg/dL (2.5-4.9); POTASSIUM 3.8 mmol/L (3.5-5.1); SODIUM SERUM 146 mmol/L (136-145); UREA NITROGEN, BLOOD 40 mg/dL (7-18)
[2019-07-26] MEDS: LISINOPRIL (10MG) 10 MG TABLET GT SCH (09:45)
[2019-07-26] MEDS: PANTOPRAZOLE 40 MG/PACK PACK GT SCH (09:45)
[2019-07-26] MEDS: CLOTRIMAZOLE 1% 15 GM TUBE TP SCH ×2 (09:55→17:44)
[2019-07-26] MEDS: Z GUARD REMEDY 2 OZ OINT TP SCH (09:56)
[2019-07-26] MEDS: JEVITY 1.2 CAL 1,000 ML BOTTLE GT PRN (12:06)
--- NOTE | 2019-07-26 18:24 | NUR ---
MUTUAL FUNDS AGENT CLOSING NOTES Patient resting in bed. A/O x 1, confused, Martiniquais speaking. VS stable with no acute distress. Breathing even and unlabored on 2LPM via NC with no respiratory distress. Denies pain. No signs and symptoms of pain. Telemonitor in place and patent reading controlled AFib with HR-87. PEG tube in place and patent with Jevity 1.2 infusing at 60ml/hr. Mccloud Cath in place and patent. JULIA Midline clean, intact, patent and flushing well. Bilateral soft wrist restraints in place with skin clean, intact, and cap refill of <3sec. Isolation precautions in place. Safety precautions in place. Bed locked and set to lowest position with side rails x 3 up. All needs rendered at this time. Call light within reach. Will endorse plan of care to oncoming shift.
--- NOTE | 2019-07-26 19:20 | NUR ---
log deckman opening notes Received Pt from morning nurse. Pt is resting in bed comfortably. Pt is alert and orientedX1 and confused. Respiration is normal in 2 L NC. No SOB. No S/s of distress noted. JULIA midline is clean, intact, patent and flush without resistance, and SL. Tele monitor showed A-fib Hr at 79 bpm. Mccloud cath is intact, patent and draining yellow urine. Bilateral soft wrist are intact, skin is warm to touch and circulation check Q 2 hr. Turning and repositioning Q 2 hr. Gtube feeding is intact, patent and infusing well jevity 1.2 monster @ 60 ml/hr. Droplet and contact precautions are maintained. Safety precautions is maintained. Bed at low position, brakes locked, side rails upX3 and call light is within reach. Will continue to monitor.
[2019-07-27] VITALS (9 sets, daily range): BP systolic 105–128; BP diastolic 52–86
[2019-07-27] MEDS: DILTIAZEM HCL 30 MG TABLET GT SCH ×4 (05:20→17:34)
[2019-07-27 06:55] LABS: BASOPHILS # (AUTO) 0.1 /CMM (0.0-0.2); BASOPHILS % (AUTO) 0.6 % (0.0-2.0); EOSINOPHILS % (AUTO) 4.1 % (0.0-6.0); HEMATOCRIT 31 % (39-51); HEMOGLOBIN 10.2 g/dL (13.5-17.5); LYMPHOCYTES # (AUTO) 0.9 /CMM (0.8-4.8); LYMPHOCYTES % (AUTO) 11.9 % (20.0-44.0); MEAN CORPUSCULAR HGB CONC 33 g/dl (31.0-36.0); MEAN CORPUSCULAR VOLUME 94 fL (80-96); MONOCYTES # (AUTO) 0.7 /CMM (0.1-1.30); MONOCYTES % (AUTO) 8.2 % (2.0-12.0); NEUTROPHILS % (AUTO) 75.2 % (43.0-81.0); PLATELET COUNT (AUTO) 140 /CMM (150-450); RED BLOOD CELL COUNT(AUTO) 3.25 MIL/uL (4.5-6.0)
--- NOTE | 2019-07-27 07:00 | NUR ---
heel padder closing notes Pt is resting in bed comfortably. Pt is alert and orientedX1 and confused. Respiration is normal in 2 L NC. No SOB. No S/s of distress noted. JULIA midline is clean, intact, patent and flush without resistance, and SL. Tele monitor showed A-fib Hr at 78 bpm. Routine meds were given as ordered. VS is stable. Mccloud cath is intact, patent and draining yellow urine. Bilateral soft wrist are intact, skin is warm to touch and circulation check Q 2 hr. Turned and repositioned Q 2hr. Gtube feeding is intact, patent and infusing well jevity 1.2 monster @ 60 ml/hr. Skin care provided. All needs met and attended. Droplet and contact precautions are maintained. Safety precautions is maintained. Bed at low position, brakes locked, side rails upX3 and call light is within reach. Will endorse to morning nurse for FABIOLA.
--- NOTE | 2019-07-27 07:35 | NUR ---
balance recesser notes Received Pt resting in bed comfortably in moderate high back rest. alert and orientedX1 and confused. Respiration is normal in 2 L NC. S/s of distress noted at this time. JULIA midline is clean, intact, patent and flush without resistance, SL. Tele monitor showed A-fib Hr at 70's bpm. Mccloud cath is intact, patent and draining yellow urine. Bilateral soft wrist restraint are intact, skin is warm to touch and circulation will be check Q 2 hr. Gtube feeding is intact, patent and infusing well jevity 1.2 monster @ 60 ml/hr. Droplet and contact precautions are maintained. Safety precautions in place. Bed at low position, brakes locked, side rails upX3 and call light is within reach. Will continue to monitor.
[2019-07-27 07:42] LABS: CALCIUM, SERUM 8.6 mg/dL (8.5-10.1); CARBON DIOXIDE 33 mmol/L (21-32); CHLORIDE 107 mmol/L (98-107); CREATININE 1.5 mg/dL (0.6-1.3); GLUCOSE 111 mg/dL (74-106); MAGNESIUM 2.1 mg/dL (1.8-2.4); PHOSPHORUS 3.2 mg/dL (2.5-4.9); SODIUM SERUM 147 mmol/L (136-145); UREA NITROGEN, BLOOD 54 mg/dL (7-18)
[2019-07-27] MEDS: PANTOPRAZOLE 40 MG/PACK PACK GT SCH (08:49)
[2019-07-27] MEDS: LISINOPRIL (10MG) 10 MG TABLET GT SCH (08:49)
[2019-07-27] MEDS: CLOTRIMAZOLE 1% 15 GM TUBE TP SCH ×2 (08:52→16:20)
[2019-07-27] MEDS: Z GUARD REMEDY 2 OZ OINT TP SCH (08:53)
[2019-07-27] MEDS: JEVITY 1.2 CAL 1,000 ML BOTTLE GT PRN (12:43)
--- NOTE | 2019-07-27 18:32 | NUR ---
RN notes Patient resting in bed comfortably in moderate high back rest. alert and orientedX1 and confused. on 2 L NC. S/s of distress noted throughout the shift. JULIA midline is clean, intact and patent, SL. Mccloud cath is intact, patent and draining yellow urine. Bilateral soft wrist restraint are intact, skin is warm to touch and circulation will be check Q 2 hr. Gtube feeding is intact, patent and infusing well jevity 1.2 monster @ 60 ml/hr. Droplet and contact precautions are maintained. Safety precautions in place. Bed at low position, brakes locked, side rails upX3 and call light is within reach. Will endorse to manufacturing shift supervisor nurse for darvin.
--- NOTE | 2019-07-27 19:10 | NUR ---
soiled linen distributor opening notes Pt is resting in bed comfortably. Pt is alert and orientedX1 and confused. Pt speaks Cuban and able to make needs known. Respiration is normal in 2 L NC. No SOB. No S/S of distress noted. JULIA midline is clean, intact, patent and flush without resistance, and SL. Tele monitor showed A-fib Hr at 94 bpm. Mccloud cath is intact, patent and draining yellow urine. Bilateral soft wrist are intact, skin is warm to touch and circulation check Q 2 hr. Gtube feeding is intact, patent and infusing well jevity 1.2 monster @ 60 ml/hr. Turn and reposition Q 2HR. Droplet and contact precautions are maintained. Safety precautions is maintained. Bed at low position, brakes locked, side rails upX3 and call light is within reach. Will continue to monitor.
[2019-07-28] VITALS: BP 106/67
[2019-07-28 04:00] VITALS: BP 114/63
[2019-07-28] MEDS: DILTIAZEM HCL 30 MG TABLET GT SCH ×4 (05:25→17:36)
--- NOTE | 2019-07-28 07:00 | NUR ---
oil burner repairer closing notes Pt is sleeping in bed comfortably. Pt is alert and orientedX1 and confused. Respiration is normal in 2 L NC. No SOB. No S/S of distress noted. JULIA midline is clean, intact, patent and SL. VS is stable. Tele monitor showed A-fib Hr at 80 bpm. Routine meds were given as ordered. Mccloud cath is intact, patent and draining yellow urine. Bilateral soft wrist are intact, skin is warm to touch and circulation check Q 2 hr. Turned and repositioned Q 2hr. Suctioned as needed. Oral care provided. Gtube feeding is intact, patent and infusing well jevity 1.2 monster @ 60 ml/hr. Kept Pt clean, dry and comfortable. All needs met and attended. Droplet and contact precautions are maintained. Safety precautions is maintained. Bed at low position, brakes locked, side rails upX3 and call light is within reach. Will endorse to morning nurse for FABIOLA.
[2019-07-28 07:19] LABS: BASOPHILS % (AUTO) 0.5 % (0.0-2.0); EOSINOPHILS % (AUTO) 4.4 % (0.0-6.0); HEMATOCRIT 32 % (39-51); HEMOGLOBIN 10.2 g/dL (13.5-17.5); LYMPHOCYTES # (AUTO) 0.8 /CMM (0.8-4.8); LYMPHOCYTES % (AUTO) 11.6 % (20.0-44.0); MEAN CORPUSCULAR HGB CONC 32 g/dl (31.0-36.0); MEAN CORPUSCULAR VOLUME 95 fL (80-96); MONOCYTES # (AUTO) 0.6 /CMM (0.1-1.30); MONOCYTES % (AUTO) 8.8 % (2.0-12.0); NEUTROPHILS # (AUTO) 5.3 /CMM (1.8-8.9); NEUTROPHILS % (AUTO) 74.7 % (43.0-81.0); PLATELET COUNT (AUTO) 136 /CMM (150-450); RED BLOOD CELL COUNT(AUTO) 3.37 MIL/uL (4.5-6.0); WHITE BLOOD COUNT (AUTO) 7.1 K/uL (4.3-11.0)
[2019-07-28 07:38] LABS: CALCIUM, SERUM 8.8 mg/dL (8.5-10.1); CREATININE 1.3 mg/dL (0.6-1.3); MAGNESIUM 2.1 mg/dL (1.8-2.4); PHOSPHORUS 3.3 mg/dL (2.5-4.9); POTASSIUM 4.2 mmol/L (3.5-5.1)
--- NOTE | 2019-07-28 07:46 | NUR ---
FOOD PRESERVATION SCIENTIST OPENING NOTES PATIENT IN BED RESTING COMFORTABLY. PATIENT IN NO ACUTE DISTRESS. NO SOB NOTED. PATIENT BREATHING IS EVEN AND UNLABORED. PATIENT ON CARDIAC MONITORING READING AFIB HR 84. PATIENT NOTED WITH BILATERAL SOFT WRIST RESTRAINTS, WITH GOOD CIRCULATION NOTED. GTUBE PATENT AND INTACT. PATIENT BED ALARM IS ON. HOB IS ELEVATED. PATIENT SAFETY PRECAUTIONS IN PLACE. PATIENT BED IS LOCKED AND IN LOWEST POSITION. CALL LIGHT WITHIN REACH. WILL CONTINUE TO MONITOR.
[2019-07-28 08:00] VITALS: BP 104/66
[2019-07-28] MEDS: LISINOPRIL (10MG) 10 MG TABLET GT SCH (09:00)
[2019-07-28] MEDS: PANTOPRAZOLE 40 MG/PACK PACK GT SCH (09:05)
[2019-07-28] MEDS: Z GUARD REMEDY 2 OZ OINT TP SCH (09:12)
[2019-07-28] MEDS: CLOTRIMAZOLE 1% 15 GM TUBE TP SCH ×2 (09:12→17:37)
[2019-07-28 12:00] VITALS: BP 120/68
[2019-07-28 16:00] VITALS: BP 112/60
--- NOTE | 2019-07-28 17:23 | NUR ---
VENEER JOINTER HELPER NOTE PATIENT TEMPERATURE 99.8, IMPLEMENTED COOLING MEASURES.
[2019-07-28] MEDS: JEVITY 1.2 CAL 1,000 ML BOTTLE GT PRN (18:10)
--- NOTE | 2019-07-28 19:17 | NUR ---
FOLDER MACHINE ADJUSTER CLOSING NOTES PATIENT IN BED RESTING COMFORTABLY. PATIENT IN NO ACUTE DISTRESS. NO SOB NOTED. PATIENT BREATHING IS EVEN AND UNLABORED. PATIENT ON CARDIAC MONITORING READING AFIB HR 81. PATIENT NOTED WITH BILATERAL SOFT WRIST RESTRAINTS, WITH GOOD CIRCULATION NOTED. GTUBE PATENT AND INTACT. PATIENT BED ALARM IS ON. HOB IS ELEVATED. PATIENT TURNED AND REPOSITIONED Q2H. PATIENT KEPT CLEAN, DRY AND COMFORTABLE THROUGHOUT SHIFT. PATIENT SAFETY PRECAUTIONS IN PLACE. PATIENT BED IS LOCKED AND IN LOWEST POSITION. CALL LIGHT WITHIN REACH. WILL ENDORSE CARE TO PM SHIFT FOR FABIOLA.
--- NOTE | 2019-07-28 19:18 | NUR ---
RN OPENING NOTES Received patient asleep, easily awaken. A/O x1. On O2 inhalation via NC @ 2LPM, saturating well, no SOB/respiratory distress noted. With GTF infusing well, no abdominal distention, no N/V noted. With bilateral soft wrist restraints as ordered, patient noted confused and pulling off lines and tube. On tele monitor with controlled A-Fib noted. Kept on bed clean, dry and comfortable. On fall and aspiration precautions. Will continue to monitor accordingly.
[2019-07-28 20:00] VITALS: BP 102/52
[2019-07-29] VITALS: BP 106/71
[2019-07-29] MEDS: DILTIAZEM HCL 30 MG TABLET GT SCH ×4 (00:42→17:16)
[2019-07-29 04:00] VITALS: BP_SYST 114; BP_DIAS 86; BP_DIAS 90
--- NOTE | 2019-07-29 06:51 | NUR ---
RN CLOSING NOTES Patient asleep, easily awaken. No s/sx of distress noted at this time. All nursing needs attended. Due meds given as ordered. No new unusualities noted. Kept on bed clean, dry and comfortable. On fall and aspiration precautions.
[2019-07-29 08:00] VITALS: BP 112/64
--- NOTE | 2019-07-29 08:00 | NUR ---
RN NOTES RECEIVED PATIENT ISOLATION OF COVID, ON O2-2L NC. NO ACUTE RESPIRATORY DISTRESS, PATIENT CONFUSED TOTAL CARE. GTF TOLERATED 60 ML/HR, RESIDUAL, AND PLACEMENT CHECKED. KEEP HOB ELEVATED FOR ASPIRATION PRECAUTION, ADMINISTERED SCHEDULED MEDS VIA GT. FLASHED 200 ML OF WATER PER MD ORDER Q 6 HR. F/C DRAINING LIGHT YELLOW OUTPUT, ASSIST TURN AND REPOSTION Q 2 HR, CHECKED WRIST SOFT RESTRAIN FOR CIRCULATION, CALL LIGHT WITHIN TO REACH. CONTINUED MONITORING.
[2019-07-29] MEDS: LISINOPRIL (10MG) 10 MG TABLET GT SCH (10:39)
[2019-07-29] MEDS: PANTOPRAZOLE 40 MG/PACK PACK GT SCH (10:39)
[2019-07-29] MEDS: Z GUARD REMEDY 2 OZ OINT TP SCH (10:40)
[2019-07-29] MEDS: CLOTRIMAZOLE 1% 15 GM TUBE TP SCH ×2 (10:40→17:15)
[2019-07-29] MEDS: LORAZEPAM INJ 2 MG/ML VIAL IV PRN (10:52)
--- NOTE | 2019-07-29 10:52 | NUR ---
rn notes administered Ativan 1 mg/ml iv push for yelling, paranoia, v/s taken bp 112/64,, p-85. continued monitoring.
--- NOTE | 2019-07-29 13:00 | NUR ---
RN NOTES MEDICATION WERE ADMINISTERED EFFECTIVE ASSIST TURN AND REPOSTION Q 2 HR. CONTINUED MONITORING.
[2019-07-29 16:00] VITALS: BP 115/71
[2019-07-29] MEDS: JEVITY 1.2 CAL 1,000 ML BOTTLE GT PRN (17:17)
--- NOTE | 2019-07-29 18:00 | NUR ---
RN NOTES PATIENT STABLE, INFUSING D5NS 60 ML/HR, STABLE, ASSIST TURN AND REPOSITION Q2 HR, KEEP HOB ELEVATED, ENDORSED ONCOMING NURSE FOLLOW PLAN OF CARE.
[2019-07-29 20:19] VITALS: BP 128/53
[2019-07-29 20:22] VITALS: BP 128/53
[2019-07-30] MEDS: DILTIAZEM HCL 30 MG TABLET GT SCH ×5 (00:10→23:45)
[2019-07-30 04:00] VITALS: BP 127/76
--- NOTE | 2019-07-30 05:48 | NUR ---
ENDING NOTES: SLEPT THRU THE NIGHT EASILY AWAKENED WHEN WHEN WE WOULD WAKEN HIM TO BE REPOSITIONED OR CHANGED D/T INCONTINENCE. SLEEPS WITH HIS MOUTH OPEN, D/T DRY MOUTH ORAL CARE GIVEN FREQ. RETRAINTS ON D/T NOTED HE WILL REACH FOR HIS PAGE CATHETER. IM AFRAID HE WOULD FIND HIS PEG OR MIDLINE AND HE WOULD PULL
[2019-07-30 06:54] LABS: BASOPHILS # (AUTO) 0.1 /CMM (0.0-0.2); BASOPHILS % (AUTO) 0.9 % (0.0-2.0); EOSINOPHILS % (AUTO) 4.9 % (0.0-6.0); HEMATOCRIT 31 % (39-51); HEMOGLOBIN 10.3 g/dL (13.5-17.5); LYMPHOCYTES # (AUTO) 0.7 /CMM (0.8-4.8); LYMPHOCYTES % (AUTO) 11.6 % (20.0-44.0); MEAN CORPUSCULAR HGB CONC 33 g/dl (31.0-36.0); MEAN CORPUSCULAR VOLUME 93 fL (80-96); MONOCYTES # (AUTO) 0.5 /CMM (0.1-1.30); MONOCYTES % (AUTO) 8.2 % (2.0-12.0); NEUTROPHILS # (AUTO) 4.5 /CMM (1.8-8.9); NEUTROPHILS % (AUTO) 74.4 % (43.0-81.0); PLATELET COUNT (AUTO) 140 /CMM (150-450); RED BLOOD CELL COUNT(AUTO) 3.35 MIL/uL (4.5-6.0); WHITE BLOOD COUNT (AUTO) 6.1 K/uL (4.3-11.0)
[2019-07-30 07:23] LABS: CALCIUM, SERUM 8.9 mg/dL (8.5-10.1); MAGNESIUM 2.2 mg/dL (1.8-2.4); PHOSPHORUS 2.7 mg/dL (2.5-4.9); POTASSIUM 4.2 mmol/L (3.5-5.1)
[2019-07-30 08:00] VITALS: BP 117/72
[2019-07-30] MEDS: LISINOPRIL (10MG) 10 MG TABLET GT SCH (09:07)
[2019-07-30] MEDS: PANTOPRAZOLE 40 MG/PACK PACK GT SCH (09:07)
[2019-07-30] MEDS: CLOTRIMAZOLE 1% 15 GM TUBE TP SCH ×2 (09:17→17:44)
[2019-07-30] MEDS: Z GUARD REMEDY 2 OZ OINT TP SCH (09:18)
[2019-07-30] MEDS: ENOXAPARIN SODIUM 40 MG/0.4 ML DISP.SYRIN SQ SCH (10:22)
[2019-07-30 16:00] VITALS: BP 129/75
--- NOTE | 2019-07-30 18:40 | NUR ---
RN NOTES Patient resting in bed comfortably in moderate high back rest. alert and orientedX1 and confused. Respiration is normal in 2 L NC. S/s of distress noted throughout the shift. JULIA midline is clean, intact, patent and flush without resistance, SL. Tele monitor showed A-fib Hr at 70's bpm. Mccloud cath is intact, patent and draining yellow urine. Bilateral soft wrist restraint are intact, skin is warm to touch and circulation will be check Q 2 hr. Gtube feeding is intact, patent and infusing well jevity 1.2 monster @ 60 ml/hr. Droplet and contact precautions are maintained. Safety precautions in place. Bed at low position, brakes locked, side rails upX3 and call light is within reach. Will endorse to etcher machine nurse for darvin.
--- NOTE | 2019-07-30 19:00 | NUR ---
RECIEVED PATIENT IN BED. ALERT AND ORIENTATED X1. NOTED BILATERAL SOFT WRIST RESTRAINTS. ISOLATION MAINTAINED FOR COVID + TV ON FOR THE PATIENT. PEG FEEDING INFUSING AT 69 ML HR.
[2019-07-30] MEDS: JEVITY 1.2 CAL 1,000 ML BOTTLE GT PRN (19:39)
[2019-07-30 20:19] VITALS: BP 104/67
[2019-07-31] MEDS: DILTIAZEM HCL 30 MG TABLET GT SCH ×3 (05:49→17:26)
--- NOTE | 2019-07-31 05:55 | NUR ---
ENDING NOTES: MR. MORALES IS CALM AND QUIET. SLEEP WITH HIS MOUTH OPEN, ORAL CARE NEEDED FREQ. PAGE OUT PUT THIS 12 HOURS 400 ML. NO RESIDUAL FROM THE GT PEG FEEDING AT 60 ML HOURS ASP PRECAUTIONS.
--- NOTE | 2019-07-31 07:32 | NUR ---
RN NOTES Received Pt resting in bed comfortably in moderate high back rest. Alert and orientedX1 and confused. Respiration is normal in 2 L NC. S/s of distress noted at this time. JULIA midline is clean, intact, patent and flush without resistance, SL. Tele monitor showed A-fib Hr at 90's bpm. Mccloud cath is intact, patent and draining yellow urine. Bilateral soft wrist restraint are intact, skin is warm to touch and circulation will be check Q 2 hr. Gtube feeding is intact, patent and infusing well jevity 1.2 monster @ 60 ml/hr. Droplet and contact precautions are maintained. Safety precautions in place. Bed at low position, brakes locked, side rails upX3 and call light is within reach. Will continue to monitor.
[2019-07-31 08:00] VITALS: BP 127/74
[2019-07-31] MEDS: LISINOPRIL (10MG) 10 MG TABLET GT SCH (09:09)
[2019-07-31] MEDS: PANTOPRAZOLE 40 MG/PACK PACK GT SCH (09:09)
[2019-07-31] MEDS: ENOXAPARIN SODIUM 40 MG/0.4 ML DISP.SYRIN SQ SCH (09:14)
[2019-07-31] MEDS: Z GUARD REMEDY 2 OZ OINT TP SCH (09:19)
[2019-07-31] MEDS: CLOTRIMAZOLE 1% 15 GM TUBE TP SCH ×2 (09:19→16:33)
[2019-07-31 12:00] VITALS: BP 119/71
[2019-07-31 16:00] VITALS: BP 124/75
--- NOTE | 2019-07-31 18:34 | NUR ---
RN NOTES Patient resting in bed comfortably in moderate high back rest. alert and orientedX1 and confused. Respiration is normal in 2 L NC. S/s of distress noted throughout the shift. JULIA midline is clean, intact, patent and flush without resistance, SL. Tele monitor showed A-fib Hr at 70's bpm. Mccloud cath is intact, patent and draining yellow urine. Bilateral soft wrist restraint are intact, skin is warm to touch and circulation will be check Q 2 hr. Gtube feeding is intact, patent and infusing well jevity 1.2 monster @ 60 ml/hr. Droplet and contact precautions are maintained. Safety precautions in place. Bed at low position, brakes locked, side rails upX3 and call light is within reach. Will endorse to shift superintendent nurse for darvin.
[2019-07-31] MEDS: JEVITY 1.2 CAL 1,000 ML BOTTLE GT PRN (18:58)
--- NOTE | 2019-07-31 23:29 | NUR ---
MS2/RN PATIENT IS SLEEPING AT THIS TIME, APPEAR COMFORTABLE, NO SIGNS OF DISTRESS NOTED, CALL LIGHT IN REACH. WILL CONTINUE TO MONITOR.
[2019-08-01] MEDS: DILTIAZEM HCL 30 MG TABLET GT SCH ×4 (00:32→17:01)
--- NOTE | 2019-08-01 06:12 | NUR ---
MS2/RN PATIENT IS STILL SLEEPING AT THIS TIME, APPEAR COMFORTABLE, NO DISTRESS NOTED, HOB ELEVATED, GT FEEDING INFUSING, ALL NEEDS ATTENDED AT THIS TIME, WILL CONTINUE TO MONITOR.
--- NOTE | 2019-08-01 07:40 | NUR ---
Tele/RN - Assessment Patient is resting in bed, awake, alert to self, confused, reality orientation given, afebrile, no s/s of pain, currently on supplemental oxygen at 2lpm via NC, SpO2 98%. Tele shows A.Fib with PVCs. JULIA Midline is patent, intact, with no signs of infiltration. Mccloud cath is intact, patent and draining yellow urine. Bilateral soft wrist restraint in place to prevent pulling out lines and tele box, monitored per protocol. GTF Jevity 1.2 monster @ 60 ml/hr tolerating it well, no residual. No labs today. Fall, aspiration, contact and droplet precautions maintained for positive Covid-19. Will continue with current plan of care.
[2019-08-01 08:00] VITALS: BP 129/77
[2019-08-01] MEDS: PANTOPRAZOLE 40 MG/PACK PACK GT SCH (08:14)
[2019-08-01] MEDS: ENOXAPARIN SODIUM 40 MG/0.4 ML DISP.SYRIN SQ SCH (08:14)
[2019-08-01] MEDS: LISINOPRIL (10MG) 10 MG TABLET GT SCH (09:03)
[2019-08-01] MEDS: Z GUARD REMEDY 2 OZ OINT TP SCH (09:04)
[2019-08-01] MEDS: CLOTRIMAZOLE 1% 15 GM TUBE TP SCH ×2 (09:04→16:30)
[2019-08-01 12:00] VITALS: BP 147/77
[2019-08-01 16:00] VITALS: BP 115/71
--- NOTE | 2019-08-01 18:50 | NUR ---
Tele/RN - End of shift notes No new events seen, remain afebrile, no s/s of distress, denies pain, stable on oxygen at 2lpm via NC, SpO2 97%, tele shows A.Fib. All needs attended. Awaiting for placement. Will continue with current plan of care.
--- NOTE | 2019-08-01 19:35 | NUR ---
SENIOR STATISTICAL PROGRAMMER OPENING NOTES PATIENT SLEEPING IN BED, EASY TO AWAKEN. A/OX1. ON 2L NC. NO S/S OF ACUTE RESPIRATORY DISTRESS OR PAIN NOTED. TELE MONITOR READING AFIB, HEART RATE 92. DROPLET/CONTACT PRECAUTIONS IN PLACE FOR POSITIVE COVID 19. BILATERAL SOFT WRIST RESTRAINTS PRESENT FOR PATIENT SAFETY; SKIN CIRCULATION WNL. GTUBE FEEDING PRESENT WITH JEVITY RUNNING AT 60 ML/HR, TOLERATING WELL. RIGHT UPPER ARM MIDLINE PRESENT, INTACT & PATENT, HEP LOCKED. PAGE CATH PRESENT AND DRAINING WELL. SAFETY MEASURES IN PLACE AND PATIENT'S NEEDS MET. BED LOCKED, ALARM ON, HOB ELEVATED, SIDE RAILS X3, CALL LIGHT WITHIN REACH. WILL CONTINUE TO MONITOR.
[2019-08-01 20:00] VITALS: BP 120/69
[2019-08-01 20:44] VITALS: BP 120/69
[2019-08-02] VITALS (9 sets, daily range): BP systolic 111–138; BP diastolic 68–88
--- NOTE | 2019-08-02 | NUR ---
DIRECTOR OF SCIENTIFIC RESEARCH NOTES PATIENT SLEEPING INTERMITTENTLY. NO S/S OF ACUTE RESPIRATORY DISTRESS OR PAIN NOTED. SPO2 100% ON 2L NC. TELE MONITOR READING AFIB, HEART RATE 97. WILL CONTINUE TO MONITOR.
[2019-08-02] MEDS: DILTIAZEM HCL 30 MG TABLET GT SCH ×4 (00:19→17:57)
[2019-08-02] MEDS: JEVITY 1.2 CAL 1,000 ML BOTTLE GT PRN (01:24)
--- NOTE | 2019-08-02 06:42 | NUR ---
GASOLINE PUMP MECHANIC CLOSING NOTES PATIENT AWAKE IN BED. A/OX1. ON 2L NC. NO S/S OF ACUTE RESPIRATORY DISTRESS OR PAIN NOTED. TELE MONITOR READING AFIB, HEART RATE 88. DROPLET/CONTACT PRECAUTIONS REMAIN IN PLACE FOR POSITIVE COVID 19. BILATERAL SOFT WRIST RESTRAINTS PRESENT FOR PATIENT SAFETY; SKIN CIRCULATION WNL. SAFETY MEASURES IN PLACE AND PATIENT'S NEEDS MET. BED LOCKED, ALARM ON, HOB ELEVATED, SIDE RAILS X3, CALL LIGHT WITHIN REACH. WILL ENDORSE TO DAY SHIFT NURSE PLAN OF CARE.
--- NOTE | 2019-08-02 07:15 | NUR ---
Tele/RN - Assessment Patient is awake, alert to self, confused, reality orientation given, afebrile, no s/s of pain, currently on supplemental oxygen at 2lpm via NC, SpO2 97%. Tele shows A.Fib. Bilateral soft wrist restraint in place to prevent pulling out his Mccloud, midline and tele box, monitored per protocol. JULIA Midline is patent, intact, with no signs of infiltration. Mccloud cath is intact, patent and draining yellow urine. GTF Jevity 1.2 monster @ 60 ml/hr tolerating it well, no residual. No labs today. Fall, aspiration, contact and droplet precautions maintained for positive Covid-19. Will continue with current plan of care.
[2019-08-02] MEDS: ENOXAPARIN SODIUM 40 MG/0.4 ML DISP.SYRIN SQ SCH (08:11)
[2019-08-02] MEDS: LISINOPRIL (10MG) 10 MG TABLET GT SCH (08:11)
[2019-08-02] MEDS: PANTOPRAZOLE 40 MG/PACK PACK GT SCH (08:11)
[2019-08-02] MEDS: Z GUARD REMEDY 2 OZ OINT TP SCH (08:12)
[2019-08-02] MEDS: CLOTRIMAZOLE 1% 15 GM TUBE TP SCH ×2 (08:12→16:16)
--- NOTE | 2019-08-02 18:57 | NUR ---
Tele/RN - End of shift notes No new events seen, remain afebrile, no s/s of distress, denies pain, stable on oxygen at 2lpm via NC, SpO2 98%, tele shows A.Fib, on bilateral soft wrist restraints to prevent pulling out midline, GT, and oxygen tubing. All needs attended. Awaiting for placement. Will continue with current plan of care.
--- NOTE | 2019-08-02 19:00 | NUR ---
PATIENT HAS PINKISH RASHES ON THE MID LEFT SIDE OF THE TRUNK AND ON THE BACK.
--- NOTE | 2019-08-02 19:00 | NUR ---
CAFE OPERATOR OPENING NOTES: PATIENT IN BED AWAKE, CONFUSED. HOB ELEVATED AT ALL TIMES. NO SOB NOTED. NOT IN PAIN. WITH G-TUBE FEEDING RUNNING AT 60ML/HOUR, NO RESIDUAL NOTED, DRESSING CHANGED. WITH SMALL AMOUNT OF DRIED BLACKISH DRAIN. NO LEAKING ON THE SITE, NO SKIN REDNESS NOTED. PATIENT HAD BM, SOFT BROWNISH COLOR SMALL AMOUNT OF STOOL. WITH BLANCHABLE REDNESS ON THE SACRAL AREA, Z- GUARD APPLIED AND COVERED WITH MEPILEX FOAM DRESSING. BILATERAL HEELS INTACT WITH BLANCHABLE REDNESS MEPILEX FOAM APPLIED AND OFFLOADED. TURNED THE PATIENT TO THE LEFT SIDE WITH PILLOW. WITH BILATERAL SOFT WRISTS RESTRAINTS, SKIN IS WNL. WITH PAGE CATHETER INTACT DRAINING CLEAR YELLOW URINE.BED ALARM ON. BED IN LOWEST AND LOCKED POSITION. COVID ISOLATION OBSERVED AT ALL TIMES.
[2019-08-03] VITALS (7 sets, daily range): BP systolic 104–136; BP diastolic 46–87
[2019-08-03] MEDS: DILTIAZEM HCL 30 MG TABLET GT SCH ×4 (01:04→18:06)
--- NOTE | 2019-08-03 06:24 | NUR ---
RN CLOSING NOTES: PATIENT IN BED ASLEEP. NO SOB. NOT IN PAIN. BED ALARM ON. BED IN LOWEST AND LOCKED POSITION. CALL LIGHT WITHIN REACH. TURNED AND REPOSITIONED, HEELS OFFLOADED. SKIN ON BOTH WRISTS WITH RESTRAINTS IS WNL. HAD BM AGAIN TODAY WITH BROWNISH SOFT SMALL AMOUNT OF STOOL. PERINEAL CLEANSED WITH SOAP AND WATER, RINSED AND DRIED WELL AND APPLIED LOTRIMIN CREAM AND Z-GUARD CREAM. MEPILEX FOAM DRESSING APPLIED ON THE SACRAL AREA. HOB ELEVATED AT ALL TIMES. WITH G-TUBE FEEDING AT 60ML/HOUR. NO RESIDUAL NOTED.
--- NOTE | 2019-08-03 07:25 | NUR ---
TELEVISION ACTOR OPENING NOTES RECEIVED PT IN BED, ASLEEP, EASILY AROUSED, A/O X1. PT ON SUPPLEMENTARY OXYGEN AT 2LPM VIA NC, WITH NO ACUTE RESPIRATORY DISTRESS NOTED. PT EXHIBITING ANY PAIN OR DISCOMFORT AT THIS TIME. ON TELEMONITORING CONTROLLED AFIB 82. PIV TO JULIA MIDLINE, FLUSH WITH NS, INTACT AND OPERATIONAL. ON GOING GT FEEDING OF JEVITY 1.2 AT 60 ML/HR, NO RESIDUALS NOTED. FC IN PLACE WITH YELLOW URINE IN THE BAG. PT KEPT COMFORTABLE IN BED. HOB ELEVATED. CALL LIGHT KEPT WITHIN REACH. PT'S BED IN LOWEST, LOCKED POSITION WITH SR X3. WILL CONTINUE PLAN OF CARE.
--- NOTE | 2019-08-03 07:41 | NUR ---
WOUND CARE CONSULT: REVIEWED CHART, PHOTO DOCUMENTATION, NURSING DOCUMENTATION AND SPOKE WITH NURSING STAFF. RASHES NOTED TO PERINEUM, GROIN AND BUTTOCKS AREAS IN PHOTOS. RECOMMENDATIONS MADE FOR SKIN CARE ANED PROTECTION. DISCUSSED WITH NURSING STAFF. THERE IS RED SKIN LESION TO LEFT FLANK AREA, UNKNOWN ETIOLOGY. DEFER TO PMD/I.D. CURRENTLY ON CASE. RN TO DISCUSS WITH MD TODAY. PT ON ABIGAIL ISOFLEX LOW AIRLOSS BED. ALL SKIN PROTECTION MEASURES IN PLACE. WILL SEE PRN. IN AGREEMENT WITH PLAN OF CARE.
[2019-08-03] MEDS: LISINOPRIL (10MG) 10 MG TABLET GT SCH (09:15)
[2019-08-03] MEDS: PANTOPRAZOLE 40 MG/PACK PACK GT SCH (09:15)
[2019-08-03] MEDS: ENOXAPARIN SODIUM 40 MG/0.4 ML DISP.SYRIN SQ SCH (09:18)
[2019-08-03] MEDS: CLOTRIMAZOLE 1% 15 GM TUBE TP SCH ×4 (09:19→16:34)
[2019-08-03] MEDS: Z GUARD REMEDY 2 OZ OINT TP SCH (09:20)
--- NOTE | 2019-08-03 18:46 | NUR ---
CNA GNA CLOSING NOTES PT REMAINS IN BED, ASLEEP, EASILY AROUSED, A/O X1. PT ON SUPPLEMENTARY OXYGEN AT 2LPM VIA NC, WITH NO ACUTE RESPIRATORY DISTRESS NOTED. PT EXHIBITING ANY PAIN OR DISCOMFORT AT THIS TIME. ON TELEMONITORING CONTROLLED AFIB 86. PIV TO JULIA MIDLINE, FLUSH WITH NS, INTACT AND OPERATIONAL. ON GOING GT FEEDING OF JEVITY 1.2 AT 60 ML/HR, NO RESIDUALS NOTED. FC IN PLACE WITH YELLOW URINE IN THE BAG, OUTPUT 600ML. PT KEPT COMFORTABLE IN BED. HOB ELEVATED. ALL NEEDS AND CARE ATTENDED AND PROVIDED. CALL LIGHT KEPT WITHIN REACH. PT'S BED IN LOWEST, LOCKED POSITION WITH SR X3. WILL ENDORSE TO INCOMING NIGHT NURSE FOR FABIOLA.
--- NOTE | 2019-08-03 19:15 | NUR ---
adjunct professor of voice opening notes Received Pt from morning nurse. Pt is resting in bed comfortably. Pt is alert and orientedX1. Respiration is normal in 2 L NC. No SOB. No S/S of distress noted. Tele monitor showed controlled afib HR at 83 bpm. JULIA midline is clean, intact, patent and flush without resistance. G tube feeding is clean, intact and infusing well Jevity 1.2 monster @ 60 ml/hr. Pt tolerated well. Mccloud cath is intact, patent and draining yellow urine. Bilateral soft wrist restraints are intact, skin is warm to touch and circulation is check q 2hr. turn and reposition Q 2 HR. Isolation precautions is maintained. Safety precautions is maintained. Bed at low position, brakes locked, HOB elevated, side rails upX3 and call light is within reach. Will continue to monitor.
[2019-08-03] MEDS: VALACYCLOVIR HCL 500 MG TABLET GT SCH (20:47)
[2019-08-03] MEDS: LORAZEPAM INJ 2 MG/ML VIAL IV PRN (21:47)
--- NOTE | 2019-08-03 21:47 | NUR ---
tooth cutter pinion notes Pt is screaming, yelling and kicking. Administered ativan 1 mg/iv push as ordered. Vs is stable. Safety precautions is maintained. Will continue to monitor.
[2019-08-04] VITALS (7 sets, daily range): BP systolic 98–152; BP diastolic 59–89
[2019-08-04] MEDS: DILTIAZEM HCL 30 MG TABLET GT SCH ×5 (00:09→23:29)
[2019-08-04] MEDS: JEVITY 1.2 CAL 1,000 ML BOTTLE GT PRN (01:37)
[2019-08-04] MEDS: VALACYCLOVIR HCL 500 MG TABLET GT SCH ×3 (04:46→20:49)
--- NOTE | 2019-08-04 07:02 | NUR ---
paper twister closing notes Pt is resting in bed comfortably. Pt is alert and orientedX1. Respiration is normal in 2 L NC. No SOB. No S/S of distress noted. Tele monitor showed controlled afib HR at 80 bpm. VS is stable. Afebrile. JULIA midline is clean, intact, patent and SL. Routine meds were given as ordered. G tube feeding is clean, intact and infusing well Jevity 1.2 monster @ 60 ml/hr. Mccloud cath is intact, patent and draining yellow urine. Bilateral soft wrist restraints are intact, skin is warm to touch and circulation is check Q 2hr. Skin care and wound care provided. Turned and repositioned Q 2 HR. Isolation precautions is maintained. All needs met and attended. Safety precautions is maintained. Bed at low position, brakes locked, HOB elevated, side rails upX3 and call light is within reach. Will endorse to morning nurse for FABIOLA.
--- NOTE | 2019-08-04 08:00 | NUR ---
TECHNICAL WRITER OPENING NOTES RECEIVED PT IN BED AWAKE IN BED. A/OX1. ON 2L NC;SATURATING AT 97%. NO CARDIAC OR RESPIRATORY DISTRESS NOTED. NO COMPLAINTS OF PAIN OR DISCOMFORT. TELE MONITOR READING AFIB, HEART RATE 80S. RIGHT UPPER ARM MIDLINE PRESENT, INTACT & PATENT, FLUSHING WELL. BILATERAL SOFT WRIST RESTRAINTS PRESENT, SKIN CIRCULATION WNL. NO S/S OF SKIN BREAKDOWN UNDER RESTRAINTS NOTED. PAGE CATH PRESENT, INTACT AND PATENT AND DRAINING WELL. DROPLET/CONTACT PRECAUTIONS IN PLACE FOR POSITIVE COVID 19 AND SHINGLES. SAFETY MEASURES IN PLACE AND PATIENT'S NEEDS MET. BED LOCKED, ALARM ON, SIDE RAILS UP, CALL LIGHT WITHIN REACH. WILL CONTINUE TO MONITOR.
[2019-08-04] MEDS: ENOXAPARIN SODIUM 40 MG/0.4 ML DISP.SYRIN SQ SCH (08:23)
[2019-08-04] MEDS: LISINOPRIL (10MG) 10 MG TABLET GT SCH (08:26)
[2019-08-04] MEDS: CLOTRIMAZOLE 1% 15 GM TUBE TP SCH ×4 (08:27→17:10)
[2019-08-04] MEDS: PANTOPRAZOLE 40 MG/PACK PACK GT SCH (08:27)
[2019-08-04] MEDS: LORAZEPAM INJ 2 MG/ML VIAL IV PRN ×2 (08:27→15:23)
[2019-08-04] MEDS: Z GUARD REMEDY 2 OZ OINT TP SCH (08:28)
--- NOTE | 2019-08-04 09:30 | NUR ---
ATIVAN PT COMBATIVE DURING ADL CARE. TRIES TO HIT AND BITE. REPOSITIONED FOR COMFORT. ATIVAN 1MG ADMINISTERED VIA IV. TOLERATED WELL.
--- NOTE | 2019-08-04 16:00 | NUR ---
ATIVAN PT WAS GIVEN ATIVAN EARLIER D/T AGITATION HE WAS SCREAMING AND YELLING AND WAS KICKING, PT APPEARS TO BE VERY RESTLESS. PT WAS REPOSITIONED FOR COMFORT. LOW STIMULATION PROVIDED. ATIVAN 1 MG ADMINISTERED, WAS NOTED TO BE EFFECTIVE SINCE PT CALMED DOWN AND FELL ASLEEP.
--- NOTE | 2019-08-04 18:37 | NUR ---
COMMUNITY SUPPORT ASSOCIATE CLOSING NOTES PT IN BED AWAKE IN BED. A/OX1. ON 2L NC;SATURATING AT 96%. NO CARDIAC OR RESPIRATORY DISTRESS NOTED. NO COMPLAINTS OF PAIN OR DISCOMFORT. TELE MONITOR READING AFIB, HEART RATE 80S. RIGHT UPPER ARM MIDLINE PRESENT, INTACT & PATENT, FLUSHING WELL. BILATERAL SOFT WRIST RESTRAINTS PRESENT, SKIN CIRCULATION WNL. RELEASED Q2 HRS. NO S/S OF SKIN BREAKDOWN UNDER RESTRAINTS NOTED. PAGE CATH PRESENT, INTACT AND PATENT AND DRAINING WELL. DROPLET/CONTACT PRECAUTIONS IN PLACE FOR POSITIVE COVID 19 AND SHINGLES. ALL NEEDS ATTENDED. KEPT PT CLEAN AND COMFORTABLE. 1 BM NOTED THIS SHIFT. SAFETY MEASURES IN PLACE AND PATIENT'S NEEDS MET. BED LOCKED, ALARM ON, SIDE RAILS UP, CALL LIGHT WITHIN REACH. WILL ENDORSE TO NEXT SHIFT.
--- NOTE | 2019-08-04 19:30 | NUR ---
UPLANDS DIVISION DIRECTOR NOTES RECEIVED ON BED A/OX 1, CONFUSED.BREATHING REGULAR,NOT IN ANY FORM OF DISTRESS.ISOLATION PRECAUTION OBSERVED FOR COVID 19 POSITIVE.ON BILATERAL SOFT WRIST RESTRAINTS FOR SAFETY,ATTEMPTING TO PULL OUT TUBINGS.PAGE CATH IN PLACE DRAINING YELLOWISH OUTPUT.GT FEEDING OF NEPRO AT 60ML/HR RATE TOLERATED WELL.NO DIARRHEA NOTED.NO RESIDUAL VOLUME NOTED.HOB ELEVATED FOR ASPIRATION PRECAUTION.DNR/DNI STATUS.WILL CONTINUE TO MONITOR STATUS. Addendum: 08/05/19 at 0543 by SILVIO LUONG RN ON JEVITY FEEDING AT 60ML/HR RATE VIA GT.NOT NEPRO.
--- NOTE | 2019-08-05 02:00 | NUR ---
GAS LINE INSTALLER SUPERVISOR NOTES REPOSITION TO LEFT SIDE BUT HE ALWAYS GO BACK TO SUPINE POSITION.
[2019-08-05 04:00] VITALS: BP 124/71
[2019-08-05] MEDS: VALACYCLOVIR HCL 500 MG TABLET GT SCH ×3 (04:57→21:05)
[2019-08-05] MEDS: DILTIAZEM HCL 30 MG TABLET GT SCH ×3 (05:33→17:58)
--- NOTE | 2019-08-05 06:34 | NUR ---
TREASURY SPECIALIST NOTES NO SIGNIFICANT CHANGE IN STATUS,REMAINS AFEBRILE,GT FEEDING TOLERATED WELL,MAINTAIN ISOLATION PRECAUTION FOR COVID 19 POSITIVE,IN NO ACUTE DISTRESS.WILL ENDORSE TO DAY NURSE FOR FABIOLA
--- NOTE | 2019-08-05 07:00 | NUR ---
BARREL BANDER NOTES PATIENT IN BED ALERT ORIENTED X 1 . NO ACUTE DISTRESS NOTED. BREATHING UNLABORED. NO SOB NOTED. IV ACCESS PATENT AND INTACT, NO REDNESS, NO SWELLING NOTED. GT FEEDING PATENT AND INTACT RUNNING ORDERED FEEDING. PAGE CATHETER INTACT DRAINING WELL. SAFETY MEASURES IN PLACE. CALL LIGHT WITHIN REACH. WILL ENDORSE TO NIGHT NURSE FOR CONTINUITY OF CARE. Addendum: 08/05/19 at 1119 by ABIGAIL BANG RN DISREGARD ABOVE NOTES- WRONG ENTRY
--- NOTE | 2019-08-05 07:05 | NUR ---
SOUND EFFECTS PERSON NOTES PATIENT IN BED ALERT ORIENTED X 1 . NO ACUTE DISTRESS NOTED. BREATHING UNLABORED. NO SOB NOTED. IV ACCESS PATENT AND INTACT, NO REDNESS, NO SWELLING NOTED. GT FEEDING PATENT AND INTACT RUNNING ORDERED FEEDING. PAGE CATHETER INTACT DRAINING WELL. SAFETY MEASURES IN PLACE. CALL LIGHT WITHIN REACH. WILL CONTINUE TO MONITOR ACCORDINGLY.
[2019-08-05 08:00] VITALS: BP 105/58
[2019-08-05] MEDS: PANTOPRAZOLE 40 MG/PACK PACK GT SCH (08:59)
[2019-08-05] MEDS: JEVITY 1.2 CAL 1,000 ML BOTTLE GT PRN (08:59)
[2019-08-05] MEDS: ENOXAPARIN SODIUM 40 MG/0.4 ML DISP.SYRIN SQ SCH (09:00)
[2019-08-05] MEDS: CLOTRIMAZOLE 1% 15 GM TUBE TP SCH ×4 (09:00→17:32)
[2019-08-05] MEDS: LISINOPRIL (10MG) 10 MG TABLET GT SCH (09:00)
[2019-08-05] MEDS: Z GUARD REMEDY 2 OZ OINT TP SCH (09:01)
[2019-08-05 12:00] VITALS: BP 129/72
[2019-08-05 16:00] VITALS: BP 117/70
--- NOTE | 2019-08-05 19:00 | NUR ---
FINISHING RANGE FEEDER NOTES PATIENT IN BED ALERT ORIENTED X 1 . NO ACUTE DISTRESS NOTED. BREATHING UNLABORED. NO SOB NOTED. IV ACCESS PATENT AND INTACT, NO REDNESS, NO SWELLING NOTED. GT FEEDING PATENT AND INTACT RUNNING ORDERED FEEDING. PAGE CATHETER INTACT DRAINING WELL.KEPT CLEAN DRY AND COMFORTABLE. REPOSITION EVERY 2 HOURS AND NEEDED. SAFETY MEASURES IN PLACE. CALL LIGHT WITHIN REACH. WILL ENDORSE TO NIGHT NURSE FOR CONTINUITY OF CARE.
[2019-08-05 20:00] VITALS: BP 119/68
--- NOTE | 2019-08-05 20:10 | NUR ---
SOLUTIONS DEVELOPMENT ANALYST: RECEIVED REPORT FROM ZEINA MAKI. PT COVID POSITIVE, ON ISOLATION, PPE UTILIZED. PT A/O X1, TRYING TO PULL OUT LINES AND GTUBE, CURRENTLY ON BILATERAL SOFT WRIST RESTRAINT, PT ABLE TO MOVE AND WIGGLE ARMS AND HANDS, RADIAL PULSES PALPABLE, GOOD CAPILLARY REFILL NOTED, NO S/S OF IMPEDIMENT IN CIRCULATION NOTED. PEG IN PLACED, ABDOMEN SOFT TO TOUCH WITH ACTIVE BOWEL SOUND HEARD UPON AUSCULTATION, NO RESIDUAL OBTAINED, GTUBE PATENCY CHECK, KEPT HOB 30 DEGREE, KEPT ON ASPIRATION PRECAUTIONS, ON TELE MONITORING AFIB HR 100. SAFETY PRECAUTIONS FOR FALL INITIATED, CALL LIGHT IN REACH, WILL CONTINUE MONITORING PT.
--- NOTE | 2019-08-05 23:23 | NUR ---
RN NOTES: NOTIFIED MD OF THE NEED FOR RESTRAINT, PT STILL PULLING OUT LINES NECESSARY FOR MEDICAL CARE, PT ALSO HAD PEG AND RECEIVING GTUBE FEEDING. PER MD TELEPHONE ORDER, OKAY TO RENEW BILATERAL SOFT WRIST RESTRAINT. ORDER READ BACK VERIFIED AND CARRIED OUT.
[2019-08-06] VITALS (7 sets, daily range): BP systolic 117–162; BP diastolic 69–84
[2019-08-06] MEDS: DILTIAZEM HCL 30 MG TABLET GT SCH ×5 (00:38→23:59)
[2019-08-06] MEDS: JEVITY 1.2 CAL 1,000 ML BOTTLE GT PRN ×2 (04:31→23:03)
[2019-08-06] MEDS: VALACYCLOVIR HCL 500 MG TABLET GT SCH ×3 (04:32→21:21)
--- NOTE | 2019-08-06 07:03 | NUR ---
END OF SHIFT REPORT: PT REMAINS ON BILATERAL SOFT WRIST RESTRAINT, NO S/S OF IMPEDIMENT IN CIRCULATION NOTED. IV ACCESS REMAINS PATENT AND FLUSHING WELL, ON HL. NO S/S OF IV INFILTRATION NOTED. PEG REMAINS IN PLACED, INFUSING WITH JEVITY AT 60ML/HR. PT TOLERATED GTUBE FEEDING WELL. KEPT ON COVID ISOLATION, PPE UTILIZED, KEPT ON OXYGEN. AM CARE AND WOUND CARE PROVIDED. REMAINS AFEBRILE THROUGHOUT THE SHIFT. TELE MONITORING, REMAINS ON AFIB HR PVC HR 70. VS REMAINS STABLE, NEEDS ATTENDED. SAFETY PRECAUTIONS FOR FALL REMAINS ENGAGED, CALL LIGHT IN REACH, ROUNDING PERFORMED, PPE UTILIZED, ENDORSED TO DAY GLYNN PASTRANA FOR FABIOLA.
--- NOTE | 2019-08-06 07:05 | NUR ---
TRACER LATHE SET UP OPERATOR NOTES PATIENT IN BED ALERT ORIENTED X 1 . NO ACUTE DISTRESS NOTED. BREATHING UNLABORED. NO SOB NOTED. IV ACCESS PATENT AND INTACT, NO REDNESS, NO SWELLING NOTED. GT FEEDING PATENT AND INTACT RUNNING ORDERED FEEDING. PAGE CATHETER INTACT DRAINING WELL. SAFETY MEASURES IN PLACE. CALL LIGHT WITHIN REACH. WILL CONTINUE TO MONITOR ACCORDINGLY.
[2019-08-06] MEDS: PANTOPRAZOLE 40 MG/PACK PACK GT SCH (09:12)
[2019-08-06] MEDS: LISINOPRIL (10MG) 10 MG TABLET GT SCH (09:13)
[2019-08-06] MEDS: ENOXAPARIN SODIUM 40 MG/0.4 ML DISP.SYRIN SQ SCH (09:14)
[2019-08-06] MEDS: Z GUARD REMEDY 2 OZ OINT TP SCH (09:16)
[2019-08-06] MEDS: CLOTRIMAZOLE 1% 15 GM TUBE TP SCH ×4 (09:16→18:05)
--- NOTE | 2019-08-06 19:50 | NUR ---
ARMOURED CAR ESCORT NOTES PATIENT IN BED, ALERT AND ORIENTED X 1. CONFUSED, [place]OREAN SPEAKING ONLY. BREATHING EVEN AND UNLABORED ON 2L NC. SHOWS NO SIGNS OF ACUTE RESPIRATORY DISTRESS, NO ACUTE PAIN. BILATERAL SOFT WRIST RESTRAINTS, SHOWS NO S/S OF POOR CIRCULATION, NO SKIN TEARS. TELE MONITOR AFIB. F/C IS CLEAN DRY AND INTACT. FLOWING YELLOW CLEAR URINE. GTUBE RUNNING JEVITY 1.2 AT 60ML/HR. NO RESIDUALS. IV JULIA MIDLINE IS CLEAN DRY AND INTACT. SHOWS NO SIGNS OF INFILTRATION, NO REDNESS. SAFETY PRECAUTIONS IN PLACE. BED IN LOWEST POSITION, LOCKED, AND CALL LIGHT KEPT WITHIN REACH. WILL CONTINUE TO MONITOR.
[2019-08-07] VITALS: BP 144/64
[2019-08-07 04:00] VITALS: BP 150/84
[2019-08-07] MEDS: DILTIAZEM HCL 30 MG TABLET GT SCH ×2 (05:06→12:47)
[2019-08-07] MEDS: VALACYCLOVIR HCL 500 MG TABLET GT SCH ×2 (05:06→12:47)
--- NOTE | 2019-08-07 06:31 | NUR ---
HEALTH OUTCOMES LIAISON NOTES PATIENT IN BED, ALERT AND ORIENTED X 1. CONFUSED, [place]AN[place] SPEAKING ONLY. BREATHING EVEN AND UNLABORED ON 2L NC. SHOWS NO SIGNS OF ACUTE RESPIRATORY DISTRESS, NO ACUTE PAIN. BILATERAL SOFT WRIST RESTRAINTS. SHOWS NO S/S OF POOR CIRCULATION, NO SKIN TEARS. TELE MONITOR AFIB. F/C IS CLEAN DRY AND INTACT. FLOWING YELLOW CLEAR URINE. GTUBE RUNNING JEVITY 1.2 AT 60ML/HR. NO RESIDUALS. IV JULIA MIDLINE IS CLEAN DRY AND INTACT. SHOWS NO SIGNS OF INFILTRATION, NO REDNESS. ALL DUE MEDICATIONS GIVEN. SAFETY PRECAUTIONS IN PLACE. BED IN LOWEST POSITION, LOCKED, AND CALL LIGHT KEPT WITHIN REACH. WILL ENDORSE TO ONCOMING NURSE.
--- NOTE | 2019-08-07 07:00 | NUR ---
RAIL MAINTENANCE WORKER OPENING NOTES PATIENT IN BED ALERT ORIENTED X 1 . NO ACUTE DISTRESS NOTED. BREATHING UNLABORED. NO SOB NOTED. IV ACCESS PATENT AND INTACT, NO REDNESS, NO SWELLING NOTED. GT FEEDING PATENT AND INTACT RUNNING ORDERED FEEDING. PAGE CATHETER INTACT DRAINING WELL. SAFETY MEASURES IN PLACE. CALL LIGHT WITHIN REACH. WILL CONTINUE TO MONITOR ACCORDINGLY.
[2019-08-07 08:00] VITALS: BP 139/67
[2019-08-07] MEDS: PANTOPRAZOLE 40 MG/PACK PACK GT SCH (09:18)
[2019-08-07] MEDS: CLOTRIMAZOLE 1% 15 GM TUBE TP SCH ×2 (09:19)
[2019-08-07] MEDS: LISINOPRIL (10MG) 10 MG TABLET GT SCH (09:19)
[2019-08-07] MEDS: Z GUARD REMEDY 2 OZ OINT TP SCH (09:20)
[2019-08-07 12:00] VITALS: BP 156/87
[2019-08-07] MEDS: LORAZEPAM INJ 2 MG/ML VIAL IV PRN (13:04)
--- NOTE | 2019-08-07 13:04 | NUR ---
CUSTOMER SUPPORT PROFESSIONAL NOTES PATIENT AGITATED , SCREAMING , KICKING AND RESTLESS. ATIVAN GIVEN ORDERED. PATIENT REPOSITIONED. SAFETY MEASURES IN PLACE. VITALS SIGNS WITHIN NORMAL LIMITS. WILL CONTINUE TO MONITOR PATIENT.
--- NOTE | 2019-08-07 15:00 | NUR ---
ADOPTION MANAGER NOTES PATIENT LYING IN BED , HEAD OF BED ELEVATED, CALM AT THIS TIME, OFF RESTRAINT, VITAL SIGNS REMAIN STABLE , ALERT ORIENTED X 1. SAFETY MEASURES IN PLACE. WILL CONTINUE TO MONITOR ACCORDINGLY..
--- NOTE | 2019-08-07 15:35 | NUR ---
MUSIC BOX MECHANIC NOTES RECEIVED NEW ORDER FROM DR SUMMER DURAN FOR DISCHARGE TO [facility], ORDER CLARIFIED AND READBACK WITH DR DURAN, NOTED AND CARRIED OUT.
[2019-08-07 16:00] VITALS: BP 118/73
--- NOTE | 2019-08-07 16:45 | NUR ---
CHANNEL CEMENTER NOTES CLARIFIED DISCHARGE MEDICATION RECONCILIATION WITH DR SUMMER DURAN, ORDERS CLARIFIED AND READ BACK WITH DR SUMMER DURAN.
--- NOTE | 2019-08-07 16:50 | NUR ---
CERTIFIED SCRUM MASTER NOTES PATIENT DISCHARGE TO [facility] WITH STABLE VITAL SIGN. NO ACUTE DISTRESS NOTED, BREATHING UNLABORED. NO SOB NOTED. DISCHARGE INSTRUCTIONS REPORT GIVEN TO ANYA MAKI OF [facility], VERBALIZED UNDERSTANDING. RIGHT UPPER ARM MIDLINE REMOVED, NO REDNESS, NO SWELLING , NO BLEEDING NOTED. PATIENT REFUSING PHOTO TAKEN , COMBATIVE MOVING HANDS AND LEGS. G TUBE INTACT AND PATENT , CLAMPED. PAGE CATHETER PATENT AND INTACT, DRAINING WELL WITH CLEAR AND YELLOW URINE. ALL BELONGINGS ACCOUNTED FOR. NEEDS ATTENDED AND ANTICIPATED. CLEAN DRY AND COMFORTABLE. PICKED UP VIA AMBULANCE IN A GURNEY, ACCOMPANIED BY 2 EMT PERSONNEL IN STABLE CONDITION. Addendum: 08/07/19 at 1837 by ABIGAIL BANG RN ADDENDUM: PATIENT WAS CALM AND COOPERATIVE WHEN PICKED UP BY EMT PERSONNEL. ALERT ORIENTED X 1.
== END 2019-08-07 16:50 | DRG 871 ==
LOC: ER 21:27 → MED 23:43 → TELE 06-01 01:21 → MED 06-01 08:11 → TELE 06-01 22:45 → MED 06-05 08:46 → TELE 06-05 08:46 → MED 06-07 10:34 → TELE 06-16 06:50 → MED 06-16 16:12 → TELE 06-17 01:38 → ICU 06-17 06:11 → TELE1 06-21 11:56 → MEDSG1 07-08 11:25 → TELE1 07-08 12:44 → TELE2 07-24 04:59
PROVIDERS: ADMIT Family Medicine; ATTEND Nurse Practitioner Acute Care
PROC: 0DH63UZ Insertion of Feeding Device into Stomach, Percutaneous Approach (ICD-10-PCS; principal; 2019-06-12)
PROC: 5A09357 Assistance with Respiratory Ventilation, Less than 24 Consecutive Hours, Continuous Positive Airway Pressure (ICD-10-PCS; 2019-06-17)
PROC: 0BH17EZ Insertion of Endotracheal Airway into Trachea, Via Natural or Artificial Opening (ICD-10-PCS; 2019-06-30)
PROC: 0DH63UZ Insertion of Feeding Device into Stomach, Percutaneous Approach (ICD-10-PCS; 2019-07-25)
DX: A41.89 Other specified sepsis (principal); U07.1 COVID-19; N17.0 Acute kidney failure with tubular necrosis; J96.01 Acute respiratory failure with hypoxia; G92 Toxic encephalopathy; I50.23 Acute on chronic systolic (congestive) heart failure; J12.89 Other viral pneumonia; R53.2 Functional quadriplegia; E46 Unspecified protein-calorie malnutrition; K80.10 Calculus of gallbladder with chronic cholecystitis without obstruction; E87.0 Hyperosmolality and hypernatremia; D68.9 Coagulation defect, unspecified; D68.59 Other primary thrombophilia; E87.1 Hypo-osmolality and hyponatremia; I13.0 Hypertensive heart and chronic kidney disease with heart failure and stage 1 through stage 4 chronic kidney disease, or unspecified chronic kidney disease; I42.9 Cardiomyopathy, unspecified; J98.11 Atelectasis; I47.1 Supraventricular tachycardia; B37.49 Other urogenital candidiasis; F05 Delirium due to known physiological condition; E87.2 Acidosis; K94.23 Gastrostomy malfunction; I48.91 Unspecified atrial fibrillation; R13.10 Dysphagia, unspecified; Z66 Do not resuscitate; E87.5 Hyperkalemia; B02.9 Zoster without complications; E86.0 Dehydration; E83.42 Hypomagnesemia; G20 Parkinson's disease; F02.80 Dementia in other diseases classified elsewhere, unspecified severity, without behavioral disturbance, psychotic disturbance, mood disturbance, and anxiety; N18.9 Chronic kidney disease, unspecified; R62.7 Adult failure to thrive; K29.80 Duodenitis without bleeding; K29.70 Gastritis, unspecified, without bleeding; K76.0 Fatty (change of) liver, not elsewhere classified; D69.6 Thrombocytopenia, unspecified; E83.52 Hypercalcemia; Z98.890 Other specified postprocedural states; Z79.51 Long term (current) use of inhaled steroids; Z79.82 Long term (current) use of aspirin; Z79.899 Other long term (current) drug therapy; E86.9 Volume depletion, unspecified; N40.0 Benign prostatic hyperplasia without lower urinary tract symptoms; I25.2 Old myocardial infarction; F41.9 Anxiety disorder, unspecified; F39 Unspecified mood [affective] disorder; D63.8 Anemia in other chronic diseases classified elsewhere; E78.5 Hyperlipidemia, unspecified; E03.9 Hypothyroidism, unspecified; M19.90 Unspecified osteoarthritis, unspecified site; M81.0 Age-related osteoporosis without current pathological fracture; I25.10 Atherosclerotic heart disease of native coronary artery without angina pectoris; I73.9 Peripheral vascular disease, unspecified; M48.02 Spinal stenosis, cervical region; M54.12 Radiculopathy, cervical region; R47.02 Dysphasia; N28.1 Cyst of kidney, acquired; R65.20 Severe sepsis without septic shock; Z74.01 Bed confinement status; Z87.891 Personal history of nicotine dependence; Z86.73 Personal history of transient ischemic attack (TIA), and cerebral infarction without residual deficits; I70.0 Atherosclerosis of aorta; Z86.711 Personal history of pulmonary embolism; K58.0 Irritable bowel syndrome with diarrhea; Z87.11 Personal history of peptic ulcer disease; K59.00 Constipation, unspecified; I71.4 Abdominal aortic aneurysm, without rupture; E87.6 Hypokalemia; G30.9 Alzheimer's disease, unspecified; D50.9 Iron deficiency anemia, unspecified; G31.9 Degenerative disease of nervous system, unspecified; Z91.81 History of falling; R27.8 Other lack of coordination; R41.3 Other amnesia; E86.1 Hypovolemia; F01.50 Vascular dementia, unspecified severity, without behavioral disturbance, psychotic disturbance, mood disturbance, and anxiety; I08.0 Rheumatic disorders of both mitral and aortic valves; F43.10 Post-traumatic stress disorder, unspecified; Y83.3 Surgical operation with formation of external stoma as the cause of abnormal reaction of the patient, or of later complication, without mention of misadventure at the time of the procedure; Y82.9 Unspecified medical devices associated with adverse incidents; Y92.89 Other specified places as the place of occurrence of the external cause
CPT/HCPCS: 31720; 36410; 36415; 36600; 43246; 70450-TC; 71045-TC; 76700-TC; 76856-TC; 80048-TC; 80053-TC; 80202-TC; 81000-TC; 82248-TC; 82550-TC; 82570-TC; 82803-TC; 82962-TC; 83540-TC; 83605-TC; 83735-TC; 83880; 83970; 84100-TC; 84153-TC; 84154-TC; 84155; 84155-TC; 84165; 84300-TC; 84443-TC; 85025-TC; 85610-TC; 85730-TC; 87040-TC; 87070-TC; 87081-TC; 87086-TC; 92521; 92526; 93307-TC; 93970-TC; 94660; 94799-TC; 95819-TC; 97110-TC; 97530-TC; A4216; A6403; A9563; G0378; J0456; J0690; J1120; J1630; J1650; J1815; J1940; J2060; J2185; J2543; J2704; J2916; J3370; J3475; J3480; J3490; J7030; J7040; J7042; J7050; J7060; J7070; P9047; U0003-CS